=== PATIENT | female | born 1930 | race Caucasian/White ===

== ENCOUNTER → 2016-09-03 | Outpatient (CLI) | payer MEDICARE ==
--- NOTE | 2016-09-03 13:03 | XR ---
EXAMINATION TYPE: XR cervical spine comp DATE OF EXAM: 09/03/2016 12:53 PM TECHNIQUE: Frontal, lateral, oblique, and open mouth view of the cervical spine are obtained. HISTORY: M54.2 cervicalgia COMPARISON: None FINDINGS: Osseous structures are demineralized which is noted to lower radiographic sensitivity for evaluation of anatomic detail. The cervical spine is visualized in its entirety from C1 thru the top of T1 level, there is reversal of normal cervical curvature without evidence of acute fracture or dis location. The pre-vertebral soft tissue appears within normal limits. The C1-C2 articulation is wit hin normal limits on the open mouth view. Vertebral body heights are fairly well-maintained. There is moderate to severe disc space narrowing a nd spurring most prominent at C5-C6 and C6-C7 levels. Moderate disc space narrowing at C7-T1 level is present. There is moderate disc space narrowing and mild to moderate spurring at C4-C5 level. Multil evel uncovertebral facet degenerative changes are seen bilaterally most prominent in the upper to mid cervical spine and more prominent on the left side. The oblique images are felt within normal limits . Overlying soft tissue is unremarkable. There is suspected old fracture deformity of the right poste rior fourth rib. Atherosclerotic change in aortic knob is present. IMPRESSION: Demineralization with reversal of normal cervical curvature moderate to advanced multilev el degenerative changes as detailed above.
== END | disposition home or self-care (01) ==
LOC: RADXRMAIN 12:29
PROVIDERS: ATTEND Family Medicine
DX: M81.0 Age-related osteoporosis without current pathological fracture (principal); M50.322 Other cervical disc degeneration at C5-C6 level; M50.33 Other cervical disc degeneration, cervicothoracic region
CPT/HCPCS: 72050

== ENCOUNTER 2016-10-17 13:38 | Emergency (ER) | payer MEDICARE ==
[2016-10-17 13:43] VITALS: RESP 18; TEMP 97.6
[2016-10-17] MEDS ORDERED: RX INFO: IV CONTRAST WAS GIVEN 1 EACH MISC MISCELLANE PRN (14:22)
[2016-10-17] MEDS ORDERED: IPRATROPIUM-ALBUTEROL 3 ML NEB INHALATION STA (14:22)
[2016-10-17] MEDS ORDERED: SODIUM CHLORIDE 0.9% 1,000 ML IV SCH (14:30)
[2016-10-17 14:47] LABS: Basophils % (A) 0 %; CH 31.1; CHCM 32.8; Eosinophils # (A) 0.1 k/uL (0-0.7); Eosinophils % (A) 2 %; HCT 44.7 % (34.0-46.0); HDW 2.57; HGB 14.6 gm/dL (11.4-16.0); Luc # (Auto) 0.25; Luc % (Auto) 3; Lymphocytes # (A) 2.4 k/uL (1.0-4.8); Lymphocytes % (A) 29 %; MCHC 32.6 g/dL (31.0-37.0); MCV 95.2 fL (80.0-100.0); Mean Platelet Volume 10.5; Monocytes # (A) 0.5 k/uL (0-1.0); Monocytes % (A) 6 %; Neutrophils # (A) 4.9 k/uL (1.3-7.7); Neutrophils % (A) 60 %; RDW 13.9 % (11.5-15.5); WBC 8.3 k/uL (3.8-10.6); WBC (Perox) 7.87
[2016-10-17 14:56] LABS: ALT 28 U/L (9-52); AST 24 U/L (14-36); Alkaline Phosphatase 81 U/L (38-126); Anion Gap 9 mmol/L; Blood Urea Nitrogen 20 mg/dL (7-17); Calcium 9.5 mg/dL (8.4-10.2); Carbon Dioxide 26 mmol/L (22-30); Chloride 105 mmol/L (98-107); Glucose 82 mg/dL (74-99); Magnesium 1.9 mg/dL (1.6-2.3); Non-African American GFR(MDRD) >60 (>60 ml/min/1.73 sqM); Sodium 140 mmol/L (137-145); Total Bilirubin 0.7 mg/dL (0.2-1.3); Total Protein 6.6 g/dL (6.3-8.2)
[2016-10-17] MEDS ORDERED: HYDROmorphone 1 MG/ML 1 ML SYRINGE IVP STA (16:09)
[2016-10-17 16:14] LABS: Appearance,Urine Clear (Clear); Bilirubin,Urine Negative (Negative); Glucose,Urine (UA) Negative (Negative); Ketones,Urine Negative (Negative); Leukocyte Esterase,Urine Negative (Negative); Nitrite,Urine Negative (Negative); PH, Urine 7.5 (5.0-8.0); Protein,Urine Negative (Negative); Specific Gravity,Urine 1.014 (1.001-1.035); UA Billing (MACRO vs. MICRO) CHEM; Urobilinogen,Urine <2.0 mg/dL (<2.0)
--- NOTE | 2016-10-17 16:46 | CT ---
EXAMINATION TYPE: CT lumbar spine w con DATE OF EXAM: 10/17/2016 COMPARISON: NONE HISTORY: Low back and right flank pain. CT DLP: 651.90 mGycm Automated exposure control for dose reduction was used. CONTRAST: CT scan of the lumbar is performed with IV Contrast, patient injected with 100 mL of Omnipaque 300. Enhanced CT of the lumbar spine was performed. Bone and soft tissue window settings are submitted as well as coronal and sagittal reconstructions. There is a 8mm retrolisthesis at L2-3. There is moderate narrowing of L1-L2 3 disc spaces. There is m ild narrowing of other lumbar disc spaces. There is some osteosclerosis on both sides of the L2-3 dis c. I see no sign of spinal stenosis. There are small posterior disc bulges and herniation at L4-5 and L5-S1. There is developmentally adequate spinal canal. Abdominal aorta is atheromatous. There is no compression fracture. There is multilevel hypertrophic facet arthropathy. I see no focal bone destruc tion. The sacroiliac joints are intact. There is no lumbar paraspinal mass. I see no pathologic enhan cement. IMPRESSION: Multilevel spondylotic changes. No fracture. Degenerative retrolisthesis at L2-3. No spinal stenosis seen.
--- NOTE | 2016-10-17 16:52 | CT ---
EXAMINATION TYPE: CT abdomen pelvis w con DATE OF EXAM: 10/17/2016 COMPARISON: 09/26/2011 HISTORY: Low back and right flank pain. CT DLP: 651.90 mGycm Automated exposure control for dose reduction was used. TECHNIQUE: Helical acquisition of images was performed from the lung bases through the pelvis. CONTRAST: Performed without Oral Contrast and with IV Contrast, patient injected with 100 mL of Omnipaque 300. FINDINGS: There is patchy infiltrate and atelectasis at the lung bases. Heart is enlarged. There is no pleural effusion. Thoracic and abdominal aorta is atheromatous. There is mild aneurysm of the lower thoracic and upper bony aorta that measure 3.6 cm. Bile ducts are not dilated. There are a few 1 cm cyst in the liver. There is a large calcified gallst one. Bile ducts are not dilated. Spleen and pancreas appear normal. There is no retroperitoneal adenopathy. There is no adrenal mass. Kidneys show satisfactory contrast opacification. There is no hydronephrosis. There are sigmoid diverticula. There is no evidence of diverticulitis. There is no ascites. Appendix is not seen. There is no sign of appendicitis. There is a left hip prosthesis. I see no focal bone de struction. There are spondylotic changes in the lumbar spine. 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 SPONDYLOTIC CHANGES. UPPER ABDOMINAL AORTIC ANEURYSM I S SLIGHTLY LARGER THAN OLD CT SCAN OF 09/26/2011. THERE IS CLEARING OF THE INFLAMMATORY CHANGES IN THE SIGMOID COLON COMPARED TO OLD EXAM. LARGE CALCIFIED GALLSTONE. NO SIGN OF ACUTE ABDOMEN AND PELVIS. THERE IS INCREASED PATCHY INFILTRATE AND ATELECTASIS AT THE LUNG BASES COMPARED TO OLD EXAM.
[2016-10-17 17:27] VITALS: BP 124/59; PULSE 59
--- NOTE | 2016-10-17 17:37 | ED ---
Back Pain HPI - General Chief Complaint: Back Pain/Injury Stated Complaint: Back Pain Time Seen by Provider: 10/17/16 14:03 Source: EMS Limitations: no limitations - History of Present Illness Initial Comments: The patient is an 86-year-old female who presents to the ED with a chief complaint of lumbar pain. The patient states that the pain is located in the mid-back and radiates down the right flank. Patient states the pain began suddenly earlier today. She states that it achy in nature. Patient notes that she also has some pain on the left side. Patient has a history of chronic back pain. She also has a history of COPD. Initial SpO2 was noted to be approximately 90% on room air. This improved to about 96% after the patient was started on 2L nasal cannula. Patient denies any recent cough. She does cite occasional episodes of shortness of breath and questionable compliance with her DuoNeb inhaler at home. The patient denies any difficulty with bowel movements. She denies any dysuria or hematuria. The patient states that she is quite concerned because last time that she had pain like today was when she had a blockage in her right ureter that caused hydronephrosis on the right side. She did have surgical intervention for this problem. Patient denies any numbness or tingling of her lower extremities. She denies any weakness of the lower extremities. - Related Data Home Medications Medication Instructions Recorded Confirmed Aspirin 81 mg PO DAILY 06/08/14 10/17/16 Budesonide-Formot 160-4.5 Mcg 2 puff INHALATION RT-BID 06/08/14 10/17/16 [Symbicort 160-4.5 Mcg Inhaler] Metoprolol Tartrate [Lopressor] 25 mg PO DAILY 06/08/14 10/17/16 Omeprazole [PriLOSEC] 20 mg PO DAILY 06/08/14 10/17/16 traZODone HCL [Desyrel] 25 - 50 mg PO HS 06/08/14 10/17/16 Albuterol Sulfate [Proair Hfa] 1 - 2 puff INHALATION RT-Q6H PRN 10/17/16 Calcium Carbonate [Calcium] 600 mg PO DAILY 10/17/16 10/17/16 Cholecalciferol [Vitamin D3] 1,000 unit PO DAILY 10/17/16 10/17/16 Fexofenadine HCl [Yudelka Allergy] 180 mg PO DAILY PRN 10/17/16 10/17/16 LORazepam [Ativan] 0.5 mg PO Q8H PRN 10/17/16 10/17/16 Nitroglycerin Sl Tabs [Nitrostat] 0.4 mg SUBLINGUAL Q5M PRN 10/17/16 10/17/16 Sertraline HCl [Zoloft] 100 mg PO DAILY 10/17/16 10/17/16 Simvastatin [Zocor] 40 mg PO Q48H 10/17/16 10/17/16 Previous Rx's Medication Instructions Recorded Acetaminophen Tab [Tylenol Tab] 650 mg PO Q6H PRN #60 tablet 10/17/16 Moxifloxacin HCl [Avelox] 400 mg PO DAILY #7 tablet 10/17/16 Allergies Allergy/AdvReac Type Severity Reaction Status Date / Time acetaminophen AdvReac Itching Verified 10/17/16 15:11 [From Darvocet-N] bacitracin AdvReac Rash/Hives Verified 10/17/16 15:11 [From Neosporin ([id number])] bacitracin zinc AdvReac Rash/Hives Verified 10/17/16 15:11 [From Neosporin ([id number])] clarithromycin [From Biaxin] AdvReac Itching Verified 10/17/16 15:11 codeine AdvReac Nausea Verified 10/17/16 15:11 hydrocodone bitartrate AdvReac Nausea Verified 10/17/16 15:11 [From Lortab] isosorbide mononitrate AdvReac Nausea & Verified 10/17/16 15:11 [From Imdur] Vomiting meperidine HCl [From Demerol] AdvReac Itching Verified 10/17/16 15:11 morphine AdvReac Itching Verified 10/17/16 15:11 neomycin sulfate AdvReac Rash/Hives Verified 10/17/16 15:11 [From Neosporin ([id number])] Penicillins AdvReac Anaphylaxis Verified 10/17/16 15:11 phenobarbital AdvReac Itching Verified 10/17/16 15:11 polymyxin B AdvReac Rash/Hives Verified 10/17/16 15:11 [From Neosporin ([id number])] propoxyphene napsylate AdvReac Itching Verified 10/17/16 15:11 [From Darvocet-N] Sulfa (Sulfonamide AdvReac Itching Verified 10/17/16 15:11 Antibiotics) Review of Systems ROS Statement: Those systems with pertinent positive or pertinent negative responses have been documented in the HPI. ROS Other: All systems not noted in ROS Statement are negative. Constitutional: Denies: fever, chills, weakness Eyes: Denies: vision change ENT: Denies: ear pain, throat pain, dental pain Respiratory: Reports: dyspnea. Denies: cough, wheezes, hemoptysis, stridor Cardiovascular: Denies: chest pain, palpitations, dyspnea on exertion Endocrine: Denies: fatigue Gastrointestinal: Denies: abdominal pain, nausea, vomiting, diarrhea, constipation Genitourinary: Denies: urgency, dysuria, frequency, hematuria Musculoskeletal: Reports: back pain (lumbar pain). Denies: joint swelling Skin: Denies: rash, lesions Neurological: Denies: headache, weakness Psychiatric: Denies: anxiety, depression Past Medical History Past Medical History: Cancer, COPD, Hyperlipidemia, Hypertension History of Any Multi-Drug Resistant Organisms: None Reported Past Surgical History: Bowel Resection, Hernia Repair, Hysterectomy, Orthopedic Surgery Additional Past Surgical History / Comment(s): Renal surgery Past Psychological History: Depression Smoking Status: Current every day smoker Past Alcohol Use History: None Reported Past Drug Use History: None Reported General Exam Limitations: no limitations General appearance: alert, in no apparent distress Head exam: Present: atraumatic, normocephalic Eye exam: Present: normal appearance, PERRL Pupils: Present: normal accommodation ENT exam: Present: normal exam, mucous membranes dry Neck exam: Present: normal inspection, full ROM Respiratory exam: Present: wheezes (bilateral expiratory wheezes noted), other ( crackles at the bilateral bases) Cardiovascular Exam: Present: regular rate, normal rhythm GI/Abdominal exam: Present: soft. Absent: distended, tenderness, guarding, rebound Extremities exam: Present: normal inspection, full ROM, other (4/5 strength of the bilateral upper and lower extremities) Back exam: Present: full ROM, tenderness (mild tenderness in the lumbar region, particularly in the bilateral paraspinal regions) Neurological exam: Present: alert, oriented X3 Psychiatric exam: Present: normal affect, normal mood Course Vital Signs 10/17/16 10/17/16 10/17/16 13:38 14:45 14:52 Temperature 97.6 F Pulse Rate 59 L 56 L 56 L Respiratory 18 Rate Blood Pressure 117/54 O2 Sat by Pulse 93 L Oximetry 10/17/16 17:25 Temperature 97.6 F Pulse Rate 59 L Respiratory 18 Rate Blood Pressure 124/59 O2 Sat by Pulse 96 Oximetry Medical Decision Making - Medical Decision Making Patient is an 86-year-old female who presents to the ED with a chief complaint of lumbar back pain. Patient states it was acute in onset early this morning. Patient states that she doesn't recall any trauma. She states that she is concerned because the last time she had pain similar to this was when she had a blockage in her ureter secondary to renal failure. Will check a CT abdomen and pelvis to rule out any acute abnormality. Also check a CT of the lumbar spine. This is were patient is experiencing the majority of her pain. Will also check a UA and urine culture. Patient has shortness of breath and is requiring 2L nasal cannula. Will provide with breathing treatment. 5:37 PM Patient will be discharged home at this point in time. Pain is well- controlled. I suspect that she has an aggravation of chronic lumbar spine degenerative disc disease. No evidence of any acute abnormality on CT abdomen and pelvis. Patient did have evidence of bilateral infiltrates at the lung bases. Patient will be discharged home with Avelox to treat community acquired pneumonia. Patient's is noted to have SpO2 of 94% on room air. Patient promises that she will use her DuoNeb inhaler every 6 hours as needed while at home. She promises to take her antibiotic and to return to the ED should her symptoms worsen. I've offered the patient take short course of steroids but she declines stating that she does not want this medication. - Lab Data Result diagrams: 10/17/16 13:46 10/17/16 13:46 Lab Results 10/17/16 10/17/16 10/17/16 Range/Units 13:46 13:46 15:50 WBC 8.3 (3.8-10.6) k/uL RBC 4.70 (3.80-5.40) m/uL Hgb 14.6 (11.4-16.0) gm/dL Hct 44.7 (34.0-46.0) % MCV 95.2 (80.0-100.0) fL MCH 31.0 (25.0-35.0) pg MCHC 32.6 (31.0-37.0) g/dL RDW 13.9 (11.5-15.5) % Plt Count 160 (150-450) k/uL Neutrophils % 60 % Lymphocytes % 29 % Monocytes % 6 % Eosinophils % 2 % Basophils % 0 % Neutrophils # 4.9 (1.3-7.7) k/uL Lymphocytes # 2.4 (1.0-4.8) k/uL Monocytes # 0.5 (0-1.0) k/uL Eosinophils # 0.1 (0-0.7) k/uL Basophils # 0.0 (0-0.2) k/uL Sodium 140 (137-145) mmol/L Potassium 5.0 (3.5-5.1) mmol/L Chloride 105 (98-107) mmol/L Carbon Dioxide 26 (22-30) mmol/L Anion Gap 9 mmol/L BUN 20 H (7-17) mg/dL Creatinine 0.70 (0.52-1.04) mg/dL Est GFR (MDRD) Af Amer >60 (>60 ml/min/1.73 sqM) Est GFR (MDRD) Non-Af >60 (>60 ml/min/1.73 sqM) Glucose 82 (74-99) mg/dL Calcium 9.5 (8.4-10.2) mg/dL Magnesium 1.9 (1.6-2.3) mg/dL Total Bilirubin 0.7 (0.2-1.3) mg/dL AST 24 (14-36) U/L ALT 28 (9-52) U/L Alkaline Phosphatase 81 (38-126) U/L Total Protein 6.6 (6.3-8.2) g/dL Albumin 3.8 (3.5-5.0) g/dL Urine Color Yellow Urine Appearance Clear (Clear) Urine pH 7.5 (5.0-8.0) Ur Specific [place] 1.014 (1.001-1.035) Urine Protein Negative (Negative) Urine Glucose (UA) Negative (Negative) Urine Ketones Negative (Negative) Urine Blood Negative (Negative) Urine Nitrite Negative (Negative) Urine Bilirubin Negative (Negative) Urine Urobilinogen <2.0 (<2.0) mg/dL Ur Leukocyte Esterase Negative (Negative) Disposition Clinical Impression: Degenerative disc disease, Lower back pain, Community acquired pneumonia, COPD (chronic obstructive pulmonary disease) Disposition: HOME SELF-CARE Condition: Good Instructions: COPD (Chronic Obstructive Pulmonary Disease) (ED), Chronic Back Pain (ED) Additional Instructions: Please follow up with your primary care physician regarding your visit to the ED today. They can help to ensure that her symptoms have improved. I recommend you follow up within the next 3-5 days. Please return to the ED should her symptoms worsen. Please continue to use her DuoNeb inhaler at home every 6 hours as needed. Please take antibiotics provided to today as directed. Please use Tylenol as needed for your lower back pain. Please return to the ED should he have any worsening weakness of your bilateral lower extremities. Prescriptions: Acetaminophen Tab [Tylenol Tab] 650 mg PO Q6H PRN #60 tablet PRN Reason: pain Moxifloxacin HCl [Avelox] 400 mg PO DAILY #7 tablet Referrals: Aristides Mcneill DO [Primary Care Provider] - 10/21/16 (Please follow up with Dr. Mcneill within the next 3-5 days regarding your visit to the ED today. She can help to ensure that your symptoms are improving) Time of Disposition: 17:37
== END 2016-10-17 17:54 | disposition home or self-care (01) ==
LOC: EC 13:38
DX: M51.36 Other intervertebral disc degeneration, lumbar region (principal); J18.9 Pneumonia, unspecified organism; J44.9 Chronic obstructive pulmonary disease, unspecified; E78.5 Hyperlipidemia, unspecified; I10 Essential (primary) hypertension; F32.9 Major depressive disorder, single episode, unspecified; F17.200 Nicotine dependence, unspecified, uncomplicated; Z85.9 Personal history of malignant neoplasm, unspecified; Z79.82 Long term (current) use of aspirin; Z79.51 Long term (current) use of inhaled steroids; Z79.899 Other long term (current) drug therapy; Z88.1 Allergy status to other antibiotic agents; Z88.0 Allergy status to penicillin; Z88.2 Allergy status to sulfonamides; Z88.5 Allergy status to narcotic agent; Z88.8 Allergy status to other drugs, medicaments and biological substances; Z90.710 Acquired absence of both cervix and uterus
CPT/HCPCS: 36415; 94640; 80053; 83735; 85025; 81003; 87086; 72132; 74177; 99284; 96374; 96361 ×3; J1170; Q9967

== ENCOUNTER 2016-10-19 15:57 | Inpatient (IN) | payer MEDICARE ==
[2016-10-19 17:13] LABS: Basophils # (A) 0.1 k/uL (0-0.2); Basophils % (A) 1 %; CH 31.4; CHCM 32.6; Eosinophils # (A) 0.2 k/uL (0-0.7); Eosinophils % (A) 2 %; HCT 45.5 % (34.0-46.0); HDW 2.59; HGB 14.6 gm/dL (11.4-16.0); Luc # (Auto) 0.22; Luc % (Auto) 2; Lymphocytes # (A) 1.5 k/uL (1.0-4.8); Lymphocytes % (A) 16 %; MCH 31.2 pg (25.0-35.0); MCHC 32.2 g/dL (31.0-37.0); Mean Platelet Volume 9.8; Monocytes # (A) 0.5 k/uL (0-1.0); Monocytes % (A) 6 %; Neutrophils # (A) 6.8 k/uL (1.3-7.7); Neutrophils % (A) 74 %; RBC 4.69 m/uL (3.80-5.40); RDW 13.8 % (11.5-15.5); WBC 9.2 k/uL (3.8-10.6); WBC (Perox) 8.32
[2016-10-19 17:25] LABS: ALT 27 U/L (9-52); AST 23 U/L (14-36); Alkaline Phosphatase 88 U/L (38-126); Amylase 80 U/L (30-110); Anion Gap 9 mmol/L; Blood Urea Nitrogen 17 mg/dL (7-17); Calcium 9.8 mg/dL (8.4-10.2); Carbon Dioxide 31 mmol/L (22-30); Chloride 101 mmol/L (98-107); Glucose 109 mg/dL (74-99); Non-African American GFR(MDRD) 55 (>60 ml/min/1.73 sqM); Potassium 4.6 mmol/L (3.5-5.1); Sodium 141 mmol/L (137-145); Total Protein 7.2 g/dL (6.3-8.2)
[2016-10-19] MEDS ORDERED: HYDROmorphone 1 MG/ML 1 ML SYRINGE IVP STA (17:27)
--- NOTE | 2016-10-19 18:47 | ED ---
Abdominal Pain HPI - General Chief Complaint: Abdominal Pain Stated Complaint: Back Pain Time Seen by Provider: 10/19/16 16:05 Source: patient Mode of arrival: ambulatory Limitations: no limitations - History of Present Illness Initial Comments: This patient is an 86-year-old woman who presents to be evaluated for right flank pain that has been going on for 3 days now. She was seen here initially on for this. She had complete workup she states and was offered admission but said to go home. She states that the pain as not improved. She states the pain is constant, severe, worse if she moves or touches that area. She states that it is similar to pain she had with previous ureteral obstruction. The patient denies any fever or chills, vomiting, change in bowel movements, change in urination or other associated symptoms. MD Complaint: flank pain Onset/Timin -: days(s) Location: R flank Radiation: none Severity: severe Quality: aching, sharp Consistency: constant Improves With: nothing Worsens With: movement Associated Symptoms: denies other symptoms - Related Data Home Medications Medication Instructions Recorded Confirmed Aspirin 81 mg PO Q48H 06/08/14 10/20/16 Budesonide-Formot 160-4.5 Mcg 2 puff INHALATION RT-BID 06/08/14 10/20/16 [Symbicort 160-4.5 Mcg Inhaler] Omeprazole [PriLOSEC] 20 mg PO DAILY 06/08/14 10/20/16 traZODone HCL [Desyrel] 50 mg PO HS 06/08/14 10/20/16 Albuterol Sulfate [Proair Hfa] 1 - 2 puff INHALATION RT-Q6H PRN 10/17/16 Calcium Carbonate [Calcium] 600 mg PO DAILY 10/17/16 10/20/16 Cholecalciferol [Vitamin D3] 1,000 unit PO DAILY 10/17/16 10/20/16 Fexofenadine HCl [Yudelka Allergy] 180 mg PO DAILY PRN 10/17/16 10/20/16 LORazepam [Ativan] 0.5 mg PO Q8H PRN 10/17/16 10/20/16 Nitroglycerin Sl Tabs [Nitrostat] 0.4 mg SUBLINGUAL Q5M PRN 10/17/16 10/20/16 Sertraline HCl [Zoloft] 100 mg PO DAILY 10/17/16 10/20/16 Simvastatin [Zocor] 40 mg PO Q48H 10/17/16 10/20/16 Triamcinolone 0.1% Cream [Kenalog] 1 applicatio TOPICAL BID 10/20/16 10/20/16 Previous Rx's Medication Instructions Recorded Acetaminophen Tab [Tylenol] 650 mg PO Q6H PRN #60 tablet 10/17/16 Baclofen [Lioresal] 5 mg PO TID PRN #50 tab 10/25/16 Ipratropium/Albuterol Sulfate 2 puff INHALATION QID #1 inhaler 10/25/16 [Combivent Respimat Inhaler] Metoprolol Tartrate [Lopressor] 12.5 mg PO BID #0 10/25/16 Naproxen [Naprosyn] 250 mg PO BID #30 tab 10/25/16 Magnesium Chloride [Slow Mag] 64 mg PO TID #15 tablet.er 10/27/16 Allergies Allergy/AdvReac Type Severity Reaction Status Date / Time bacitracin Allergy Rash/Hives Verified 10/20/16 08:38 [From Neosporin ([id number])] bacitracin zinc Allergy Rash/Hives Verified 10/20/16 08:38 [From Neosporin ([id number])] clarithromycin [From Biaxin] Allergy Itching Verified 10/20/16 08:38 meperidine HCl [From Demerol] Allergy Itching Verified 10/20/16 08:38 morphine Allergy Itching Verified 10/20/16 08:38 neomycin sulfate Allergy Rash/Hives Verified 10/20/16 08:38 [From Neosporin ([id number])] Penicillins Allergy Anaphylaxis Verified 10/20/16 08:38 phenobarbital Allergy Itching Verified 10/20/16 08:38 polymyxin B Allergy Rash/Hives Verified 10/20/16 08:38 [From Neosporin ([id number])] propoxyphene napsylate Allergy Itching Verified 10/20/16 08:38 [From Darvocet-N] Sulfa (Sulfonamide Allergy Itching Verified 10/20/16 08:38 Antibiotics) codeine AdvReac Nausea Verified 10/20/16 08:38 hydrocodone bitartrate AdvReac Nausea Verified 10/20/16 08:38 [From Lortab] isosorbide mononitrate AdvReac Nausea & Verified 10/20/16 08:38 [From Imdur] Vomiting Review of Systems ROS Statement: Those systems with pertinent positive or pertinent negative responses have been documented in the HPI. ROS Other: All systems not noted in ROS Statement are negative. Constitutional: Denies: fever, chills Respiratory: Denies: cough, dyspnea Cardiovascular: Denies: chest pain, palpitations, edema, syncope Gastrointestinal: Reports: abdominal pain. Denies: nausea, vomiting, diarrhea, constipation, melena, hematochezia Genitourinary: Denies: dysuria, frequency, hematuria Musculoskeletal: Reports: as per HPI, back pain Skin: Denies: rash Neurological: Denies: headache, weakness, numbness Past Medical History Past Medical History: Cancer, COPD, Hyperlipidemia, Hypertension, Pneumonia History of Any Multi-Drug Resistant Organisms: None Reported Past Surgical History: Bowel Resection, Hernia Repair, Hysterectomy, Orthopedic Surgery Additional Past Surgical History / Comment(s): Renal surgery Past Psychological History: Depression Smoking Status: Current every day smoker Past Alcohol Use History: None Reported Past Drug Use History: None Reported - Past Family History Mother Family Medical History: Rheumatoid Arthritis (RA) Additional Family Medical History / Comment(s): breast CA Father Family Medical History: Myocardial Infarction ([place]) Additional Family Medical History / Comment(s): father from heart attack General Exam Limitations: no limitations General appearance: alert, in no apparent distress Head exam: Present: atraumatic, normocephalic, normal inspection ENT exam: Present: mucous membranes dry Neck exam: Present: normal inspection Respiratory exam: Present: normal lung sounds bilaterally. Absent: respiratory distress, wheezes, rales, rhonchi, stridor Cardiovascular Exam: Present: regular rate, normal rhythm, normal heart sounds. Absent: systolic murmur, diastolic murmur, rubs, gallop GI/Abdominal exam: Present: soft, tenderness (Patient has moderate diffuse abdominal tenderness that she states has been present for as long as she can remember.). Absent: guarding, rebound, mass, pulsatile mass Extremities exam: Present: normal inspection, normal capillary refill. Absent: pedal edema, calf tenderness Back exam: Present: normal inspection. Absent: CVA tenderness (R), CVA tenderness (L) Neurological exam: Present: alert Skin exam: Present: warm, dry, intact, normal color. Absent: rash Course Vital Signs 10/19/16 10/19/16 10/19/16 15:59 16:58 17:40 Temperature 98.6 F 98.3 F Pulse Rate 57 L 54 L 52 L Respiratory 20 16 16 Rate Blood Pressure 119/79 143/67 132/60 O2 Sat by Pulse 92 L 96 95 Oximetry 10/19/16 18:48 Temperature 98.4 F Pulse Rate 53 L Respiratory 16 Rate Blood Pressure 124/66 O2 Sat by Pulse 94 L Oximetry Medical Decision Making - Lab Data Result diagrams: 10/27/16 06:47 10/27/16 07:12 Lab Results 10/19/16 10/19/16 10/19/16 Range/Units 16:40 16:40 20:04 WBC 9.2 (3.8-10.6) k/uL RBC 4.69 (3.80-5.40) m/uL Hgb 14.6 (11.4-16.0) gm/dL Hct 45.5 (34.0-46.0) % MCV 97.0 (80.0-100.0) fL MCH 31.2 (25.0-35.0) pg MCHC 32.2 (31.0-37.0) g/dL RDW 13.8 (11.5-15.5) % Plt Count 162 (150-450) k/uL Neutrophils % 74 % Lymphocytes % 16 % Monocytes % 6 % Eosinophils % 2 % Basophils % 1 % Neutrophils # 6.8 (1.3-7.7) k/uL Lymphocytes # 1.5 (1.0-4.8) k/uL Monocytes # 0.5 (0-1.0) k/uL Eosinophils # 0.2 (0-0.7) k/uL Basophils # 0.1 (0-0.2) k/uL PT (9.0-12.0) sec INR (<1.1) Sodium 141 (137-145) mmol/L Potassium 4.6 (3.5-5.1) mmol/L Chloride 101 (98-107) mmol/L Carbon Dioxide 31 H (22-30) mmol/L Anion Gap 9 mmol/L BUN 17 (7-17) mg/dL Creatinine 0.97 (0.52-1.04) mg/dL Est GFR (MDRD) Af Amer >60 (>60 ml/min/1.73 sqM) Est GFR (MDRD) Non-Af 55 (>60 ml/min/1.73 sqM) Glucose 109 H (74-99) mg/dL Calcium 9.8 (8.4-10.2) mg/dL Total Bilirubin 1.0 (0.2-1.3) mg/dL AST 23 (14-36) U/L ALT 27 (9-52) U/L Alkaline Phosphatase 88 (38-126) U/L Total Protein 7.2 (6.3-8.2) g/dL Albumin 4.1 (3.5-5.0) g/dL Amylase 80 (30-110) U/L Lipase 61 (23-300) U/L Urine Color Yellow Urine Appearance Clear (Clear) Urine pH 5.5 (5.0-8.0) Ur Specific Newton 1.021 (1.001-1.035) Urine Protein Trace H (Negative) Urine Glucose (UA) Negative (Negative) Urine Ketones Negative (Negative) Urine Blood Negative (Negative) Urine Nitrite Negative (Negative) Urine Bilirubin Negative (Negative) Urine Urobilinogen <2.0 (<2.0) mg/dL Ur Leukocyte Esterase Trace H (Negative) Urine RBC <1 (0-5) /hpf Urine WBC 2 (0-5) /hpf Ur Squamous Epith Cells 1 (0-4) /hpf Hyaline Casts 5 H (0-2) /lpf Urine Mucus Rare H (None) /hpf 10/20/16 10/20/16 10/22/16 Range/Units 08:55 08:55 09:13 WBC 6.3 (3.8-10.6) k/uL RBC 4.31 (3.80-5.40) m/uL Hgb 13.6 (11.4-16.0) gm/dL Hct 42.1 (34.0-46.0) % MCV 97.7 (80.0-100.0) fL MCH 31.4 (25.0-35.0) pg MCHC 32.2 (31.0-37.0) g/dL RDW 13.8 (11.5-15.5) % Plt Count 158 (150-450) k/uL Neutrophils % 64 % Lymphocytes % 23 % Monocytes % 6 % Eosinophils % 3 % Basophils % 1 % Neutrophils # 4.0 (1.3-7.7) k/uL Lymphocytes # 1.5 (1.0-4.8) k/uL Monocytes # 0.4 (0-1.0) k/uL Eosinophils # 0.2 (0-0.7) k/uL Basophils # 0.0 (0-0.2) k/uL PT 10.9 (9.0-12.0) sec INR 1.1 (<1.1) Sodium 141 (137-145) mmol/L Potassium 4.3 (3.5-5.1) mmol/L Chloride 103 (98-107) mmol/L Carbon Dioxide 30 (22-30) mmol/L Anion Gap 8 mmol/L BUN 17 (7-17) mg/dL Creatinine 0.77 (0.52-1.04) mg/dL Est GFR (MDRD) Af Amer >60 (>60 ml/min/1.73 sqM) Est GFR (MDRD) Non-Af >60 (>60 ml/min/1.73 sqM) Glucose 100 H (74-99) mg/dL Calcium 9.3 (8.4-10.2) mg/dL Total Bilirubin (0.2-1.3) mg/dL AST (14-36) U/L ALT (9-52) U/L Alkaline Phosphatase (38-126) U/L Total Protein (6.3-8.2) g/dL Albumin (3.5-5.0) g/dL Amylase (30-110) U/L Lipase (23-300) U/L Urine Color Urine Appearance (Clear) Urine pH (5.0-8.0) Ur Specific Newton (1.001-1.035) Urine Protein (Negative) Urine Glucose (UA) (Negative) Urine Ketones (Negative) Urine Blood (Negative) Urine Nitrite (Negative) Urine Bilirubin (Negative) Urine Urobilinogen (<2.0) mg/dL Ur Leukocyte Esterase (Negative) Urine RBC (0-5) /hpf Urine WBC (0-5) /hpf Ur Squamous Epith Cells (0-4) /hpf Hyaline Casts (0-2) /lpf Urine Mucus (None) /hpf 10/23/16 10/23/16 Range/Units 07:15 07:15 WBC 6.3 (3.8-10.6) k/uL RBC 4.25 (3.80-5.40) m/uL Hgb 13.1 (11.4-16.0) gm/dL Hct 41.6 (34.0-46.0) % MCV 97.8 (80.0-100.0) fL MCH 30.9 (25.0-35.0) pg MCHC 31.6 (31.0-37.0) g/dL RDW 13.8 (11.5-15.5) % Plt Count 152 (150-450) k/uL Neutrophils % 66 % Lymphocytes % 22 % Monocytes % 6 % Eosinophils % 3 % Basophils % 0 % Neutrophils # 4.1 (1.3-7.7) k/uL Lymphocytes # 1.4 (1.0-4.8) k/uL Monocytes # 0.4 (0-1.0) k/uL Eosinophils # 0.2 (0-0.7) k/uL Basophils # 0.0 (0-0.2) k/uL PT (9.0-12.0) sec INR (<1.1) Sodium 141 (137-145) mmol/L Potassium 4.1 (3.5-5.1) mmol/L Chloride 107 (98-107) mmol/L Carbon Dioxide 23 (22-30) mmol/L Anion Gap 11 mmol/L BUN 20 H (7-17) mg/dL Creatinine 0.96 (0.52-1.04) mg/dL Est GFR (MDRD) Af Amer >60 (>60 ml/min/1.73 sqM) Est GFR (MDRD) Non-Af 55 (>60 ml/min/1.73 sqM) Glucose 90 (74-99) mg/dL Calcium 8.9 (8.4-10.2) mg/dL Total Bilirubin (0.2-1.3) mg/dL AST (14-36) U/L ALT (9-52) U/L Alkaline Phosphatase (38-126) U/L Total Protein (6.3-8.2) g/dL Albumin (3.5-5.0) g/dL Amylase (30-110) U/L Lipase (23-300) U/L Urine Color Urine Appearance (Clear) Urine pH (5.0-8.0) Ur Specific [place] (1.001-1.035) Urine Protein (Negative) Urine Glucose (UA) (Negative) Urine Ketones (Negative) Urine Blood (Negative) Urine Nitrite (Negative) Urine Bilirubin (Negative) Urine Urobilinogen (<2.0) mg/dL Ur Leukocyte Esterase (Negative) Urine RBC (0-5) /hpf Urine WBC (0-5) /hpf Ur Squamous Epith Cells (0-4) /hpf Hyaline Casts (0-2) /lpf Urine Mucus (None) /hpf Disposition Clinical Impression: COPD (chronic obstructive pulmonary disease) Disposition: ADMITTED IP TO THIS HOSP Condition: Stable
[2016-10-19] MEDS ORDERED: SODIUM CHLORIDE 0.9% 1,000 ML IV ONE (18:49)
[2016-10-19] MEDS ORDERED: LORazepam 0.5 MG TAB PO PRN (18:51)
[2016-10-19] MEDS ORDERED: NITROGLYCERIN SL TABS 0.4 MG TAB SUBLINGUAL PRN (18:51)
[2016-10-19] MEDS ORDERED: ATORVASTATIN 20 MG TAB PO SCH (21:00)
[2016-10-19 21:58] LABS: Appearance,Urine Clear (Clear); Bilirubin,Urine Negative (Negative); Glucose,Urine (UA) Negative (Negative); Ketones,Urine Negative (Negative); Leukocyte Esterase,Urine Trace (Negative); Mucus,Urine Rare /hpf; Nitrite,Urine Negative (Negative); PH, Urine 5.5 (5.0-8.0); Particle Count 2824; Protein,Urine Trace (Negative); RBC,Urine <1 /hpf (0-5); Specific Gravity,Urine 1.021 (1.001-1.035); Squamous Epithelial Cell,Urine 1 /hpf (0-4); UA Billing (MACRO vs. MICRO) MICRO; Urobilinogen,Urine <2.0 mg/dL (<2.0); WBC,Urine 2 /hpf (0-5)
[2016-10-19 21:59] VITALS: BMI 25.7
[2016-10-19] MEDS: SYMBICORT 160-4.5 MCG INHALER INHALATION SCH (22:27)
[2016-10-20] MEDS: ACETAMINOPHEN TAB 325 MG TAB PO PRN (00:08)
[2016-10-20] MEDS: HYDROcodone/APAP 5-325MG 1 EACH TAB PO PRN ×4 (02:51→17:30)
[2016-10-20] MEDS: PANTOPRAZOLE 40 MG TABLET PO SCH (06:58)
[2016-10-20] MEDS: SERTRALINE 100 MG TAB PO SCH (06:58)
[2016-10-20] MEDS ORDERED: LORATADINE 10 MG TAB PO PRN (07:51)
[2016-10-20] MEDS: SYMBICORT 160-4.5 MCG INHALER INHALATION SCH (09:22)
[2016-10-20] MEDS: ALBUTEROL NEBULIZED 2.5 MG/3 ML INHALATION PRN ×2 (09:22→13:19)
[2016-10-20 09:33] LABS: Basophils % (A) 1 %; CH 31.3; CHCM 32.2; Eosinophils # (A) 0.2 k/uL (0-0.7); Eosinophils % (A) 3 %; HCT 42.1 % (34.0-46.0); HDW 2.57; HGB 13.6 gm/dL (11.4-16.0); Luc # (Auto) 0.22; Luc % (Auto) 4; Lymphocytes # (A) 1.5 k/uL (1.0-4.8); Lymphocytes % (A) 23 %; MCH 31.4 pg (25.0-35.0); MCHC 32.2 g/dL (31.0-37.0); MCV 97.7 fL (80.0-100.0); Mean Platelet Volume 9.8; Monocytes # (A) 0.4 k/uL (0-1.0); Monocytes % (A) 6 %; Neutrophils % (A) 64 %; RBC 4.31 m/uL (3.80-5.40); RDW 13.8 % (11.5-15.5); WBC 6.3 k/uL (3.8-10.6)
[2016-10-20] MEDS: ENOXAPARIN 40 MG/0.4 ML SYRINGE SQ SCH (09:45)
[2016-10-20] MEDS: METOPROLOL SUCCINATE (ER) 25 MG TAB.ER.24H PO SCH (09:45)
[2016-10-20] MEDS: ASPIRIN 81 MG CHEW PO SCH (09:46)
[2016-10-20 09:52] LABS: Anion Gap 8 mmol/L; Blood Urea Nitrogen 17 mg/dL (7-17); Calcium 9.3 mg/dL (8.4-10.2); Carbon Dioxide 30 mmol/L (22-30); Chloride 103 mmol/L (98-107); Glucose 100 mg/dL (74-99); Non-African American GFR(MDRD) >60 (>60 ml/min/1.73 sqM); Potassium 4.3 mmol/L (3.5-5.1); Sodium 141 mmol/L (137-145)
[2016-10-20] MEDS ORDERED: CHOLECALCIFEROL 1,000 UNIT TAB PO SCH (12:00)
[2016-10-20] MEDS: NAPROXEN 250 MG TAB PO SCH ×2 (18:22→21:30)
[2016-10-20] MEDS: BACLOFEN 10 MG TAB PO SCH ×2 (18:23→21:30)
[2016-10-20] MEDS: BUDESONIDE 1 MG/2 ML NEBU INHALATION SCH (21:29)
[2016-10-20] MEDS: FAMOTIDINE 20 MG TAB PO SCH (21:30)
[2016-10-20] MEDS: ATORVASTATIN 20 MG TAB PO SCH (21:30)
[2016-10-20] MEDS: traZODone HCL 50 MG TAB PO SCH (21:30)
[2016-10-20] MEDS: IPRATROPIUM-ALBUTEROL 3 ML NEB INHALATION SCH ×2 (21:38)
[2016-10-21] MEDS: HYDROcodone/APAP 5-325MG 1 EACH TAB PO PRN ×3 (07:09→20:11)
[2016-10-21] MEDS: IPRATROPIUM-ALBUTEROL 3 ML NEB INHALATION SCH ×4 (07:46→21:48)
[2016-10-21] MEDS: BUDESONIDE 1 MG/2 ML NEBU INHALATION SCH ×2 (07:46→21:48)
[2016-10-21] MEDS: NAPROXEN 250 MG TAB PO SCH ×2 (08:23→20:11)
[2016-10-21] MEDS: ENOXAPARIN 40 MG/0.4 ML SYRINGE SQ SCH (08:23)
[2016-10-21] MEDS: ASPIRIN 81 MG CHEW PO SCH (08:24)
[2016-10-21] MEDS: PANTOPRAZOLE 40 MG TABLET PO SCH (08:24)
[2016-10-21] MEDS: BACLOFEN 10 MG TAB PO SCH ×3 (08:24→23:23)
[2016-10-21] MEDS: SERTRALINE 100 MG TAB PO SCH (08:24)
[2016-10-21] MEDS: METOPROLOL SUCCINATE (ER) 25 MG TAB.ER.24H PO SCH (08:24)
[2016-10-21] MEDS: FAMOTIDINE 20 MG TAB PO SCH ×2 (08:24→20:11)
--- NOTE | 2016-10-21 08:44 | HP ---
DATE OF ADMISSION: 10/19/2016 PRESENTING COMPLAINT: Back pain. HISTORY OF PRESENTING COMPLAINT: A very pleasant 86-year-old patient of Dr. Mcneill whose chronic stable medical conditions include hyperlipidemia, hypertension. Patient also has got COPD, is a smoker. Has arthritis in multiple joints. Patient ( ) pain in the back about 5 days ago, became severe coming around to the front. Patient did go to the ER and did have some work-up done and decided to go back home. Pain became uncontrolled and decided to come in. No nausea or vomiting. No fever. The patient normally has 2 bowel movements a week. Patient is a smoker. REVIEW OF SYSTEMS: CONSTITUTIONAL: Weak, tired. HEENT: None. RESPIRATORY: Wheezing, coughing, quite congested. CARDIOVASCULAR: None. GASTROINTESTINAL: None. GENITOURINARY: None. MUSCULOSKELETAL: As above. Dermatologic: None. HEMATOLOGIC: None. LYMPHATICS: None. PSYCHIATRY: None. NEUROLOGICAL: None. PAST HISTORY: COPD, hypertension, hyperlipidemia, osteoarthritis. PAST SURGICAL HISTORY: Bowel resection and hysterectomy, ( ) surgery. SOCIAL HISTORY: Smokes about a pack a day. Lives by herself. Does have a walker. Family history of rheumatoid arthritis, breast cancer. HOME MEDICATIONS: 1. Desyrel 50 mg at bedtime. 2. ( ) one application topically b.i.d. 3. Zocor 40 mg q.48 hours. 4. Zoloft 1 mg p.o. daily. 5. Prilosec 20 mg daily. 6. Nitrostat 0.4 sublingual q.5 p.r.n. 7. Avelox 400 mg p.o. daily. 8. Lopressor 25 p.o. daily. 9. Ativan 0.5 p.o. q8 p.r.n. 10. Yudelka 180 milligrams daily p.r.n. 11. Vitamin D3, 1000 units p.o. daily. 12. Calcium 600 mg p.o. daily. 13. Symbicort 160/4.5, 2 puffs b.i.d. 14. Aspirin 81 mg q.48 hours. 15. Pro-Air 1 to 2 puffs q.6 p.r.n. 16. Tylenol 650 mg q.6 p.r.n. ALLERGIES: DARVOCET-N 100, BACITRACIN, NIFEDIPINE, MORPHINE, NEOMYCIN, PENICILLIN, PHENOBARBITAL, SULFA, CODEINE, LORTAB, IMDUR. Vital signs on presentation: Temperature 98.6, pulse 57, respiratory 20, blood pressure 109/79, pulse 92% on 2 L. GENERAL APPEARANCE: Average build, lying in bed. Uncomfortable appearing. EYES: Pupils equal. Conjunctivae normal. HEENT: External appearance of nose and ears normal. Oral cavity normal. NECK: JVD not raised. Mass not palpable. RESPIRATORY: Effort increased. LUNGS: Decreased breath sounds, prolonged expiration wheezing. Some crackles. CARDIOVASCULAR: First and second sounds normal. No edema. ABDOMEN: Soft, nontender. Liver and spleen not palpable. LYMPHATICS: No lymph nodes palpable in the neck, axillae or groin. PSYCHIATRY: Alert and oriented times three. Mood and affect anxious appearing. MUSCULOSKELETAL: Evidence of osteoarthrosis of multiple joints. The patient has tenderness over the lumbar spine of the L2 region. INVESTIGATIONS: CT scan of the lumbar spine done on 10/17/2016 shows retrolisthesis L2 and L3 and moderate narrowing at L1, L2, L3 disc space. No compression fracture. CT scan of the abdomen and pelvis shows sigmoid diverticula. ASSESSMENT: 1. Acute pain in the region of L1 to L3 with significant spondylolisthesis and severe radiculopathy. No evidence of compression fracture. 2. Acute chronic obstructive pulmonary disease exacerbation in a smoker. 3. Hyperlipidemia. 4. Essential hypertension. 5. Chronic nicotine dependence. Patient is a smoker. 6. 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 PLAN: For pain control we will start the patient on naproxen 500 mg twice a day, Baclofen 5 mg 3 times a day for muscle spasms, Lovenox for DVT prophylaxis and Pepcid for GI protection. Other home medications are resumed. The patient is also put on DuoNeb, nebulized bronchodilator. We will also put a K-pad. Advised against smoking, given a nicotine patch. Care discussed with the patient and her friend at the bedside. Copy to Dr. Mcneill.
[2016-10-21] MEDS: ACETAMINOPHEN TAB 325 MG TAB PO PRN (12:35)
--- NOTE | 2016-10-21 13:04 | XR ---
EXAMINATION TYPE: XR abdomen 2V DATE OF EXAM: 10/21/2016 COMPARISON: NONE INDICATION: Constipation, abdominal pain TECHNIQUE: Single view abdomen upright view FINDINGS: There is a normal colonic bowel gas pattern. Some nonspecific small bowel gas is within the mid abdom en. Postsurgical changes are present. Psoas margins are normal. No organomegaly is present. No free air is present. No differential air-fluid levels are present. No mass effect is evident. Dege nerative changes are at the right hip. There is a left hip prosthesis. Degenerative changes are throu gh the lumbar spine. IMPRESSION: 1. Nonspecific abdomen.
[2016-10-21] MEDS ORDERED: DIAZEPAM 2 MG TAB PO STA (14:46)
--- NOTE | 2016-10-21 16:06 | P.CNOR ---
History of Present Illness - [facility] Consult date: 10/21/16 Requesting physician: Giovani Renee Consult reason: back pain (Right-sided flank pain) History of present illness: Patient is a very pleasant 86-year-old female who is seen and examined at bedside after we were consulted by Dr. Renee for evaluation for back pain. Patient states on 10/17/2016 while putting on her jacket on, she started to experience significant right-sided flank pain. She presented to the emergency department for further evaluation and treatment. At that time a CT of the lumbar spine and a CT of abdomen and pelvis were taken that were negative for acute findings. She was offered admission at that time but declined. Her symptoms did not improved over the next couple days and she presented back to the emergency department on 10/19/2016 for the same symptoms. She has since been admitted and is undergoing further evaluation. He does have a history of a previous ureteral obstruction. Patient states she has some difficulty with describing her pain. Occasionally she has some low back pain but her pain is most significant over the right flank radiating towards the abdomen on the right. Her skin is significantly tender with palpation. Sometimes this pain radiates up towards the underside of her armpit. She denies any lower extremity radiculopathy or weakness bilaterally. She has some generalized lower extremity weakness. Prior to exacerbation of her symptoms she was able to perform regular activities of daily living without significant difficulty including bowling. She does feel her current pain somewhat represents the same pain she had at the time of her to her previous ureteral obstruction. Consultation is in place with general surgery but has not been evaluated. He denies any recent falls, accidents or injuries. Past Medical History Past Medical History: Cancer, COPD, Hyperlipidemia, Hypertension, Pneumonia History of Any Multi-Drug Resistant Organisms: None Reported Past Surgical History: Bowel Resection, Hernia Repair, Hysterectomy, Orthopedic Surgery Additional Past Surgical History / Comment(s): Renal surgery Past Anesthesia/Blood Transfusion Reactions: No Reported Reaction Past Psychological History: Depression Smoking Status: Current some day smoker Past Alcohol Use History: None Reported Past Drug Use History: None Reported - Past Family History Mother Family Medical History: Rheumatoid Arthritis (RA) Additional Family Medical History / Comment(s): breast CA Father Family Medical History: Myocardial Infarction ([place]) Additional Family Medical History / Comment(s): father from heart attack Medications and Allergies Home Medications Medication Instructions Recorded Confirmed Type Aspirin 81 mg PO Q48H 06/08/14 10/20/16 History Budesonide-Formot 160-4.5 Mcg 2 puff INHALATION RT-BID 06/08/14 10/20/16 History [Symbicort 160-4.5 Mcg Inhaler] Metoprolol Tartrate [Lopressor] 25 mg PO DAILY 06/08/14 10/20/16 History Omeprazole [PriLOSEC] 20 mg PO DAILY 06/08/14 10/20/16 History traZODone HCL [Desyrel] 50 mg PO HS 06/08/14 10/20/16 History Albuterol Sulfate [Proair Hfa] 1 - 2 puff INHALATION RT-Q6H PRN 10/17/16 History Calcium Carbonate [Calcium] 600 mg PO DAILY 10/17/16 10/20/16 History Cholecalciferol [Vitamin D3] 1,000 unit PO DAILY 10/17/16 10/20/16 History Fexofenadine HCl [Yudelka Allergy] 180 mg PO DAILY PRN 10/17/16 10/20/16 History LORazepam [Ativan] 0.5 mg PO Q8H PRN 10/17/16 10/20/16 History Nitroglycerin Sl Tabs [Nitrostat] 0.4 mg SUBLINGUAL Q5M PRN 10/17/16 10/20/16 History Sertraline HCl [Zoloft] 100 mg PO DAILY 10/17/16 10/20/16 History Simvastatin [Zocor] 40 mg PO Q48H 10/17/16 10/20/16 History Triamcinolone 0.1% Cream [Kenalog] 1 applicatio TOPICAL BID 10/20/16 10/20/16 History Allergies Allergy/AdvReac Type Severity Reaction Status Date / Time acetaminophen Allergy Itching Verified 10/20/16 08:38 [From Darvocet-N] bacitracin Allergy Rash/Hives Verified 10/20/16 08:38 [From Neosporin ([id number])] bacitracin zinc Allergy Rash/Hives Verified 10/20/16 08:38 [From Neosporin ([id number])] clarithromycin [From Biaxin] Allergy Itching Verified 10/20/16 08:38 meperidine HCl [From Demerol] Allergy Itching Verified 10/20/16 08:38 morphine Allergy Itching Verified 10/20/16 08:38 neomycin sulfate Allergy Rash/Hives Verified 10/20/16 08:38 [From Neosporin ([id number])] Penicillins Allergy Anaphylaxis Verified 10/20/16 08:38 phenobarbital Allergy Itching Verified 10/20/16 08:38 polymyxin B Allergy Rash/Hives Verified 10/20/16 08:38 [From Neosporin ([id number])] propoxyphene napsylate Allergy Itching Verified 10/20/16 08:38 [From Darvocet-N] Sulfa (Sulfonamide Allergy Itching Verified 10/20/16 08:38 Antibiotics) codeine AdvReac Nausea Verified 10/20/16 08:38 hydrocodone bitartrate AdvReac Nausea Verified 10/20/16 08:38 [From Lortab] isosorbide mononitrate AdvReac Nausea & Verified 10/20/16 08:38 [From Imdur] Vomiting Physical Examination Physical exam: Patient is awake, alert, and oriented 3 Vital signs stable Good chest excursion with deep inspiration and expiration; currently on O2 nasal cannula Abdomen soft nontender Examination of lumbar spine reveals skin is intact with no abrasions, lacerations, or bruises; no erythema, purulence or signs of infection Significant pain with palpation over the right flank, right oblique, and over the right side of the abdomen No evidence of significant skin changes across the thoracic spine, lumbar spine , lower ribs or abdomen Dorsiflexion, plantarflexion, and extensor hallucis longus positive sustained bilaterally Lower extremity strength 5/5 bilaterally Patient able to independently move legs throughout range of motion without significant difficulty Patellar reflex 2+ bilaterally No lower extremity hyperreflexia bilaterally Straight leg test negative bilateral lower extremities No signs or symptoms of DVT; no calf pain No pain with internal and external rotation of the hips bilaterally Neurovascularly intact Evidence of a well-healed incision over the anterior right knee Results Pertinent studies: Straight abdomen taken on 10/21/2016: Nonspecific abdomen; evidence of left hip prosthesis; degenerative changes throughout the lumbar spine CT of the lumbar spine taken on 10/17/2016: L2-3 degenerative disc disease and retrolisthesis; L1-2 degenerative disc disease; no evidence of vertebral body compression fracture; multilevel spondylitic changes; no evidence of significant spinal canal stenosis; L4-5 and L5-S1 small posterior disc bulge CT of the abdomen and pelvis taken on 10/17/2016: Sigmoid diverticulosis without diverticulitis; large calcified gallstone; spondylitic changes in the lumbar spine; upper abdominal aortic aneurysm - Labs Labs: H & H 10/19/16 10/20/16 Range/Units 16:40 08:55 Hgb 14.6 13.6 (11.4-16.0) gm/dL Hct 45.5 42.1 (34.0-46.0) % Result Diagrams: 10/20/16 08:55 10/20/16 08:55 Assessment and Plan (1) Spondylolisthesis, lumbar region Status: Acute (2) Lumbar spondylosis Status: Acute (3) Current smoker Status: Acute (4) Flank pain Status: Acute (5) COPD (chronic obstructive pulmonary disease) Status: Acute (6) Degenerative disc disease Status: Acute (7) Lower back pain Status: Acute Plan: Assessment: Right-sided flank pain Right sided neuropathic pain Low back pain L2-3 retrolisthesis and degenerative disc disease L1-2 degenerative disc disease Lumbar spondylosis Current smoker History of COPD Plan: 1. After physical examination of the patient, the patient's history, and after reviewing patient's imaging with Dr. Gaurang Cole are not currently planning for acute surgical intervention regards to the patient's lumbar spine. She is experiencing significant right-sided flank pain and some occasional low back pain. She states she has pain also radiates around towards her abdomen. These symptoms do not correlate well with her degenerative changes of the lumbar spine. She is not currently experiencing lower extremity radiculopathy or specific lower extremity weakness. She is describing right sided neuropathic pain along the T10 and T11 dermatomes. These symptoms could possibly correlate with shingles. I do not see evidence of skin changes over her thoracic spine, lumbar spine, right flank , right obliques, or right side of the abdomen. At this time, it may be more beneficial for her to continue with further evaluation treatment with medicine as well as scheduled consultation with general surgery. She also has a history of previous ureteral obstruction. 2. Continue pain control 3. Patient currently waiting for consultation with general surgery 4. Medicine will continue following the patient 5. Patient has been discussed in detail and images have been reviewed with Dr. Gaurang Cole and he agrees with this plan Time with Patient: Greater than 30
--- NOTE | 2016-10-21 17:14 | PN ---
DATE OF SERVICE: 10/21/2016 PRESENTING COMPLAINT: Back pain. INTERVAL HISTORY: This patient presents with severe L1, L3 arthritis with radiculopathy. Some improvement from yesterday. Patient also states she has had chronic abdominal pain, which is worse off and on. Seems to be more radiating pain. Did tolerate a diet. Has been out of bed. Her friend is at the bedside. Review of systems done for constitutional, cardiovascular, GI, pulmonary, musculoskeletal; relevant findings as above. Current medications are reviewed that include baclofen, naproxen. On examination, temperature 97.3, pulse 82, respirations 18, blood pressure 143/66, pulse ox 95% on 3 L. GENERAL APPEARANCE: Lying in bed, tired appearing. EYES: Pupils equal. Conjunctivae normal. NECK: JVD not raised. Mass not palpable. RESPIRATORY: Effort increased. LUNGS: Some wheezing. Prolonged expiration, decreased breath sounds. CARDIOVASCULAR: First and second sounds normal. No edema. ABDOMEN: Soft, nontender. Liver and spleen not palpable with minimal tenderness. PSYCH: Alert and oriented x3. Mood and affect normal. MUSCULOSKELETAL: Unchanged. INVESTIGATIONS: No blood work from today. Amylase, lipase was normal. ASSESSMENT: 1. Acute ( ) L1, L3 with significant spondylolisthesis and severe radiculopathy, slow to respond. No evidence of compression fracture. Will get an opinion from orthopedic spine. 2. Acute chronic obstructive pulmonary disease exacerbation in a smoker, slow to respond. 3. Hyperlipidemia. 4. Essential hypertension ( ). 5. Chronic nicotine dependence. Patient is a smoker. 6. Primary osteoarthritis of multiple joints including the hands and knees. 7. Chronic abdominal pain but abdomen still somewhat soft. Patient states she has had it for quite some time. Amylase and lipase have been normal. We will get a plain abdominal x-ray. PLAN: We will get an opinion from Dr. Coel orthopedic spine and Dr. Perales from general surgery. Plain abdominal films will be done. Care was discussed with the patient at the bedside. Will follow.
[2016-10-21] MEDS: traZODone HCL 50 MG TAB PO SCH (20:11)
--- NOTE | 2016-10-21 20:21 | P.GSCN ---
History of Present Illness Consult date: 10/21/16 Reason for Consult: Abdominal pain Requesting physician: Giovani Renee History of present illness: The patient is an 86-year-old female who is admitted secondary to abdominal pain radiating along the belt-like fashion of the upper abdomen especially to the right back. She has been seen early by orthopedics. She reports her pain has been progressively worse the last 2 days. As a result, she reports poor appetite and avoiding her lunch earlier today. She had a CT of the abdomen and pelvis completed demonstrating a large gallstone within the gallbladder. She states the pain has been progressively worse. General surgery is consulted regarding her abdominal pain. Review of Systems CONSTITUTIONAL: Denies any fever or chills. HEENT: Denies any trouble with vision, hearing or nosebleeds. LYMPHATIC: The patient denies any lumps and bumps around the neck. ENDOCRINE: Denies any thyroid disorders. Denies any blood sugar glucose intolerance. RESPIRATORY: Previous pneumonia. Has troubles with breathing or dyspnea on exertion. CARDIOVASCULAR: Denies any chest pain, palpitations, or recent heart attacks. GASTROINTESTINAL: Denies bright red blood per rectum. GENITOURINARY: Denies any blood in urine or increased urinary frequency. MUSCULOSKELETAL: Has back pain, stiffness, joint arthritis. NEUROLOGIC: Denies any numbness or tingling along the distal extremities. No seizure disorders or headaches. PSYCHIATRIC: Denies depression or suidical ideation. HEMATOLOGIC: Denies any abnormal bleeding or bruising. Past Medical History Past Medical History: Cancer, COPD, Hyperlipidemia, Hypertension, Pneumonia History of Any Multi-Drug Resistant Organisms: None Reported Past Surgical History: Bowel Resection, Hernia Repair, Hysterectomy, Orthopedic Surgery Additional Past Surgical History / Comment(s): Renal surgery Past Anesthesia/Blood Transfusion Reactions: No Reported Reaction Past Psychological History: Depression Smoking Status: Current some day smoker Past Alcohol Use History: None Reported Past Drug Use History: None Reported - Past Family History Mother Family Medical History: Rheumatoid Arthritis (RA) Additional Family Medical History / Comment(s): breast CA Father Family Medical History: Myocardial Infarction ([place]) Additional Family Medical History / Comment(s): father from heart attack Medications and Allergies Home Medications Medication Instructions Recorded Confirmed Type Aspirin 81 mg PO Q48H 06/08/14 10/20/16 History Budesonide-Formot 160-4.5 Mcg 2 puff INHALATION RT-BID 06/08/14 10/20/16 History [Symbicort 160-4.5 Mcg Inhaler] Metoprolol Tartrate [Lopressor] 25 mg PO DAILY 06/08/14 10/20/16 History Omeprazole [PriLOSEC] 20 mg PO DAILY 06/08/14 10/20/16 History traZODone HCL [Desyrel] 50 mg PO HS 06/08/14 10/20/16 History Albuterol Sulfate [Proair Hfa] 1 - 2 puff INHALATION RT-Q6H PRN 10/17/16 History Calcium Carbonate [Calcium] 600 mg PO DAILY 10/17/16 10/20/16 History Cholecalciferol [Vitamin D3] 1,000 unit PO DAILY 10/17/16 10/20/16 History Fexofenadine HCl [Yudelka Allergy] 180 mg PO DAILY PRN 10/17/16 10/20/16 History LORazepam [Ativan] 0.5 mg PO Q8H PRN 10/17/16 10/20/16 History Nitroglycerin Sl Tabs [Nitrostat] 0.4 mg SUBLINGUAL Q5M PRN 10/17/16 10/20/16 History Sertraline HCl [Zoloft] 100 mg PO DAILY 10/17/16 10/20/16 History Simvastatin [Zocor] 40 mg PO Q48H 10/17/16 10/20/16 History Triamcinolone 0.1% Cream [Kenalog] 1 applicatio TOPICAL BID 10/20/16 10/20/16 History Allergies Allergy/AdvReac Type Severity Reaction Status Date / Time acetaminophen Allergy Itching Verified 10/20/16 08:38 [From Darvocet-N] bacitracin Allergy Rash/Hives Verified 10/20/16 08:38 [From Neosporin ([id number])] bacitracin zinc Allergy Rash/Hives Verified 10/20/16 08:38 [From Neosporin ([id number])] clarithromycin [From Biaxin] Allergy Itching Verified 10/20/16 08:38 meperidine HCl [From Demerol] Allergy Itching Verified 10/20/16 08:38 morphine Allergy Itching Verified 10/20/16 08:38 neomycin sulfate Allergy Rash/Hives Verified 10/20/16 08:38 [From Neosporin ([id number])] Penicillins Allergy Anaphylaxis Verified 10/20/16 08:38 phenobarbital Allergy Itching Verified 10/20/16 08:38 polymyxin B Allergy Rash/Hives Verified 10/20/16 08:38 [From Neosporin ([id number])] propoxyphene napsylate Allergy Itching Verified 10/20/16 08:38 [From Darvocet-N] Sulfa (Sulfonamide Allergy Itching Verified 10/20/16 08:38 Antibiotics) codeine AdvReac Nausea Verified 10/20/16 08:38 hydrocodone bitartrate AdvReac Nausea Verified 10/20/16 08:38 [From Lortab] isosorbide mononitrate AdvReac Nausea & Verified 10/20/16 08:38 [From Imdur] Vomiting Surgical - Exam Vital Signs Temp Pulse Resp BP Pulse Ox 98.6 F 57 L 20 119/79 92 L 10/19/16 15:59 10/19/16 15:59 10/19/16 15:59 10/19/16 15:59 10/19/16 15:59 GENERAL: Well developed and in no acute distress. Pleasant. HEENT: No sclera icterus. Extraocular movements grossly intact. Moist buccal mucosa. Head is atraumatic, normocephalic. Hears conversational speech. No nasal drainage. NECK: Supple without lymphadenopathy. No JV distention. CHEST: Non-labored respirations and equal bilateral excursions. CARDIOVASCULAR: Regular rate and rhythm. Palpable 2+ radial pulses. ABDOMEN: Soft. Nondistended. Focal pinpoint tenderness along right upper quadrant with guarding. MUSCULOSKELETAL: No clubbing, cyanosis or edema. NEUROLOGIC: No focal or lateralizing signs. PSYCH: Appropriate affect. Alert and oriented to person, place and time. Results - Labs 10/20/16 08:55 10/20/16 08:55 - Imaging CT scan - abdomen: report reviewed, image reviewed CT scan - pelvis: report reviewed, image reviewed (Computed tomography scan consistent with large gallstone without fluid around the gallbladder. No signs of obstruction. Separate features of diverticulosis without diverticulitis.) Assessment and Plan (1) Right upper quadrant abdominal pain Status: Acute (2) Gallstones Status: Acute (3) Current smoker Status: Acute (4) Flank pain Status: Acute (5) COPD (chronic obstructive pulmonary disease) Status: Acute Plan: 1. On exam, she is pinpoint tenderness along the right upper quadrant consistent with acute cholecystitis clinical features. 2. I have discussed with her life any medical risk assessment prior to surgical intervention as she has history of COPD and is a current smoker. 3. Would recommend laparoscopic cholecystectomy. Given the acuity of her pain , inpatient cholecystectomy may be of benefit. 4. Recommend low-fat diet.
[2016-10-22] MEDS: HYDROcodone/APAP 5-325MG 1 EACH TAB PO PRN (06:53)
[2016-10-22] MEDS: IPRATROPIUM-ALBUTEROL 3 ML NEB INHALATION SCH ×4 (07:23→19:51)
[2016-10-22] MEDS: BUDESONIDE 1 MG/2 ML NEBU INHALATION SCH ×2 (07:23→19:51)
[2016-10-22] MEDS: NAPROXEN 250 MG TAB PO SCH ×2 (08:15→22:34)
[2016-10-22] MEDS: METOPROLOL SUCCINATE (ER) 25 MG TAB.ER.24H PO SCH (08:16)
[2016-10-22] MEDS: PANTOPRAZOLE 40 MG TABLET PO SCH (08:16)
[2016-10-22] MEDS: ENOXAPARIN 40 MG/0.4 ML SYRINGE SQ SCH (08:16)
[2016-10-22] MEDS: FAMOTIDINE 20 MG TAB PO SCH ×2 (08:16→22:34)
[2016-10-22] MEDS: ASPIRIN 81 MG CHEW PO SCH (08:16)
[2016-10-22] MEDS: BACLOFEN 10 MG TAB PO SCH ×3 (08:16→23:50)
[2016-10-22] MEDS: SERTRALINE 100 MG TAB PO SCH (08:16)
[2016-10-22 09:37] LABS: INR 1.1 (<1.1); Prothrombin Time 10.9 sec (9.0-12.0)
[2016-10-22] MEDS: HYDROcodone/APAP 10-325MG 1 EACH TAB PO PRN ×3 (10:46→20:50)
--- NOTE | 2016-10-22 15:19 | P.PN ---
Subjective 86-year-old female being seen and examined. Patient currently is crying stating that she is having intolerable pain in the right flank area. Patient states it comes in waves causes intense cramping. Family at bedside. Patient states she does not feel like eating it creates a nausea sensation with increased pain. Patient points to the right lower quadrant as to the reference point where the pain is. Patient states it radiates to the right back. Patient did have a CAT scan of the abdomen and pelvis it did show a large gallstone within the gallbladder. Additionally the patient has been seen by orthopedic surgery who indicate the patient experiencing right-sided flank pain does not correlate with her degenerative changes seen in the lumbar spine x -ray. Patients being followed by surgical service at the request of the attending. Tentatively is scheduled tomorrow for cholecystectomy by Dr. kapoor Objective - Vital Signs Vital signs: Vital Signs Temp 97.9 F 10/22/16 14:37 Pulse 74 10/22/16 14:37 Resp 18 10/22/16 14:37 BP 97/61 10/22/16 14:37 Pulse Ox 92 L 10/22/16 14:37 Intake & Output 10/21/16 10/22/16 10/22/16 18:59 06:59 18:59 Intake Total 940 1540 Balance 940 1540 Weight 72.121 kg Intake: IV 140 Sodium Chloride 0.9% 1, 140 000 ml @ 20 mls/hr IV . Q24H ONE Rx#:[id number] Oral 800 1540 Other: Voiding Method Diaper Toilet Toilet Incontinent Diaper Diaper Incontinent Incontinent # Voids 1 1 1 - Exam Physical exam 86-year-old female currently curled up in a position states pain is intolerable in the right flank area Lungs diminished at the bases otherwise adequate air movement Heart S1-S2 audible and regular denying chest pain Abdomen soft not distended diffuse tenderness across the abdominal wall patient states pain in the right flank area radiates to the right lumbar region. Patient states comes in waves decreased oral intake decreased appetite patient states she tries to drink it causes pain incontinent of urine no stool Extremities no edema - Labs CBC & Chem 7: 10/20/16 08:55 10/20/16 08:55 Assessment and Plan Plan: Impression Spondylolisthesis, lumbar region Lumbar spondylosis degenerative disc disease involving the lumbar spine Current every day smoker greater than a 20 year history COPD with no evidence of an exacerbation Right upper quadrant abdominal pain suspect due to gallstones Right upper quadrant pain consistent with acute cholecystitis Plan IV fluid at 75 an hour for rehydration Pain control Scheduled on October 23 cholecystectomy laparoscopic possible open DVT and GI prophylaxis Further recommendations pending The above dictated assessment and findings were discussed with dr allison . Impression and the plan of care have been dictated as directed. Meenakshi Nelson nurse practitioner acting as a scribe for dr allison
[2016-10-22] MEDS: SODIUM CHLORIDE 0.9% 1,000 ML IV SCH (17:13)
--- NOTE | 2016-10-22 20:59 | P.PN ---
Progress Note - Text Patient seen and reevaluated this evening. She still complains of moderate right upper quadrant abdominal pain. We'll proceed with laparoscopic cholecystectomy. Case discussed with medicine team regarding medical risk assessment and clearance.
--- NOTE | 2016-10-22 21:53 | PN ---
DATE OF SERVICE: 10/22/2016 PRESENTING COMPLAINT: Back pain, abdominal pain. INTERVAL HISTORY: This patient presents with ( ) arthritic pain with radiculopathy. Pain is somewhat better. Also having abdominal pain, which has been chronic. Seen by Dr. Perales who thinks gallstone may be responsible symptoms and is going to proceed with a cholecystectomy. Patient is lying in bed. Review of systems done for constitutional, cardiovascular, GI, pulmonary, musculoskeletal; relevant findings as above. Current medications are reviewed. On examination, temperature 97.4, pulse 101, respirations 18, blood pressure 120/73, pulse ox 93% on 2 liters. GENERAL APPEARANCE: Lying in bed, not in distress. EYES: Pupils equal. Conjunctivae is normal. NECK: JVD not raised. Mass not palpable. RESPIRATORY: Effort normal. LUNGS: Prolonged expiration, decreased breath sounds. CARDIOVASCULAR: First and second sounds normal. No edema. ABDOMEN: Some tenderness is present. No guarding or rigidity. Liver and spleen not palpable. PSYCHIATRY: Alert and oriented x3. Mood and affect normal. INVESTIGATIONS: No blood work from today. ASSESSMENT: 1. Acute L1, L3 spondylolisthesis with severe radiculopathy doing better. No evidence of compression fracture. 2. Acute chronic obstructive pulmonary disease exacerbation in a smoker. 3. Hyperlipidemia. 4. Essential hypertension. 5. Chronic nicotine dependence. Patient is a smoker. 6. Primary osteoarthritis of multiple joints including the hands and knees. 7. Chronic abdominal pain, per Dr. Perales, gallstones are symptomatic. Proceeding with cholecystectomy tomorrow. PLAN: Care was discussed with the patient. From a medical standpoint, the patient is medically stable with low to moderate risk for surgery with no contraindications. Patient is okay to proceed with the surgery. Patient also seen by Dr. Cole from orthopedics. Await input. We will see formal input from Dr. Cole and go from there. Care was discussed in detail with the patient.
[2016-10-22] MEDS: ATORVASTATIN 20 MG TAB PO SCH (22:34)
[2016-10-22] MEDS: traZODone HCL 50 MG TAB PO SCH (22:35)
[2016-10-23] MEDS: HYDROcodone/APAP 10-325MG 1 EACH TAB PO PRN (06:32)
[2016-10-23] MEDS: IPRATROPIUM-ALBUTEROL 3 ML NEB INHALATION SCH ×4 (07:23→21:03)
[2016-10-23] MEDS: BUDESONIDE 1 MG/2 ML NEBU INHALATION SCH ×2 (07:23→21:03)
[2016-10-23 07:51] LABS: Basophils % (A) 0 %; CH 31.1; CHCM 31.9; Eosinophils # (A) 0.2 k/uL (0-0.7); Eosinophils % (A) 3 %; HCT 41.6 % (34.0-46.0); HDW 2.61; HGB 13.1 gm/dL (11.4-16.0); Luc # (Auto) 0.19; Luc % (Auto) 3; Lymphocytes # (A) 1.4 k/uL (1.0-4.8); Lymphocytes % (A) 22 %; MCH 30.9 pg (25.0-35.0); MCHC 31.6 g/dL (31.0-37.0); MCV 97.8 fL (80.0-100.0); Mean Platelet Volume 9.8; Monocytes # (A) 0.4 k/uL (0-1.0); Monocytes % (A) 6 %; Neutrophils # (A) 4.1 k/uL (1.3-7.7); Neutrophils % (A) 66 %; RBC 4.25 m/uL (3.80-5.40); RDW 13.8 % (11.5-15.5); WBC 6.3 k/uL (3.8-10.6); WBC (Perox) 6.64
[2016-10-23 07:57] LABS: Anion Gap 11 mmol/L; Blood Urea Nitrogen 20 mg/dL (7-17); Calcium 8.9 mg/dL (8.4-10.2); Carbon Dioxide 23 mmol/L (22-30); Chloride 107 mmol/L (98-107); Glucose 90 mg/dL (74-99); Non-African American GFR(MDRD) 55 (>60 ml/min/1.73 sqM); Potassium 4.1 mmol/L (3.5-5.1); Sodium 141 mmol/L (137-145)
--- NOTE | 2016-10-23 08:15 | P.HPADDEND ---
H&P Addendum H&P Addendum Date: 10/23/16 Patient still reports severe right upper quadrant abdominal pain with localized peritonitis. Patient has been cleared by medicine team to proceed with laparoscopic cholecystectomy.
[2016-10-23] MEDS: SODIUM CHLORIDE 0.9% 1,000 ML IV SCH (09:10)
[2016-10-23] MEDS: ENOXAPARIN 40 MG/0.4 ML SYRINGE SQ SCH (09:12)
[2016-10-23] MEDS: BACLOFEN 10 MG TAB PO SCH ×2 (09:26→22:51)
[2016-10-23] MEDS: NAPROXEN 250 MG TAB PO SCH ×2 (09:26→22:52)
[2016-10-23] MEDS: SERTRALINE 100 MG TAB PO SCH (09:27)
[2016-10-23] MEDS: FAMOTIDINE 20 MG TAB PO SCH ×2 (09:27→22:51)
[2016-10-23] MEDS: METOPROLOL SUCCINATE (ER) 25 MG TAB.ER.24H PO SCH (09:27)
[2016-10-23] MEDS: PANTOPRAZOLE 40 MG TABLET PO SCH (09:27)
[2016-10-23] MEDS: ASPIRIN 81 MG CHEW PO SCH (09:28)
[2016-10-23] MEDS ORDERED: ASPIRIN 300 MG SUPP RECTAL STA (11:41)
--- NOTE | 2016-10-23 12:40 | CT ---
EXAMINATION TYPE: CT brain wo con DATE OF EXAM: 10/23/2016 COMPARISON: 02/09/2012 INDICATION: CVA DLP: 1144.01 mGycm, Automated exposure control for dose reduction was used. CONTRAST: None CT of the brain is performed utilizing 3 mm thick sections through the posterior fossa and 3 mm thick sections through the remaining calvarium. Study is performed within 24 hours of arrival to the [facility]. No abnormal hyperdensity is present to suggest an acute intracranial hemorrhage. No mass lesion is evident. No acute infarcts are evident. Ventricles and sulci are appropriate for the patient age. Paranasal sinuses and mastoid air cells within the [id number] are clear. IMPRESSIONS: 1. Normal CT Brain
--- NOTE | 2016-10-23 15:43 | P.CONS ---
History of Present Illness - Reason for Consult Consult date: 10/23/16 Rule out CVA Requesting physician: Giovani Renee - Chief Complaint Altered mental status - History of Present Illness This is a pleasant 86-year-old female being evaluated by the neurology service at the request of Dr. Renee. She was seen on October 19 is her second visit to the emergency room that week. She complained of right flank pain that had been going on for a few days. At this presentation the pain had intensified. She denied fevers chills vomiting or changes in urination. She was afebrile, with no significant laboratory abnormalities in the emergency room. She was evaluated by orthopedic surgery for some known lumbar disc displacement. This was not thought to be contributing to her pain. Consultation was made for general surgery. It was determined that because of her pain may be intra-abdominal so she is scheduled for a laparoscopic cholecystectomy today. We were consulted because of some activity that happened earlier today. Nursing staff reports that she has had some alteration of consciousness/alertness. She has also had a couple episodes of rigidity especially of the upper extremities. This was accompanied by purposeful kicking of the lower extremities. There was no bladder or bowel incontinence. There was no lilly loss of consciousness. There was no clonic movement. There was no postictal state. There has been no lateralizing weakness, speech difficulties, facial asymmetry, or other significant neurological findings. She was given [place] a couple hours before these episodes. There is listing in her drug ALLERGIES that she has a sensitivity to Lortab in the past. She also has multiple other drug sensitivities. This may represent a side effect of the [place]. At the time of my exam she is in a fair amount of distress due to abdominal pain. She does do some writhing at times that includes clenching of her hand and upper extremities. As a precaution to rule out cerebrovascular etiology a CT of the brain was done. It was normal. Review of Systems All systems: negative Constitutional: Reports anorexia Eyes: denies diplopia, denies loss of peripheral vision, denies loss of vision Ears, nose, mouth and throat: Reports as per HPI Cardiovascular: Reports as per HPI Neurological: Reports change in mentation, Reports confusion, Denies aphasia, Denies convulsions, Denies headaches, Denies paralysis, Denies seizures, Denies sensory deficit, Denies syncope, Denies vertigo Psychiatric: Reports as per HPI Allergic/Immunologic: Reports as per HPI Past Medical History Past Medical History: Cancer, COPD, Hyperlipidemia, Hypertension, Musculoskeletal Disorder (hip replacement, chronic lumbar pain), Pneumonia History of Any Multi-Drug Resistant Organisms: None Reported Past Surgical History: Bowel Resection, Hernia Repair, Hysterectomy, Orthopedic Surgery Additional Past Surgical History / Comment(s): Renal surgery Past Anesthesia/Blood Transfusion Reactions: No Reported Reaction Past Psychological History: Depression Smoking Status: Current some day smoker Past Alcohol Use History: None Reported Past Drug Use History: None Reported - Past Family History Mother Family Medical History: Rheumatoid Arthritis (RA) Additional Family Medical History / Comment(s): breast CA Father Family Medical History: Myocardial Infarction (IA) Additional Family Medical History / Comment(s): father from heart attack Medications and Allergies Home Medications Medication Instructions Recorded Confirmed Type Aspirin 81 mg PO Q48H 06/08/14 10/20/16 History Budesonide-Formot 160-4.5 Mcg 2 puff INHALATION RT-BID 06/08/14 10/20/16 History [Symbicort 160-4.5 Mcg Inhaler] Metoprolol Tartrate [Lopressor] 25 mg PO DAILY 06/08/14 10/20/16 History Omeprazole [PriLOSEC] 20 mg PO DAILY 06/08/14 10/20/16 History traZODone HCL [Desyrel] 50 mg PO HS 06/08/14 10/20/16 History Albuterol Sulfate [Proair Hfa] 1 - 2 puff INHALATION RT-Q6H PRN 10/17/16 History Calcium Carbonate [Calcium] 600 mg PO DAILY 10/17/16 10/20/16 History Cholecalciferol [Vitamin D3] 1,000 unit PO DAILY 10/17/16 10/20/16 History Fexofenadine HCl [Yudelka Allergy] 180 mg PO DAILY PRN 10/17/16 10/20/16 History LORazepam [Ativan] 0.5 mg PO Q8H PRN 10/17/16 10/20/16 History Nitroglycerin Sl Tabs [Nitrostat] 0.4 mg SUBLINGUAL Q5M PRN 10/17/16 10/20/16 History Sertraline HCl [Zoloft] 100 mg PO DAILY 10/17/16 10/20/16 History Simvastatin [Zocor] 40 mg PO Q48H 10/17/16 10/20/16 History Triamcinolone 0.1% Cream [Kenalog] 1 applicatio TOPICAL BID 10/20/16 10/20/16 History Allergies Allergy/AdvReac Type Severity Reaction Status Date / Time bacitracin Allergy Rash/Hives Verified 10/20/16 08:38 [From Neosporin ([id number])] bacitracin zinc Allergy Rash/Hives Verified 10/20/16 08:38 [From Neosporin ([id number])] clarithromycin [From Biaxin] Allergy Itching Verified 10/20/16 08:38 meperidine HCl [From Demerol] Allergy Itching Verified 10/20/16 08:38 morphine Allergy Itching Verified 10/20/16 08:38 neomycin sulfate Allergy Rash/Hives Verified 10/20/16 08:38 [From Neosporin ([id number])] Penicillins Allergy Anaphylaxis Verified 10/20/16 08:38 phenobarbital Allergy Itching Verified 10/20/16 08:38 polymyxin B Allergy Rash/Hives Verified 10/20/16 08:38 [From Neosporin ([id number])] propoxyphene napsylate Allergy Itching Verified 10/20/16 08:38 [From Darvocet-N] Sulfa (Sulfonamide Allergy Itching Verified 10/20/16 08:38 Antibiotics) codeine AdvReac Nausea Verified 10/20/16 08:38 hydrocodone bitartrate AdvReac Nausea Verified 10/20/16 08:38 [From Lortab] isosorbide mononitrate AdvReac Nausea & Verified 10/20/16 08:38 [From Imdur] Vomiting Physical Exam Vitals: Vital Signs Temp Pulse Pulse Resp BP Pulse Ox 10/23/16 14:56 97.7 F 60 18 108/55 90 L 10/23/16 11:40 99.1 F 75 20 108/59 92 L 10/23/16 08:00 60 16 10/23/16 07:37 68 10/23/16 07:24 60 92 L 10/23/16 07:00 97.8 F 60 16 120/58 90 L 10/23/16 00:00 73 16 10/22/16 22:15 98.2 F 73 16 160/82 91 L 10/22/16 20:05 84 10/22/16 19:51 80 10/22/16 15:40 80 10/22/16 15:27 80 10/22/16 15:26 74 18 Intake and Output 10/23/16 10/23/16 10/23/16 06:59 14:59 22:59 Intake Total 590 Balance 590 Intake: Oral 590 Other: Voiding Method Toilet Toilet Diaper Diaper Incontinent Incontinent # Voids 2 1 - Constitutional General appearance: average body habitus, severe distress - EENT Eyes: no abnormal pupil, EOMI, PERRLA, no ptosis ENT: hearing grossly normal - Neck Neck: normal ROM, no rigidity - Respiratory Respiratory: negative: prolonged expiration, prolonged inspiration - Cardiovascular Rhythm: regular - Gastrointestinal General gastrointestinal: no distended, rigid, tenderness - Neurologic The patient is awake and oriented to self and partially to place. Speech is normal. There is no facial asymmetry. There is no lateralizing weakness. No seizures or tremors are seen. Strength is 5 minus in bilateral upper extremities and bilateral lower extremities. She is not very cooperative with the exam, but there seems to be no sensory deficit. Results CBC & Chem 7: 10/23/16 07:15 10/23/16 07:15 Labs: Abnormal Lab Results - Last 24 Hours (Table) 10/23/16 Range/Units 07:15 BUN 20 H (7-17) mg/dL Assessment and Plan (1) Altered mental status Status: Acute (2) [id number] adverse reaction to medication Status: Acute (3) Gallstones Status: Acute (4) Right upper quadrant abdominal pain Status: Acute (5) Spondylolisthesis, lumbar region Status: Chronic (6) COPD (chronic obstructive pulmonary disease) Status: Chronic Plan: We do not think that she has suffered any type of cerebrovascular incident. CT of the brain was normal. She has no significant residual neurological findings consistent with that. She may have had a reaction/sensitivity to the [place] so we will stop that. Her grimacing/hypertonicity is doubtful for any seizure activity and was more likely a product of her severe pain. She does seem a little confused and possibly encephalopathic due to her protracted period of severe pain and her abdominal complaints. Hopefully this will resolve following her surgery. Continue neurological checks. We will order an EEG and continue to follow. I have reviewed the history and physical on the above patient. I have reviewed the above note, and agree.
[2016-10-23] MEDS ORDERED: LACTATED RINGERS 1,000 ML IV ONE (16:28)
[2016-10-23] MEDS: ONDANSETRON 4 MG/2 ML VIAL IVP PRN (16:40)
--- NOTE | 2016-10-23 17:36 | P.PN ---
Progress Note - Text DATE OF SERVICE: 10/23/2016 PRESENTING COMPLAINT: Back pain, abdominal pain INTERVAL HISTORY: Presents with arthritic pain with radiculopathy, now has right upper quadrant pain gallstone noted, cholecystectomy scheduled for today. Patient experienced an episode of inability to be responsive, appeared to be strokelike symptoms, head CT was completed, which was normal no acute process. Patient was alert and able to answer questions, did not remember this episode, discussed with family, longtime friend and patient. REVIEW OF SYSTEMS: Done for constitutional ,cardiovascular, GI, pulmonary with relevant findings as above. CURRENT MEDICATIONS Aspirin, Lipitor, Lovenox, Toprol, trazodone. PHYSICAL EXAM: VITAL SIGNS: Temperature 99.1, pulse 75 respiratory rate 20, blood pressure 108/ 59, oxygen saturation 92% on 3 L GENERAL APPEARANCE: Lying in bed, appears comfortable, does have some transient spontaneous arm and leg movements. EYES: Pupils equal. Conjunctiva normal. NECK: JVD not raised. Mass not palpable. RESPIRATORY: Respiratory effort normal. Lungs clear to auscultation. CARDIOVASCULAR: First and second sounds normal. No edema. ABDOMEN: Soft. Tenderness in the right upper quadrant Liver and spleen not palpable. No tenderness. No mass palpable. PSYCHIATRY: Alert and oriented x3. Mood and affect normal. INVESTIGATIONS: Lab values noted, CT of the brain: Normal study ASSESSMENT: 1. Acute L1, L3 spondylolysis to with severe radiculopathy doing better, no evidence of compression fracture. 2. Possible extraparametal symptoms per Dr. Renee, neurology consultation pending. 3. Acute chronic obstructive longer disease exacerbation in a smoker 4. Hyperlipidemia 5. Essential hypertension 6. Chronic nicotine dependence, patient is a smoker. 7. Primary osteo-arthritis in multiple joints including the hands and feet. 8. Chronic abdominal pain per Dr. Gupta gallstones are symptomatic, proceed with cholecystectomy PLAN: CHILD SUPPORT CASE OFFICER statement: Patient was seen and examined by nurse practitioner Anen Haywood in all elements of the case discussed with attending is Dr. Renee
[2016-10-23] MEDS ORDERED: CLINDAMYCIN 600 MG in DEXTROSE 5% IN WATER 50 ML IVPB STA ×2 (17:57)
[2016-10-23] MEDS ORDERED: HEPARIN SODIUM,PORCINE 5,000 UNIT/ML 1 ML VIAL SQ STA (17:58)
[2016-10-23] MEDS ORDERED: HEPARIN SODIUM,PORCINE 5,000 UNIT/ML 1 ML VIAL IV ONE (17:59)
--- NOTE | 2016-10-23 18:00 | P.HPADDEND ---
H&P Addendum H&P Addendum Date: 10/23/16 Patient placed on FULL CODE status during surgery with family at bedside. Patient will be changed to NO CODE after surgery.
[2016-10-23] MEDS ORDERED: BUPIVACAIN-EPI 0.25%-1:200,000 30 ML VIAL SQ ONE (18:25)
[2016-10-23] MEDS ORDERED: NALOXONE 0.4 MG/ML 1 ML VIAL IV PRN (19:31)
[2016-10-23] MEDS ORDERED: HYDROmorphone 1 MG/ML 1 ML SYRINGE IVP ONE (19:35)
--- NOTE | 2016-10-23 20:17 | PN ---
DATE OF SERVICE: 10/23/2016 ATTENDING NOTE: This patient was seen and examined by me earlier today. I reviewed the note of my nurse practitioner, Ms. Haywood. Discussed, reviewed and additional findings below. This is a patient who presented with back pain and radiculopathy, which is actually better. Patient is due for surgery by Dr. Perales for gallstones. Patient's nurse called me. Patient had an episode where she kind of stiffened up to some degree and then had both her arms coming upwards, stretched her arms again. There was no jerking movement as such per se. No new medications were given. Then it settled down. On examination, patient now actually awake, talking. LUNGS: Fair air entry. CARDIOVASCULAR: First and second sounds. NEUROLOGICAL: No focal findings. ASSESSMENT: 1. Episode of neurological presentation. This could be extrapyramidal symptoms, not clear seizure, seizure needs to be ruled out. 2. Acute element of spondylosis with severe radiculopathy. 3. Gallstones. Pending surgery by Dr. Perales. PLAN: I had ordered a stat CT scan. Neuro checks, aspirin, neurology consultation. I did tell the nurse to convey to neurology if it is okay then patient can proceed with surgery. Though this clinically does not appear to be stroke at all. More so it could be seizures or extrapyramidal symptoms though cannot have reason for the same. Care was discussed with the family at the bedside. Follow.
[2016-10-23] MEDS: traZODone HCL 50 MG TAB PO SCH (22:50)
[2016-10-24] MEDS: CLINDAMYCIN 600 MG in DEXTROSE 5% IN WATER 50 ML IVPB SCH ×6 (02:57→12:24)
[2016-10-24] MEDS: BACLOFEN 10 MG TAB PO SCH ×4 (02:59→20:54)
--- NOTE | 2016-10-24 04:52 | P.PCN ---
Date of Procedure: 10/24/16 Preoperative Diagnosis: Acute cholecystitis, symptomatic gallstones, right upper quadrant peritonitis Postoperative Diagnosis: Same, moderate intra-abdominal peritoneal adhesions greater omentum to the abdominal wall lower abdomen, left upper quadrant, right lower quadrant Procedure(s) Performed: Laparoscopic cholecystectomy Implants: Anesthesia: GETA, local (30 ml 0.25% marcaine with epinephrine) Surgeon: Angelique Perales Estimated Blood Loss (ml): 5 Pathology: other (gallbladder) Condition: stable Disposition: floor () Indications for Procedure: Operative Findings: 1. Moderately distended gallbladder with features of cholecystitis 2. Gallstone 4 cm long infundibulum of gallbladder 3. Severe peritoneal adhesions from multiple abdominal surgeries involving lower abdomen, left upper quadrant, right lower quadrant undisturbed, 4. Decompression of gallbladder performed for cholecystectomy with contamination requiring extended antibiotics postoperatively 5. Optifoam placed along left upper quadrant and right lateral port site Description of Procedure:
[2016-10-24] MEDS: SODIUM CHLORIDE 0.9% 1,000 ML IV SCH ×2 (06:48→17:05)
[2016-10-24] MEDS: BUDESONIDE 1 MG/2 ML NEBU INHALATION SCH ×2 (07:18→19:33)
[2016-10-24] MEDS: IPRATROPIUM-ALBUTEROL 3 ML NEB INHALATION SCH ×4 (07:20→19:33)
[2016-10-24] MEDS: ACETAMINOPHEN TAB 325 MG TAB PO PRN (07:37)
[2016-10-24] MEDS: ENOXAPARIN 40 MG/0.4 ML SYRINGE SQ SCH (07:40)
[2016-10-24] MEDS: ASPIRIN 81 MG CHEW PO SCH (07:40)
[2016-10-24] MEDS: NAPROXEN 250 MG TAB PO SCH ×2 (07:40→20:40)
[2016-10-24] MEDS: PANTOPRAZOLE 40 MG TABLET PO SCH (07:40)
[2016-10-24] MEDS: SERTRALINE 100 MG TAB PO SCH (07:41)
[2016-10-24] MEDS: FAMOTIDINE 20 MG TAB PO SCH (07:41)
[2016-10-24] MEDS: METOPROLOL SUCCINATE (ER) 25 MG TAB.ER.24H PO SCH (07:42)
--- NOTE | 2016-10-24 10:43 | P.PN ---
Progress Note - Text Patient seen and examined today at bedside. She underwent her cholecystectomy yesterday with Dr. Gupta and she says that her pain has improved. She saw him pain when she tries to mobilize but she feels that she has had some improvement. She's not having numbness tingling in her lower extremity is. She 's not having nausea or vomiting. Her dressing is intact. Her abdomen soft. There is no rash or acute skin changes in her back. Her lower extremities have sustained dorsal to plantar flexion and extensor hallucis longus intact. There is no focal deficit and lower extremity is. Calves soft nontender. Assessment Right flank pain Low back pain Postoperative day #1 status post left, cholecystectomy with Dr. Gupta Plan The patient seems to be improving in terms of her pain status post cholecystectomy. We'll see if she continues to make progress and hopefully she will be able to increase her diet and mobility with her surgery. We do not have any plans for spine surgery or further spinal workup at this point and we can follow her on an as-needed basis.
[2016-10-24] MEDS: KETOROLAC 30 MG/ML 1 ML VIAL IVP SCH ×2 (12:24→18:11)
[2016-10-24] MEDS: ACETAMINOPHEN TAB 500 MG TAB PO PRN ×2 (13:21→17:03)
--- NOTE | 2016-10-24 15:59 | P.PN ---
Subjective Principal diagnosis: Altered mental status Is a pleasant 86-year-old female continuing be evaluated by the neurology service. Recall that she has had a protracted period of right-sided flank and abdominal pain. She is now first a status post laparoscopic cholecystectomy. They did find cholecystitis with right upper quadrant peritonitis. This was likely the cause of her symptoms yesterday. Today at the time of my evaluation she is much more awake alert and in much less distress. There have been no new neurological symptoms since my exam yesterday. Recall that she may have had a side effect to the [place] she took yesterday. An EEG has been ordered but not yet performed. Objective - Vital Signs Vital signs: Vital Signs Temp 98 F 10/24/16 14:37 Pulse 66 10/24/16 15:20 Resp 20 10/24/16 14:37 BP 118/72 10/24/16 14:37 Pulse Ox 90 L 10/24/16 14:37 Intake & Output 10/23/16 10/24/16 10/24/16 18:59 06:59 18:59 Intake Total 800 1000 Output Total 5 Balance 795 1000 Intake: IV 800 Intake, IV Titration 850 Amount Clindamycin 600 mg In 50 Dextrose 5% in Water 50 ml @ 100 mls/hr IVPB Q6HR [facility] Rx#:[id number] Sodium Chloride 0.9% 1, 800 000 ml @ 75 mls/hr IV . [id number] IBRA[facility]IMA Rx#:[id number] Oral 150 Output: Estimated Blood Loss 5 Other: Voiding Method Toilet Toilet Toilet Diaper Diaper Diaper Incontinent Incontinent Incontinent # Voids 1 2 - Constitutional General appearance: Present: average body habitus, cooperative, no acute distress - EENT Eyes: Present: EOMI, PERRLA. Absent: abnormal pupil, ptosis ENT: Present: hearing grossly normal - Neck Neck: Present: normal ROM. Absent: rigidity - Respiratory Respiratory: negative: prolonged expiration, prolonged inspiration - Cardiovascular Rhythm: regular - Gastrointestinal General gastrointestinal: Present: tenderness. Absent: distended, rigid - Neurologic Neurologic Comment(s): Patient is alert awake and oriented 3. Speech-language are normal. There is no facial asymmetry. There is no lateralizing weakness. There is no sensory deficit in upper or lower extremities. No tremors or seizure-like activities are seen. - Labs CBC & Chem 7: 10/23/16 07:15 10/23/16 07:15 Assessment and Plan (1) Altered mental status Status: Resolved (2) [id number] adverse reaction to medication Status: Resolved (3) Gallstones Status: Acute (4) Right upper quadrant abdominal pain Status: Acute (5) Spondylolisthesis, lumbar region Status: Chronic (6) COPD (chronic obstructive pulmonary disease) Status: Chronic Plan: We do not think that she has suffered any type of cerebrovascular incident. CT of the brain was normal. She has no significant residual neurological findings consistent with that. She may have had a reaction/sensitivity to the [place] so we did stop that. Her grimacing/hypertonicity is doubtful for any seizure activity and was more likely a product of her severe pain. She is much more alert and awake today. Continue neurological checks. Barring any unforeseen abnormalities on her EEG she would be cleared from a neurological standpoint. Otherwise we can be contacted for any changes in her neurological status. I have reviewed the history and physical on the above patient. I have reviewed the above note, and agree.
--- NOTE | 2016-10-24 16:20 | P.PN ---
Progress Note - Text DATE OF SERVICE: 10/24/16 PRESENTING COMPLAINT: Back pain, abdominal pain INTERVAL HISTORY: Presents with arthritic pain with radiculopathy, now has right upper quadrant pain gallstone noted, s/p cholecystectomy . Lying in bed, appears comfortable however when queried about her pain she states poor relief, due to her ALLERGIES and brief episode of mental status changes yesterday, not been given any narcotic pain medications. REVIEW OF SYSTEMS: Done for constitutional ,cardiovascular, GI, pulmonary musculoskeletal with relevant findings as above. CURRENT MEDICATIONS Aspirin, Lipitor, Lovenox, Toprol, trazodone, Toradol, extra strength Tylenol. PHYSICAL EXAM: VITAL SIGNS: Temperature 98.0 pulse 64 respirations 20 blood pressure 118/72 oxygen saturation 90% on 2 L GENERAL APPEARANCE: Lying in bed, appears comfortable, does have some transient spontaneous arm and leg movements. EYES: Pupils equal. Conjunctiva normal. NECK: JVD not raised. Mass not palpable. RESPIRATORY: Respiratory effort normal. Lungs clear to auscultation. CARDIOVASCULAR: First and second sounds normal. No edema. ABDOMEN: Soft. Tenderness in the right upper quadrant Liver and spleen not palpable. No tenderness. No mass palpable. PSYCHIATRY: Alert and oriented x3. Mood and affect normal. INVESTIGATIONS: Lab values noted, CT of the brain: Normal study ASSESSMENT: 1. Acute L1, L3 spondylolysis with severe radiculopathy doing better, no evidence of compression fracture. 2. Episode of neurologic presentation, could be extraparametal symptoms, not clear, seizure needs to be ruled out. 3. Acute chronic obstructive pulmonary disease exacerbation in a smoker 4. Hyperlipidemia 5. Essential hypertension 6. Chronic nicotine dependence, patient is a smoker. 7. Primary osteo-arthritis in multiple joints including the hands and feet. 8. Gallstones, status post cholecystectomy. PLAN: We'll continue the current postoperative course, advance diet, encourage mobility. Await neurologic input. Orthopedics has no future plans for any surgical intervention. We'll continue to monitor closely METALIZER statement: Patient was seen and examined by nurse practitioner Anne Haywood in all elements of the case discussed with attending is Dr. Renee
[2016-10-24] MEDS ORDERED: ROCURONIUM BROMIDE 10 MG/ML 10 ML VIAL IV ONE (18:01)
[2016-10-24] MEDS ORDERED: SUCCINYLCHOLINE CHLORIDE 100 MG/5 ML SYR IV ONE (18:01)
[2016-10-24] MEDS ORDERED: NEOSTIGMINE 1 MG/ML 10 ML VIAL ONE (18:01)
[2016-10-24] MEDS ORDERED: GLYCOPYRROLATE 0.2 MG/ML 2 ML VIAL ONE (18:01)
[2016-10-24] MEDS ORDERED: fentaNYL (PF) 50 MCG/ML 2 ML AMP ONE (18:01)
[2016-10-24] MEDS ORDERED: LIDOCAINE 1% INJ 10MG/ML (20 ML MDV) ONE (18:01)
[2016-10-24] MEDS ORDERED: PROPOFOL 10 MG/ML 20 ML VIAL IV ONE (18:01)
--- NOTE | 2016-10-24 19:38 | P.PN ---
Subjective Principal diagnosis: Symptomatic gallstones The patient is an 86-year-old female presented with severe right upper quadrant abdominal pain including radiation to her back. Since her cholecystectomy, her back pain has improved. Her abdominal pain has moderately improved as well. She is more comfortable today. She is having diet. She is eager to go home however she prefers home healthcare. She describes not wanting to go to rehab facility or long-term. Overall, her back pain and abdominal pain has improved since surgery. Objective - Vital Signs Vital signs: Vital Signs Temp 98 F 10/24/16 14:37 Pulse 64 10/24/16 16:00 Resp 20 10/24/16 16:00 BP 118/72 10/24/16 14:37 Pulse Ox 90 L 10/24/16 14:37 Intake & Output 10/24/16 10/24/16 10/25/16 06:59 18:59 06:59 Intake Total 1000 Balance 1000 Intake: Intake, IV Titration 850 Amount Clindamycin 600 mg In 50 Dextrose 5% in Water 50 ml @ 100 mls/hr IVPB Q6HR [facility] Rx#:[id number] Sodium Chloride 0.9% 1, 800 000 ml @ 75 mls/hr IV . [id number] [facility] Rx#:[id number] Oral 150 Other: Voiding Method Toilet Toilet Diaper Diaper Incontinent Incontinent # Voids 2 - Exam GENERAL: Well developed and in no acute distress. Pleasant. HEENT: No sclera icterus. Extraocular movements grossly intact. Moist buccal mucosa. Head is atraumatic, normocephalic. Hears conversational speech. No nasal drainage.No JV distention. CHEST: Non-labored respirations and equal bilateral excursions. CARDIOVASCULAR: Regular rate and rhythm. Palpable 2+ radial pulses. ABDOMEN: Right upper quadrant dressing saturated with serosanguineous drainage. Left upper quadrant dressing clean dry and intact. Resolved right upper quadrant peritonitis. Abdomen otherwise soft. MUSCULOSKELETAL: No clubbing, cyanosis or edema. NEUROLOGIC: No focal or lateralizing signs. PSYCH: Appropriate affect. Alert and oriented to person, place and time. - Labs CBC & Chem 7: 10/23/16 07:15 10/23/16 07:15 Assessment and Plan (1) Right upper quadrant abdominal pain Status: Acute (2) Gallstones Status: Acute (3) Current smoker Status: Acute (4) Flank pain Status: Acute (5) COPD (chronic obstructive pulmonary disease) Status: Chronic (6) Peritonitis Status: Acute Plan: 1. From a surgical standpoint, may advance diet as tolerated. 2. Dressing to be changed especially of the right upper quadrant using antibiotic dressing. 3. May shower. 4. Patient is clear from a surgical standpoint for discharge once medically cleared.
[2016-10-24] MEDS: traZODone HCL 50 MG TAB PO SCH (20:41)
[2016-10-24] MEDS: ATORVASTATIN 20 MG TAB PO SCH (20:41)
[2016-10-25] MEDS: ACETAMINOPHEN TAB 500 MG TAB PO PRN ×5 (02:28→22:39)
[2016-10-25] MEDS: IPRATROPIUM-ALBUTEROL 3 ML NEB INHALATION SCH ×4 (07:34→21:19)
[2016-10-25] MEDS: BUDESONIDE 1 MG/2 ML NEBU INHALATION SCH ×2 (07:34→21:19)
--- NOTE | 2016-10-25 07:35 | PN ---
DATE OF SERVICE: 10/24/2016 ATTENDING NOTE: This patient seen and examined by me. I reviewed the note of my nurse practitioner, Ms. Haywood. Discussed, reviewed, additional findings below. This patient presented with back pain and radiculopathy, which is actually better. Also has not had cholecystectomy done for gallstones. Doing much better. Tolerating a diet. Patient had a neurological episode, could be adverse drug reaction. EEG, seizures being ruled out. On examination, LUNGS: Slightly decreased breath sounds. CARDIOVASCULAR: First and second seconds normal. ABDOMEN: Some tenderness present. Dressing at the operative site. ASSESSMENT: 1. Back pain with radiculopathy from L1, L3 spondylosis. 2. Gallstones, symptomatic with element of cholecystitis followed by cholecystectomy. 3. Chronic obstructive pulmonary disease. PLAN: Patient encouraged to be out of bed. Diet is being advanced. Per Dr. Cole no further intervention. Looking at probably discharged tomorrow.
[2016-10-25 07:42] LABS: Basophils % (A) 0 %; CH 31.1; CHCM 32.3; Eosinophils # (A) 0.1 k/uL (0-0.7); Eosinophils % (A) 1 %; HDW 2.67; HGB 12.7 gm/dL (11.4-16.0); Luc # (Auto) 0.12; Luc % (Auto) 2; Lymphocytes % (A) 17 %; MCH 30.8 pg (25.0-35.0); MCHC 31.9 g/dL (31.0-37.0); MCV 96.8 fL (80.0-100.0); Mean Platelet Volume 10.1; Monocytes # (A) 0.3 k/uL (0-1.0); Monocytes % (A) 5 %; Neutrophils # (A) 4.5 k/uL (1.3-7.7); Neutrophils % (A) 75 %; RBC 4.14 m/uL (3.80-5.40)
[2016-10-25] MEDS: PANTOPRAZOLE 40 MG TABLET PO SCH (08:00)
[2016-10-25 08:08] LABS: Anion Gap 10 mmol/L; Blood Urea Nitrogen 12 mg/dL (7-17); Calcium 8.8 mg/dL (8.4-10.2); Carbon Dioxide 24 mmol/L (22-30); Chloride 108 mmol/L (98-107); Glucose 88 mg/dL (74-99); Non-African American GFR(MDRD) >60 (>60 ml/min/1.73 sqM); Potassium 4.1 mmol/L (3.5-5.1); Sodium 142 mmol/L (137-145)
[2016-10-25] MEDS: ENOXAPARIN 40 MG/0.4 ML SYRINGE SQ SCH (09:45)
[2016-10-25] MEDS: BACLOFEN 10 MG TAB PO SCH ×3 (09:45→21:16)
[2016-10-25] MEDS: NAPROXEN 250 MG TAB PO SCH ×2 (09:45→21:16)
[2016-10-25] MEDS: METOPROLOL SUCCINATE (ER) 25 MG TAB.ER.24H PO SCH (09:45)
[2016-10-25] MEDS: ASPIRIN 81 MG CHEW PO SCH (10:10)
[2016-10-25] MEDS: SERTRALINE 100 MG TAB PO SCH (10:11)
[2016-10-25] MEDS: SODIUM CHLORIDE 0.9% 1,000 ML IV SCH ×2 (13:22→21:13)
--- NOTE | 2016-10-25 15:57 | XR ---
EXAMINATION TYPE: XR chest 2V DATE OF EXAM: 10/25/2016 COMPARISON: 01/03/2013 TECHNIQUE: PA and lateral views submitted. HISTORY: Cough FINDINGS: Atherosclerotic change aorta. Subsegmental infiltrate right lung base. Interstitium somewhat coarsene d. Arthropathy of the shoulders and diffuse osteopenia. Hyperinflation suggests COPD. IMPRESSION: 1. Right basilar infiltrate. 2. Correlate for COPD. 3. Chronic interstitial appearing changes correlate for fibrosis. Superimposed mild congestion or pne umonitis in the differential diagnosis.
[2016-10-25] MEDS: traZODone HCL 50 MG TAB PO SCH (21:17)
[2016-10-26] MEDS: SODIUM CHLORIDE 0.9% 1,000 ML IV SCH ×2 (00:32→15:37)
[2016-10-26] MEDS: ACETAMINOPHEN TAB 500 MG TAB PO PRN ×3 (05:29→19:41)
[2016-10-26 07:11] LABS: Basophils % (A) 0 %; CH 31.3; CHCM 34.2; Eosinophils # (A) 0.1 k/uL (0-0.7); Eosinophils % (A) 2 %; HCT 41.9 % (34.0-46.0); HDW 2.86; HGB 14.2 gm/dL (11.4-16.0); Luc # (Auto) 0.18; Luc % (Auto) 3; Lymphocytes # (A) 1.1 k/uL (1.0-4.8); Lymphocytes % (A) 19 %; MCH 31.3 pg (25.0-35.0); MCHC 33.9 g/dL (31.0-37.0); MCV 92.2 fL (80.0-100.0); Mean Platelet Volume 9.8; Monocytes # (A) 0.3 k/uL (0-1.0); Monocytes % (A) 6 %; Neutrophils % (A) 69 %; RBC 4.55 m/uL (3.80-5.40); RDW 13.6 % (11.5-15.5); WBC 5.7 k/uL (3.8-10.6); WBC (Perox) 6.25
[2016-10-26] MEDS: IPRATROPIUM-ALBUTEROL 3 ML NEB INHALATION SCH ×4 (07:53→20:31)
[2016-10-26] MEDS: BUDESONIDE 1 MG/2 ML NEBU INHALATION SCH ×2 (07:53→20:31)
[2016-10-26 07:55] LABS: Anion Gap 11 mmol/L; Blood Urea Nitrogen 11 mg/dL (7-17); Calcium 9.3 mg/dL (8.4-10.2); Carbon Dioxide 26 mmol/L (22-30); Chloride 104 mmol/L (98-107); Glucose 118 mg/dL (74-99); Non-African American GFR(MDRD) >60 (>60 ml/min/1.73 sqM); Potassium 3.7 mmol/L (3.5-5.1); Sodium 141 mmol/L (137-145)
--- NOTE | 2016-10-26 08:11 | PN ---
DATE OF SERVICE: 10/25/2016 PRESENTING COMPLAINT: Back pain. INTERVAL HISTORY: This patient presented with back pain, radiculopathy, which is much better with the current medications. Also had a cholecystectomy for gallstones. Tolerating a diet. There is some holdup over the discharge from the social worker palliative care to ECF placement. Review of systems done for constitutional, cardiovascular, GI, pulmonary; relevant findings as above. Current medications are reviewed. On examination, temperature 98.1, pulse 71, respirations 20, blood pressure 130/78, pulse ox 95% on room air. GENERAL APPEARANCE: Lying in bed, comfortable normal. NECK: JVD not raised. Mass not palpable. RESPIRATORY: Effort normal. LUNGS: Decreased breath sounds. CARDIOVASCULAR: First and second sounds normal. No edema. ABDOMEN: Soft. Minimal tenderness. Bowel sounds are present. PSYCHIATRY: Alert and oriented x3. Mood and affect normal. INVESTIGATIONS: White count 6, hemoglobin 12.7. Potassium 4.1. ASSESSMENT: 1. Acute L1-L3 spondylolisthesis and severe radiculopathy on presentation, much improved. 2. Acute chronic obstructive pulmonary disease exacerbation a smoker, improved. 3. Hyperlipidemia. 4. Essential hypertension. 5. Chronic nicotine dependence. Patient is a smoker. 6. Primary osteoarthritis of multiple joints including the hands and feet. 7. Symptomatic gallstones followed by cholecystectomy. PLAN: Continue current medication and treatment plan. social worker psychiatric is involved in discharge planning. Care was discussed with the patient.
[2016-10-26] MEDS: PANTOPRAZOLE 40 MG TABLET PO SCH (08:16)
[2016-10-26] MEDS: ASPIRIN 81 MG CHEW PO SCH (08:16)
[2016-10-26] MEDS: SERTRALINE 100 MG TAB PO SCH (08:16)
[2016-10-26] MEDS: BACLOFEN 10 MG TAB PO SCH ×3 (08:16→21:46)
[2016-10-26] MEDS: NAPROXEN 250 MG TAB PO SCH ×2 (08:16→21:46)
--- NOTE | 2016-10-26 08:21 | P.PN ---
Subjective Principal diagnosis: Symptomatic gallstones The patient is an 86-year-old female who presented with severe right upper quadrant pain including symptomatically gallstones. She is status post laparoscopic cholecystectomy. She reports that her initial epigastric and right upper quadrant and back pain is now improved. She does report soreness from her right lateral incision. She is tolerating diet. Objective - Vital Signs Vital signs: Vital Signs Temp 97.6 F 10/25/16 23:00 Pulse 62 10/26/16 08:07 Resp 16 10/25/16 23:00 BP 137/70 10/25/16 23:00 Pulse Ox 95 10/26/16 07:56 Intake & Output 10/25/16 10/26/16 10/26/16 18:59 06:59 18:59 Intake Total 1200 300 Balance 1200 300 Intake: Intake, IV Titration 800 Amount Sodium Chloride 0.9% 1, 800 000 ml @ 75 mls/hr IV . [id number] Rx#:[id number] Oral 400 300 Other: Voiding Method Toilet Toilet Diaper Diaper Incontinent Incontinent # Voids 3 2 - Exam GENERAL: Well developed and in no acute distress. Pleasant. HEENT: No sclera icterus. Extraocular movements grossly intact. Moist buccal mucosa. Head is atraumatic, normocephalic. Hears conversational speech. No nasal drainage.No JV distention. CHEST: Non-labored respirations and equal bilateral excursions. CARDIOVASCULAR: Regular rate and rhythm. Palpable 2+ radial pulses. ABDOMEN: Dressing along the right lateral abdomen clean dry and intact. Ecchymosis noted along subcutaneous tissue of 8 cm. Abdomen soft. No peritonitis. MUSCULOSKELETAL: No clubbing, cyanosis or edema. NEUROLOGIC: No focal or lateralizing signs. PSYCH: Appropriate affect. Alert and oriented to person, place and time. - Labs CBC & Chem 7: 10/26/16 06:46 10/26/16 06:46 Labs: Abnormal Lab Results - Last 24 Hours (Table) 10/26/16 Range/Units 06:46 Glucose 118 H (74-99) mg/dL Assessment and Plan (1) Right upper quadrant abdominal pain Status: Acute (2) Gallstones Status: Acute (3) Current smoker Status: Acute (4) Flank pain Status: Acute (5) COPD (chronic obstructive pulmonary disease) Status: Chronic (6) Peritonitis Status: Acute (7) S/P cholecystectomy Status: Acute Plan: 1. Diet as tolerated. 2. Dressing may be discontinued in 4 days. 3. Patient cleared from a surgical standpoint for discharge.
[2016-10-26] MEDS: ENOXAPARIN 40 MG/0.4 ML SYRINGE SQ SCH (08:22)
[2016-10-26] MEDS: ONDANSETRON 4 MG/2 ML VIAL IVP PRN ×2 (09:14→22:22)
--- NOTE | 2016-10-26 10:52 | XR ---
EXAMINATION TYPE: XR abdomen 2V DATE OF EXAM: 10/26/2016 COMPARISON: 10/21/2016 HISTORY: Pain TECHNIQUE: One view abdominal series FINDINGS: The osseous structures are intact. The bowel gas pattern is nonspecific. Previous surgery noted. Sub segmental changes at the right lung base. Diffuse osteopenia and degenerative change of the spine. Po stsurgical change left hip. Severe arthropathy right hip. IMPRESSION: 1. Nonspecific abdomen. 2. Right basilar infiltrate. 3. Scattered air-fluid levels. Enteritis or ileus in the differential. Partial obstruction not exclud ed. Thin lucency below the right hemidiaphragm likely related to partial consolidation right lung bas e rather than free air. Correlate with CT scan.
[2016-10-26] MEDS: METOPROLOL SUCCINATE (ER) 25 MG TAB.ER.24H PO SCH (11:47)
[2016-10-26] MEDS: BISACODYL 10 MG SUPP RECTAL SCH (12:39)
[2016-10-26] MEDS: ATORVASTATIN 20 MG TAB PO SCH (21:46)
[2016-10-26] MEDS: traZODone HCL 50 MG TAB PO SCH (21:47)
--- NOTE | 2016-10-26 21:59 | P.PN ---
Progress Note - Text DATE OF SERVICE: 10/26/2016 PRESENTING COMPLAINT: Back pain, abdominal pain INTERVAL HISTORY: Presents with arthritic pain with radiculopathy, now has right upper quadrant pain gallstone noted, s/p cholecystectomy . Lying in bed, appears comfortable pain is more mild to moderate today. Patient had episode of nausea this morning , stated she had not had a BM since her surgery, abdominal x-ray obtained revealing nonspecific abdomen although ileus could not be ruled out. Patient made nothing by mouth, Dulcolax suppository given. Later in the day patient is in fact have a small bowel movement. Advance diet to clears. Patient is able to tolerate clear liquids with no nausea, patient has been up in the hallway, expressed a desire to go home rather than to rehab. REVIEW OF SYSTEMS: Done for constitutional ,cardiovascular, GI, pulmonary musculoskeletal with relevant findings as above. CURRENT MEDICATIONS Aspirin, Lipitor, Lovenox, Toprol, trazodone, Toradol, extra strength Tylenol. PHYSICAL EXAM: VITAL SIGNS: Temperature 98.2, pulse 53, respiratory rate 18 blood pressure 146 /86 oxygen saturation 91% on room air. GENERAL APPEARANCE: Lying in bed, appears comfortable, does have some transient spontaneous arm and leg movements. EYES: Pupils equal. Conjunctiva normal. NECK: JVD not raised. Mass not palpable. RESPIRATORY: Respiratory effort normal. Lungs clear to auscultation. CARDIOVASCULAR: First and second sounds normal. No edema. ABDOMEN: Soft. Tenderness in the right upper quadrant Liver and spleen not palpable. No tenderness. No mass palpable. PSYCHIATRY: Alert and oriented x3. Mood and affect normal. INVESTIGATIONS: CBC and BMP unremarkable Accu-Cheks noted Abdominal x-ray: Nonspecific abdomen ileus could not be ruled out. ASSESSMENT: 1. Acute L1, L3 spondylolysis with severe radiculopathy doing better, no evidence of compression fracture, much improved. 2. Episode of neurologic presentation, could be extraparametal symptoms, not clear, seizure needs to be ruled out. 3. Acute chronic obstructive pulmonary disease exacerbation in a smoker, improved 4. Hyperlipidemia 5. Essential hypertension 6. Chronic nicotine dependence, patient is a smoker. 7. Primary osteo-arthritis in multiple joints including the hands and feet. 8. Symptomatic gallstones, status post cholecystectomy. PLAN: We'll continue the current postoperative course, advance diet, encourage mobility. Patient would like to go home rather than to an extended care facility as originally planned. We will evaluate along with case management for appropriateness for her to go home. We'll continue to monitor closely Patient was seen and examined by nurse practitioner Anne Haywood in all elements of the case discussed with attending Dr. Renee.
--- NOTE | 2016-10-26 22:34 | EEG ---
DATE OF SERVICE: 10/25/2016 INDICATIONS FOR EXAMINATION: Altered mental status. AGE: 86Y DESCRIPTION OF PROCEDURE: This EEG was performed using a 21 channel digital electroencephalograph, following international 10-20 system. DESCRIPTION OF THE RECORDING: From the beginning of the tracing, with the patient's eyes closed, the background rhythm was mostly consisting of 8 Hz alpha frequency in the posterior occipital leads. No obvious asymmetry is seen. Photic stimulation was performed with a minimal driving response seen. No pathological waves were elicited. Hyperventilation was not performed. Occasional muscle and lead artifacts are seen. The patient remains awake throughout the tracing. No epileptiform discharges were seen. Her EKG lead showed an irregularly irregular rhythm with a normal rate. INTERPRETATION: This awake EEG can be considered within normal limits except her EKG lead showed an irregularly irregular rhythm with normal rate. No epileptiform discharges were seen. The absence of epileptiform discharges does not rule out the diagnosis of epilepsy, therefore, clinical correlation is recommended.
--- NOTE | 2016-10-26 22:44 | P.PN ---
Subjective Principal diagnosis: Symptomatic gallstones The patient is an 86-year-old female who presented with right upper quadrant abdominal pain with symptomatic gallstones. Since surgery, she reports her initial pain had resolved. She does report soreness from her surgery along the right flank. She had initial bruising which is now improving. She had an extended discussion with me regarding wanting to go home instead of an extended care facility. She reports having family and friends who can help with assistance at home. She had been tolerating diet. Earlier, abdominal x-rays were obtained per the medicine team. She reports intermittent abdominal pain which had been preexistent. Objective - Vital Signs Vital signs: Vital Signs Temp 97.6 F 10/26/16 15:00 Pulse 66 10/26/16 20:47 Resp 16 10/26/16 16:00 BP 125/66 10/26/16 15:00 Pulse Ox 91 L 10/26/16 15:00 Intake & Output 10/26/16 10/26/16 10/27/16 06:59 18:59 06:59 Intake Total 300 600 Balance 300 600 Intake: Intake, IV Titration 600 Amount Sodium Chloride 0.9% 1, 600 000 ml @ 75 mls/hr IV . [id number] [facility] Rx#:[id number] Oral 300 Other: Voiding Method Toilet Toilet Diaper Diaper Incontinent Incontinent # Voids 2 2 # Bowel Movements 0 # Emeses 1 - Exam GENERAL: Well developed and in no acute distress. Pleasant. HEENT: No sclera icterus. Extraocular movements grossly intact. Moist buccal mucosa. Head is atraumatic, normocephalic. Hears conversational speech. No nasal drainage.No JV distention. NECK: Supple without lymphadenopathy. CHEST: Non-labored respirations and equal bilateral excursions. CARDIOVASCULAR: Regular rate and rhythm. Palpable 2+ radial pulses. ABDOMEN: No epigastric discomfort. Incisions are clean dry and intact with Dermabond. Right lateral incision with ecchymosis now resolving to yellow hue. All dressings were discontinued. No left upper quadrant discomfort. MUSCULOSKELETAL: No clubbing, cyanosis or edema. NEUROLOGIC: No focal or lateralizing signs. PSYCH: Appropriate affect. Alert and oriented to person, place and time. - Labs CBC & Chem 7: 10/26/16 06:46 10/26/16 06:46 Labs: Abnormal Lab Results - Last 24 Hours (Table) 10/26/16 Range/Units 06:46 Glucose 118 H (74-99) mg/dL - Imaging and Cardiology Abdominal x-ray: report reviewed, image reviewed (No evidence of small bowel obstruction. No pneumoperitoneum.) Assessment and Plan (1) Right upper quadrant abdominal pain Status: Acute (2) Gallstones Status: Acute (3) Current smoker Status: Acute (4) Flank pain Status: Acute (5) COPD (chronic obstructive pulmonary disease) Status: Chronic (6) Peritonitis Status: Acute (7) S/P cholecystectomy Status: Acute (8) Peritoneal adhesions Status: Acute Plan: 1. On exam, no moderate abdominal pain identified. She is actually improving. 2. Per request of the patient, she wishes to be discharged home as she has family and friends to assist with her recovery. From a surgical standpoint, she is stable for discharge. 3. Additionally, intraoperative findings demonstrated moderate intra-abdominal adhesions were identified without evidence of bowel obstruction. As result, this is likely consistent with a history of chronic abdominal pain as well. Please note, time of discussion and care plan of over 30 minutes. Time with Patient: Greater than 30
[2016-10-27] MEDS: SODIUM CHLORIDE 0.9% 1,000 ML IV SCH (03:28)
[2016-10-27] MEDS: ACETAMINOPHEN TAB 500 MG TAB PO PRN ×2 (05:52→14:47)
[2016-10-27] MEDS: BUDESONIDE 1 MG/2 ML NEBU INHALATION SCH (07:35)
[2016-10-27] MEDS: IPRATROPIUM-ALBUTEROL 3 ML NEB INHALATION SCH ×3 (07:35→17:09)
[2016-10-27 07:46] LABS: Basophils % (A) 0 %; CH 30.8; CHCM 32.3; Eosinophils # (A) 0.2 k/uL (0-0.7); Eosinophils % (A) 2 %; HCT 48.1 % (34.0-46.0); HDW 2.77; HGB 15.4 gm/dL (11.4-16.0); Luc # (Auto) 0.13; Luc % (Auto) 1; Lymphocytes # (A) 1.6 k/uL (1.0-4.8); Lymphocytes % (A) 16 %; MCH 30.8 pg (25.0-35.0); Mean Platelet Volume 10.9; Monocytes # (A) 0.5 k/uL (0-1.0); Monocytes % (A) 5 %; Neutrophils # (A) 7.3 k/uL (1.3-7.7); Neutrophils % (A) 75 %; RBC 5.01 m/uL (3.80-5.40); WBC 9.7 k/uL (3.8-10.6); WBC (Perox) 9.86
[2016-10-27 07:50] LABS: ALT 35 U/L (9-52); AST 29 U/L (14-36); Alkaline Phosphatase 85 U/L (38-126); Anion Gap 16 mmol/L; Blood Urea Nitrogen 20 mg/dL (7-17); Calcium 9.1 mg/dL (8.4-10.2); Carbon Dioxide 25 mmol/L (22-30); Chloride 102 mmol/L (98-107); Glucose 85 mg/dL (74-99); Magnesium 1.5 mg/dL (1.6-2.3); Non-African American GFR(MDRD) >60 (>60 ml/min/1.73 sqM); Sodium 143 mmol/L (137-145); Total Protein 6.1 g/dL (6.3-8.2)
[2016-10-27 08:14] VITALS: BP 135/71
[2016-10-27] MEDS: NAPROXEN 250 MG TAB PO SCH (08:33)
[2016-10-27] MEDS: ASPIRIN 81 MG CHEW PO SCH (08:33)
[2016-10-27] MEDS: PANTOPRAZOLE 40 MG TABLET PO SCH (08:33)
[2016-10-27] MEDS: BACLOFEN 10 MG TAB PO SCH (08:34)
[2016-10-27] MEDS: SERTRALINE 100 MG TAB PO SCH (08:34)
[2016-10-27] MEDS: ENOXAPARIN 40 MG/0.4 ML SYRINGE SQ SCH (08:35)
[2016-10-27] MEDS: METOPROLOL SUCCINATE (ER) 25 MG TAB.ER.24H PO SCH (08:35)
[2016-10-27] MEDS: BISACODYL 10 MG SUPP RECTAL SCH (08:37)
--- NOTE | 2016-10-27 12:01 | PN ---
DATE OF SERVICE: 10/26/2016 ATTENDING NOTE The patient was seen and examined by me earlier today. Review the note of my nurse practitioner, Ms. Haywood. Reviewed and discussed additional findings below. The patient is status post cholecystectomy. Neck pain is better. Already received laxative and had a bowel movement. Did tolerate some diet. Comfortable. On exam: LUNGS: Decreased breath sounds. CARDIOVASCULAR: First and second sounds normal. ABDOMEN: Mild tenderness. ASSESSMENT: 1. Status post cholecystectomy. 1. L1 to L3 spondylolytic pain is better. The patient was supposed to go to rehab, patient now wants to go home. I have told the nurse to contact her son and confirm the same so that things are smooth.
[2016-10-27] MEDS: MAGNESIUM SULFATE-D5W PMX 1 GM in DEXTROSE/WATER 1 100ML.BAG IVPB SCH ×2 (13:57→13:58)
[2016-10-27 14:09] VITALS: PULSE 69; RESP 18; TEMP 97.9
--- NOTE | 2016-10-27 20:28 | P.PN ---
Subjective Principal diagnosis: Symptomatic gallstones The patient is an 86-year-old female who presented with right upper quadrant abdominal pain with symptomatic gallstones. She reports chronic nausea. She also reports as appropriate intermittent incisional pain along the right upper quadrant. She is tolerating diet. She is eager to be discharged home. She had emesis yesterday however absent today. Objective - Vital Signs Vital signs: Vital Signs Temp 97.9 F 10/27/16 14:09 Pulse 69 10/27/16 14:09 Resp 18 10/27/16 14:09 BP 135/71 10/27/16 07:00 Pulse Ox 95 10/27/16 14:09 Intake & Output 10/26/16 10/27/16 10/27/16 18:59 06:59 18:59 Intake Total 600 340 740 Balance 600 340 740 Intake: Intake, IV Titration 600 Amount Sodium Chloride 0.9% 1, 600 000 ml @ 75 mls/hr IV . [id number] [facility] Rx#:[id number] Oral 340 740 Other: Voiding Method Toilet Toilet Toilet Diaper Diaper Diaper Incontinent Incontinent Incontinent # Voids 2 3 3 # Bowel Movements 0 1 # Emeses 1 - Exam GENERAL: Well developed and in no acute distress. Pleasant. HEENT: No sclera icterus. Extraocular movements grossly intact. Moist buccal mucosa. Head is atraumatic, normocephalic. Hears conversational speech. No nasal drainage. CHEST: Non-labored respirations and equal bilateral excursions. CARDIOVASCULAR: Regular rate and rhythm. Palpable 2+ radial pulses. ABDOMEN: Resolving ecchymosis on the right upper quadrant abdominal wall. No peritonitis. MUSCULOSKELETAL: No clubbing, cyanosis or edema. NEUROLOGIC: No focal or lateralizing signs. PSYCH: Appropriate affect. Alert and oriented to person, place and time. - Labs CBC & Chem 7: 10/27/16 06:47 10/27/16 07:12 Labs: Abnormal Lab Results - Last 24 Hours (Table) 10/27/16 10/27/16 Range/Units 06:47 07:12 Hct 48.1 H (34.0-46.0) % BUN 20 H (7-17) mg/dL Magnesium 1.5 L (1.6-2.3) mg/dL Total Protein 6.1 L (6.3-8.2) g/dL Assessment and Plan (1) Right upper quadrant abdominal pain Status: Acute (2) Gallstones Status: Acute (3) Current smoker Status: Acute (4) Flank pain Status: Acute (5) COPD (chronic obstructive pulmonary disease) Status: Chronic (6) Peritonitis Status: Acute (7) S/P cholecystectomy Status: Acute (8) Peritoneal adhesions Status: Acute (9) Hypomagnesemia Status: Acute (10) Chronic nausea Status: Acute (11) High risk for readmission Status: Acute Plan: 1. She has chronic nausea and had been pre-existing to her procedure. She reports taking antacids which increases risk for hypo-magnesia. Hypo-magnesia is linked to chronic nausea. 2. Her magnesium level is deficient which explains her symptoms. Recommend IV supplement with magnesium. She may be discharged home with oral magnesium tablets. 3. After IV supplement and correction of her low magnesia levels, patient may be discharged home. 4. Patient is high risk for readmission for chronicity of chronic nausea as well as peritoneal adhesions which is pre-existing to admission. The above care plan was discussed with the medicine team as the patient is high risk for readmission.
--- NOTE | 2016-10-28 19:49 | DS ---
DATE OF ADMISSION: 10/23/2016 DATE OF DISCHARGE: 10/27/2016 FINAL DIAGNOSES: 1. Acute L1 and L3 spondylosis with severe radiculopathy, present on admission. 2. Acute chronic obstructive pulmonary disease exacerbation in smoker, improved. 3. Hyperlipidemia. 4. Essential hypertension. 5. Chronic nicotine dependence. Patient is a smoker. 6. Primary osteoarthritis in multiple joints including the hands and feet. 7. Cholelithiasis followed by cholecystectomy. PROCEDURE: Laparoscopic cholecystectomy. CONSULTATIONS: 1. Dr. Perales from General Surgery. 2. Dr. Rodriguez from Neurology. 3. Dr. Cole from Orthopedic Spine. HOSPITAL COURSE: This patient presented with severe pain in the back felt to be radiculopathy that did improve with the current medications and also having abdominal pain. Seen by Dr. Perales who felt that gallstone to be responsible and carried out cholecystectomy. Patient back pain and ( ) also doing much better. Patient starting a diet by the time of discharge. Care was discussed in detail with the patient. Patient wanted to go home with the son. Home care was arranged. Care was discussed in detail with the patient. Discharge planning more than 35 minutes. DISCHARGE MEDICATIONS: 1. Aspirin 81 mg q.48 hours. 2. Symbicort 160/4.5, 2 puffs b.i.d. 3. Prilosec 20 mg daily. 4. Desyrel 50 mg q.h.s. 5. Tylenol 650 mg q.6 p.r.n. 6. ProAir 1 to 2 puffs q.6 p.r.n. 7. Calcium 600 mg p.o. daily. 8. Vitamin D 3000 p.o. daily. 9. Yudelka 180 mg p.o. daily. 10. Ativan 0.5 q.8 p.r.n. 11. Nitrostat 0.5 sublingual q.5 p.r.n. 12. Zoloft 100 mg p.o. daily. 13. Zocor 40 mg q.48 hours. 14. Kenalog application topical b.i.d. 15. Baclofen 5 mg p.o. daily p.r.n. 16. Combivent 2 puffs q.i.d. 17. Lopressor 12.5 p.o. b.i.d. 18. Naproxen 250 mg p.o. b.i.d. 19. Slow-Mag 60 mg p.o. daily,15 tablets. Follow up Labs: BMP, CBC, magnesium in one week. Follow with [facility] as needed; Dr. Perales on 11/26/16; Dr. Aristides Mcneill in 3 days. On exam: ABDOMEN: Soft. LUNGS: Decreased breath sounds. Discharge planning more than 35 minutes.
--- NOTE | 2016-11-11 12:25 | P.OP ---
Date of Procedure: 10/23/16 Preoperative Diagnosis: Postoperative Diagnosis: Procedure(s) Performed: Implants: Indications for Procedure: Operative Findings: Description of Procedure: Date of Procedure: 10/23/16 SURGEON: KOBE RABAGO MD CHIN STRAP CUTTER: None. PREOPERATIVE DIAGNOSES: 1. Acute Cholecystitis. 2. Symptomatic gallstones. 3. Previous history of multiple abdominal surgeries. 4. Right upper quadrant abdominal pain with peritonitis. 5. Chronic obstructive pulmonary disease. 6. Chronic lower back pain. 7. History of tobacco abuse. 8. Intractable nausea and vomiting. 9. Poor appetite. 10. Acute depression without psychosis. 11. Hypertensive heart disease with cardiomyopathy. 12. Hyperlipidemia. 13. Gastroesophageal reflux disease. 14. Personal history of atypical chest pain. POSTOPERATIVE DIAGNOSES: 1. Acute Cholecystitis. 2. Symptomatic gallstones. 3. Previous history of multiple abdominal surgeries. 4. Right upper quadrant abdominal pain with peritonitis. 5. Chronic obstructive pulmonary disease. 6. Chronic lower back pain. 7. History of tobacco abuse. 8. Intractable nausea and vomiting. 9. Poor appetite. 10. Acute depression without psychosis. 11. Hypertensive heart disease with cardiomyopathy. 12. Hyperlipidemia. 13. Gastroesophageal reflux disease. 14. Personal history of atypical chest pain. 15. Severe intra-abdominal peritoneal adhesions greater omentum to the abdominal wall lower abdomen, left upper quadrant, and right lower quadrant OPERATION: Laparoscopic cholecystectomy ANESTHESIA: General with 30 mL 0.25% Marcaine with epinephrine. ESTIMATED BLOOD LOSS: 5 mL. SPECIMENS REMOVED: Gallbladder. COMPLICATIONS: None. FINDINGS: 1. Moderately distended gallbladder with features of cholecystitis 2. Gallstone 4 cm along infundibulum of gallbladder 3. Severe peritoneal adhesions from multiple abdominal surgeries involving lower abdomen, left upper quadrant, right lower quadrant undisturbed. 4. Decompression of gallbladder performed for cholecystectomy with contamination requiring extended antibiotics postoperatively. 5. Optifoam placed along left upper quadrant and right lateral port site. 6. Acute on chronic cholecystitis. 7. CODE status addressed INDICATIONS: The patient is a 86-year-old female who presents with acute cholelcystitis. Surgical intervention with a laparoscopic cholecystectomy was described at length including injury to the biliary tree, bleeding, infection, need for further surgery. Informed consent was obtained. Additionally, the patient's CODE STATUS was adjusted to full code for the procedure. DESCRIPTION OF THE PROCEDURE: The patient was brought to the operating room, laid in supine position. After general induction, the abdomen was prepped and draped in a standard sterile fashion. Prior to incision, a timeout protocol was confirmed with surgical team regarding patient's name, procedure to be performed including preoperative medications for which she had received heparin 5000 units subcutaneously as well as bilateral SCDs for DVT prophylaxis. The skin was localized prior to incision. A 0 degree 5-mm laparoscopic trocar entry was performed and entered into the peritoneal cavity via the left upper quadrant as she had previous midline abdominal surgery. Diagnostic laparoscopy confirmed no injury to bowel, viscera or mesentery. Moderate peritoneal adhesions of the greater omentum to abdominal wall involving the right upper quadrant including right lower quadrant and left upper quadrant was found. The liver serosa was completely unremarkable. Next, two 5 mm trocars were placed along the right costal margin followed by a 11 mm port at the left upper quadrant. To facilitate entry of another 5 mm trocar along the epigastrium, laparoscopic lysis of adhesions using a combination of blunt dissection and Kitner as well as Sonicision was used without injury to the small bowel. Combination of sharp dissection using the scissors was also used. Additional length and time for laparoscopic lysis of adhesions over 30 minutes was performed. The patient was placed in steep reverse Trendelenburg position with the right side up. A 5 mm trocar was placed along the epigastrium. The 5 mm port along the left upper quadrant was exchanged for an 11 mm trocar. The gallbladder was moderately distended and iatrogenic decompression was performed to allow maneuverability of the gallbladder with minimal spillage of bile. Moderate peritoneal adhesions were also identified along the gallbladder fundus and infundibulum as well as addressed using combination of Sonicision and blunt dissection. Once the adhesions were cleared from chronic cholecystitis, the gallbladder fundus was retracted over the dome of the liver. Initial attention was brought to the infundibulum which was gently retracted in the inferior lateral approach. Using a Kittner, the cystic duct including the cystic artery was carefully skeletonized. Using a large clip supply chain systems manager 3 clips were placed proximally, and 1 clip was placed distally along the cystic duct and then cut. Again care was taken to avoid any injury to the biliary tree as the common bile duct was clearly visualized during this portion of dissection. Next, the cystic artery was clipped twice proximally, once distally and then cauterized. Electro-Bovie cautery was used to remove the gallbladder from the hepatic fossa. Hemostasis was checked and found to be adequate. The gallbladder was removed from the abdominal cavity using an Endo Catch bag after extending the left lateral incision to accommodate a 4 cm gallstone extraction. The specimen was passed off for further pathological analysis. The abdomen was copiously irrigated with 2 L of warm normal saline solution until the aspirant was clear. All instruments and pneumoperitoneum were removed from the abdominal cavity. The fascial defect for the 11-mm port site was oversewn using 0 Vicryl. The rest of incisions were reapproximated using 4-0 Monocryl in an interrupted subcuticular fashion. A total of 30 mL of 0.25% Marcaine with epinephrine was infiltrated to all wounds for postop analgesia. Dermabond was applied to the skin along the epigastric incision and right upper quadrant incisions. Surgical dressing such as OptiFoam was placed along the left upper quadrant incision and right lateral quadrant incision. At the end of the procedure, needle, sponge, and instrument count was verified correct by assembler surgical garment. The patient had tolerated the procedure well and was taken to postanesthesia care unit in stable condition. Intraoperative films were discussed and reviewed with the patient's family who were pleased with the level of care.
== END 2016-10-27 17:50 | disposition home health service (06) | DRG 417 ==
LOC: EC 15:57 → 5MS5E 18:51 → OBSVTOIN 10-23 11:19
PROVIDERS: ADMIT Hospitalist; ATTEND Hospitalist
PROC: 0FT44ZZ Resection of Gallbladder, Percutaneous Endoscopic Approach (ICD-10-PCS; principal; 2016-10-23 13:00)
PROC: 0DN84ZZ Release Small Intestine, Percutaneous Endoscopic Approach (ICD-10-PCS; principal; 2016-10-23 13:00)
PROC: 0DNS4ZZ (ICD-10-PCS; principal; 2016-10-23 13:00)
DX: K80.12 Calculus of gallbladder with acute and chronic cholecystitis without obstruction (principal); K65.9 Peritonitis, unspecified; G93.40 Encephalopathy, unspecified; I42.9 Cardiomyopathy, unspecified; J44.1 Chronic obstructive pulmonary disease with (acute) exacerbation; E83.42 Hypomagnesemia; I11.9 Hypertensive heart disease without heart failure; I10 Essential (primary) hypertension; E78.5 Hyperlipidemia, unspecified; F17.210 Nicotine dependence, cigarettes, uncomplicated; K66.0 Peritoneal adhesions (postprocedural) (postinfection); M15.9 Polyosteoarthritis, unspecified; M43.16 Spondylolisthesis, lumbar region; M47.26 Other spondylosis with radiculopathy, lumbar region; M51.16 Intervertebral disc disorders with radiculopathy, lumbar region; Z79.51 Long term (current) use of inhaled steroids; Z79.82 Long term (current) use of aspirin; Z79.899 Other long term (current) drug therapy; Z82.49 Family history of ischemic heart disease and other diseases of the circulatory system; Z96.649 Presence of unspecified artificial hip joint; F32.9 Major depressive disorder, single episode, unspecified; G89.29 Other chronic pain; K21.9 Gastro-esophageal reflux disease without esophagitis; M19.91 Primary osteoarthritis, unspecified site; Z88.1 Allergy status to other antibiotic agents; Z88.0 Allergy status to penicillin; Z88.2 Allergy status to sulfonamides; Z88.5 Allergy status to narcotic agent
CPT/HCPCS: 36415; 70450; 71020; 74020; 80048; 80053; 81001; 82150; 83690; 83735; 85025; 85610; 88304; 94640; 94760; 95819; 96360; 99285

== ENCOUNTER 2016-11-15 14:44 | Emergency (ER) | payer MEDICARE ==
[2016-11-15] MEDS ORDERED: SODIUM CHLORIDE 0.9% 1,000 ML IV STA (16:08)
[2016-11-15] MEDS ORDERED: SODIUM CHLORIDE 0.9% 500 ML IV STA ×2 (16:08→17:44)
[2016-11-15] MEDS ORDERED: RX INFO: IV CONTRAST WAS GIVEN 1 EACH MISC MISCELLANE PRN (16:09)
--- NOTE | 2016-11-15 16:12 | ED ---
General Adult HPI - General Chief complaint: Recheck/Abnormal Lab/Rx Stated complaint: Abd pain Time Seen by Provider: 11/15/16 16:00 Source: patient, RN notes reviewed Mode of arrival: ambulatory Limitations: no limitations - History of Present Illness Initial comments: Patient 86-year-old female status post cholecystectomy 3 weeks, who presents emergency room today from her PCP office for a CT abdomen and pelvis. Patient does admit that she's been expressing some pain in the abdomen since surgery. She states she had a follow-up and routine check with her family doctor advised come here to the emergency room for evaluation due to abdominal pain. Recommended CT of the abdomen pelvis. Also admits that her blood pressure was low at the office. States she does take metoprolol her PCP is planning on taking her off. Patient currently denies any complaints. She does admit to some abdominal pain but states that she's been getting used to it. She denies any nausea vomiting or diarrhea. Denies any chest pain, shortness of breath, back pain, numbness tingling, dysuria or hematuria. - Related Data Home Medications Medication Instructions Recorded Confirmed Aspirin 81 mg PO Q48H 06/08/14 11/15/16 Budesonide-Formot 160-4.5 Mcg 2 puff INHALATION RT-BID 06/08/14 11/15/16 [Symbicort 160-4.5 Mcg Inhaler] Omeprazole [PriLOSEC] 20 mg PO DAILY 06/08/14 11/15/16 traZODone HCL [Desyrel] 50 mg PO HS 06/08/14 11/15/16 Albuterol Sulfate [Proair Hfa] 1 - 2 puff INHALATION RT-Q6H PRN 10/17/16 Calcium Carbonate [Calcium] 600 mg PO DAILY 10/17/16 11/15/16 Cholecalciferol [Vitamin D3] 1,000 unit PO DAILY 10/17/16 11/15/16 Fexofenadine HCl [Yudelka Allergy] 180 mg PO DAILY PRN 10/17/16 11/15/16 LORazepam [Ativan] 0.5 mg PO Q8H PRN 10/17/16 11/15/16 Nitroglycerin Sl Tabs [Nitrostat] 0.4 mg SUBLINGUAL Q5M PRN 10/17/16 11/15/16 Sertraline HCl [Zoloft] 100 mg PO DAILY 10/17/16 11/15/16 Simvastatin [Zocor] 40 mg PO Q48H 10/17/16 11/15/16 Triamcinolone 0.1% Cream [Kenalog] 1 applic TOPICAL BID 10/20/16 11/15/16 Ipratropium/Albuterol Sulfate 2 puff INHALATION RT-QID 11/15/16 11/15/16 [Combivent Respimat Inhaler] Metoprolol Tartrate [Lopressor] 25 mg PO DAILY 11/15/16 11/15/16 Previous Rx's Medication Instructions Recorded Acetaminophen Tab [Tylenol] 650 mg PO Q6H PRN #60 tablet 10/17/16 Baclofen [Lioresal] 5 mg PO TID PRN #50 tab 10/25/16 Naproxen [Naprosyn] 250 mg PO BID #30 tab 10/25/16 Magnesium Chloride [Slow Mag] 64 mg PO TID #15 tablet.er 10/27/16 Allergies Allergy/AdvReac Type Severity Reaction Status Date / Time bacitracin Allergy Rash/Hives Verified 11/15/16 16:18 [From Neosporin ([id number])] bacitracin zinc Allergy Rash/Hives Verified 11/15/16 16:18 [From Neosporin ([id number])] clarithromycin [From Biaxin] Allergy Itching Verified 11/15/16 16:18 meperidine HCl [From Demerol] Allergy Itching Verified 11/15/16 16:18 morphine Allergy Itching Verified 11/15/16 16:18 neomycin sulfate Allergy Rash/Hives Verified 11/15/16 16:18 [From Neosporin ([id number])] Penicillins Allergy Anaphylaxis Verified 11/15/16 16:18 phenobarbital Allergy Itching Verified 11/15/16 16:18 polymyxin B Allergy Rash/Hives Verified 11/15/16 16:18 [From Neosporin ([id number])] propoxyphene napsylate Allergy Itching Verified 11/15/16 16:18 [From Darvocet-N] Sulfa (Sulfonamide Allergy Itching Verified 11/15/16 16:18 Antibiotics) codeine AdvReac Nausea Verified 11/15/16 16:18 hydrocodone bitartrate AdvReac Hallucinati Verified 11/15/16 16:18 [From Lortab] ons isosorbide mononitrate AdvReac Nausea & Verified 11/15/16 16:18 [From Imdur] Vomiting Review of Systems ROS Statement: Those systems with pertinent positive or pertinent negative responses have been documented in the HPI. ROS Other: All systems not noted in ROS Statement are negative. Past Medical History Past Medical History: Cancer, COPD, Hyperlipidemia, Hypertension, Pneumonia History of Any Multi-Drug Resistant Organisms: None Reported Past Surgical History: Bowel Resection, Hernia Repair, Hysterectomy, Orthopedic Surgery Additional Past Surgical History / Comment(s): Renal surgery Past Anesthesia/Blood Transfusion Reactions: No Reported Reaction Past Psychological History: Depression Smoking Status: Current every day smoker Past Alcohol Use History: None Reported Past Drug Use History: None Reported - Past Family History Mother Family Medical History: Rheumatoid Arthritis (RA) Additional Family Medical History / Comment(s): breast CA Father Family Medical History: Myocardial Infarction (SD) Additional Family Medical History / Comment(s): father from heart attack General Exam - General Exam Comments Initial Comments: General: The patient is awake and alert, in no distress, and does not appear acutely ill. Eye: Pupils are equal, round and reactive to light, extra-ocular movements are intact. No nystagmus. There is normal conjunctiva bilaterally. No signs of icterus. Ears, nose, mouth and throat: There are moist mucous membranes and no oral lesions. Neck: The neck is supple, there is no tenderness or JVD. Cardiovascular: There is a regular rate and rhythm. No murmur, rub or gallop is appreciated. Respiratory: Lungs are clear to auscultation, respirations are non-labored, breath sounds are equal. No wheezes, stridor, rales, or rhonchi. Gastrointestinal: Normal appearance of the abdomen. Normal bowel sounds. Abdomen soft on palpation. Patient does have tenderness both left and right lower quadrants. There is no rebound tenderness. No CVA tenderness. Musculoskeletal: Normal ROM, no tenderness. Strength 5/5. Sensation intact. Pulses equal bilaterally 2+. Neurological: A&O x 3. CN II-XII intact, There are no obvious motor or sensory deficits. Coordination appears grossly intact. Speech is normal. Skin: Skin is warm and dry and no rashes or lesions are noted. Psychiatric: Cooperative, appropriate mood & affect, normal judgment. Limitations: no limitations Course Vital Signs 11/15/16 11/15/16 11/15/16 15:05 17:54 19:02 Temperature 97.8 F Pulse Rate 60 77 77 Respiratory 20 18 18 Rate Blood Pressure 103/56 112/77 117/62 O2 Sat by Pulse 95 97 96 Oximetry Medical Decision Making - Medical Decision Making Case discussed in detail with attending physician Dr. Rivera. Patient reexamined at this time shows no signs of distress. Patient resting comfortably in the stretcher. Patient's CT of the abdomen and pelvis is negative for any acute abnormalities. Results were discussed with the patient. Patient's labs reviewed. Patient advised follow-up family doctor about blood pressure. She states that she was advised to hold her metoprolol due to low blood pressure in the office with a lower heart rate. Patient advised follow- up family doctor over the next 2 days and no oral metoprolol as previously instructed. Patient is also advised follow-up with her surgeon over the next 2 days. Advised return here to the emergency room symptoms increase or worsen or for any other concerns. - Lab Data Result diagrams: 11/15/16 16:51 11/15/16 16:51 Lab Results 11/15/16 11/15/16 11/15/16 Range/Units 16:51 16:51 16:51 WBC 9.1 (3.8-10.6) k/uL RBC 4.83 (3.80-5.40) m/uL Hgb 15.3 (11.4-16.0) gm/dL Hct 44.7 (34.0-46.0) % MCV 92.7 (80.0-100.0) fL MCH 31.8 (25.0-35.0) pg MCHC 34.3 (31.0-37.0) g/dL RDW 14.1 (11.5-15.5) % Plt Count 164 (150-450) k/uL Neutrophils % 64 % Lymphocytes % 28 % Monocytes % 5 % Eosinophils % 1 % Basophils % 0 % Neutrophils # 5.8 (1.3-7.7) k/uL Lymphocytes # 2.6 (1.0-4.8) k/uL Monocytes # 0.5 (0-1.0) k/uL Eosinophils # 0.1 (0-0.7) k/uL Basophils # 0.0 (0-0.2) k/uL Sodium 142 (137-145) mmol/L Potassium 5.0 (3.5-5.1) mmol/L Chloride 105 (98-107) mmol/L Carbon Dioxide 26 (22-30) mmol/L Anion Gap 11 mmol/L BUN 30 H (7-17) mg/dL Creatinine 1.10 H (0.52-1.04) mg/dL Est GFR (MDRD) Af Amer 57 (>60 ml/min/1.73 sqM) Est GFR (MDRD) Non-Af 47 (>60 ml/min/1.73 sqM) Glucose 102 H (74-99) mg/dL Plasma Lactic Acid Nikita 1.7 (0.7-2.0) mmol/L Calcium 9.9 (8.4-10.2) mg/dL Total Bilirubin 0.7 (0.2-1.3) mg/dL AST 19 (14-36) U/L ALT 32 (9-52) U/L Alkaline Phosphatase 110 (38-126) U/L Total Protein 6.4 (6.3-8.2) g/dL Albumin 3.8 (3.5-5.0) g/dL Amylase 66 (30-110) U/L Lipase 68 (23-300) U/L Disposition Clinical Impression: Abdominal pain Disposition: HOME SELF-CARE Condition: Good Instructions: Abdominal Pain (ED) Additional Instructions: Please use medication as discussed. Please follow-up with family doctor in the next 2 days of symptoms have not improved. Please return to emergency room if the symptoms increase or worsen or for any other concerns. Referrals: Aristides Mcneill DO [Primary Care Provider] - 1-2 days Angelique Perales MD [STAFF PHYSICIAN] - 1-2 days Time of Disposition: 19:22
[2016-11-15 17:07] LABS: Basophils % (A) 0 %; CHCM 33.6; Eosinophils # (A) 0.1 k/uL (0-0.7); Eosinophils % (A) 1 %; HCT 44.7 % (34.0-46.0); HDW 2.63; HGB 15.3 gm/dL (11.4-16.0); Luc # (Auto) 0.16; Luc % (Auto) 2; Lymphocytes # (A) 2.6 k/uL (1.0-4.8); Lymphocytes % (A) 28 %; MCH 31.8 pg (25.0-35.0); MCHC 34.3 g/dL (31.0-37.0); MCV 92.7 fL (80.0-100.0); Mean Platelet Volume 10.6; Monocytes # (A) 0.5 k/uL (0-1.0); Monocytes % (A) 5 %; Neutrophils # (A) 5.8 k/uL (1.3-7.7); Neutrophils % (A) 64 %; RBC 4.83 m/uL (3.80-5.40); RDW 14.1 % (11.5-15.5); WBC 9.1 k/uL (3.8-10.6); WBC (Perox) 8.24
[2016-11-15 17:17] LABS: Calcium 9.9 mg/dL (8.4-10.2); Total Bilirubin 0.7 mg/dL (0.2-1.3); Total Protein 6.4 g/dL (6.3-8.2)
[2016-11-15] MEDS ORDERED: HYDROmorphone 1 MG/ML 1 ML SYRINGE IVP STA (17:44)
[2016-11-15] MEDS ORDERED: ONDANSETRON 4 MG/2 ML VIAL IVP STA (17:45)
[2016-11-15] MEDS ORDERED: ACETAMINOPHEN IV (For NPO) 1,000 MG in SALINE 100 100ML.BAG IVPB STA (17:48)
[2016-11-15] MEDS ORDERED: ACETAMINOPHEN IV (For NPO) 1,000 MG in SALINE 1 100ML.BAG IVPB STA (17:51)
--- NOTE | 2016-11-15 19:08 | CT ---
EXAMINATION TYPE: CT abdomen pelvis w con DATE OF EXAM: 11/15/2016 COMPARISON: 10/17/2016 HISTORY: Right sided abdominal pain. Cholecystectomy [address] DLP: 620.50 mGycm Automated exposure control for dose reduction was used. TECHNIQUE: Helical acquisition of images was performed from the lung bases through the pelvis. CONTRAST: Performed without Oral Contrast and with IV Contrast, patient injected with 50 mL of Omnipaque 300. FINDINGS: There is a 1.6 cm subpleural nodule in the lateral right lower lobe. There is patchy interstitial inf iltrate and atelectasis at the posterior lung bases. There is no pleural effusion. Aorta is atheromat ous. Bile ducts are not dilated. There is clips from cholecystectomy. There is no pancreatic mass. Spleen appears normal. There is no adrenal mass. Kidneys show satisfactory contrast opacification. There is no hydronephrosi s. There is no retroperitoneal adenopathy. There are densities over the anterior abdomen apparently f rom hernia surgery. Bladder distends smoothly. There is no sign of a pelvic mass. There is left hip prosthesis. There is no free fluid in the pelvis. There are scattered colonic diverticula. There is no sign of diverticuli tis. There are numerous sigmoid diverticula. I see no bony destructive process. There are spondylotic changes in the lumbar spine. IMPRESSION: ATHEROMATOUS AORTA. UPPER ABDOMINAL AORTA MEASURES 3 CM. CHOLECYSTECTOMY. NO DILATED DUCTS. COLONIC DIVERTICULOSIS WITHOUT DIVERTICULITIS. NO SIGN OF ACUTE ABDOMEN AND PELVIS. THERE IS A SUBPLE URAL NODULAR DENSITY IN THE LATERAL RIGHT LOWER LOBE THAT MEASURES 1.6 CM. THIS APPEARS INCREASED SLI GHTLY COMPARED TO LAST CT SCAN. FOLLOW-UP IS WARRANTED. There are stable moderate fibrotic changes an d atelectasis at the lung bases.
[2016-11-15 19:32] VITALS: BP 127/70; PULSE 74; RESP 16; TEMP 98.4
== END 2016-11-15 19:35 | disposition home or self-care (01) ==
LOC: EC 14:44
DX: R10.9 Unspecified abdominal pain (principal); I10 Essential (primary) hypertension; J44.9 Chronic obstructive pulmonary disease, unspecified; E78.5 Hyperlipidemia, unspecified; F32.9 Major depressive disorder, single episode, unspecified; Z90.49 Acquired absence of other specified parts of digestive tract; Z79.82 Long term (current) use of aspirin; Z79.899 Other long term (current) drug therapy; Z79.51 Long term (current) use of inhaled steroids; Z88.1 Allergy status to other antibiotic agents; Z88.5 Allergy status to narcotic agent; Z88.0 Allergy status to penicillin; Z88.2 Allergy status to sulfonamides; Z88.8 Allergy status to other drugs, medicaments and biological substances; Z87.01 Personal history of pneumonia (recurrent); Z85.9 Personal history of malignant neoplasm, unspecified; F17.200 Nicotine dependence, unspecified, uncomplicated
CPT/HCPCS: 36415; 80053; 82150; 83605; 83690; 85025; 74177; 99284; 96365; 96375; 96361; Q9967; J0131

== ENCOUNTER → 2016-12-04 | Outpatient (CLI) | payer MEDICARE ==
--- NOTE | 2016-12-04 17:03 | XR ---
EXAMINATION TYPE: XR abdomen 2V , 3 VIEWS DATE OF EXAM ORDERED: 12/04/2016 HISTORY: R14.0 Abd distension. COMPARISON: Previous study dated 10/26/2016. FINDINGS: There has been a cholecystectomy as well as other epigastric surgery. There is been a vent ral hernia repair. The abdominal gas pattern is within normal limits. There is no evidence of obstruction or free air. T here is a dextroscoliosis. There is a triangular calcification within the right hemipelvis which has the appearance of a tooth. CT scan of the abdomen and pelvis dated 11/15/2016 demonstrated this calcifi cation but did not demonstrate definite dermoid tumor. There is been a left hip arthroplasty. IMPRESSION: 1. NO ACUTE ABDOMINAL ABNORMALITY. 2. POSTSURGICAL CHANGE.
== END | disposition home or self-care (01) ==
LOC: RADXRMAIN 16:15
PROVIDERS: ATTEND Family Medicine
DX: R14.0 Abdominal distension (gaseous) (principal); Z98.890 Other specified postprocedural states
CPT/HCPCS: 74020

== ENCOUNTER 2016-12-11 10:13 | Emergency (ER) | payer MEDICARE ==
[2016-12-11] MEDS ORDERED: ONDANSETRON 4 MG/2 ML VIAL IVP STA (10:42)
[2016-12-11] MEDS ORDERED: SODIUM CHLORIDE 0.9% 1,000 ML IV STA (10:42)
[2016-12-11] MEDS ORDERED: SODIUM CHLORIDE 0.9% 500 ML IV STA (10:42)
[2016-12-11] MEDS ORDERED: RX INFO: IV CONTRAST WAS GIVEN 1 EACH MISC MISCELLANE PRN (10:52)
[2016-12-11 11:01] LABS: Basophils % (A) 0 %; CH 31.3; CHCM 32.5; Eosinophils # (A) 0.1 k/uL (0-0.7); Eosinophils % (A) 1 %; HCT 45.2 % (34.0-46.0); HDW 2.63; HGB 14.6 gm/dL (11.4-16.0); Luc # (Auto) 0.15; Luc % (Auto) 2; Lymphocytes # (A) 1.7 k/uL (1.0-4.8); Lymphocytes % (A) 22 %; MCH 31.3 pg (25.0-35.0); MCHC 32.3 g/dL (31.0-37.0); MCV 96.8 fL (80.0-100.0); Mean Platelet Volume 10.6; Monocytes # (A) 0.4 k/uL (0-1.0); Monocytes % (A) 5 %; Neutrophils # (A) 5.7 k/uL (1.3-7.7); Neutrophils % (A) 71 %; RBC 4.66 m/uL (3.80-5.40); RDW 14.9 % (11.5-15.5); WBC (Perox) 7.98
[2016-12-11 11:05] LABS: Appearance,Urine Cloudy (Clear); Bacteria,Urine Rare /hpf; Bilirubin,Urine Negative (Negative); Glucose,Urine (UA) Negative (Negative); Ketones,Urine Negative (Negative); Leukocyte Esterase,Urine Large (Negative); Mucus,Urine Moderate /hpf; Nitrite,Urine Negative (Negative); PH, Urine 5.5 (5.0-8.0); Particle Count 13709; Protein,Urine 1+ (Negative); Specific Gravity,Urine 1.021 (1.001-1.035); Squamous Epithelial Cell,Urine 13 /hpf (0-4); UA Billing (MACRO vs. MICRO) MICRO; WBC,Urine 163 /hpf (0-5)
--- NOTE | 2016-12-11 11:30 | XR ---
EXAMINATION TYPE: XR chest 2V DATE OF EXAM: 12/11/2016 COMPARISON: 10/25/2016 HISTORY: 86-year-old female with epigastric and abdominal pain TECHNIQUE: AP and lateral views FINDINGS: The heart is borderline enlarged. The lung aeration/ectasia of the thoracic aorta with evidence chron ic calcifications. Diffuse interstitial prominence and patchy bibasilar opacities are noted. No signi ficant pleural effusion. IMPRESSION: Correlate for underlying COPD. There is cardiomegaly and patchy bibasilar areas of atelectasis or inf iltrates. Correlate for any infectious signs/symptoms.
--- NOTE | 2016-12-11 11:31 | XR ---
EXAMINATION TYPE: XR KUB DATE OF EXAM: 12/11/2016 CLINICAL DATA: 86-year-old female with abdominal pain, COMPARISON: 09/26/2011 FINDINGS: Cholecystectomy clips with some well from prior mesh repair. No evidence for free intraperitoneal air. Tiny air-fluid levels in the right hemicolon are nonspecific. No significant stool burden. No dilated small bowel. Pelvic phleboliths are noted. Left hip total arthroplasty partially visualized with prominent heterotopic ossification. IMPRESSION: No evidence of bowel obstruction or free intraperitoneal air.
[2016-12-11 11:32] LABS: AST 22 U/L (14-36); Alkaline Phosphatase 78 U/L (38-126); Amylase 65 U/L (30-110); Anion Gap 12 mmol/L; Blood Urea Nitrogen 22 mg/dL (7-17); Calcium 9.7 mg/dL (8.4-10.2); Carbon Dioxide 28 mmol/L (22-30); Chloride 102 mmol/L (98-107); Glucose 115 mg/dL (74-99); Non-African American GFR(MDRD) 58 (>60 ml/min/1.73 sqM); Potassium 4.3 mmol/L (3.5-5.1); Sodium 142 mmol/L (137-145); Total Bilirubin 0.7 mg/dL (0.2-1.3); Total Protein 6.5 g/dL (6.3-8.2)
[2016-12-11 11:37] LABS: ALT 28 U/L (9-52)
--- NOTE | 2016-12-11 11:44 | ED ---
Abdominal Pain HPI - General Chief Complaint: Abdominal Pain Stated Complaint: abd pain Time Seen by Provider: 12/11/16 10:36 Source: patient Mode of arrival: ambulatory Limitations: no limitations - History of Present Illness Initial Comments: 86 years old female sensory with the abdominal discomfort and pressure, she stated that she had gallbladder surgery medical October off-and-on she been feeling this pressure diffuse abdominal pain since his surgery she denies any fever no chills had some constipation and she has a diarrhea, she feels her abdomen is distended. She seen her family doctor for that this morning she called her family doctor and she recommended that she comes to the ER and tried to see Dr. Johnson her surgeon. Denies any chest pain or shortness of breath - Related Data Home Medications Medication Instructions Recorded Confirmed Aspirin 81 mg PO Q48H 06/08/14 12/11/16 Omeprazole [PriLOSEC] 20 mg PO DAILY 06/08/14 12/11/16 traZODone HCL [Desyrel] 50 mg PO HS 06/08/14 12/11/16 Albuterol Sulfate [Proair Hfa] 1 - 2 puff INHALATION RT-Q6H PRN 10/17/16 Calcium Carbonate [Calcium] 600 mg PO DAILY 10/17/16 12/11/16 Fexofenadine HCl [Yudelka Allergy] 180 mg PO DAILY PRN 10/17/16 12/11/16 LORazepam [Ativan] 0.5 mg PO Q8H PRN 10/17/16 12/11/16 Nitroglycerin Sl Tabs [Nitrostat] 0.4 mg SUBLINGUAL Q5M PRN 10/17/16 12/11/16 Sertraline HCl [Zoloft] 100 mg PO DAILY 10/17/16 12/11/16 Simvastatin [Zocor] 40 mg PO HS 10/17/16 12/11/16 Triamcinolone 0.1% Cream [Kenalog] 1 applic TOPICAL BID 10/20/16 12/11/16 Ipratropium/Albuterol Sulfate 2 puff INHALATION RT-QID 11/15/16 12/11/16 [Combivent Respimat Inhaler] Metoprolol Tartrate [Lopressor] 25 mg PO DAILY 11/15/16 12/11/16 Naproxen [Naprosyn] 250 mg PO BID PRN 12/11/16 12/11/16 Previous Rx's Medication Instructions Recorded Acetaminophen Tab [Tylenol] 650 mg PO Q6H PRN #60 tablet 10/17/16 Ciprofloxacin HCl [Cipro] 500 mg PO Q12HR #14 tablet 12/11/16 metroNIDAZOLE [Flagyl] 500 mg PO Q8HR #21 tab 12/11/16 Allergies Allergy/AdvReac Type Severity Reaction Status Date / Time bacitracin Allergy Rash/Hives Verified 12/11/16 10:49 [From Neosporin ([id number])] bacitracin zinc Allergy Rash/Hives Verified 12/11/16 10:49 [From Neosporin ([id number])] clarithromycin [From Biaxin] Allergy Itching Verified 12/11/16 10:49 meperidine HCl [From Demerol] Allergy Itching Verified 12/11/16 10:49 morphine Allergy Itching Verified 12/11/16 10:49 neomycin sulfate Allergy Rash/Hives Verified 12/11/16 10:49 [From Neosporin ([id number])] Penicillins Allergy Anaphylaxis Verified 12/11/16 10:49 phenobarbital Allergy Itching Verified 12/11/16 10:49 polymyxin B Allergy Rash/Hives Verified 12/11/16 10:49 [From Neosporin ([id number])] propoxyphene napsylate Allergy Itching Verified 12/11/16 10:49 [From Darvocet-N] Sulfa (Sulfonamide Allergy Itching Verified 12/11/16 10:49 Antibiotics) codeine AdvReac Nausea Verified 12/11/16 10:49 hydrocodone bitartrate AdvReac Hallucinati Verified 12/11/16 10:49 [From Lortab] ons isosorbide mononitrate AdvReac Nausea & Verified 12/11/16 10:49 [From Imdur] Vomiting Review of Systems ROS Statement: Those systems with pertinent positive or pertinent negative responses have been documented in the HPI. ROS Other: All systems not noted in ROS Statement are negative. Past Medical History Past Medical History: Cancer, COPD, Hyperlipidemia, Hypertension, Pneumonia History of Any Multi-Drug Resistant Organisms: None Reported Past Surgical History: Bowel Resection, Cholecystectomy, Hernia Repair, Hysterectomy, Orthopedic Surgery Additional Past Surgical History / Comment(s): Renal surgery Past Anesthesia/Blood Transfusion Reactions: No Reported Reaction Past Psychological History: Depression Smoking Status: Current every day smoker Past Alcohol Use History: None Reported Past Drug Use History: None Reported - Past Family History Mother Family Medical History: Rheumatoid Arthritis (RA) Additional Family Medical History / Comment(s): breast CA Father Family Medical History: Myocardial Infarction ([place]) Additional Family Medical History / Comment(s): father from heart attack General Exam - General Exam Comments Initial Comments: General: The patient is awake and alert, in no distress, and does not appear acutely ill. Skin: Skin is warm and dry and no rashes or lesions are noted. Eye: Pupils are equal, round and reactive to light, extra-ocular movements are intact; there is normal conjunctiva bilaterally. Ears, nose, mouth and throat: There are moist mucous membranes and no oral lesions. Neck: The neck is supple, there is no tenderness or JVD. Cardiovascular: There is a regular rate and rhythm. No murmur, rub or gallop is appreciated. Respiratory: To auscultation bilateral, no wheezing no rhonchi no distress respiratory recinos noticed Gastrointestinal: Tender in the right upper quadrant area, right paraumbilical area left upper quadrant area. Active bowel sounds no guarding no rebounds Back: There is no tenderness to palpation in the midline. There is no obvious deformity. Musculoskeletal: Normal ROM, no tenderness, There is no pedal edema. There is no calf tenderness or swelling. No cords were appreciated. Neurological: CN II-XII intact, Cranial nerves III through XII are intact. There are no obvious motor or sensory deficits. Coordination appears grossly intact. Speech is normal. Psychiatric: Cooperative, appropriate mood & affect, normal judgment. Limitations: no limitations Course Vital Signs 12/11/16 12/11/16 12/11/16 10:23 11:49 12:50 Temperature 97.5 F L 97 F L Pulse Rate 80 83 74 Respiratory 18 18 20 Rate Blood Pressure 104/64 107/53 106/55 O2 Sat by Pulse 97 92 L 93 L Oximetry She was reassessed at 12:20 PM, CBC, CMP, abdominal x-ray KUB and chest x-ray are unremarkable urinalysis is positive would require urine culture is. At this abdomen and pelvis is still pending wants to get a chance to see the report should be able to disposition the patient CAT scan of the abdomen was reviewed and findings discussed with the patient there are no complications related to cholecystectomy at all we did notice some lungother nodule which would require a PET scan and questionable mild diverticulitis there are no perforations there are no other comlications. My have paged Dr. Nehal Price in her family doctor so I could touch base with her and keep her posterior Today's finding and possiblef/u with a PET scan - Reevaluation(s) Reevaluation #2: 12/11/16 12:55 I had a chest to discuss that with the patient's family doctor Dr. Nehal Cordero and she'll be gone home on a superficial Flagyl she will take Tylenol 1 g every 6 hours when necessary for her pain Medical Decision Making - Lab Data Result diagrams: 12/11/16 10:40 12/11/16 10:40 Lab Results 12/11/16 12/11/16 12/11/16 Range/Units 10:40 10:40 10:40 WBC 8.0 (3.8-10.6) k/uL RBC 4.66 (3.80-5.40) m/uL Hgb 14.6 (11.4-16.0) gm/dL Hct 45.2 (34.0-46.0) % MCV 96.8 (80.0-100.0) fL MCH 31.3 (25.0-35.0) pg MCHC 32.3 (31.0-37.0) g/dL RDW 14.9 (11.5-15.5) % Plt Count 190 (150-450) k/uL Neutrophils % 71 % Lymphocytes % 22 % Monocytes % 5 % Eosinophils % 1 % Basophils % 0 % Neutrophils # 5.7 (1.3-7.7) k/uL Lymphocytes # 1.7 (1.0-4.8) k/uL Monocytes # 0.4 (0-1.0) k/uL Eosinophils # 0.1 (0-0.7) k/uL Basophils # 0.0 (0-0.2) k/uL Sodium 142 (137-145) mmol/L Potassium 4.3 (3.5-5.1) mmol/L Chloride 102 (98-107) mmol/L Carbon Dioxide 28 (22-30) mmol/L Anion Gap 12 mmol/L BUN 22 H (7-17) mg/dL Creatinine 0.92 (0.52-1.04) mg/dL Est GFR (MDRD) Af Amer >60 (>60 ml/min/1.73 sqM) Est GFR (MDRD) Non-Af 58 (>60 ml/min/1.73 sqM) Glucose 115 H (74-99) mg/dL Calcium 9.7 (8.4-10.2) mg/dL Total Bilirubin 0.7 (0.2-1.3) mg/dL AST 22 (14-36) U/L ALT 28 (9-52) U/L Alkaline Phosphatase 78 (38-126) U/L Total Protein 6.5 (6.3-8.2) g/dL Albumin 3.9 (3.5-5.0) g/dL Amylase 65 (30-110) U/L Lipase 76 (23-300) U/L Urine Color Yellow Urine Appearance Cloudy H (Clear) Urine pH 5.5 (5.0-8.0) Ur Specific [place] 1.021 (1.001-1.035) Urine Protein 1+ H (Negative) Urine Glucose (UA) Negative (Negative) Urine Ketones Negative (Negative) Urine Blood Negative (Negative) Urine Nitrite Negative (Negative) Urine Bilirubin Negative (Negative) Urine Urobilinogen 2.0 (<2.0) mg/dL Ur Leukocyte Esterase Large H (Negative) Urine WBC 163 H (0-5) /hpf Ur Squamous Epith Cells 13 H (0-4) /hpf Urine Bacteria Rare H (None) /hpf Urine Mucus Moderate H (None) /hpf Disposition Clinical Impression: Abdominal pain, Cystitis, Pneumonia, Lung nodule, Diverticulitis Disposition: HOME SELF-CARE Instructions: Abdominal Pain (ED) Prescriptions: Ciprofloxacin HCl [Cipro] 500 mg PO Q12HR #14 tablet metroNIDAZOLE [Flagyl] 500 mg PO Q8HR #21 tab Referrals: Aristides Mcneill DO [Primary Care Provider] - 1-2 days
[2016-12-11 11:50] VITALS: TEMP 97
[2016-12-11 12:14] LABS: C Reactive Protein 17.5 mg/L (<10.0)
--- NOTE | 2016-12-11 12:41 | CT ---
EXAMINATION TYPE: CT abdomen pelvis w con DATE OF EXAM: 12/11/2016 COMPARISON: 11/15/2016, 09/26/2011 HISTORY: 86-year-old female with bloating and pain since cholecystectomy on 10/23/2016. TECHNIQUE: Contiguous axial scanning of the abdomen and pelvis following administration of 100 ml Omn ipaque 300 IV contrast. Delayed images through the kidneys and coronal/sagittal reconstructions perf ormed. CT DLP: 1310 mGycm Automated exposure control for dose reduction was used. FINDINGS: The heart is normal size without pericardial effusion. Coronary vessel calcifications are present in remarkable for coronary artery disease. Moderate atherosclerotic calcifications within the abdominal aorta and iliac arteries. 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 Redemonstrated are 1.7 cm subpleural pulmonary nodule right middle lobe. This is noted to be new from 09/26/2011 and further workup for possible neoplasm may be indicated. There is moderate emphysema in the visualized lower lungs. Stable subcentimeter hypodensity peripheral right hepatic dome suggestive of a cyst as well as stable focal hypodensity in segment 2 of the left hepatic lobe measuring 1.5 cm, possible scarring, cyst, o r other benign lesion. Portal venous system is patent. Status post cholecystectomy. No biliary ductal dilatation. Adrenal glands, kidneys, spleen, and pancreas show no gross abnormality. Prior ventral abdominal wall mesh repair. Stable scarring in the subcutaneous fat of the left upper q uadrant. No dilated small bowel, free fluid, or free air. There is mild diffuse colonic diverticulosis greater in the sigmoid colon. Circumferential wall thick ening of the mid sigmoid colon probably relates to nondistention. No mesenteric or retroperitoneal lymphadenopathy seen. Mild circumferential bladder wall thickening. The bladder is nondistended. Uterus surgically absent. There is prominent artifact from the patient's left hip total arthroplasty limiting visualization of portions of the pelvis. No abnormal fluid collection seen in the pelvis. Bones: Mild degenerative changes at the right hip. Left hip total arthroplasty. Osteopenia. Severe di sc/endplate degenerative change at L2-L3 with grade 1 retrolisthesis. IMPRESSION: 1. STATUS POST CHOLECYSTECTOMY. NO COMPLICATING PROCESS SEEN AT THE GALLBLADDER FOSSA. 2. COLONIC DIVERTICULOSIS. THERE IS MILD CIRCUMFERENCE WALL THICKENING OF THE MIDSIGMOID PROBABLY REL ATING TO UNDERDISTENTION. CORRELATE TO EXCLUDE MILD ACUTE DIVERTICULITIS. 3. ADDITIONAL MILD CIRCUMFERENTIAL BLADDER WALL THICKENING; CORRELATE TO EXCLUDE CYSTITIS. 4. A 1.7 CM RIGHT MIDDLE LOBE PULMONARY NODULE IS NEW FROM 2012. PET SCAN VERSUS THREE-MONTH FOLLOW-U P CT CHEST RECOMMENDED NEOPLASTIC ETIOLOGY IS NOT EXCLUDED AT THIS TIME.
[2016-12-11 12:52] VITALS: BP 106/55; PULSE 74; RESP 20
[2016-12-11] MEDS ORDERED: ACETAMINOPHEN TAB 500 MG TAB PO STA (12:54)
== END 2016-12-11 13:09 | disposition home or self-care (01) ==
LOC: EC 10:13
DX: K57.92 Diverticulitis of intestine, part unspecified, without perforation or abscess without bleeding (principal); N30.90 Cystitis, unspecified without hematuria; J18.9 Pneumonia, unspecified organism; R91.1 Solitary pulmonary nodule; J44.9 Chronic obstructive pulmonary disease, unspecified; E78.5 Hyperlipidemia, unspecified; I10 Essential (primary) hypertension; F32.9 Major depressive disorder, single episode, unspecified; F17.200 Nicotine dependence, unspecified, uncomplicated; Z85.9 Personal history of malignant neoplasm, unspecified; Z79.82 Long term (current) use of aspirin; Z79.899 Other long term (current) drug therapy; Z88.0 Allergy status to penicillin; Z88.1 Allergy status to other antibiotic agents; Z88.5 Allergy status to narcotic agent; Z88.2 Allergy status to sulfonamides; Z88.8 Allergy status to other drugs, medicaments and biological substances; Z90.49 Acquired absence of other specified parts of digestive tract; Z90.710 Acquired absence of both cervix and uterus
CPT/HCPCS: 36415; 80053; 82150; 83690; 85025; 86140; 81001; 87086; 71020; 74000; 74177; 99284; 96374; 96361 ×2; Q9967; J2405

== ENCOUNTER → 2017-03-19 | Outpatient (CLI) | payer MEDICARE ==
--- NOTE | 2017-03-19 12:23 | CT ---
EXAMINATION TYPE: CT chest wo con DATE OF EXAM: 03/19/2017 COMPARISON: 02/08/2012 HISTORY: SPN CT DLP: 221.[address] of the chest was performed with lung and mediastinal window settings submitted. The la ck of contrast limits evaluation of the vascular, mediastinal and parenchymal structures including th e upper abdomen. LUNGS: There is a new lobulated pleural-based pulmonary nodule right upper lobe measuring approximate ly 1.9 x 1.9 cm. No additional pulmonary nodules identified. Severe upper lobe emphysematous changes. Lower lobe subpleural fibrosis. MEDIASTINUM/HIEN: Atheromatous change of the thoracic aorta without evidence for aneurysm. Cardiomega ly with mild pericardial thickening anteriorly. Coronary artery calcifications identified. No evidenc e for mediastinal mass. No lymph nodes greater than 1cm. UPPER ABDOMEN: No significant abnormality is seen. OTHER: No significant other abnormality. IMPRESSION: 1. New right upper lobe pleural-based nodule is suspicious for malignancy. Further evaluation with P ET/CT is advised.
== END | disposition home or self-care (01) ==
LOC: RADCTMAIN 11:46
PROVIDERS: ATTEND Family Medicine
DX: R91.1 Solitary pulmonary nodule (principal)
CPT/HCPCS: 71250

== ENCOUNTER → 2017-03-28 | Outpatient (CLI) | payer MEDICARE ==
[2017-03-28 09:20] LABS: Non-African American GFR(MDRD) 53 (>60 ml/min/1.73 sqM)
--- NOTE | 2017-03-28 12:34 | MR ---
EXAMINATION TYPE: MR angio head wo con DATE OF EXAM: 03/28/2017 COMPARISON: MR brain same date HISTORY: Headaches TECHNIQUE: Time of flight images focusing on the [place] of [place] were performed without contrast. FINDINGS: Ectatic appearance to the left internal carotid artery trifurcation on the left is noted. N o evident filling defect. No evident dissection. 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
--- NOTE | 2017-03-28 12:43 | MR ---
EXAMINATION TYPE: MR brain wo/w con DATE OF EXAM: 03/28/2017 COMPARISON: MRA same date HISTORY: Headaches TECHNIQUE: Multiplanar, multisequence images of the brain and brainstem is performed without and with IV contras t, utilizing 6.5 mL intravenous Gadavist . FINDINGS: Diffusion weighted images demonstrate no evidence of a recent infarct or other diffusion ab normality. There is no extra-axial fluid collection. Scattered hyperintensities are present within t he periventricular white matter bilaterally on inversion recovery and T2-weighted sequences, approxim ately 20-30 lesions are suspected. The ventricular system and cisternal spaces are normal in size and appearance. The brain volume is age appropriate. Midline structures demonstrate normal morphology. The craniocervical junction appears within normal limits. Post contrast images demonstrate no abnormal enhancement. The dural venous sinuses appear pa tent. The visualized sinuses are remarkable for inflammatory change in the maxillary sinuses, ethmoid air cells and the globes are intact. IMPRESSION: Nonspecific white matter demyelination likely due to chronic small vessel ischemia.
== END | disposition home or self-care (01) ==
LOC: RADMRIMAIN 08:43
PROVIDERS: ATTEND Family Medicine
DX: G37.8 Other specified demyelinating diseases of central nervous system (principal); R90.82 White matter disease, unspecified; I77.89 Other specified disorders of arteries and arterioles
CPT/HCPCS: 82565; 70544; 70553; A9581

== ENCOUNTER 2017-05-22 11:55 | Inpatient (IN) | payer MEDICARE ==
[2017-05-29] MEDS ORDERED: Pre Op ABX Message 1 EACH MISC MISCELLANE ONE (05:00)
[2017-05-29] MEDS ORDERED: FAMOTIDINE 20 MG/2 ML VIAL IV PRN (06:01)
[2017-05-29] MEDS ORDERED: LIDOCAINE 1% 20 ML VIAL (10MG/ML) FOR IV START INTRADERMA PRN (06:01)
[2017-05-29] MEDS ORDERED: ONDANSETRON 4 MG/2 ML VIAL IVP PRN (06:01)
[2017-05-29] MEDS ORDERED: LACTATED RINGERS 1,000 ML IV SCH (06:01)
[2017-05-29] MEDS ORDERED: LIDOCAINE 1% 20 ML VIAL (10MG/ML) FOR IV START INTRADERMA ONE (06:56)
[2017-05-29 07:00] LABS: Glucose,Whole Blood 90 mg/dL (75-99)
[2017-05-29] MEDS ORDERED: MIDAZOLAM 2 MG/2 ML VIAL IV ONE (07:14)
[2017-05-29] MEDS ORDERED: ONDANSETRON 4 MG/2 ML VIAL IVP ONE (07:14)
[2017-05-29] MEDS ORDERED: DEXAMETHASONE SOD PHOSPHATE 10 MG/ML 1 ML VIAL IV ONE (07:14)
[2017-05-29] MEDS ORDERED: NEOSTIGMINE 1 MG/ML 10 ML VIAL ONE (07:30)
[2017-05-29] MEDS ORDERED: GLYCOPYRROLATE 0.2 MG/ML 2 ML VIAL ONE (07:30)
[2017-05-29] MEDS ORDERED: LIDOCAINE 1% INJ 10MG/ML (20 ML MDV) ONE (07:30)
[2017-05-29] MEDS ORDERED: PHENYLEPHRINE-0.9% NACL SYG 1 MG/10 ML SYRINGE ONE (07:30)
[2017-05-29] MEDS ORDERED: fentaNYL (PF) 50 MCG/ML 2 ML AMP ONE (07:30)
[2017-05-29] MEDS ORDERED: ROCURONIUM BROMIDE 10 MG/ML 10 ML VIAL IV ONE (07:30)
[2017-05-29] MEDS ORDERED: SUCCINYLCHOLINE CHLORIDE 100 MG/5 ML SYR IV ONE (07:30)
[2017-05-29] MEDS ORDERED: PROPOFOL 10 MG/ML 20 ML VIAL IV ONE (07:30)
[2017-05-29] MEDS ORDERED: VANCOMYCIN IV PER PHARMACY 1 EACH MISC MISCELLANE PRN (07:33)
[2017-05-29] MEDS ORDERED: VANCOMYCIN 1,000 MG in SODIUM CHLORIDE 0.9% 250 ML IVPB STA (07:40)
[2017-05-29] MEDS ORDERED: BUPIVACAINE (PF) 0.5% 30 ML VIAL SQ ONE (08:12)
[2017-05-29] MEDS: HYDROmorphone 0.5 MG/0.5 ML SYRINGE IVP PRN ×3 (08:55→13:40)
--- NOTE | 2017-05-29 08:55 | P.OP ---
Date of Procedure: 05/29/17 Preoperative Diagnosis: Neoplasm right middle lobe Postoperative Diagnosis: Same Procedure(s) Performed: Right thoracoscopic wedge resection right middle lobe Anesthesia: ZANDRA Surgeon: Richard Lo Disability Benefits Specialist #1: Bryant Sykes Estimated Blood Loss (ml): 5 IV fluids (ml): 300 Urine output (ml): 0 Pathology: other (Wedge resection right middle lobe) Condition: stable Disposition: PACU Indications for Procedure: 86-year-old female with clinical T1 N0 lung cancer. She also has significant COPD. Options were for lobectomy versus wedge resection. Patient opted for wedge resection. This appeared appropriate to the patient's advanced age and musa mitten medical diseases. Operative Findings: Pleurally based 2-3 cm mass peripherally in the right middle lobe. This was wedged out with generous margins. Description of Procedure: Patient was brought to the operating room, anesthetized, intubated with a double -lumen endotracheal tube. Endotracheal tube was positioned with fiberoptic bronchoscopy and secured. Patient was turned in the left lateral decubitus position and appropriately positioned. Placement of the tube was rechecked. The right chest was sterilely prepped and draped. 2 one-inch incisions were made in the lateral chest wall and the video thoracoscope entered through the lower incision. Single lung insufflation was used and the lung was collapsed and the tumor was identified. Endo JUAN DANIEL medium thick stapler was used to wedge out the tumor. Once the wedge resection was completed the specimen was placed in an Endo Catch bag and brought out onto the field. It was sent for permanent section. 28-[place]ux[place] chest tube was placed through separate stab incision and positioned posterior apically. It was secured with an 0 Ethibond suture. Lung was reinflated under thoracoscopic visualization. Rib blocks were performed at the level of the incisions with half percent Marcaine and the incisions were closed with layers of Vicryl suture. Skin glue and Band-Aid dressings were applied and a chest tube dressing placed around the chest tube. The chest tube was connected to a Pleur-evac. Patient was then extubated in the room and transferred to recovery area in stable condition.
[2017-05-29] MEDS ORDERED: diphenhydrAMINE 50 MG/ML 1 ML VIAL IVP ONE (09:04)
[2017-05-29] MEDS ORDERED: IPRATROPIUM-ALBUTEROL 3 ML NEB IH PRN (09:16)
[2017-05-29] MEDS ORDERED: BISACODYL 10 MG SUPP RECTAL PRN (09:16)
[2017-05-29] MEDS ORDERED: METOCLOPRAMIDE 5 MG/ML 2 ML VIAL IVP PRN (09:16)
--- NOTE | 2017-05-29 09:53 | XR ---
EXAMINATION TYPE: XR chest 1V portable DATE OF EXAM: 05/29/2017 HISTORY: post op right vats with wedge resection Impression: N/A COMPARISON: December 11, 2016 TECHNIQUE: Single view of the chest is submitted. FINDINGS: Right-sided chest tube with its distal tip within the right lung apex. Postoperative changes right me dial lung base. No evidence for sizable pneumothorax. The heart is stable. Hilar and mediastinal structures are within normal limits. Degenerative changes are seen of the dorsal spine. IMPRESSION: 1. Postoperative changes right lung without evidence for pneumothorax. Chest tube as noted.
[2017-05-29] MEDS ORDERED: IV FLUID CONTINUATION 1,000 ML IV ONE (09:56)
[2017-05-29 11:30] LABS: Basophils % (A) 0 %; Eosinophils % (A) 0 %; HCT 46.4 % (34.0-46.0); HGB 14.2 gm/dL (11.4-16.0); Hypochromasia Slight; Lymphocytes # (A) 0.6 k/uL (1.0-4.8); Lymphocytes % (A) 6 %; MCH 29.6 pg (25.0-35.0); MCHC 30.5 g/dL (31.0-37.0); MCV 96.9 fL (80.0-100.0); Mean Platelet Volume 9.2; Monocytes # (A) 0.1 k/uL (0-1.0); Monocytes % (A) 1 %; Neutrophils # (A) 9.2 k/uL (1.3-7.7); Neutrophils % (A) 92 %; Platelet Count 155 k/uL (150-450); RBC 4.79 m/uL (3.80-5.40); RDW 14.1 % (11.5-15.5)
[2017-05-29 11:43] LABS: ALT 135 U/L (9-52); AST 195 U/L (14-36); Albumin 3.5 g/dL (3.5-5.0); Alkaline Phosphatase 128 U/L (38-126); Anion Gap 8 mmol/L; Blood Urea Nitrogen 22 mg/dL (7-17); Calcium 9.2 mg/dL (8.4-10.2); Carbon Dioxide 29 mmol/L (22-30); Chloride 104 mmol/L (98-107); Glucose 118 mg/dL (74-99); Potassium 4.7 mmol/L (3.5-5.1); Sodium 141 mmol/L (137-145); Total Bilirubin 0.7 mg/dL (0.2-1.3)
[2017-05-29] MEDS: IPRATROPIUM-ALBUTEROL 3 ML NEB IH SCH ×3 (13:08→20:53)
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
[2017-05-29] MEDS: DEXTROSE 5%-0.45% NACL 1,000 ML IV SCH (14:08)
[2017-05-29] MEDS: ASPIRIN 81 MG PO SCH (14:08)
[2017-05-29] MEDS: ACETAMINOPHEN IV (For NPO) 1,000 MG in EMPTY BAG 1 BAG IVPB SCH ×3 (14:10→23:17)
[2017-05-29] MEDS: HEPARIN SODIUM,PORCINE 5,000 UNIT/ML 1 ML VIAL SQ SCH ×2 (16:15→23:17)
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
[2017-05-29] MEDS: SYMBICORT 160-4.5 MCG INHALER INHALATION SCH (20:53)
[2017-05-29] MEDS: METOPROLOL TARTRATE 12.5 MG TAB PO SCH (21:31)
[2017-05-29] MEDS: ATORVASTATIN 20 MG TAB PO SCH (21:31)
[2017-05-29] MEDS: traZODone HCL 50 MG TAB PO SCH (21:32)
[2017-05-30 06:01] LABS: Basophils % (A) 0 %; Eosinophils % (A) 0 %; HGB 12.5 gm/dL (11.4-16.0); Hypochromasia Slight; Lymphocytes # (A) 1.4 k/uL (1.0-4.8); Lymphocytes % (A) 19 %; MCH 29.3 pg (25.0-35.0); MCHC 29.7 g/dL (31.0-37.0); MCV 98.6 fL (80.0-100.0); Macrocytosis Slight; Mean Platelet Volume 10.7; Monocytes # (A) 0.4 k/uL (0-1.0); Monocytes % (A) 6 %; Neutrophils # (A) 5.3 k/uL (1.3-7.7); Neutrophils % (A) 73 %; Platelet Count 132 k/uL (150-450); RBC 4.26 m/uL (3.80-5.40); RDW 15.6 % (11.5-15.5); WBC 7.2 k/uL (3.8-10.6)
[2017-05-30] MEDS: IPRATROPIUM-ALBUTEROL 3 ML NEB IH SCH ×4 (07:03→20:06)
[2017-05-30] MEDS: SYMBICORT 160-4.5 MCG INHALER INHALATION SCH ×2 (07:03→20:06)
[2017-05-30] MEDS: PANTOPRAZOLE 40 MG TABLET PO SCH (07:14)
[2017-05-30] MEDS: ACETAMINOPHEN IV (For NPO) 1,000 MG in EMPTY BAG 1 BAG IVPB SCH (07:14)
[2017-05-30 08:32] LABS: ALT 94 U/L (9-52); AST 74 U/L (14-36); Alkaline Phosphatase 96 U/L (38-126); Anion Gap 8 mmol/L; Blood Urea Nitrogen 22 mg/dL (7-17); Calcium 9.1 mg/dL (8.4-10.2); Carbon Dioxide 31 mmol/L (22-30); Chloride 100 mmol/L (98-107); Glucose 118 mg/dL (74-99); Potassium 4.8 mmol/L (3.5-5.1); Sodium 139 mmol/L (137-145); Total Bilirubin 0.7 mg/dL (0.2-1.3); Total Protein 5.4 g/dL (6.3-8.2)
--- NOTE | 2017-05-30 08:43 | XR ---
EXAMINATION TYPE: XR chest 1V portable DATE OF EXAM: 05/30/2017 Comparison: 05/29/2017 Clinical History: 86-year-old female post op right vats with wedge resection Findings: Heart remains borderline to mildly enlarged. Mild diffuse interstitial prominence and mild hyperinfla tion. Slight increased patchy left basilar opacity. Right-sided chest tube in place without appreciab le pneumothorax. Surgical material at the right base. Slightly prominent vascular shadows at the righ t base just adjacent. Impression: 1. Right-sided chest tube without appreciable pneumothorax. Surgical material at the right base from wedge resection. Lobular density just adjacent probably prominent vascular shadows. 2. Increasing patchy left basilar opacity, probably atelectasis. Correlate to exclude infiltrate.
[2017-05-30] MEDS: METOPROLOL TARTRATE 12.5 MG TAB PO SCH ×2 (09:06→21:19)
[2017-05-30] MEDS: CHOLECALCIFEROL 1,000 UNIT TAB PO SCH (09:06)
[2017-05-30] MEDS: HEPARIN SODIUM,PORCINE 5,000 UNIT/ML 1 ML VIAL SQ SCH ×3 (09:06→23:50)
[2017-05-30] MEDS: LORATADINE 10 MG TAB PO SCH (09:06)
[2017-05-30] MEDS: SERTRALINE 100 MG TAB PO SCH (09:07)
[2017-05-30] MEDS: HYDROmorphone 0.5 MG/0.5 ML SYRINGE IVP PRN (09:13)
--- NOTE | 2017-05-30 11:20 | XR ---
EXAMINATION TYPE: XR chest 2V DATE OF EXAM: 05/30/2017 COMPARISON: 05/30/[address] 03/19/2017 HISTORY: 86 year-old female post chest tube removal TECHNIQUE: Frontal and lateral views FINDINGS: Right-sided chest tube removed in the interval. No appreciable pneumothorax. Surgical material at the right base. Lobulated density redemonstrated just adjacent possibly prominent vascular shadows. Some patchy left basilar opacity remains. No significant pleural effusion. Mid thoracic vertebral patito jenny collapse is unchanged from 03/19/2017. IMPRESSION: 1. Interval right-sided chest tube removal. No appreciable pneumothorax. Post surgical change at the right base. 2. Persistent patchy left basilar atelectasis or infiltrate. 3. Mid thoracic vertebral compression collapse unchanged from 03/19/2017.
--- NOTE | 2017-05-30 14:11 | P.PN ---
Subjective Progress Note Date: 05/30/17 Principal diagnosis: Right middle lobe lung nodule, status post right thoracoscopic wedge resection, postop day 1 This is a very pleasant 86-year-old female patient who follows with Dr. Mcneill as her primary care physician. She has a history of hyperlipidemia, gastroesophageal reflux disease, depression, atrial fibrillation and suspected severe chronic obstructive pulmonary disease. She has a nearly 70 year pack per day smoking history. She's been on Symbicort and Combivent in the outpatient setting. She was referred to Dr. Baca on 04/11/2017 after having any abnormal computed tomography scan of the chest was found to have a mass in the right middle lobe. It was pleural based. Very suspicious for malignancy. The PET scan revealed a single 2.3 x 0.9 pleural based right middle lobe nodule strongly suspicious for malignancy. Max SUV of 4.33. From there she was referred to Dr. Lo for surgical consultation. She was admitted today and had undergone a right thorascopic wedge resection of the right middle lobe. She is seen in consultation on the selective care unit. Presently she is awake and alert in no acute distress. Her pain is fairly well controlled. She is maintaining good O2 saturations in the 90s on 3 L/m per nasal cannula. She is slightly tachycardic. Blood pressure stable. White count 10.0. Hemoglobin 14.2. Creatinine 0.90. AST 195, ALT 135, alk phos 128. Chest x-ray reveals postoperative changes in the right mid lung. No evidence of sizable pneumothorax. Right-sided chest tube remains in place with minimal output. On 05/30/2017 patient seen in follow-up on selective care unit. She is doing well, denies any worsening dyspnea. On 3 L per nasal cannula with O2 sat 94%. Stable vitals. Lung sounds are positive for bibasilar crackles. Her right chest tube has been removed, today's chest x-ray shows persistent patchy left basilar atelectasis. No evidence of pneumothorax. Objective - Vital Signs Vital signs: Vital Signs Temp 96.7 F L 05/30/17 08:00 Pulse 80 05/30/17 11:54 Resp 16 05/30/17 11:54 BP 95/61 05/30/17 11:54 Pulse Ox 94 L 05/30/17 11:54 Intake & Output 05/29/17 05/30/1718 18:59 06:59 18:59 Intake Total 1346 880 240 Output Total 30 50 Balance 1316 830 240 Weight 66.3 kg Intake: IV 950 400 0.9 400 Intake, IV Titration 160 Amount Dextrose 5%-0.45% NaCl 1, 160 000 ml @ 40 mls/hr IV . Q24H IBRAHIMA Rx#:[id number] Oral 236 480 240 Output: Chest Tube Drainage 20 20 Right Mid-Axillary Chest 20 20 Drainage 30 Right 30 Estimated Blood Loss 10 Other: Voiding Method Bedside Commode Bedside Commode # Voids 1 4 - Exam GENERAL EXAM: Frail, cachectic. Alert, active, comfortable in no apparent distress. HEAD: Normocephalic. EYES: Normal reaction of pupils, equal size. NOSE: Clear with pink turbinates. THROAT: No erythema or exudates. NECK: No masses, no JVD. CHEST: No chest wall deformity. Right sided chest tube has been removed LUNGS: Equal air entry with crackles in the right posterior base. Diminished. CVS: S1 and S2 normal with no audible murmur, irregular rhythm. ABDOMEN: No hepatosplenomegaly, normal bowel sounds, no guarding or rigidity. SPINE: No scoliosis or deformity SKIN: No rashes CENTRAL NERVOUS SYSTEM: No focal deficits, tone is normal in all 4 extremities. EXTREMITIES: There is no peripheral edema. No clubbing, no cyanosis. Peripheral pulses are intact. - Labs CBC & Chem 7: 05/30/17 05:20 05/30/17 05:20 Labs: Abnormal Lab Results - Last 24 Hours (Table) 05/30/17 05/30/17 Range/Units 05:20 05:20 MCHC 29.7 L (31.0-37.0) g/dL RDW 15.6 H (11.5-15.5) % Plt Count 132 L (150-450) k/uL Carbon Dioxide 31 H (22-30) mmol/L BUN 22 H (7-17) mg/dL Glucose 118 H (74-99) mg/dL AST 74 H (14-36) U/L ALT 94 H (9-52) U/L Total Protein 5.4 L (6.3-8.2) g/dL Albumin 3.0 L (3.5-5.0) g/dL Assessment and Plan Plan: Assessment: #1 Right middle lobe lung nodule measuring 2.3 x 0.9 cm with an SUV of 8.99. Status post right thorascopic wedge resection, postoperative day #1. #2 Chronic and ongoing tobacco dependence. #3 Chronic obstructive pulmonary disease, suspect severe, currently inactive and stable. #4 Atrial fibrillation. #5 Hyperlipidemia. #6 Gastroesophageal reflux disease. #7 History of depression #8 Hyperlipidemia. #9 Elevated LFTs of unclear etiology, the patient is on statins. Plan: Chest x-ray has been reviewed, her chest tube has been removed per CT surgery. Continue encouraging pulmonary toileting, incentive spirometer. Continue GI/ DVT prophylaxis. Increase activity as tolerated. Smoking cessation was reinforced. Anticipate discharge in the morning. Follow-up with Dr. Baca in the office in one week I performed a history & physical examination of the patient and discussed their management with my nurse practitioner, Veena Grant. I reviewed the nurse practitioner's note and agree with the documented findings and plan of care. Lung sounds are crackles over right lower lobe. The findings and the impression was discussed with the patient. I attest to the documentation by the nurse practitioner. Time with Patient: Less than 30
--- NOTE | 2017-05-30 15:11 | P.PN ---
Subjective Progress Note Date: 05/30/17 Principal diagnosis: Neoplasm right middle lobe, chronic obstructive pulmonary disease, hypertension , hyperlipidemia, GERD, atrial fibrillation, depression, chronic nicotine dependence and pneumonia. This is a 86-year-old female patient who is followed by Dr. Nehal Mcneill on an outpatient basis. Her medical history is significant for neoplasm right middle lobe, chronic obstructive pulmonary disease, hypertension, hyperlipidemia , GERD, atrial fibrillation, depression, chronic nicotine dependence and pneumonia. In March 2017 the patient underwent a computed tomography scan of her chest which showed an incidental finding of a right upper lobe mass. Subsequently she was referred to Dr. Joe Baca from pulmonary medicine for further workup and evaluation. On 04/26/2017 the patient underwent a PET scan which demonstrated a single 2.3 x 0.9 cm pleural based right middle lobe nodule strongly symphysis for malignancy. The patient was subsequently referred to Dr. Richard Lo for recommendations on surgical intervention. POD #1 right thorascopic wedge resection right middle lobe. Patient is sitting up to the bedside chair in no acute distress. She is alert and oriented 3. Her son and [id number] are at the bedside, and all of their questions were answered to the best of my ability. She denies complaints of pain at this time. Objective - Vital Signs Vital signs: Vital Signs Temp 96.7 F L 05/30/17 08:00 Pulse 80 05/30/17 11:54 Resp 16 05/30/17 11:54 BP 95/61 05/30/17 11:54 Pulse Ox 94 L 05/30/17 11:54 Intake & Output 05/29/17 05/30/17 05/30/17 18:59 06:59 18:59 Intake Total 1346 880 240 Output Total 30 50 Balance 1316 830 240 Weight 66.3 kg Intake: IV 950 400 0.9 400 Intake, IV Titration 160 Amount Dextrose 5%-0.45% NaCl 1, 160 000 ml @ 40 mls/hr IV . Q24H [facility] Rx#:[id number] Oral 236 480 240 Output: Chest Tube Drainage 20 20 Right Mid-Axillary Chest 20 20 Drainage 30 Right 30 Estimated Blood Loss 10 Other: Voiding Method Bedside Commode Bedside Commode # Voids 1 4 - Constitutional General appearance: Present: cooperative, no acute distress, thin - EENT Eyes: Present: PERRLA ENT: Present: hearing grossly normal - Neck Details: No JVD, no lymphadenopathy. Neck is supple. - Respiratory Details: Lung sounds essentially clear to her upper lobes, diminished bilateral bases. Respirations are symmetrical and nonlabored. Oxygen saturation is our 94% on 3 L nasal cannula. She is achieving 1000 mL on her incentive spirometry. Right pleural chest tube in place to low continuous wall suction -20 cm H2O. No air leak present. Draining thin serosanguineous drainage. 90 mL output since surgery. - Cardiovascular Details: Irregular rhythm with tachycardic rate. S1 and S2 present, for S3, gallop or murmur. Remote telemetry showing atrial fibrillation heart rate 102. - Gastrointestinal Gastrointestinal Comment(s): Abdomen is soft, nontender and nondistended. Active bowel sounds all 4 abdominal quadrants. Passing flatus. Tolerating oral intake. - Genitourinary Genitourinary Comment(s): Urine output adequate. - Integumentary Integumentary Comment(s): Right chest tube insertion site clean dry and intact. No drainage noted. Right lateral chest incisions clean dry and intact. No drainage noted. Skin warm and dry. No clubbing or cyanosis. - Neurologic Neurologic: Present: CNII-XII intact - Musculoskeletal Musculoskeletal: Present: gait normal, strength equal bilaterally - Psychiatric Psychiatric: Present: A&O x's 3, appropriate affect, intact judgment & insight - Allied health notes Allied health notes reviewed: nursing - Labs CBC & Chem 7: 05/30/17 05:20 05/30/17 05:20 Labs: Abnormal Lab Results - Last 24 Hours (Table) 05/30/17 05/30/17 Range/Units 05:20 05:20 MCHC 29.7 L (31.0-37.0) g/dL RDW 15.6 H (11.5-15.5) % Plt Count 132 L (150-450) k/uL Carbon Dioxide 31 H (22-30) mmol/L BUN 22 H (7-17) mg/dL Glucose 118 H (74-99) mg/dL AST 74 H (14-36) U/L ALT 94 H (9-52) U/L Total Protein 5.4 L (6.3-8.2) g/dL Albumin 3.0 L (3.5-5.0) g/dL - Imaging and Cardiology Chest x-ray: report reviewed, image reviewed Assessment and Plan (1) Chronic atrial fibrillation Current Visit: Yes Status: Acute Code(s): I48.2 - CHRONIC ATRIAL FIBRILLATION SNOMED Code(s): 271731173 (2) Hypertension Current Visit: Yes Status: Acute Code(s): I10 - ESSENTIAL (PRIMARY) HYPERTENSION SNOMED Code(s): 66526156 (3) Hyperlipidemia Current Visit: Yes Status: Acute Code(s): E78.5 - HYPERLIPIDEMIA, UNSPECIFIED SNOMED Code(s): 35944274 (4) Lung mass Current Visit: Yes Status: Acute Code(s): R91.8 - OTHER NONSPECIFIC ABNORMAL FINDING OF LUNG FIELD SNOMED Code(s): 498291116 (5) Current smoker Current Visit: No Status: Acute Code(s): F17.200 - NICOTINE DEPENDENCE, UNSPECIFIED, UNCOMPLICATED SNOMED Code(s): 85465177 (6) COPD (chronic obstructive pulmonary disease) Current Visit: No Status: Chronic Code(s): J44.9 - CHRONIC OBSTRUCTIVE PULMONARY DISEASE, UNSPECIFIED SNOMED Code(s): 47066097 Plan: 1. We will remove her right pleural chest tube and obtain an x-ray post chest tube removal. 2. Encourage use of incentive spirometry every hour while awake. 3. Wean oxygen as tolerated keep sats greater than equal to 91%. 4. Pulmonary management per Dr. Baca's recommendations. 5. Increase activity as tolerated. Out of bed to chair for all meals. 6. More recommendations to follow as patient progresses and care, anticipate discharge in the next 24 hours. Right pleural chest tube was removed removed without incident at 10:20 AM today. 4 x 4 gauze dressing, Vaseline impregnated gauze to cover site and secured with tape. Time with Patient: Greater than 30
--- NOTE | 2017-05-30 19:26 | P.PN ---
Progress Note - Text Progress Note Date: 05/30/17 DATE OF SERVICE: 05/30/2017 PRESENTING COMPLAINT: Right lung middle lobe wedge resection, medical management HISTORY OF PRESENT ILLNESS: 86-year-old female has right lung cancer and significant COPD she is status post right thorascopic middle lobe wedge resection done by Dr. Lo. INTERVAL HISTORY: 05/30/2017: Sitting on the edge of the bed waiting for thoracic surgery to come through there talking about removing her chest tube. Right chest wall chest tube in place positive for reflux no air leak on water seal. Some cough noted has some shortness of breath. Ambulatory with a walker and assistance, tolerating her diet, last BM prior to admission. REVIEW OF SYSTEMS: Done for constitutional ,cardiovascular, GI, pulmonary with relevant findings as above. CURRENT MEDICATIONS Tylenol, DuoNeb, aspirin, Lipitor, Dulcolax, Symbicort, vitamin D3, heparin, Claritin, Reglan, Lopressor, vancomycin, Protonix, Zoloft, trazodone, PHYSICAL EXAM VITAL SIGNS: Temperature 96.7, pulse 81, respiratory rate 16, blood pressure 122/80, oxygen saturation 95% on 3 L. GENERAL APPEARANCE: Sitting up on the edge of the bed not in distress. HENT: Normocephalic, JVD not raised. Mass not palpable. Oral cavity normal, external appearance of ears and nose normal. EYES:Pupils equal. Conjunctiva normal. CHEST WALL: Right lateral chest wall with chest tube in place no air leak, no subcutaneous emphysema RESPIRATORY: Respiratory effort increased. Lungs decreased with expiratory wheezing. CARDIOVASCULAR: First and second sounds normal. No edema. ABDOMEN: Soft. Liver and spleen not palpable. No tenderness. No mass palpable. PSYCHIATRY: Alert and oriented x3. Mood and affect anxious appearing. INVESTIGATIONS: Carbon dioxide 31, BUN 22, glucose 118, AST 74, ALTs 94, total protein 5.4, albumin 3.0. ASSESSMENT: -Right middle lung lobe wedge resection for carcinoma of the lung. -Primary osteoarthritis of multiple joints, bilateral. -Essential hypertension. -Hyperlipidemia. -Acute chronic obstructive pleuritic disease exacerbation in an ex-smoker. -New onset atrial fibrillation no EKG available -Chronic L1 L3 spondylosis with radiculopathy. -Chronic urinary stress incontinence uses depends. -Depression not otherwise specified PLAN: Expect chest tube be pulled later this afternoon per cardiothoracic surgery. Continue breathing treatments and inhaled steroids. EKG pending to rule out atrial fibrillation. We'll see how she does overnight and if no problems likely discharge per cardiothoracic surgery. ALTERATION SPECIALIST statement: Patient was seen and examined by nurse practitioner Anne Haywood and all elements of the case discussed with attending Dr. Renee
[2017-05-30] MEDS: ATORVASTATIN 20 MG TAB PO SCH (21:18)
[2017-05-30] MEDS: traZODone HCL 50 MG TAB PO SCH (21:19)
[2017-05-31] MEDS ORDERED: ALPRAZolam 0.25 MG TAB PO STA (00:05)
[2017-05-31] MEDS: PANTOPRAZOLE 40 MG TABLET PO SCH (06:16)
[2017-05-31] MEDS: DEXTROSE 5%-0.45% NACL 1,000 ML IV SCH (07:31)
--- NOTE | 2017-05-31 08:09 | XR ---
EXAMINATION TYPE: XR chest 1V portable DATE OF EXAM: 05/31/2017 HISTORY: post op right vats with wedge resection. REFERENCE: Previous study dated 05/30/2017. FINDINGS: The study is quite lordotic in its projection. I do not exclude a tiny apical pneumothorax on the right. There are post surgical changes at the right lung base. There is a small left effusion. There is some minimal atelectasis at the left lung base. The heart is upper limits of normal in size . IMPRESSION: 1. I CANNOT EXCLUDE A TINY APICAL PNEUMOTHORAX ON THE RIGHT. 2. BORDERLINE CARDIOMEGALY. 3. POSTSURGICAL CHANGE. 4. SMALL, LEFT PLEURAL EFFUSION.
[2017-05-31] MEDS: SERTRALINE 100 MG TAB PO SCH (08:21)
[2017-05-31] MEDS: METOPROLOL TARTRATE 12.5 MG TAB PO SCH (08:21)
[2017-05-31] MEDS: CHOLECALCIFEROL 1,000 UNIT TAB PO SCH (08:21)
[2017-05-31] MEDS: HEPARIN SODIUM,PORCINE 5,000 UNIT/ML 1 ML VIAL SQ SCH (08:22)
[2017-05-31] MEDS: LORATADINE 10 MG TAB PO SCH (08:22)
[2017-05-31] MEDS: ASPIRIN 81 MG PO SCH (08:22)
[2017-05-31] MEDS ORDERED: ACETAMINOPHEN TAB 325 MG TAB PO PRN (09:00)
[2017-05-31 09:01] VITALS: RESP 17
[2017-05-31] MEDS: IPRATROPIUM-ALBUTEROL 3 ML NEB IH SCH (10:08)
[2017-05-31] MEDS: SYMBICORT 160-4.5 MCG INHALER INHALATION SCH (10:08)
[2017-05-31 11:18] VITALS: BP 109/78; PULSE 76; TEMP 97.2
--- NOTE | 2017-05-31 12:27 | P.PN ---
Subjective Progress Note Date: 05/31/17 Principal diagnosis: Neoplasm right middle lobe, chronic obstructive pulmonary disease, hypertension , hyperlipidemia, GERD, atrial fibrillation, depression, chronic nicotine dependence and pneumonia. This is a 86-year-old female patient who is followed by Dr. Nehal Mcneill on an outpatient basis. Her medical history is significant for neoplasm right middle lobe, chronic obstructive pulmonary disease, hypertension, hyperlipidemia , GERD, atrial fibrillation, depression, chronic nicotine dependence and pneumonia. In March 2017 the patient underwent a computed tomography scan of her chest which showed an incidental finding of a right upper lobe mass. Subsequently she was referred to Dr. Joe Baca from pulmonary medicine for further workup and evaluation. On 04/26/2017 the patient underwent a PET scan which demonstrated a single 2.3 x 0.9 cm pleural based right middle lobe nodule strongly symphysis for malignancy. The patient was subsequently referred to Dr. Richard Lo for recommendations on surgical intervention. POD #2 right thorascopic wedge resection right middle lobe. The patient is sitting up to the bedside, no acute distress. The patient is complaining of productive cough. She ambulated in the hallway this a.m. with physical therapy and her room air oxygen saturations were 73%. Her oxygen saturation on 2 L nasal cannula are 94%. She is achieving 500-750 mL on her incentive spirometry. Her son and [id number] are at her bedside, questions answered. Objective - Vital Signs Vital signs: Vital Signs Temp 97.2 F L 05/31/17 11:15 Pulse 76 05/31/17 11:15 Resp 17 05/31/17 11:32 BP 109/78 05/31/17 11:15 Pulse Ox 95 05/31/17 11:15 Intake & Output 05/30/17 05/31/17 05/31/17 18:59 06:59 18:59 Intake Total 660 240 Balance 660 240 Weight 65.5 kg Intake: Oral 660 240 Other: Voiding Method Bedside Commode Bedside Commode # Voids 2 2 - Constitutional General appearance: Present: cooperative, no acute distress, thin - EENT ENT: Present: hearing grossly normal - Neck Details: neck is supple, no JVD or lymphadenopathy. - Respiratory Details: lung sounds with few scattered crackles throughout, diminished her bilateral bases. Respirations symmetrical and nonlabored. Oxygen saturation are 73% on room air with ambulating. Oxygen saturations are 94% on 2 L nasal cannula with rest. She is achieving 500 to 750 mL on her incentive spirometry.productive cough waters tenacious sputum. - Cardiovascular Details: irregular rhythm with regular rate. S1 and S2 present, negative for S3, gallop or murmur. Remote telemetry showing atrial fibrillation heart rate 90. No edema present. Peripheral pulses palpable. - Gastrointestinal Gastrointestinal Comment(s): abdomen is soft, nontender nondistended. Active bowel sounds all 4 abdominal quadrants. Tolerating oral intake. Passing flatus. - Genitourinary Genitourinary Comment(s): adequate urine output. - Integumentary Integumentary Comment(s): Right chest tube insertion site clean dry and intact. No drainage noted. Right lateral chest incisions clean dry and intact. No drainage noted. Skin warm and dry. No clubbing or cyanosis. - Neurologic Neurologic: Present: CNII-XII intact - Musculoskeletal Musculoskeletal: Present: gait normal, strength equal bilaterally - Psychiatric Psychiatric: Present: A&O x's 3, appropriate affect, intact judgment & insight - Allied health notes Allied health notes reviewed: nursing - Labs CBC & Chem 7: 05/30/17 05:20 05/30/17 05:20 - Imaging and Cardiology Chest x-ray: report reviewed, image reviewed Assessment and Plan (1) Chronic atrial fibrillation Current Visit: Yes Status: Acute Code(s): I48.2 - CHRONIC ATRIAL FIBRILLATION SNOMED Code(s): 963482648 (2) Hypertension Current Visit: Yes Status: Acute Code(s): I10 - ESSENTIAL (PRIMARY) HYPERTENSION SNOMED Code(s): 28855928 (3) Hyperlipidemia Current Visit: Yes Status: Acute Code(s): E78.5 - HYPERLIPIDEMIA, UNSPECIFIED SNOMED Code(s): 75962495 (4) Lung mass Current Visit: Yes Status: Acute Code(s): R91.8 - OTHER NONSPECIFIC ABNORMAL FINDING OF LUNG FIELD SNOMED Code(s): 609017082 (5) Current smoker Current Visit: No Status: Acute Code(s): F17.200 - NICOTINE DEPENDENCE, UNSPECIFIED, UNCOMPLICATED SNOMED Code(s): 25844827 (6) COPD (chronic obstructive pulmonary disease) Current Visit: No Status: Chronic Code(s): J44.9 - CHRONIC OBSTRUCTIVE PULMONARY DISEASE, UNSPECIFIED SNOMED Code(s): 97403285 Plan: 1. Discharge instructions have been reviewed with the patient, her son and [id number]-[id number]. 2. Encourage use of incentive spirometry every hour while awake. 3. Wean oxygen as tolerated keep sats greater than equal to 91%. She will be discharged home with 2 L oxygen nasal cannula. 4. Pulmonary management per Dr. Baca's recommendations. 5. Increase activity as tolerated. Physical therapy following. 6. More recommendations to follow as patient progresses and care, The patient will be discharged home today with home care care following Time with Patient: Greater than 30
--- NOTE | 2017-05-31 12:52 | P.DS ---
Providers Date of admission: 05/29/17 06:00 Expected date of discharge: 05/31/17 Attending physician: Richard Lo Consults: 05/29/17 09:16 Consult Physician Routine Consulting Provider: Giovani Renee Consult Reason/Comments: Medical Management Do you want consulting provider notified?: Yes 05/29/17 09:30 Consult Physician Routine Consulting Provider: Joe Baca Consult Reason/Comments: Pulmonary management Do you want consulting provider notified?: Yes Primary care physician: Stated None - Discharge Diagnosis(es) (1) Chronic atrial fibrillation Current Visit: Yes Status: Acute (2) Hypertension Current Visit: Yes Status: Acute (3) Hyperlipidemia Current Visit: Yes Status: Acute (4) Lung mass Current Visit: Yes Status: Acute (5) Current smoker Current Visit: No Status: Acute (6) COPD (chronic obstructive pulmonary disease) Current Visit: No Status: Chronic Hospital Course: FINAL DIAGNOSIS: 1. Neoplasm right middle lobe 2. Chronic obstructive pulmonary disease 3. Hypertension 4. Hyperlipidemia 5. GERD 6. Chronic persistent atrial fibrillation 7. Depression 8. Chronic neck pain dependence 9. Pneumonia PRINCIPAL PROCEDURE: 1. Right thoracoscopic wedge resection right middle lobe HISTORY OF PRESENT ILLNESS: This is an 86 year old female patient who is followed by Dr. Nehal Mcneill on an outpatient basis.she is a medical history significant for neoplasm right middle lobe, chronic obstructive pulmonary disease, hypertension, hyperlipidemia, GERD, chronic persistent atrial fibrillation, depression, chronic nicotine dependence, and history of pneumonia. Recently, the patient has had complaints of progressive cough. Subsequently on 03/19/2017 the patient underwent a computed tomography scan of her chest which incidentally demonstrated a right upper lobe pulmonary nodule measuring 1.9 x 1.9 cm. The patient was subsequently referred to Dr. Baca and underwent a workup which showed significant chronic obstructive pulmonary disease with limited pulmonary function. Her FEV1 was 50% of predicted. On the patient underwent an MRI of her brain which did not demonstrate any evidence of metastases. She was referred to Dr. Richard Lo from cardiothoracic surgery to evaluate the patient for surgical recommendations. Dr. Lo reviewed the CAT scan results with the patient and the patient, risks and benefits of surgery were discussed and the patient consented to undergo a right thoracoscopic wedge resection surgery. HOSPITAL COURSE: The patient was admitted to the hospital and after obtaining consent was taken to the operating room where Dr. Richard Lo performed an elective right thoracoscopic wedge resection right middle lobe. She was recovered, monitored hemodynamically, and subsequently transferred to [address] [place] [address] for further monitoring and rehabilitation. Her chest tube, IV fluids were discontinued, and she participated in physical therapy. Written and verbal instructions on her medications, incision care, activity restrictions , and need for home oxygen use at been discussed with the patient, her son and [id number]. COMPLICATIONS: There were no postoperative complications. CONSULTATIONS: 1. Dr. Baca for pulmonary management 2. Dr. Renee for medical management DISCHARGE INSTRUCTIONS: 1. No driving for 2 weeks, or until physician gives their ok. 2. The patient should sleep in their own bed, no medical bed needed. 3. Routine sternal incision care, no ointments, lotions or powders on the incisions 4. Please notify surgeon/nurse practitioner for temperature greater than 101F or purulent drainage from incisions 5. Shower daily using liquid antibacterial soap and a separate white washcloth for each individual incision. Plan - Discharge Summary Discharge Rx Participant: Yes New Discharge Prescriptions: New Metoprolol Tartrate [Lopressor] 12.5 mg PO BID #60 tab Continue traZODone HCL [Desyrel] 50 mg PO HS Omeprazole [PriLOSEC] 20 mg PO QAM Aspirin 81 mg PO Q48H Fexofenadine HCl [Yudelka Allergy] 180 mg PO QAM Nitroglycerin Sl Tabs [Nitrostat] 0.4 mg SUBLINGUAL Q5M PRN PRN Reason: Chest Pain Albuterol Sulfate [Proair Hfa] 1 - 2 puff INHALATION RT-Q6H PRN PRN Reason: sob Simvastatin [Zocor] 40 mg PO HS Sertraline HCl [Zoloft] 100 mg PO QAM Acetaminophen Tab [Tylenol] 650 mg PO Q6H PRN #60 tablet PRN Reason: pain Baclofen 10 mg PO TID PRN PRN Reason: Spasms Symbicort Dose Unknown 1 dose INHALATION RT-BID Cholecalciferol (Vitamin D3) [Vitamin D3] 2,000 unit PO DAILY Albuterol Inhaler [Ventolin Hfa Inhaler] 1 puff INHALATION RT-BID PRN PRN Reason: Shortness Of Breath Discharge Medication List Aspirin 81 mg PO Q48H 06/08/14 [History] Omeprazole [PriLOSEC] 20 mg PO QAM 06/08/14 [History] traZODone HCL [Desyrel] 50 mg PO HS 06/08/14 [History] Acetaminophen Tab [Tylenol] 650 mg PO Q6H PRN #60 tablet 10/17/16 [Rx] Albuterol Sulfate [Proair Hfa] 1 - 2 puff INHALATION RT-Q6H PRN 10/17/16 [ History] Fexofenadine HCl [Yudelka Allergy] 180 mg PO QAM 10/17/16 [History] Nitroglycerin Sl Tabs [Nitrostat] 0.4 mg SUBLINGUAL Q5M PRN 10/17/16 [History] Sertraline HCl [Zoloft] 100 mg PO QAM 10/17/16 [History] Simvastatin [Zocor] 40 mg PO HS 10/17/16 [History] Albuterol Inhaler [Ventolin Hfa Inhaler] 1 puff INHALATION RT-BID PRN 05/23/17 [ History] Baclofen 10 mg PO TID PRN 05/23/17 [History] Cholecalciferol (Vitamin D3) [Vitamin D3] 2,000 unit PO DAILY 05/23/17 [History] Symbicort Dose Unknown 1 dose INHALATION RT-BID 05/23/17 [History] Metoprolol Tartrate [Lopressor] 12.5 mg PO BID #60 tab 05/31/17 [Rx] Follow up Appointment(s)/Referral(s): [facility], [NON-STAFF] - Richard Lo MD [STAFF PHYSICIAN] - 06/19/17 1:45 pm Joe Baca DO [Doctor of Osteopathic Medicine] - 06/06/17 9:00 am Patient Instructions/Handouts: Thoracotomy (DC) Discharge Disposition: HOME WITH HOME HEALTH SERVICES
--- NOTE | 2017-05-31 13:07 | PN ---
PROGRESS NOTE DATE OF SERVICE: 05/31/2017. INTERVAL HISTORY: This 86-year-old woman who was admitted with right middle lobe wedge resection is being closely monitored. No chest pain. No palpitations. No fever. EXAM: Alert and oriented x3. Pulse 76, blood pressure 119/70, respiration 17, temperature 97.2, pulse ox 94% on 2 L. HEENT: Conjunctivae normal. NECK: No jugular venous distention. CARDIOVASCULAR: S1, S2. RESPIRATORY SYSTEM: Breath sounds diminished at the bases. A few scattered rhonchi. ABDOMEN: Soft, nontender. LEGS: No edema. NERVOUS SYSTEM: No focal deficits. LABS: Hemoglobin is 12.5 and glucose is 118. AST 74 and ALT is 94. ASSESSMENT: 1. Status post right middle lobe wedge resection for carcinoma of the lung. 2. Primary degenerative joint disease of multiple joints bilaterally. 3. Hypertension. 4. Hyperlipidemia. 5. Chronic obstructive pulmonary disease exacerbation. 6. History of nicotine dependence. 7. New onset atrial fibrillation. 8. Depression. RECOMMENDATIONS AND DISCUSSION: I recommend to continue current management and symptomatic treatment. I recommend bronchodilators, oxygen and closely follow with Dr. Mcneill in the outpatient setting. Further recommendations will follow. Resume the home medications. MMODL / IJN: [id number] /
--- NOTE | 2017-06-01 12:53 | PN ---
PROGRESS NOTE DATE OF SERVICE: 05/30/17 ATTENDING NOTE: Patient seen and examined by me on 05/30/2017. I discussed with nurse practitioner, Ms. Haywood. The patient's chest tube is out. Breathing is better. Less cough, very little sputum production. Did tolerate some diet. Family is present. Has been out of bed. PHYSICAL EXAMINATION: On examination, temp 96.7, pulse 81, respiration 16, blood pressure 120/80, pulse ox 95% on 3 L. Lungs are decreased breath sounds. Mild wheezing. Psych AO x3. INVESTIGATIONS: White count 7.2, hemoglobin 12.5. ASSESSMENT: 1. Right middle lobe wedge resection for carcinoma of the lung. Chest tube has been removed. 2. Chronic obstructive pulmonary disease exacerbation. Doing better. Other medical problems stable. PLAN: Care was discussed with the patient and family. Follow. MMODL / IJN: [id number] /
== END 2017-05-31 12:38 | disposition home health service (06) | DRG 164 ==
LOC: 2ORWHC 05-29 06:00 → 6SEL 05-29 08:46
PROVIDERS: ADMIT Thoracic Surgery (Cardiothoracic Vascular Surgery); ATTEND Thoracic Surgery (Cardiothoracic Vascular Surgery)
PROC: 0BBD4ZZ Excision of Right Middle Lung Lobe, Percutaneous Endoscopic Approach (ICD-10-PCS; principal; 2017-05-29 07:30)
DX: C34.2 Malignant neoplasm of middle lobe, bronchus or lung (principal); I48.1 Persistent atrial fibrillation; J44.1 Chronic obstructive pulmonary disease with (acute) exacerbation; J98.11 Atelectasis; E78.5 Hyperlipidemia, unspecified; F17.200 Nicotine dependence, unspecified, uncomplicated; F32.9 Major depressive disorder, single episode, unspecified; G89.29 Other chronic pain; I10 Essential (primary) hypertension; I48.2 Chronic atrial fibrillation; K21.9 Gastro-esophageal reflux disease without esophagitis; M15.9 Polyosteoarthritis, unspecified; Z96.643 Presence of artificial hip joint, bilateral; N39.3 Stress incontinence (female) (male); Z96.651 Presence of right artificial knee joint; Z79.82 Long term (current) use of aspirin; Z79.899 Other long term (current) drug therapy; Z80.3 Family history of malignant neoplasm of breast; Z82.49 Family history of ischemic heart disease and other diseases of the circulatory system; Z85.43 Personal history of malignant neoplasm of ovary; Z90.710 Acquired absence of both cervix and uterus; Z87.01 Personal history of pneumonia (recurrent); Z99.81 Dependence on supplemental oxygen; Z88.6 Allergy status to analgesic agent; Z88.1 Allergy status to other antibiotic agents; Z88.5 Allergy status to narcotic agent; Z88.0 Allergy status to penicillin; Z88.2 Allergy status to sulfonamides; M47.26 Other spondylosis with radiculopathy, lumbar region
CPT/HCPCS: 36415; 71045; 71046; 80053; 85025; 86850; 86900; 86901; 87086; 88307; 88313; 88341; 88342; 93005; 94640; 94760

== ENCOUNTER → 2017-05-27 | Outpatient (CLI) | payer MEDICARE | END | disposition home or self-care (01) | LOC: LABPAT 10:48 | PROVIDERS: ATTEND Thoracic Surgery (Cardiothoracic Vascular Surgery) | DX: Z01.818 Encounter for other preprocedural examination (principal); C34.90 Malignant neoplasm of unspecified part of unspecified bronchus or lung; I48.91 Unspecified atrial fibrillation; R94.31 Abnormal electrocardiogram [ECG] [EKG]; I49.3 Ventricular premature depolarization; Z01.812 Encounter for preprocedural laboratory examination | CPT/HCPCS: 87086; 93005 ==

== ENCOUNTER → 2017-10-14 | Outpatient (CLI) | payer MEDICARE | END | disposition home or self-care (01) | LOC: LABWHC1 11:38 | PROVIDERS: ATTEND Family Medicine | DX: I48.91 Unspecified atrial fibrillation (principal) | CPT/HCPCS: 93005 ==

== ENCOUNTER 2017-11-23 09:15 | Inpatient (IN) | payer MEDICARE ==
[2017-11-23] MEDS ORDERED: IPRATROPIUM-ALBUTEROL 3 ML NEB INHALATION STA (09:50)
[2017-11-23] MEDS ORDERED: methylPREDNISolone SOD SUCCI 125 MG/2 ML VIAL IV STA (09:50)
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
[2017-11-23] MEDS: SODIUM CHLORIDE 0.9% 1,000 ML IV STA ×2 (10:04→13:16)
[2017-11-23 10:10] LABS: Basophils # (A) 0.1 k/uL (0-0.2); Basophils % (A) 0 %; Eosinophils # (A) 0.1 k/uL (0-0.7); Eosinophils % (A) 1 %; HCT 44.9 % (34.0-46.0); HGB 14.9 gm/dL (11.4-16.0); Lymphocytes # (A) 0.7 k/uL (1.0-4.8); Lymphocytes % (A) 4 %; MCH 30.2 pg (25.0-35.0); MCHC 33.2 g/dL (31.0-37.0); MCV 91.1 fL (80.0-100.0); Mean Platelet Volume 9.2; Monocytes # (A) 0.6 k/uL (0-1.0); Monocytes % (A) 4 %; Neutrophils # (A) 16.5 k/uL (1.3-7.7); Neutrophils % (A) 91 %; Platelet Count 178 k/uL (150-450); RBC 4.93 m/uL (3.80-5.40); RDW 15.5 % (11.5-15.5); WBC 18.2 k/uL (3.8-10.6)
[2017-11-23 10:21] LABS: ALT 24 U/L (9-52); AST 24 U/L (14-36); Albumin 3.6 g/dL (3.5-5.0); Alkaline Phosphatase 72 U/L (38-126); Anion Gap 9 mmol/L; Blood Urea Nitrogen 16 mg/dL (7-17); Calcium 8.9 mg/dL (8.4-10.2); Carbon Dioxide 23 mmol/L (22-30); Chloride 107 mmol/L (98-107); Glucose 170 mg/dL (74-99); Potassium 4.4 mmol/L (3.5-5.1); Sodium 139 mmol/L (137-145); Total Bilirubin 1.4 mg/dL (0.2-1.3)
--- NOTE | 2017-11-23 10:49 | XR ---
EXAMINATION TYPE: XR chest 2V DATE OF EXAM: 11/23/2017 HISTORY: difficulty breathing. REFERENCE: Previous study dated 05/31/2017. FINDINGS: The heart is enlarged. There is left basilar airspace disease. There is a left-sided effusi on. Increased opacity in the right lung base is believed to BE due to overlying soft tissues. IMPRESSION: 1. CARDIOMEGALY. 2. LEFT BASILAR AIRSPACE DISEASE. 3. SMALL LEFT EFFUSION.
[2017-11-23] MEDS ORDERED: IPRATROPIUM-ALBUTEROL 3 ML NEB INHALATION PRN (10:57)
[2017-11-23] MEDS ORDERED: PNEUMONIA PROTOCOL UTILIZED 1 EACH MISC PO PRN (10:57)
[2017-11-23] MEDS ORDERED: LEVOFLOXACIN 750MG-D5W PMX 750 MG in DEXTROSE/WATER 1 150ML.BAG IVPB STA (10:57)
[2017-11-23] MEDS ORDERED: NAPROXEN 250 MG TAB PO STA (11:00)
[2017-11-23] MEDS ORDERED: SODIUM CHLORIDE 0.9% 1,000 ML IV ONE (11:24)
[2017-11-23] MEDS ORDERED: SODIUM CHLORIDE 0.9% 1,000 ML IV STA (11:25)
[2017-11-23] MEDS ORDERED: SODIUM CHLORIDE 0.9% 500 ML IV STA (11:25)
[2017-11-23] MEDS: IPRATROPIUM-ALBUTEROL 3 ML NEB INHALATION SCH ×5 (13:00→23:24)
[2017-11-23 17:23] LABS: Glucose,Whole Blood 168 mg/dL (75-99)
[2017-11-23] MEDS: methylPREDNISolone SOD SUCCI 125 MG/2 ML VIAL IV SCH (17:57)
[2017-11-23] MEDS ORDERED: NITROGLYCERIN SL TABS 0.4 MG TAB SUBLINGUAL PRN (19:06)
[2017-11-23] MEDS ORDERED: ENOXAPARIN 40 MG/0.4 ML SYRINGE SQ SCH (19:15)
[2017-11-23] MEDS ORDERED: BUDESONIDE 1 MG/2 ML NEBU INHALATION SCH (20:00)
[2017-11-23] MEDS: SYMBICORT 160-4.5 MCG INHALER INHALATION SCH (20:14)
[2017-11-23] MEDS: ACETAMINOPHEN TAB 325 MG TAB PO PRN (20:21)
[2017-11-23 21:08] LABS: Glucose,Whole Blood 191 mg/dL (75-99)
[2017-11-23] MEDS: METOPROLOL TARTRATE 12.5 MG TAB PO SCH (21:48)
[2017-11-23] MEDS: guaiFENesin 600 MG TABLET.ER PO SCH (21:48)
[2017-11-23] MEDS: ENOXAPARIN 80 MG/0.8 ML SYRINGE SQ SCH (21:49)
[2017-11-23] MEDS: ASPIRIN 81 MG PO SCH (21:49)
[2017-11-23] MEDS: ATORVASTATIN 20 MG TAB PO SCH (21:49)
[2017-11-23] MEDS: traZODone HCL 50 MG TAB PO SCH (21:49)
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
[2017-11-24] MEDS: methylPREDNISolone SOD SUCCI 125 MG/2 ML VIAL IV SCH ×4 (00:11→18:04)
[2017-11-24] MEDS: LORazepam 0.5 MG TAB PO PRN ×2 (00:15→08:53)
[2017-11-24] MEDS: IPRATROPIUM-ALBUTEROL 3 ML NEB INHALATION SCH ×5 (03:47→21:13)
[2017-11-24] MEDS: ACETAMINOPHEN TAB 325 MG TAB PO PRN ×2 (06:21→15:22)
[2017-11-24 07:39] LABS: Glucose,Whole Blood 155 mg/dL (75-99)
--- NOTE | 2017-11-24 08:02 | XR ---
EXAMINATION TYPE: XR chest 2V DATE OF EXAM: 11/24/2017 COMPARISON: 11/23/2017 HISTORY: Pneumonia. Follow-up exam. TECHNIQUE: Frontal and lateral views of the chest are obtained. FINDINGS: There is an improving retrocardiac airspace disease superimposed upon chronic interstitial prominence. Trace left pleural effusion remains. There is a similar compression deformity of the mid thoracic spine with underlying osseous demineralization. Cardiomediastinal silhouette is enlarged. Mi nimal right basilar linear platelike subsegmental atelectasis is seen at the costophrenic angle. IMPRESSION: Improving left basilar airspace disease, likely related to resolving pneumonia with trac e parapneumonic effusion. Minimal right basilar atelectasis is seen in addition to chronic interstit ial prominence.
[2017-11-24] MEDS: SYMBICORT 160-4.5 MCG INHALER INHALATION SCH ×2 (08:25→21:12)
[2017-11-24] MEDS: guaiFENesin 600 MG TABLET.ER PO SCH ×2 (08:53→20:35)
[2017-11-24] MEDS: CALCIUM CARB-VIT D 500MG-200UN 1 EACH TAB PO SCH (08:53)
[2017-11-24] MEDS: SERTRALINE 100 MG TAB PO SCH (08:53)
[2017-11-24] MEDS: PANTOPRAZOLE 40 MG TABLET PO SCH (08:53)
[2017-11-24] MEDS: METOPROLOL TARTRATE 12.5 MG TAB PO SCH (08:53)
[2017-11-24] MEDS: LORATADINE 10 MG TAB PO SCH (08:53)
[2017-11-24 09:10] LABS: Calcium 8.8 mg/dL (8.4-10.2); Potassium 4.2 mmol/L (3.5-5.1)
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
[2017-11-24 09:33] LABS: Basophils % (A) 0 %; Eosinophils % (A) 0 %; Hypochromasia Slight; Lymphocytes # (A) 0.7 k/uL (1.0-4.8); Lymphocytes % (A) 5 %; MCH 29.6 pg (25.0-35.0); MCHC 31.8 g/dL (31.0-37.0); MCV 92.9 fL (80.0-100.0); Mean Platelet Volume 9.2; Monocytes # (A) 0.3 k/uL (0-1.0); Monocytes % (A) 2 %; Neutrophils # (A) 12.1 k/uL (1.3-7.7); Neutrophils % (A) 92 %; Platelet Count 141 k/uL (150-450); RBC 4.74 m/uL (3.80-5.40); RDW 15.9 % (11.5-15.5); WBC 13.2 k/uL (3.8-10.6)
[2017-11-24] MEDS: ENOXAPARIN 80 MG/0.8 ML SYRINGE SQ SCH (10:47)
[2017-11-24] MEDS ORDERED: LEVOFLOXACIN 750MG-D5W PMX 750 MG in DEXTROSE/WATER 1 150ML.BAG IVPB SCH (11:00)
[2017-11-24 12:05] LABS: Hemoglobin A1C 6.3 % (4.0-6.0)
[2017-11-24] MEDS ORDERED: METOPROLOL TARTRATE 12.5 MG TAB PO ONE (12:10)
[2017-11-24 12:14] LABS: Glucose,Whole Blood 159 mg/dL (75-99)
[2017-11-24] MEDS ORDERED: Magnesium Replacement Protocol 1 EACH MISC MISCELLANE PRN (12:21)
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
[2017-11-24] MEDS ORDERED: MAGNESIUM SULFATE-D5W PMX 1 GM in DEXTROSE/WATER 1 100ML.BAG IVPB SCH (12:30)
[2017-11-24 12:50] LABS: Magnesium 1.4 mg/dL (1.6-2.3)
--- NOTE | 2017-11-24 14:03 | P.PN ---
Subjective Progress Note Date: 11/24/17 Principal diagnosis: Acute left lower lobe pneumonia and acute hypoxic respiratory failure secondary to pneumonia and COPD exacerbation. 87-year-old here patient presented to the hospital because of worsening shortness of breath. Her symptoms approximately a week ago. She had a congested cough with yellow sputum production. No fever or chills. In the ED the patient was diagnosed having a left lower lobe pneumonia as as the patient has dense consolidation of the left lung base. White cell count is at 18.2. The patient has elected just of 2.6. Normal renal function. She was given a dose of Levaquin. She was placed on DuoNeb neb last treatment around-the- clock. She is also on IV fluids at 75 mL an hour normal saline. The patient was recently operated on for a lung cancer. She had a right middle lobe mass measuring 2.3 x 0.9 cm in size with high SUV uptake and for that reason the patient was referred to thoracic surgery and the patient underwent a right middle lobe wedge resection resection and the postop diagnosis was consistent with adenocarcinoma. The hospital course was essentially unremarkable. The patient had COPD with an FEV1 of 50% of predicted preoperatively. MRI of the brain demonstrated no evidence of any metastases. Other comorbidities include hypertension, hyperlipidemia, acid reflux, chronic atrial fibrillation, depression, chronic pain medication dependence Patient was reevaluated today on 11/24/2017, feeling better, but not back to her baseline. Continues to feel a bit congested, producing some yellow phlegm again no wheezing, no fever no chills, no chest pain. CBC showed slight leukocytosis basic metabolic profile is normal. Chest x-ray was reviewed and it is consistent with left lower lobe infiltrate. Objective - Vital Signs Vital signs: Vital Signs Temp 97.6 F 11/24/17 06:55 Pulse 88 11/24/17 12:58 Resp 20 11/24/17 06:55 BP 146/96 11/24/17 06:55 Pulse Ox 94 L 11/24/17 06:55 Intake & Output 11/23/17 11/24/17 11/24/17 18:59 06:59 18:59 Intake Total 240 Balance 240 Weight 77.111 kg Intake: Oral 240 Other: Voiding Method Toilet Toilet # Voids 1 4 # Bowel Movements 0 - Exam GENERAL EXAM: Revealed an 87-year-old female, pleasant, in no distress.. HEAD: Normocephalic. Atraumatic. EYES: Normal reaction of pupils, equal size. NOSE: Clear with pink turbinates. THROAT: No erythema or exudates. NECK: No masses, no JVD. CHEST: No chest wall deformity. Right sided chest tube in place. LUNGS: Diminished breath sounds at the bases, minimal crackles at the left base. No rhonchi, no wheezes. CVS: S1 and S2 normal with no audible murmur, irregular rhythm. ABDOMEN: No hepatosplenomegaly, normal bowel sounds, no guarding or rigidity. SPINE: No scoliosis or deformity SKIN: No rashes CENTRAL NERVOUS SYSTEM: No gross focal neurologic deficit. EXTREMITIES: There is no peripheral edema. No clubbing, no cyanosis. - Labs CBC & Chem 7: 11/24/17 08:31 11/24/17 08:31 Labs: Abnormal Lab Results - Last 24 Hours (Table) 11/23/17 11/23/17 11/23/17 Range/Units 09:25 14:45 16:48 WBC (3.8-10.6) k/uL RDW (11.5-15.5) % Plt Count (150-450) k/uL Neutrophils # (1.3-7.7) k/uL Lymphocytes # (1.0-4.8) k/uL Glucose (74-99) mg/dL POC Glucose (mg/dL) 168 H (75-99) mg/dL Hemoglobin A1c 6.3 H (4.0-6.0) % Plasma Lactic Acid Nikita 4.5 H* (0.7-2.0) mmol/L Magnesium (1.6-2.3) mg/dL 11/23/17 11/24/17 11/24/17 Range/Units 20:43 07:01 08:31 WBC 13.2 H (3.8-10.6) k/uL RDW 15.9 H (11.5-15.5) % Plt Count 141 L (150-450) k/uL Neutrophils # 12.1 H (1.3-7.7) k/uL Lymphocytes # 0.7 L (1.0-4.8) k/uL Glucose (74-99) mg/dL POC Glucose (mg/dL) 191 H 155 H (75-99) mg/dL Hemoglobin A1c (4.0-6.0) % Plasma Lactic Acid Nikita (0.7-2.0) mmol/L Magnesium (1.6-2.3) mg/dL 11/24/17 11/24/17 11/24/17 Range/Units 08:31 08:31 11:56 WBC (3.8-10.6) k/uL RDW (11.5-15.5) % Plt Count (150-450) k/uL Neutrophils # (1.3-7.7) k/uL Lymphocytes # (1.0-4.8) k/uL Glucose 138 H (74-99) mg/dL POC Glucose (mg/dL) 159 H (75-99) mg/dL Hemoglobin A1c (4.0-6.0) % Plasma Lactic Acid Nikita (0.7-2.0) mmol/L Magnesium 1.4 L (1.6-2.3) mg/dL Microbiology - Last 24 Hours (Table) 11/23/17 09:25 Blood Culture - Preliminary Blood No Growth after 24 hours Assessment and Plan Assessment: 1 acute left lower lobe pneumonia 2 acute hypoxic respiratory failure 3 leukocytosis secondary to above 4 right middle lobe adenocarcinoma post wedge resection back in general 2018 5 chronic atrial fibrillation 6 COPD with FEV1 of 50% of predicted 7 hyperlipidemia 8 hypertension Recommendation: Continue present treatment plan as outlined by Dr. Jaffe, patient is showing some clinical improvement, hence we'll continue antibiotics, bronchodilators, and will follow closely. Time with Patient: Less than 30
[2017-11-24] MEDS ORDERED: METOPROLOL TARTRATE 25 MG TAB PO STA (15:05)
--- NOTE | 2017-11-24 15:27 | ECHOF ---
Referral Reason:sob MEASUREMENTS -------- HEIGHT: 167.6 cm WEIGHT: 77.1 kg BP: 146/96 IVSd: 1.2 cm (0.6 - 1.1) LVIDd: 4.3 cm (3.9 - 5.3) LVPWd: 1.6 cm (0.6 - 1.1) IVSs: 1.8 cm LVIDs: 2.5 cm LVPWs: 1.9 cm LAESV Index (A-L): 37.14 ml/m Ao Diam: 3.8 cm (2.0 - 3.7) LA Diam: 3.4 cm (2.7 - 3.8) AV Cusp: 1.9 cm (1.5 - 2.6) EPSS: 0.8 cm RAP: 20.00 mmHg RVSP: 37.80 mmHg MV EF SLOPE: 95.92 mm/s (70 - 150) MV EXCURSION: 19.44 mm (> 18.000) FINDINGS -------- Atrial fibrillation. This was a technically adequate study. The left ventricular size is normal. There is mild concentric left ventricular hypertrophy. Overa ll left ventricular systolic function is severely impaired with, an EF between 25 - 30 %. The right ventricle is normal in size and function. LA is moderately dilated 34-39 ml/m2 The right atrium is normal in size. The aortic valve is trileaflet, and appears structurally normal. No aortic stenosis or regurgitation. The mitral valve leaflets are mildly thickened. Moderate mitral regurgitation is present. Mild tricuspid regurgitation present. There is mild pulmonary hypertension. The right ventricular systolic pressure, as measured by Doppler, is 37.80mmHg. Trace/mild (physiologic) pulmonic regurgitation. The aortic root is dilated measuring 3.9 cm The inferior vena cava is dilated with no significant inspiratory collapse which is consistent estima tavia right atrial pressure of >20 mmHg. The pericardium is normal. CONCLUSIONS -------- 1. Atrial fibrillation. 2. This was a technically adequate study. 3. The left ventricular size is normal. 4. There is mild concentric left ventricular hypertrophy. 5. Overall left ventricular systolic function is severely impaired with, an EF between 25 - 30 %. 6. The right ventricle is normal in size and function. 7. LA is moderately dilated 34-39 ml/m2 8. The right atrium is normal in size. 9. The aortic valve is trileaflet, and appears structurally normal. No aortic stenosis or regurgitati on. 10. The mitral valve leaflets are mildly thickened. 11. Moderate mitral regurgitation is present. 12. Mild tricuspid regurgitation present. 13. There is mild pulmonary hypertension. 14. The right ventricular systolic pressure, as measured by Doppler, is 37.80mmHg. 15. Trace/mild (physiologic) pulmonic regurgitation. 16. The aortic root is dilated measuring 3.9 cm 17. The inferior vena cava is dilated with no significant inspiratory collapse which is consistent es timated right atrial pressure of >20 mmHg. 18. The pericardium is normal. ASSOCIATE VICE PRESIDENT: Natacha Dooley RDCS
--- NOTE | 2017-11-24 17:03 | P.PN ---
Subjective Progress Note Date: 11/24/17 Progress note being dictated for Dr. Tobias Interval history: This is an 87-year-old female admitted with acute hypoxic respiratory failure secondary to bilateral pneumonia, sepsis, COPD exacerbation , and multiple other medical issues. Complains of nonproductive cough. Beta clark increased this morning for atrial fibrillation with RVR, as per cardiology.Echo pending.anticoagulated on Xarelto .Maintained on nebulized bronchodilators, systemic steroids, Levaquin. Chest x-ray reporting improving left basilar airspace disease, minimal right basilar atelectasis. Leukocytosis improving. Objective - Vital Signs Vital signs: Vital Signs Temp 97.5 F L 11/24/17 14:00 Pulse 101 H 11/24/17 14:00 Resp 16 11/24/17 14:00 BP 126/65 11/24/17 14:00 Pulse Ox 92 L 11/24/17 14:00 Intake & Output 11/23/17 11/24/17 11/24/17 18:59 06:59 18:59 Intake Total 240 750 Balance 240 750 Weight 77.111 kg Intake: Intake, IV Titration 150 Amount Levofloxacin 750Mg-D5w 150 Pmx 750 mg In Dextrose/ Water 1 150ml.bag @ 100 mls/hr IVPB Q24H [facility] Rx#: [id number] Oral 240 600 Other: Voiding Method Toilet Toilet # Voids 1 4 2 # Bowel Movements 0 - Exam PHYSICAL EXAM: VITAL SIGNS: As above GENERAL: Lying in bed, no acute distress HEENT: Conjunctivae normal. eyes normal. NECK: No JVD. No thyroid enlargement. No LNs CARDIOVASCULAR: S1, S2 muffled. Irregular, tachycardic , no murmur RESPIRATION: Breath sounds diminished in the bases. Scattered rhonchi , left basilar crackles. ABDOMEN: Soft, nontender . No guarding. no masses palpable. Bowel sounds heard. LEGS: No edema. no swelling PSYCHIATRY: Alert and oriented -3, mood and affect normal. NERVOUS SYSTEM: Cranial N 2-12 grossly normal. Moves all 4 limbs. Diffuse weakness No focal deficits. Skin: no ulcer no rash Joints: No active swelling. No inflammation. Lymphatic system. No LN neck axilla or groin. - Labs CBC & Chem 7: 11/24/17 08:31 11/24/17 08:31 Labs: Abnormal Lab Results - Last 24 Hours (Table) 11/23/17 11/23/17 11/23/17 Range/Units 09:25 16:48 20:43 WBC (3.8-10.6) k/uL RDW (11.5-15.5) % Plt Count (150-450) k/uL Neutrophils # (1.3-7.7) k/uL Lymphocytes # (1.0-4.8) k/uL Glucose (74-99) mg/dL POC Glucose (mg/dL) 168 H 191 H (75-99) mg/dL Hemoglobin A1c 6.3 H (4.0-6.0) % Magnesium (1.6-2.3) mg/dL 11/24/17 11/24/17 11/24/17 Range/Units 07:01 08:31 08:31 WBC 13.2 H (3.8-10.6) k/uL RDW 15.9 H (11.5-15.5) % Plt Count 141 L (150-450) k/uL Neutrophils # 12.1 H (1.3-7.7) k/uL Lymphocytes # 0.7 L (1.0-4.8) k/uL Glucose 138 H (74-99) mg/dL POC Glucose (mg/dL) 155 H (75-99) mg/dL Hemoglobin A1c (4.0-6.0) % Magnesium (1.6-2.3) mg/dL 11/24/17 11/24/17 Range/Units 08:31 11:56 WBC (3.8-10.6) k/uL RDW (11.5-15.5) % Plt Count (150-450) k/uL Neutrophils # (1.3-7.7) k/uL Lymphocytes # (1.0-4.8) k/uL Glucose (74-99) mg/dL POC Glucose (mg/dL) 159 H (75-99) mg/dL Hemoglobin A1c (4.0-6.0) % Magnesium 1.4 L (1.6-2.3) mg/dL Microbiology - Last 24 Hours (Table) 11/23/17 09:25 Blood Culture - Preliminary Blood No Growth after 24 hours Assessment and Plan Assessment: -Acute left lower lobe pneumonia -Acute hypoxic respiratory failure secondary to the above -History of right middle lobe adenocarcinoma, status post wedge resection -Chronic atrial fibrillation, currently afib with RVR -COPD -Hyperlipidemia -Hypertension -Hypomagnesemia Plan: Continue on current medication regime ,monitoring and symptomatic treatment. Beta clark increased as per cardiology. Echo pending. Maintain nebulized bronchodilators, steroids, antibiotics. Blood cultures pending. Magnesium to be supplemented as per replacement protocol. The impression and plan of care has been dictated as directed. : I performed a history and examination of this patient, discussed the same with the dictator. I agree with the dictator's note ,documented as a scribe. Any additional findings or plans will be noted.
[2017-11-24 17:18] LABS: Glucose,Whole Blood 128 mg/dL (75-99)
[2017-11-24] MEDS: RIVAROXABAN 20 MG TAB PO SCH (18:04)
[2017-11-24] MEDS: traZODone HCL 50 MG TAB PO SCH (20:34)
[2017-11-24] MEDS: ATORVASTATIN 20 MG TAB PO SCH (20:34)
[2017-11-24] MEDS: METOPROLOL TARTRATE 25 MG TAB PO SCH (20:35)
[2017-11-24 21:07] LABS: Glucose,Whole Blood 154 mg/dL (75-99)
[2017-11-25] MEDS: methylPREDNISolone SOD SUCCI 125 MG/2 ML VIAL IV SCH ×3 (00:09→11:26)
[2017-11-25] MEDS: IPRATROPIUM-ALBUTEROL 3 ML NEB INHALATION SCH ×7 (01:30→20:53)
[2017-11-25] MEDS: LORazepam 0.5 MG TAB PO PRN ×2 (03:03→21:04)
[2017-11-25] MEDS: SYMBICORT 160-4.5 MCG INHALER INHALATION SCH ×2 (07:21→20:50)
[2017-11-25 07:54] LABS: Glucose,Whole Blood 156 mg/dL (75-99)
[2017-11-25] MEDS: guaiFENesin 600 MG TABLET.ER PO SCH ×2 (09:26→20:17)
[2017-11-25] MEDS: LEVOFLOXACIN 750 MG TAB PO SCH (09:27)
[2017-11-25] MEDS: CALCIUM CARB-VIT D 500MG-200UN 1 EACH TAB PO SCH (09:27)
[2017-11-25] MEDS: LORATADINE 10 MG TAB PO SCH (09:27)
[2017-11-25] MEDS: METOPROLOL TARTRATE 25 MG TAB PO SCH (09:27)
[2017-11-25] MEDS: PANTOPRAZOLE 40 MG TABLET PO SCH (09:27)
[2017-11-25] MEDS: SERTRALINE 100 MG TAB PO SCH (09:28)
[2017-11-25 09:51] LABS: Calcium 9.3 mg/dL (8.4-10.2); Potassium 4.4 mmol/L (3.5-5.1)
[2017-11-25 12:27] LABS: Glucose,Whole Blood 151 mg/dL (75-99)
[2017-11-25] MEDS: INSULIN ASPART 100 UNIT/ML 1 ML 10 ML VIAL SQ SCH ×3 (12:36→21:58)
[2017-11-25] MEDS ORDERED: FUROSEMIDE 10 MG/ML 4 ML VIAL IV STA (14:12)
[2017-11-25 17:05] LABS: Glucose,Whole Blood 130 mg/dL (75-99)
--- NOTE | 2017-11-25 17:10 | P.PN ---
Subjective Progress Note Date: 11/25/17 Principal diagnosis: Acute left lower lobe pneumonia, and acute hypoxic respiratory failure secondary to pneumonia and COPD exacerbation 87-year-old here patient presented to the hospital because of worsening shortness of breath. Her symptoms approximately a week ago. She had a congested cough with yellow sputum production. No fever or chills. In the ED the patient was diagnosed having a left lower lobe pneumonia as as the patient has dense consolidation of the left lung base. White cell count is at 18.2. The patient has elected just of 2.6. Normal renal function. She was given a dose of Levaquin. She was placed on DuoNeb neb last treatment around-the- clock. She is also on IV fluids at 75 mL an hour normal saline. The patient was recently operated on for a lung cancer. She had a right middle lobe mass measuring 2.3 x 0.9 cm in size with high SUV uptake and for that reason the patient was referred to thoracic surgery and the patient underwent a right middle lobe wedge resection resection and the postop diagnosis was consistent with adenocarcinoma. The hospital course was essentially unremarkable. The patient had COPD with an FEV1 of 50% of predicted preoperatively. MRI of the brain demonstrated no evidence of any metastases. Other comorbidities include hypertension, hyperlipidemia, acid reflux, chronic atrial fibrillation, depression, chronic pain medication dependence Patient was reevaluated today on 11/24/2017, feeling better, but not back to her baseline. Continues to feel a bit congested, producing some yellow phlegm again no wheezing, no fever no chills, no chest pain. CBC showed slight leukocytosis basic metabolic profile is normal. Chest x-ray was reviewed and it is consistent with left lower lobe infiltrate. On 11/25/2017 patient seen again in follow-up on medical surgical floor. She is mildly short of breath at rest, she states she did not sleep last night because of being short of breath. Lung sounds are diminished, with a few scattered rhonchi, patient has nonproductive cough, she states she is not able to clear any secretions. She is being treated with Levaquin, for left lower lobe pneumonia. echocardiogram results were noted, and she has severely reduced left ventricular systolic function with an EF of 25-30%. Patient is chronic A. fib, the rate is controlled. She is on beta blockers, and the dose was increased to 50 mg twice daily. Patient was noted to have mild JVD, she did receive extensive fluid resuscitation at the time of admission in the emergency room. We will give the patient a dose of IV Lasix 40 mg, and start patient on small dose of oral Lasix 20 mg daily. We'll repeat chest x-ray in the morning Objective - Vital Signs Vital signs: Vital Signs Temp 96.9 F L 11/25/17 14:56 Pulse 95 11/25/17 14:56 Resp 17 11/25/17 14:56 BP 151/84 11/25/17 14:56 Pulse Ox 92 L 11/25/17 14:56 Intake & Output 11/24/17 11/25/17 11/25/17 18:59 06:59 18:59 Intake Total 1350 600 Balance 1350 600 Intake: Intake, IV Titration 150 Amount Levofloxacin 750Mg-D5w 150 Pmx 750 mg In Dextrose/ Water 1 150ml.bag @ 100 mls/hr IVPB Q24H [facility] Rx#: [id number] Oral 1200 600 Other: # Voids 1 2 3 - Exam GENERAL EXAM: Revealed an 87-year-old female, pleasant, in no distress HEAD: Normocephalic. Atraumatic. EYES: Normal reaction of pupils, equal size. NOSE: Clear with pink turbinates. THROAT: No erythema or exudates. NECK: No masses, no JVD. CHEST: No chest wall deformity. Right sided chest tube in place. LUNGS: Diminished breath sounds at the bases, minimal crackles at the left base. No rhonchi, no wheezes. CVS: S1 and S2 normal with no audible murmur, irregular rhythm. ABDOMEN: No hepatosplenomegaly, normal bowel sounds, no guarding or rigidity. SPINE: No scoliosis or deformity SKIN: No rashes CENTRAL NERVOUS SYSTEM: No gross focal neurologic deficit. EXTREMITIES: There is no peripheral edema. No clubbing, no cyanosis. - Labs CBC & Chem 7: 11/24/17 08:31 11/25/17 08:44 Labs: Abnormal Lab Results - Last 24 Hours (Table) 11/24/17 11/24/17 11/25/17 Range/Units 17:02 21:06 07:03 Chloride (98-107) mmol/L BUN (7-17) mg/dL Glucose (74-99) mg/dL POC Glucose (mg/dL) 128 H 154 H 156 H (75-99) mg/dL 11/25/17 11/25/17 Range/Units 08:44 11:56 Chloride 109 H (98-107) mmol/L BUN 22 H (7-17) mg/dL Glucose 146 H (74-99) mg/dL POC Glucose (mg/dL) 151 H (75-99) mg/dL Microbiology - Last 24 Hours (Table) 11/23/17 09:25 Blood Culture - Preliminary Blood No Growth after 48 hours Assessment and Plan Plan: Assessment: 1 acute left lower lobe pneumonia 2 acute hypoxic respiratory failure 3 leukocytosis secondary to above 4 severely reduced left ventricular systolic function, with an EF of 25-30% 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 Patient has severely reduced left ventricular systolic function with an EF of 25-30%, chronic A. fib , and patient was explicitly fluid resuscitated at the admission. There may be a component of fluid overload contributing to the patient's dyspnea. Will start the patient on a small dose of maintenance oral diuretic in the form of Lasix 20 mg daily. Continue current antibiotic treatment, continue nebulized bronchodilators, will reduce the Solu-Medrol to 40 mg every 8 hours. Repeat chest x-ray in the morning. I performed a history & physical examination of the patient and discussed their management with my nurse practitioner, Veena Grant. I reviewed the nurse practitioner's note and agree with the documented findings and plan of care. Lung sounds are positive for a few scattered crackles. The findings and the impression was discussed with the patient. I attest to the documentation by the nurse practitioner. Time with Patient: Less than 30
[2017-11-25] MEDS: RIVAROXABAN 20 MG TAB PO SCH (17:35)
[2017-11-25] MEDS: methylPREDNISolone SOD SUCCI 40 MG/ML 1 ML VIAL IV SCH (17:54)
[2017-11-25] MEDS: ATORVASTATIN 20 MG TAB PO SCH (20:18)
[2017-11-25] MEDS: traZODone HCL 50 MG TAB PO SCH (20:18)
[2017-11-25] MEDS: METOPROLOL TARTRATE 50 MG TAB PO SCH (20:18)
[2017-11-25] MEDS: ACETAMINOPHEN TAB 325 MG TAB PO PRN (21:03)
[2017-11-25 21:13] LABS: Glucose,Whole Blood 150 mg/dL (75-99)
[2017-11-25] MEDS: ASPIRIN 81 MG PO SCH (21:58)
[2017-11-26] MEDS ORDERED: methylPREDNISolone SOD SUCCI 40 MG/ML 1 ML VIAL ONE
[2017-11-26] MEDS: IPRATROPIUM-ALBUTEROL 3 ML NEB INHALATION SCH ×7 (04:12→23:41)
[2017-11-26] MEDS: methylPREDNISolone SOD SUCCI 40 MG/ML 1 ML VIAL IV SCH ×4 (04:12→23:52)
[2017-11-26] MEDS: SYMBICORT 160-4.5 MCG INHALER INHALATION SCH ×2 (07:38→20:09)
[2017-11-26 07:39] LABS: Glucose,Whole Blood 129 mg/dL (75-99)
[2017-11-26] MEDS: INSULIN ASPART 100 UNIT/ML 1 ML 10 ML VIAL SQ SCH ×4 (08:12→21:31)
[2017-11-26] MEDS: guaiFENesin 600 MG TABLET.ER PO SCH ×2 (08:13→20:34)
[2017-11-26] MEDS: CALCIUM CARB-VIT D 500MG-200UN 1 EACH TAB PO SCH (08:13)
[2017-11-26] MEDS: LORATADINE 10 MG TAB PO SCH (08:13)
[2017-11-26] MEDS: FUROSEMIDE 20 MG TAB PO SCH (08:13)
[2017-11-26] MEDS: PANTOPRAZOLE 40 MG TABLET PO SCH (08:13)
[2017-11-26] MEDS: LEVOFLOXACIN 750 MG TAB PO SCH (08:14)
[2017-11-26] MEDS: METOPROLOL TARTRATE 50 MG TAB PO SCH ×2 (08:14→20:34)
[2017-11-26] MEDS: SERTRALINE 100 MG TAB PO SCH (08:14)
[2017-11-26 09:11] LABS: Calcium 9.4 mg/dL (8.4-10.2); Potassium 4.4 mmol/L (3.5-5.1)
--- NOTE | 2017-11-26 09:40 | XR ---
EXAMINATION TYPE: XR chest 2V DATE OF EXAM: 11/26/2017 COMPARISON: Chest x-ray from 2 days ago and older studies. CT chest March 19, 2017. HISTORY: Shortness of breath, left lung pneumonia. TECHNIQUE: Frontal and lateral views of the chest are obtained. FINDINGS: There is background chronic emphysematous change with bibasilar opacities favoring atelect asis over infiltrate redemonstrated with tiny bilateral pleural effusions as there is blunting of pos terior costophrenic angles. Cardiac silhouette size remains enlarged with atherosclerotic thoracic ao rta. The osseous structures remain demineralized there is persistent advanced compression fracture at T8 level. Surgical clips epigastric region are redemonstrated. IMPRESSION: Cardiomegaly and chronic emphysematous change with bibasilar atelectasis and/or infiltrat e and small to tiny bilateral pleural effusions all redemonstrated. Suspected mild bibasilar intersti tial edema and/or infiltrates. No significant change from most recent chest x-ray.
[2017-11-26 12:27] LABS: Glucose,Whole Blood 122 mg/dL (75-99)
[2017-11-26] MEDS: ACETAMINOPHEN TAB 325 MG TAB PO PRN ×2 (15:45→21:35)
[2017-11-26] MEDS: RIVAROXABAN 20 MG TAB PO SCH (15:47)
[2017-11-26 17:41] LABS: Glucose,Whole Blood 158 mg/dL (75-99)
--- NOTE | 2017-11-26 17:46 | P.PN ---
Subjective Progress Note Date: 11/26/17 Progress note being dictated for Dr. Tobias Interval history: This is an 87-year-old female admitted with acute hypoxic respiratory failure secondary to bilateral pneumonia, sepsis, COPD exacerbation , and multiple other medical issues. Complains of nonproductive cough. Beta clark increased this morning for atrial fibrillation with RVR, as per cardiology.Echo pending.anticoagulated on Xarelto .Maintained on nebulized bronchodilators, systemic steroids, Levaquin. Chest x-ray reporting improving left basilar airspace disease, minimal right basilar atelectasis. Leukocytosis improving. 11/25/2017 continues to have shortness of breath with nonproductive cough. Complains of fatigue, did not sleep well last night. Echo reporting severely impaired LV function, EF between 25 and 30%, moderate mitral regurgitation, dilated aortic root 3.9 cm. Telemetry reporting atrial fibrillation with heart rates ranging from 85-110, beta clark increased. Lasix IV push 1 with scheduled oral Lasix. Afebrile, preliminary blood cultures negative. Sputum culture pending. Objective - Vital Signs Vital signs: Vital Signs Temp 96.9 F L 11/25/17 14:56 Pulse 88 11/25/17 17:21 Resp 17 11/25/17 14:56 BP 151/84 11/25/17 14:56 Pulse Ox 92 L 11/25/17 14:56 Intake & Output 11/24/17 11/25/17 11/25/17 18:59 06:59 18:59 Intake Total 1350 600 Balance 1350 600 Intake: Intake, IV Titration 150 Amount Levofloxacin 750Mg-D5w 150 Pmx 750 mg In Dextrose/ Water 1 150ml.bag @ 100 mls/hr IVPB Q24H [facility] Rx#: [id number] Oral 1200 600 Other: # Voids 1 2 3 - Exam PHYSICAL EXAM: VITAL SIGNS: As above GENERAL: Lying in bed, no acute distress HEENT: Conjunctivae normal. eyes normal. Oral mucosa moist NECK: Mild JVD. No thyroid enlargement. No LNs CARDIOVASCULAR: S1, S2 muffled. Irregular, tachycardic , no murmur RESPIRATION: Breath sounds diminished in the bases. Scattered rhonchi , fine left basilar crackles. ABDOMEN: Soft, nontender . No guarding. no masses palpable. Bowel sounds heard. LEGS: No edema. no swelling PSYCHIATRY: Alert and oriented -3, mood and affect normal. NERVOUS SYSTEM: Cranial N 2-12 grossly normal. Moves all 4 limbs. Diffuse weakness No focal deficits. Skin: no rash - Labs CBC & Chem 7: 11/24/17 08:31 11/26/17 08:24 Labs: Abnormal Lab Results - Last 24 Hours (Table) 11/24/17 11/25/17 11/25/17 Range/Units 21:06 07:03 08:44 Chloride 109 H (98-107) mmol/L BUN 22 H (7-17) mg/dL Glucose 146 H (74-99) mg/dL POC Glucose (mg/dL) 154 H 156 H (75-99) mg/dL 11/25/17 11/25/17 Range/Units 11:56 16:58 Chloride (98-107) mmol/L BUN (7-17) mg/dL Glucose (74-99) mg/dL POC Glucose (mg/dL) 151 H 130 H (75-99) mg/dL Microbiology - Last 24 Hours (Table) 11/23/17 09:25 Blood Culture - Preliminary Blood No Growth after 48 hours Assessment and Plan Assessment: -Acute left lower lobe pneumonia -Acute hypoxic respiratory failure secondary to the above -History of right middle lobe adenocarcinoma, status post wedge resection -Chronic atrial fibrillation, currently afib with RVR -COPD -Hyperlipidemia -Hypertension -Hypomagnesemia -Severely impaired LV function, EF 25-30% Plan: Continue on current medication regime ,monitoring and symptomatic treatment. Lasix IVP X1, oral Lasix added to med regime. Beta clark increased as per cardiology. Maintain nebulized bronchodilators, steroids, antibiotics. Up in chair for meals. PT/OT. Possible subacute rehab at discharge. The impression and plan of care has been dictated as directed. : I performed a history and examination of this patient, discussed the same with the dictator. I agree with the dictator's note ,documented as a scribe. Any additional findings or plans will be noted.
--- NOTE | 2017-11-26 17:55 | P.PN ---
Subjective Progress Note Date: 11/26/17 Progress note being dictated for Dr. Tobias Interval history: This is an 87-year-old female admitted with acute hypoxic respiratory failure secondary to bilateral pneumonia, sepsis, COPD exacerbation , and multiple other medical issues. Complains of nonproductive cough. Beta clark increased this morning for atrial fibrillation with RVR, as per cardiology.Echo pending.anticoagulated on Xarelto .Maintained on nebulized bronchodilators, systemic steroids, Levaquin. Chest x-ray reporting improving left basilar airspace disease, minimal right basilar atelectasis. Leukocytosis improving. 11/25/2017 continues to have shortness of breath with nonproductive cough. Complains of fatigue, did not sleep well last night. Echo reporting severely impaired LV function, EF between 25 and 30%, moderate mitral regurgitation, dilated aortic root 3.9 cm. Telemetry reporting atrial fibrillation with heart rates ranging from 85-110, beta clark increased. Lasix IV push 1 with scheduled oral Lasix. Afebrile, preliminary blood cultures negative. Sputum culture pending. 11/26/2017 chest x-ray reporting no significant change, improving. Maintained on oral Lasix. Incomplete I&O, no weight today. Dyspnea improving, more rested today. Heart rate better controlled. Denies chest pain, palpitations. Objective - Vital Signs Vital signs: Vital Signs Temp 97.8 F 11/26/17 16:08 Pulse 80 11/26/17 16:15 Resp 18 11/26/17 16:08 BP 154/88 11/26/17 16:08 Pulse Ox 95 11/26/17 16:08 Intake & Output 11/25/17 11/26/17 11/26/17 18:59 06:59 18:59 Intake Total 600 Balance 600 Intake: Oral 600 Other: Voiding Method Incontinent # Voids 3 5 6 - Exam PHYSICAL EXAM: VITAL SIGNS: As above GENERAL: Up in chair, no acute distress HEENT: Conjunctivae normal. eyes normal. Oral mucosa moist NECK: Mild JVD. No thyroid enlargement. No LNs CARDIOVASCULAR: S1, S2 muffled. Irregular, , no murmur RESPIRATION: Breath sounds diminished in the bases. fine left basilar crackles. ABDOMEN: Soft, nontender . No guarding. no masses palpable. Bowel sounds heard. LEGS: No edema. no swelling PSYCHIATRY: Alert and oriented -3, mood and affect normal. NERVOUS SYSTEM: Cranial N 2-12 grossly normal. Moves all 4 limbs. Diffuse weakness No focal deficits. Skin: no rash - Labs CBC & Chem 7: 11/24/17 08:31 11/26/17 08:24 Labs: Abnormal Lab Results - Last 24 Hours (Table) 11/25/17 11/26/17 11/26/17 Range/Units 20:54 07:26 08:24 Carbon Dioxide 33 H (22-30) mmol/L BUN 27 H (7-17) mg/dL Glucose 143 H (74-99) mg/dL POC Glucose (mg/dL) 150 H 129 H (75-99) mg/dL 11/26/17 11/26/17 Range/Units 12:20 17:14 Carbon Dioxide (22-30) mmol/L BUN (7-17) mg/dL Glucose (74-99) mg/dL POC Glucose (mg/dL) 122 H 158 H (75-99) mg/dL Microbiology - Last 24 Hours (Table) 11/23/17 09:25 Blood Culture - Preliminary Blood No Growth after 72 hours 11/25/17 14:55 Gram Stain - Preliminary Sputum Assessment and Plan Assessment: -Acute left lower lobe pneumonia -Acute hypoxic respiratory failure secondary to the above -History of right middle lobe adenocarcinoma, status post wedge resection -Chronic atrial fibrillation, currently afib with RVR -COPD -Hyperlipidemia -Hypertension -Hypomagnesemia -Severely impaired LV function, EF 25-30% Plan: Continue on current medication regime ,monitoring and symptomatic treatment. Maintain oral Lasix, beta clark, with daily weights.continue on nebulized bronchodilators, steroids, antibiotics. PT/OT. Subacute rehab recommended per physical therapy evaluation. The impression and plan of care has been dictated as directed. : I performed a history and examination of this patient, discussed the same with the dictator. I agree with the dictator's note ,documented as a scribe. Any additional findings or plans will be noted.
--- NOTE | 2017-11-26 18:21 | P.PN ---
Subjective Progress Note Date: 11/26/17 Principal diagnosis: Acute left lower lobe pneumonia, and acute hypoxic respiratory failure secondary to pneumonia and COPD exacerbation 87-year-old here patient presented to the hospital because of worsening shortness of breath. Her symptoms approximately a week ago. She had a congested cough with yellow sputum production. No fever or chills. In the ED the patient was diagnosed having a left lower lobe pneumonia as as the patient has dense consolidation of the left lung base. White cell count is at 18.2. The patient has elected just of 2.6. Normal renal function. She was given a dose of Levaquin. She was placed on DuoNeb neb last treatment around-the- clock. She is also on IV fluids at 75 mL an hour normal saline. The patient was recently operated on for a lung cancer. She had a right middle lobe mass measuring 2.3 x 0.9 cm in size with high SUV uptake and for that reason the patient was referred to thoracic surgery and the patient underwent a right middle lobe wedge resection resection and the postop diagnosis was consistent with adenocarcinoma. The hospital course was essentially unremarkable. The patient had COPD with an FEV1 of 50% of predicted preoperatively. MRI of the brain demonstrated no evidence of any metastases. Other comorbidities include hypertension, hyperlipidemia, acid reflux, chronic atrial fibrillation, depression, chronic pain medication dependence Patient was reevaluated today on 11/24/2017, feeling better, but not back to her baseline. Continues to feel a bit congested, producing some yellow phlegm again no wheezing, no fever no chills, no chest pain. CBC showed slight leukocytosis basic metabolic profile is normal. Chest x-ray was reviewed and it is consistent with left lower lobe infiltrate. On 11/25/2017 patient seen again in follow-up on medical surgical floor. She is mildly short of breath at rest, she states she did not sleep last night because of being short of breath. Lung sounds are diminished, with a few scattered rhonchi, patient has nonproductive cough, she states she is not able to clear any secretions. She is being treated with Levaquin, for left lower lobe pneumonia. echocardiogram results were noted, and she has severely reduced left ventricular systolic function with an EF of 25-30%. Patient is chronic A. fib, the rate is controlled. She is on beta blockers, and the dose was increased to 50 mg twice daily. Patient was noted to have mild JVD, she did receive extensive fluid resuscitation at the time of admission in the emergency room. We will give the patient a dose of IV Lasix 40 mg, and start patient on small dose of oral Lasix 20 mg daily. We'll repeat chest x-ray in the morning On 11/26/2017 patient seen in follow-up and she reports breathing significantly better, and had a better night last night. Yesterday we started the patient on Lasix, patient diuresed, this morning chest x-ray shows significant improvement in aeration, and appearance of bibasilar infiltrates and interstitial edema. Patient remains quite weak overall, however she is very reluctant for subacute rehab, and she is insisting on going home with one of her family members until she is completely recovered. She is on room air, pulse ox is 95%, she is afebrile, hemodynamically stable, no chest pain, no palpitations. Tinea with current medical treatment, maintain oral Lasix Objective - Vital Signs Vital signs: Vital Signs Temp 97.8 F 11/26/17 16:08 Pulse 80 11/26/17 16:15 Resp 18 11/26/17 16:08 BP 154/88 11/26/17 16:08 Pulse Ox 95 11/26/17 16:08 Intake & Output 11/25/17 11/26/17 11/26/17 18:59 06:59 18:59 Intake Total 600 Balance 600 Intake: Oral 600 Other: Voiding Method Incontinent # Voids 3 5 6 - Exam GENERAL EXAM: Revealed an 87-year-old female, pleasant, in no distress HEAD: Normocephalic. Atraumatic. EYES: Normal reaction of pupils, equal size. NOSE: Clear with pink turbinates. THROAT: No erythema or exudates. NECK: No masses, no JVD. CHEST: No chest wall deformity. Right sided chest tube in place. LUNGS: Diminished breath sounds at the bases, minimal crackles at the left base. No rhonchi, no wheezes. CVS: S1 and S2 normal with no audible murmur, irregular rhythm. ABDOMEN: No hepatosplenomegaly, normal bowel sounds, no guarding or rigidity. SPINE: No scoliosis or deformity SKIN: No rashes CENTRAL NERVOUS SYSTEM: No gross focal neurologic deficit. EXTREMITIES: There is no peripheral edema. No clubbing, no cyanosis. - Labs CBC & Chem 7: 07/16/18 08:31 11/26/17 08:24 Labs: Abnormal Lab Results - Last 24 Hours (Table) 11/25/17 11/26/17 11/26/17 Range/Units 20:54 07:26 08:24 Carbon Dioxide 33 H (22-30) mmol/L BUN 27 H (7-17) mg/dL Glucose 143 H (74-99) mg/dL POC Glucose (mg/dL) 150 H 129 H (75-99) mg/dL 11/26/17 11/26/17 Range/Units 12:20 17:14 Carbon Dioxide (22-30) mmol/L BUN (7-17) mg/dL Glucose (74-99) mg/dL POC Glucose (mg/dL) 122 H 158 H (75-99) mg/dL Microbiology - Last 24 Hours (Table) 11/23/17 09:25 Blood Culture - Preliminary Blood No Growth after 72 hours 11/25/17 14:55 Gram Stain - Preliminary Sputum Assessment and Plan Plan: Assessment: 1 acute left lower lobe pneumonia 2 acute hypoxic respiratory failure 3 leukocytosis secondary to above 4 severely reduced left ventricular systolic function, with an EF of 25-30% 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 Continue current plan of treatment, continue oral diuretics, cultures remain negative, continue current antibiotic coverage, we will switch IV steroids to oral prednisone starting tomorrow. Increase activity as tolerated, patient is very adamant about not going to subacute rehab and going home with family member instead. She is generally weak, and she needs physical therapy evaluation. I performed a history & physical examination of the patient and discussed their management with my nurse practitioner, Veena Grant. I reviewed the nurse practitioner's note and agree with the documented findings and plan of care. Lung sounds are positive for a few scattered crackles. The findings and the impression was discussed with the patient. I attest to the documentation by the nurse practitioner. Time with Patient: Less than 30
[2017-11-26] MEDS: ATORVASTATIN 20 MG TAB PO SCH (20:34)
[2017-11-26] MEDS: traZODone HCL 50 MG TAB PO SCH (20:34)
[2017-11-26 21:28] LABS: Glucose,Whole Blood 236 mg/dL (75-99)
[2017-11-26] MEDS: LORazepam 0.5 MG TAB PO PRN (21:36)
[2017-11-27] MEDS: ACETAMINOPHEN TAB 325 MG TAB PO PRN ×2 (03:54→21:29)
[2017-11-27] MEDS: IPRATROPIUM-ALBUTEROL 3 ML NEB INHALATION SCH ×5 (04:30→19:41)
[2017-11-27 07:42] LABS: Glucose,Whole Blood 126 mg/dL (75-99)
[2017-11-27] MEDS: INSULIN ASPART 100 UNIT/ML 1 ML 10 ML VIAL SQ SCH ×4 (07:43→20:37)
[2017-11-27 08:07] LABS: Basophils % (A) 0 %; Eosinophils % (A) 0 %; HCT 42.7 % (34.0-46.0); HGB 13.6 gm/dL (11.4-16.0); Lymphocytes # (A) 0.6 k/uL (1.0-4.8); Lymphocytes % (A) 5 %; MCH 28.9 pg (25.0-35.0); MCHC 31.8 g/dL (31.0-37.0); Mean Platelet Volume 9.9; Monocytes # (A) 0.7 k/uL (0-1.0); Monocytes % (A) 5 %; Neutrophils # (A) 11.8 k/uL (1.3-7.7); Neutrophils % (A) 89 %; Platelet Count 157 k/uL (150-450); RBC 4.69 m/uL (3.80-5.40); RDW 15.4 % (11.5-15.5); WBC 13.3 k/uL (3.8-10.6)
[2017-11-27] MEDS: methylPREDNISolone SOD SUCCI 40 MG/ML 1 ML VIAL IV SCH (08:10)
[2017-11-27] MEDS: SERTRALINE 100 MG TAB PO SCH (08:11)
[2017-11-27] MEDS: guaiFENesin 600 MG TABLET.ER PO SCH ×2 (08:11→20:37)
[2017-11-27] MEDS: FUROSEMIDE 20 MG TAB PO SCH (08:11)
[2017-11-27] MEDS: PANTOPRAZOLE 40 MG TABLET PO SCH (08:11)
[2017-11-27] MEDS: METOPROLOL TARTRATE 50 MG TAB PO SCH ×2 (08:11→20:37)
[2017-11-27] MEDS: CALCIUM CARB-VIT D 500MG-200UN 1 EACH TAB PO SCH (08:11)
[2017-11-27] MEDS: LORATADINE 10 MG TAB PO SCH (08:11)
[2017-11-27] MEDS: SYMBICORT 160-4.5 MCG INHALER INHALATION SCH ×2 (08:23→19:42)
[2017-11-27 08:37] LABS: Calcium 9.1 mg/dL (8.4-10.2); Potassium 4.2 mmol/L (3.5-5.1)
[2017-11-27 12:19] LABS: Glucose,Whole Blood 116 mg/dL (75-99)
[2017-11-27] MEDS: LEVOFLOXACIN 750 MG TAB PO SCH (12:48)
--- NOTE | 2017-11-27 13:18 | P.PN ---
Subjective Progress Note Date: 11/27/17 Principal diagnosis: Acute left lower lobe pneumonia, and acute hypoxic respiratory failure secondary to pneumonia and COPD exacerbation 87-year-old here patient presented to the hospital because of worsening shortness of breath. Her symptoms approximately a week ago. She had a congested cough with yellow sputum production. No fever or chills. In the ED the patient was diagnosed having a left lower lobe pneumonia as as the patient has dense consolidation of the left lung base. White cell count is at 18.2. The patient has elected just of 2.6. Normal renal function. She was given a dose of Levaquin. She was placed on DuoNeb neb last treatment around-the- clock. She is also on IV fluids at 75 mL an hour normal saline. The patient was recently operated on for a lung cancer. She had a right middle lobe mass measuring 2.3 x 0.9 cm in size with high SUV uptake and for that reason the patient was referred to thoracic surgery and the patient underwent a right middle lobe wedge resection resection and the postop diagnosis was consistent with adenocarcinoma. The hospital course was essentially unremarkable. The patient had COPD with an FEV1 of 50% of predicted preoperatively. MRI of the brain demonstrated no evidence of any metastases. Other comorbidities include hypertension, hyperlipidemia, acid reflux, chronic atrial fibrillation, depression, chronic pain medication dependence Patient was reevaluated today on 11/24/2017, feeling better, but not back to her baseline. Continues to feel a bit congested, producing some yellow phlegm again no wheezing, no fever no chills, no chest pain. CBC showed slight leukocytosis basic metabolic profile is normal. Chest x-ray was reviewed and it is consistent with left lower lobe infiltrate. On 11/25/2017 patient seen again in follow-up on medical surgical floor. She is mildly short of breath at rest, she states she did not sleep last night because of being short of breath. Lung sounds are diminished, with a few scattered rhonchi, patient has nonproductive cough, she states she is not able to clear any secretions. She is being treated with Levaquin, for left lower lobe pneumonia. echocardiogram results were noted, and she has severely reduced left ventricular systolic function with an EF of 25-30%. Patient is chronic A. fib, the rate is controlled. She is on beta blockers, and the dose was increased to 50 mg twice daily. Patient was noted to have mild JVD, she did receive extensive fluid resuscitation at the time of admission in the emergency room. We will give the patient a dose of IV Lasix 40 mg, and start patient on small dose of oral Lasix 20 mg daily. We'll repeat chest x-ray in the morning On 11/26/2017 patient seen in follow-up and she reports breathing significantly better, and had a better night last night. Yesterday we started the patient on Lasix, patient diuresed, this morning chest x-ray shows significant improvement in aeration, and appearance of bibasilar infiltrates and interstitial edema. Patient remains quite weak overall, however she is very reluctant for subacute rehab, and she is insisting on going home with one of her family members until she is completely recovered. She is on room air, pulse ox is 95%, she is afebrile, hemodynamically stable, no chest pain, no palpitations. Tinea with current medical treatment, maintain oral Lasix On 11/27/2017 patient seen in follow-up on medical surgical floor. She is sitting up in the chair, is very weak and fatigued. Pulse Ox on 2 L per nasal cannula is 96%, she is afebrile, vital signs are stable. Sputum cultures pending, blood cultures show no growth thus far. Patient has been treated with Levaquin for acute left lower lobe pneumonia, yesterday's chest x-ray showed significant improvement in the appearance of bibasilar infiltrates and interstitial edema. 10 years on a small dose of oral Lasix. She still has a cough, and she is unable to bring up any sputum. She is on Mucinex, on nebulized bronchodilators, and Symbicort. We'll switch the IV steroids to oral prednisone. Overall she is generally very weak, and has not been able to ambulate yet. She was evaluated by physical therapy, and she did get up with a walker, but overall she appears to be quite weak. 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 However her niece and her family are now realizing how weak the patient is, and she may be better served going to a rehab facility after all. Physical therapy was asked to speak with the family and the patient about their assessment and their recommendation. Objective - Vital Signs Vital signs: Vital Signs Temp 97.7 F 11/27/17 06:00 Pulse 84 11/27/17 11:50 Resp 20 11/27/17 06:00 BP 134/96 11/27/17 06:00 Pulse Ox 96 11/27/17 06:00 Intake & Output 11/26/17 11/27/17 11/27/17 18:59 06:59 18:59 Intake Total 640 120 Balance 640 120 Weight 80.513 kg Intake: Oral 640 120 Other: Voiding Method Incontinent Incontinent # Voids 6 2 - Exam GENERAL EXAM: Revealed an 87-year-old female, pleasant, in no distress HEAD: Normocephalic. Atraumatic. EYES: Normal reaction of pupils, equal size. NOSE: Clear with pink turbinates. THROAT: No erythema or exudates. NECK: No masses, no JVD. CHEST: No chest wall deformity. Right sided chest tube in place. LUNGS: Diminished breath sounds at the bases, bibasilar crackles. No rhonchi, no wheezes. CVS: S1 and S2 normal with no audible murmur, irregular rhythm. ABDOMEN: No hepatosplenomegaly, normal bowel sounds, no guarding or rigidity. SPINE: No scoliosis or deformity SKIN: No rashes CENTRAL NERVOUS SYSTEM: No gross focal neurologic deficit. EXTREMITIES: There is no peripheral edema. No clubbing, no cyanosis. - Labs CBC & Chem 7: 11/27/17 07:28 11/27/17 07:28 Labs: Abnormal Lab Results - Last 24 Hours (Table) 11/26/17 11/26/17 11/27/17 Range/Units 17:14 21:03 07:04 WBC (3.8-10.6) k/uL Neutrophils # (1.3-7.7) k/uL Lymphocytes # (1.0-4.8) k/uL Carbon Dioxide (22-30) mmol/L BUN (7-17) mg/dL Glucose (74-99) mg/dL POC Glucose (mg/dL) 158 H 236 H 126 H (75-99) mg/dL 11/27/17 11/27/17 11/27/17 Range/Units 07:28 07:28 12:02 WBC 13.3 H (3.8-10.6) k/uL Neutrophils # 11.8 H (1.3-7.7) k/uL Lymphocytes # 0.6 L (1.0-4.8) k/uL Carbon Dioxide 31 H (22-30) mmol/L BUN 26 H (7-17) mg/dL Glucose 129 H (74-99) mg/dL POC Glucose (mg/dL) 116 H (75-99) mg/dL Microbiology - Last 24 Hours (Table) 11/23/17 09:25 Blood Culture - Preliminary Blood No Growth after 96 hours Assessment and Plan Plan: Assessment: 1 acute left lower lobe pneumonia 2 acute hypoxic respiratory failure 3 leukocytosis secondary to above 4 severely reduced left ventricular systolic function, with an EF of 25-30% 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 Clinically she remains stable, afebrile, making improvement. I performed a history & physical examination of the patient and discussed their management with my nurse practitioner, Veena Grant. I reviewed the nurse practitioner's note and agree with the documented findings and plan of care. Lung sounds are positive for a few scattered crackles. The findings and the impression was discussed with the patient. I attest to the documentation by the nurse practitioner. Time with Patient: Less than 30
[2017-11-27 16:58] LABS: Glucose,Whole Blood 160 mg/dL (75-99)
[2017-11-27] MEDS: RIVAROXABAN 20 MG TAB PO SCH (18:02)
[2017-11-27] MEDS: ATORVASTATIN 20 MG TAB PO SCH (20:37)
[2017-11-27] MEDS: traZODone HCL 50 MG TAB PO SCH (20:37)
[2017-11-27] MEDS: ASPIRIN 81 MG PO SCH (20:37)
[2017-11-27] MEDS: LORazepam 0.5 MG TAB PO PRN (20:41)
[2017-11-27 21:09] LABS: Glucose,Whole Blood 177 mg/dL (75-99)
[2017-11-28] MEDS: IPRATROPIUM-ALBUTEROL 3 ML NEB INHALATION SCH ×5 (05:48→21:01)
[2017-11-28 07:25] LABS: Glucose,Whole Blood 103 mg/dL (75-99)
[2017-11-28] MEDS: INSULIN ASPART 100 UNIT/ML 1 ML 10 ML VIAL SQ SCH ×4 (07:42→22:28)
[2017-11-28] MEDS: METOPROLOL TARTRATE 50 MG TAB PO SCH ×2 (07:43→22:20)
[2017-11-28] MEDS: FUROSEMIDE 20 MG TAB PO SCH (07:43)
[2017-11-28] MEDS: guaiFENesin 600 MG TABLET.ER PO SCH ×2 (07:43→22:20)
[2017-11-28] MEDS: SERTRALINE 100 MG TAB PO SCH (07:44)
[2017-11-28] MEDS: predniSONE 20 MG TAB PO SCH (07:44)
[2017-11-28] MEDS: PANTOPRAZOLE 40 MG TABLET PO SCH (07:44)
[2017-11-28] MEDS: LORATADINE 10 MG TAB PO SCH (07:44)
[2017-11-28] MEDS: CALCIUM CARB-VIT D 500MG-200UN 1 EACH TAB PO SCH (07:44)
[2017-11-28] MEDS: ACETAMINOPHEN TAB 325 MG TAB PO PRN ×2 (07:56→22:20)
[2017-11-28] MEDS: SYMBICORT 160-4.5 MCG INHALER INHALATION SCH (08:03)
[2017-11-28 12:30] LABS: Glucose,Whole Blood 179 mg/dL (75-99)
--- NOTE | 2017-11-28 12:32 | P.PN ---
Subjective Progress Note Date: 11/27/17 Progress note being dictated for Dr. Tobias Interval history: This is an 87-year-old female admitted with acute hypoxic respiratory failure secondary to bilateral pneumonia, sepsis, COPD exacerbation , and multiple other medical issues. Complains of nonproductive cough. Beta clark increased this morning for atrial fibrillation with RVR, as per cardiology.Echo pending.anticoagulated on Xarelto .Maintained on nebulized bronchodilators, systemic steroids, Levaquin. Chest x-ray reporting improving left basilar airspace disease, minimal right basilar atelectasis. Leukocytosis improving. 11/25/2017 continues to have shortness of breath with nonproductive cough. Complains of fatigue, did not sleep well last night. Echo reporting severely impaired LV function, EF between 25 and 30%, moderate mitral regurgitation, dilated aortic root 3.9 cm. Telemetry reporting atrial fibrillation with heart rates ranging from 85-110, beta clark increased. Lasix IV push 1 with scheduled oral Lasix. Afebrile, preliminary blood cultures negative. Sputum culture pending. 11/26/2017 chest x-ray reporting no significant change, improving. Maintained on oral Lasix. Incomplete I&O, no weight today. Dyspnea improving, more rested today. Heart rate better controlled. Denies chest pain, palpitations. 11/27/2017 maintained on nebulized bronchodilators, steroids, oral Lasix, Levaquin. Nonproductive cough. Afebrile, sputum cultures pending Maintaining O2 sats in the high 90s on 2 L nasal cannula. Minimal ambulation. Currently up in chair. Family at bedside, discussed subacute rehab; patient agreeable. Objective - Vital Signs Vital signs: Vital Signs Temp 98.8 F 11/27/17 15:00 Pulse 76 11/27/17 19:53 Resp 18 11/27/17 15:19 BP 132/89 11/27/17 15:00 Pulse Ox 92 L 11/27/17 15:00 Intake & Output 11/27/17 11/27/17 11/28/17 06:59 18:59 06:59 Intake Total 640 120 400 Balance 640 120 400 Weight 80.513 kg Intake: Oral 640 120 400 Other: Voiding Method Incontinent # Voids 2 1 1 - Exam PHYSICAL EXAM: VITAL SIGNS: As above GENERAL: Up in chair, no acute distress, teary-eyed HEENT: Conjunctivae normal. eyes normal. Oral mucosa moist NECK: Mild JVD. No thyroid enlargement. No LNs CARDIOVASCULAR: S1, S2 muffled. Irregular, , no murmur RESPIRATION: Bilateral bases diminished with fine bibasilar crackles ABDOMEN: Soft, nontender . No guarding. no masses palpable. Bowel sounds heard. LEGS: No edema. no swelling PSYCHIATRY: Alert and oriented -3, mood and affect normal. NERVOUS SYSTEM: Cranial N 2-12 grossly normal. Moves all 4 limbs. Diffuse weakness No focal deficits. Skin: no rash - Labs CBC & Chem 7: 11/27/17 07:28 11/27/17 07:28 Labs: Abnormal Lab Results - Last 24 Hours (Table) 11/27/17 11/27/17 11/27/17 Range/Units 07:04 07:28 07:28 WBC 13.3 H (3.8-10.6) k/uL Neutrophils # 11.8 H (1.3-7.7) k/uL Lymphocytes # 0.6 L (1.0-4.8) k/uL Carbon Dioxide 31 H (22-30) mmol/L BUN 26 H (7-17) mg/dL Glucose 129 H (74-99) mg/dL POC Glucose (mg/dL) 126 H (75-99) mg/dL 11/27/17 11/27/17 11/27/17 Range/Units 12:02 16:47 20:36 WBC (3.8-10.6) k/uL Neutrophils # (1.3-7.7) k/uL Lymphocytes # (1.0-4.8) k/uL Carbon Dioxide (22-30) mmol/L BUN (7-17) mg/dL Glucose (74-99) mg/dL POC Glucose (mg/dL) 116 H 160 H 177 H (75-99) mg/dL Microbiology - Last 24 Hours (Table) 11/23/17 09:25 Blood Culture - Preliminary Blood No Growth after 96 hours Assessment and Plan Assessment: -Acute left lower lobe pneumonia -Acute hypoxic respiratory failure secondary to the above -History of right middle lobe adenocarcinoma, status post wedge resection -Chronic atrial fibrillation, currently afib controlled ventricular rate -COPD -Hyperlipidemia -Hypertension -Hypomagnesemia -Severely impaired LV function, EF 25-30% Plan: Continue on current medication regime , nebulized bronchodilators, steroids, antibiotics, monitoring and symptomatic treatment. Steroid tapering in progress. Discharge planning in progress for subacute rehab tomorrow. The impression and plan of care has been dictated as directed. : I performed a history and examination of this patient, discussed the same with the dictator. I agree with the dictator's note ,documented as a scribe. Any additional findings or plans will be noted.
--- NOTE | 2017-11-28 12:35 | P.PN ---
Subjective Progress Note Date: 11/28/17 Principal diagnosis: Acute left lower lobe pneumonia, and acute hypoxic respiratory failure secondary to pneumonia and COPD exacerbation 87-year-old here patient presented to the hospital because of worsening shortness of breath. Her symptoms approximately a week ago. She had a congested cough with yellow sputum production. No fever or chills. In the ED the patient was diagnosed having a left lower lobe pneumonia as as the patient has dense consolidation of the left lung base. White cell count is at 18.2. The patient has elected just of 2.6. Normal renal function. She was given a dose of Levaquin. She was placed on DuoNeb neb last treatment around-the- clock. She is also on IV fluids at 75 mL an hour normal saline. The patient was recently operated on for a lung cancer. She had a right middle lobe mass measuring 2.3 x 0.9 cm in size with high SUV uptake and for that reason the patient was referred to thoracic surgery and the patient underwent a right middle lobe wedge resection resection and the postop diagnosis was consistent with adenocarcinoma. The hospital course was essentially unremarkable. The patient had COPD with an FEV1 of 50% of predicted preoperatively. MRI of the brain demonstrated no evidence of any metastases. Other comorbidities include hypertension, hyperlipidemia, acid reflux, chronic atrial fibrillation, depression, chronic pain medication dependence Patient was reevaluated today on 11/24/2017, feeling better, but not back to her baseline. Continues to feel a bit congested, producing some yellow phlegm again no wheezing, no fever no chills, no chest pain. CBC showed slight leukocytosis basic metabolic profile is normal. Chest x-ray was reviewed and it is consistent with left lower lobe infiltrate. On 11/25/2017 patient seen again in follow-up on medical surgical floor. She is mildly short of breath at rest, she states she did not sleep last night because of being short of breath. Lung sounds are diminished, with a few scattered rhonchi, patient has nonproductive cough, she states she is not able to clear any secretions. She is being treated with Levaquin, for left lower lobe pneumonia. echocardiogram results were noted, and she has severely reduced left ventricular systolic function with an EF of 25-30%. Patient is chronic A. fib, the rate is controlled. She is on beta blockers, and the dose was increased to 50 mg twice daily. Patient was noted to have mild JVD, she did receive extensive fluid resuscitation at the time of admission in the emergency room. We will give the patient a dose of IV Lasix 40 mg, and start patient on small dose of oral Lasix 20 mg daily. We'll repeat chest x-ray in the morning On 11/26/2017 patient seen in follow-up and she reports breathing significantly better, and had a better night last night. Yesterday we started the patient on Lasix, patient diuresed, this morning chest x-ray shows significant improvement in aeration, and appearance of bibasilar infiltrates and interstitial edema. Patient remains quite weak overall, however she is very reluctant for subacute rehab, and she is insisting on going home with one of her family members until she is completely recovered. She is on room air, pulse ox is 95%, she is afebrile, hemodynamically stable, no chest pain, no palpitations. Tinea with current medical treatment, maintain oral Lasix On 11/27/2017 patient seen in follow-up on medical surgical floor. She is sitting up in the chair, is very weak and fatigued. Pulse Ox on 2 L per nasal cannula is 96%, she is afebrile, vital signs are stable. Sputum cultures pending, blood cultures show no growth thus far. Patient has been treated with Levaquin for acute left lower lobe pneumonia, yesterday's chest x-ray showed significant improvement in the appearance of bibasilar infiltrates and interstitial edema. 10 years on a small dose of oral Lasix. She still has a cough, and she is unable to bring up any sputum. She is on Mucinex, on nebulized bronchodilators, and Symbicort. We'll switch the IV steroids to oral prednisone. Overall she is generally very weak, and has not been able to ambulate yet. She was evaluated by physical therapy, and she did get up with a walker, but overall she appears to be quite weak. 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 However her niece and her family are now realizing how weak the patient is, and she may be better served going to a rehab facility after all. Physical therapy was asked to speak with the family and the patient about their assessment and their recommendation. On 11/28/2017 patient seen in follow-up on medical surgical floor. She is resting in bed, appears to be weak and fatigued. Somewhat depressed. She is on nasal cannula, at 5 L, and her pulse ox is 93%. No acute distress. Afebrile , signs are stable. Lung sounds are positive for bibasilar crackles, patient is on nebulized treatments, she is on empiric antibiotics, sputum and blood culture showed no growth. Arrangements are in progress for transfer to subacute rehab, after discussion with physical therapy and her family, was decided the patient would be better served going to acute rehab for a while. Objective - Vital Signs Vital signs: Vital Signs Temp 97.8 F 11/28/17 07:00 Pulse 72 11/28/17 11:55 Resp 18 11/28/17 07:00 BP 111/85 11/28/17 07:00 Pulse Ox 93 L 11/28/17 09:19 Intake & Output 11/27/17 11/28/17 11/28/17 18:59 06:59 18:59 Intake Total 120 800 Balance 120 800 Weight 76.884 kg Intake: Oral 120 800 Other: # Voids 1 4 # Bowel Movements 1 - Exam GENERAL EXAM: Revealed an 87-year-old female, pleasant, in no distress HEAD: Normocephalic. Atraumatic. EYES: Normal reaction of pupils, equal size. NOSE: Clear with pink turbinates. THROAT: No erythema or exudates. NECK: No masses, no JVD. CHEST: No chest wall deformity. LUNGS: Diminished breath sounds at the bases, bibasilar crackles. No rhonchi, no wheezes. CVS: S1 and S2 normal with no audible murmur, irregular rhythm. ABDOMEN: No hepatosplenomegaly, normal bowel sounds, no guarding or rigidity. SPINE: No scoliosis or deformity SKIN: No rashes CENTRAL NERVOUS SYSTEM: No gross focal neurologic deficit. EXTREMITIES: There is no peripheral edema. No clubbing, no cyanosis. - Labs CBC & Chem 7: 11/27/17 07:28 11/27/17 07:28 Labs: Abnormal Lab Results - Last 24 Hours (Table) 11/27/17 11/27/17 11/28/17 Range/Units 16:47 20:36 07:09 POC Glucose (mg/dL) 160 H 177 H 103 H (75-99) mg/dL Microbiology - Last 24 Hours (Table) 11/25/17 14:55 Gram Stain - Final Sputum Sputum Culture - Final 11/23/17 09:25 Blood Culture - Preliminary Blood No Growth after 96 hours Assessment and Plan Plan: Assessment: 1 acute left lower lobe pneumonia 2 acute hypoxic respiratory failure 3 leukocytosis secondary to above 4 severely reduced left ventricular systolic function, with an EF of 25-30% 5 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 From pulmonary standpoint patient is stable for discharge to the subacute rehab today. In the meantime increase activity as tolerated, provide incentive spirometry. Patient is generally weak, and will benefit from intensive therapy at the rehab center. I performed a history & physical examination of the patient and discussed their management with my nurse practitioner, Veena Grant. I reviewed the nurse practitioner's note and agree with the documented findings and plan of care. Lung sounds are positive for a few scattered crackles. The findings and the impression was discussed with the patient. I attest to the documentation by the nurse practitioner. Time with Patient: Less than 30
[2017-11-28] MEDS: LEVOFLOXACIN 750 MG TAB PO SCH (12:43)
--- NOTE | 2017-11-28 12:44 | P.DS ---
Providers Date of admission: 11/23/17 10:57 Expected date of discharge: 11/28/17 Attending physician: Giovani Tobias Consults: 11/23/17 10:57 Consult Physician Routine Consulting Provider: Clara Jaffe Consult Reason/Comments: dyspnea Do you want consulting provider notified?: Already Contacted 11/23/17 19:24 Consult Physician Routine Consulting Provider: Steve De Souza Consult Reason/Comments: af Do you want consulting provider notified?: Yes Primary care physician: [facility] Course: Final Diagnoses -Acute left lower lobe pneumonia -Acute hypoxic respiratory failure secondary to the above -History of right middle lobe adenocarcinoma, status post wedge resection -Chronic atrial fibrillation, currently afib controlled ventricular rate -COPD -Hyperlipidemia -Hypertension -Hypomagnesemia -Severely impaired LV function, EF 25-30% -Dilated aortic root 3.9 cm Interval history:This is an 87-year-old female admitted with acute hypoxic respiratory failure secondary to bilateral pneumonia, sepsis, COPD exacerbation , and multiple other medical issues. Complained of nonproductive cough. Evaluated by cardiology, pulmonary. Beta clark increased for atrial fibrillation with RVR. Echo reporting severely impaired LV function, EF between 25 and 30%, moderate mitral regurgitation, dilated aortic root 3.9 cm. Lasix added to med regime. anticoagulated on Xarelto .Maintained on nebulized bronchodilators, systemic steroids, Levaquin. Chest x-ray reporting improving left basilar airspace disease, minimal right basilar atelectasis. Sputum culture reporting normal respiratory luis. Significant clinical improvement. Cleared by consults for discharge. Patient is being discharged to [facility] subacute rehab in a stable condition with guarded prognosis. Microbiology 11/25/17 14:55 Sputum Gram Stain - Final 11/25/17 14:55 Sputum Sputum Culture - Final 11/23/17 09:25 Blood Blood Culture - Preliminary No Growth after 96 hours EXAM: GENERAL: Up in chair, no acute distress CARDIOVASCULAR: S1, S2 muffled. Irregular, , no murmur RESPIRATION: Bilateral bases diminished with fine bibasilar crackles ABDOMEN: Soft, nontender . No guarding. no masses palpable. Bowel sounds heard. NERVOUS SYSTEM: No focal deficits. The impression and plan of care has been dictated as directed. : I performed a history and examination of this patient, discussed the same with the dictator. I agree with the dictator's note ,documented as a scribe. Any additional findings or plans will be noted. Time taken: 35 minutes Patient Condition at Discharge: Stable Plan - Discharge Summary Discharge Rx Participant: No New Discharge Prescriptions: New Furosemide [Lasix] 20 mg PO DAILY tab guaiFENesin [Mucinex] 1,200 mg PO Q12HR tablet.er INSULIN LISPRO (HumaLOG) [humaLOG] 0 unit SQ ACHS #1 vial Ipratropium-Albuterol Nebulize [Duoneb 0.5 mg-3 mg/3 ml Soln] 3 ml INHALATION QID ampul.neb Levofloxacin [Levaquin] 750 mg PO Q24H #5 tab Metoprolol Tartrate [Lopressor] 50 mg PO BID tab predniSONE 10 mg PO DIRECTED #30 tab Rivaroxaban [Xarelto] 20 mg PO W/SUPPER tab Continue traZODone HCL [Desyrel] 50 mg PO HS Omeprazole [PriLOSEC] 20 mg PO QAM Aspirin 81 mg PO Q48H Fexofenadine HCl [Yudelka Allergy] 180 mg PO QAM Nitroglycerin Sl Tabs [Nitrostat] 0.4 mg SUBLINGUAL Q5M PRN PRN Reason: Chest Pain Simvastatin [Zocor] 40 mg PO HS Sertraline HCl [Zoloft] 100 mg PO QAM Acetaminophen Tab [Tylenol] 650 mg PO Q6H PRN #60 tablet PRN Reason: pain Albuterol Inhaler [Ventolin Hfa Inhaler] 1 puff INHALATION RT-BID PRN PRN Reason: Shortness Of Breath Budesonide/Formoterol Fumarate [Symbicort 160-4.5 Mcg Inhaler] 1 puff INHALATION RT-BID Calcium Carbonate/Vitamin D3 [Calcium 600-Vit D3 400 Caplet] 1 tab PO DAILY LORazepam [Ativan] 0.5 mg PO TID PRN #9 tab PRN Reason: Anxiety Discontinued Metoprolol Tartrate [Lopressor] 12.5 mg PO BID #60 tab Ipratropium-Albuterol Nebulize [Duoneb 0.5 mg-3 mg/3 ml Soln] 3 ml INHALATION RT-QID PRN PRN Reason: Shortness Of Breath Discharge Medication List Aspirin 81 mg PO Q48H 06/08/14 [History] Omeprazole [PriLOSEC] 20 mg PO QAM 06/08/14 [History] traZODone HCL [Desyrel] 50 mg PO HS 06/08/14 [History] Acetaminophen Tab [Tylenol] 650 mg PO Q6H PRN #60 tablet 10/17/16 [Rx] Fexofenadine HCl [Yudelka Allergy] 180 mg PO QAM 10/17/16 [History] Nitroglycerin Sl Tabs [Nitrostat] 0.4 mg SUBLINGUAL Q5M PRN 10/17/16 [History] Sertraline HCl [Zoloft] 100 mg PO QAM 10/17/16 [History] Simvastatin [Zocor] 40 mg PO HS 10/17/16 [History] Albuterol Inhaler [Ventolin Hfa Inhaler] 1 puff INHALATION RT-BID PRN 05/23/17 [ History] Budesonide/Formoterol Fumarate [Symbicort 160-4.5 Mcg Inhaler] 1 puff INHALATION RT-BID 11/23/17 [History] Calcium Carbonate/Vitamin D3 [Calcium 600-Vit D3 400 Caplet] 1 tab PO DAILY [History] Furosemide [Lasix] 20 mg PO DAILY tab 11/28/17 [Rx] INSULIN LISPRO (HumaLOG) [humaLOG] 0 unit SQ ACHS #1 vial 11/28/17 [Rx] Ipratropium-Albuterol Nebulize [Duoneb 0.5 mg-3 mg/3 ml Soln] 3 ml INHALATION QID ampul.neb 11/28/17 [Rx] LORazepam [Ativan] 0.5 mg PO TID PRN #9 tab 11/28/17 [Rx] Levofloxacin [Levaquin] 750 mg PO Q24H #5 tab 11/28/17 [Rx] Metoprolol Tartrate [Lopressor] 50 mg PO BID tab 11/28/17 [Rx] Rivaroxaban [Xarelto] 20 mg PO W/SUPPER tab 11/28/17 [Rx] guaiFENesin [Mucinex] 1,200 mg PO Q12HR tablet.er 11/28/17 [Rx] predniSONE 10 mg PO DIRECTED #30 tab 11/28/17 [Rx] Follow up Appointment(s)/Referral(s): Chevy Valderrama MD [STAFF PHYSICIAN] - 2 Weeks [facility], [NON-STAFF] - As Needed Zbigniew Mark MD [STAFF PHYSICIAN] - 3 Days (While at subacute rehab) Aristides Mcneill DO [Primary Care Provider] - 1 Week (After DC from subacute rehab) Activity/Diet/Wound Care/Special Instructions: Rosalia confirm cardiology follow-up appointment Diet: Consistent carb Accu-Cheks before meals and at bedtime Activity: As tolerated Oxygen/parameters as per pulmonary Discharge Disposition: TRANSFER TO SNF/ECF
[2017-11-28 13:33] VITALS: BMI 27.3
[2017-11-28 16:56] LABS: Glucose,Whole Blood 161 mg/dL (75-99)
[2017-11-28] MEDS: RIVAROXABAN 20 MG TAB PO SCH (17:56)
[2017-11-28 21:17] LABS: Glucose,Whole Blood 153 mg/dL (75-99)
[2017-11-28] MEDS: traZODone HCL 50 MG TAB PO SCH (22:20)
[2017-11-28] MEDS: LORazepam 0.5 MG TAB PO PRN (22:20)
[2017-11-28] MEDS: ATORVASTATIN 20 MG TAB PO SCH (22:20)
[2017-11-29 06:31] VITALS: BP 133/81; TEMP 97.8
[2017-11-29 07:05] LABS: Glucose,Whole Blood 111 mg/dL (75-99)
[2017-11-29] MEDS: IPRATROPIUM-ALBUTEROL 3 ML NEB INHALATION SCH ×4 (07:47→15:48)
[2017-11-29] MEDS: SYMBICORT 160-4.5 MCG INHALER INHALATION SCH (07:47)
[2017-11-29] MEDS ORDERED: IPRATROPIUM-ALBUTEROL 3 ML NEB INHALATION SCH (08:00)
[2017-11-29] MEDS: INSULIN ASPART 100 UNIT/ML 1 ML 10 ML VIAL SQ SCH ×2 (08:41→13:46)
[2017-11-29] MEDS: predniSONE 20 MG TAB PO SCH (08:42)
[2017-11-29] MEDS: PANTOPRAZOLE 40 MG TABLET PO SCH (08:42)
[2017-11-29] MEDS: guaiFENesin 600 MG TABLET.ER PO SCH (08:42)
[2017-11-29] MEDS: CALCIUM CARB-VIT D 500MG-200UN 1 EACH TAB PO SCH (08:42)
[2017-11-29] MEDS: METOPROLOL TARTRATE 50 MG TAB PO SCH (08:42)
[2017-11-29] MEDS: FUROSEMIDE 20 MG TAB PO SCH (08:42)
[2017-11-29] MEDS: SERTRALINE 100 MG TAB PO SCH (08:43)
[2017-11-29] MEDS: LORATADINE 10 MG TAB PO SCH (08:43)
[2017-11-29 11:25] VITALS: RESP 18
[2017-11-29 11:40] LABS: Glucose,Whole Blood 142 mg/dL (75-99)
[2017-11-29 11:46] VITALS: PULSE 88
--- NOTE | 2017-11-29 12:25 | P.DS ---
Providers Date of admission: 11/23/17 10:57 Attending physician: Giovani Renee Consults: 11/23/17 10:57 Consult Physician Routine Consulting Provider: Clara Jaffe Consult Reason/Comments: dyspnea Do you want consulting provider notified?: Already Contacted 11/23/17 19:24 Consult Physician Routine Consulting Provider: Steve De Souza Consult Reason/Comments: af Do you want consulting provider notified?: Yes Primary care physician: Aristides [facility] Course: Patient is awaiting discharge to subacute rehabilitation. Patient's saturations are 93% patient has rhonchus breath sounds no crackles no significant elevated JVD and obtain a chest x-ray before I discharge the patient because I Have concerns of fluid overload and pulmonary edema. EXAM: GENERAL: Up in chair, no acute distress CARDIOVASCULAR: S1, S2 muffled. Irregular, , no murmur RESPIRATION: Rhonchorous breath sounds in the bibasilar crackles ABDOMEN: Soft, nontender . No guarding. no masses palpable. Bowel sounds heard. NERVOUS SYSTEM: No focal deficits. Refer to dictation of discharge summary from her nurse practitioner yesterday for further details Patient Condition at Discharge: Stable Plan - Discharge Summary Discharge Rx Participant: No New Discharge Prescriptions: New Furosemide [Lasix] 20 mg PO DAILY tab guaiFENesin [Mucinex] 1,200 mg PO Q12HR tablet.er INSULIN LISPRO (HumaLOG) [humaLOG] 0 unit SQ ACHS #1 vial Ipratropium-Albuterol Nebulize [Duoneb 0.5 mg-3 mg/3 ml Soln] 3 ml INHALATION QID ampul.neb Levofloxacin [Levaquin] 750 mg PO Q24H #5 tab Metoprolol Tartrate [Lopressor] 50 mg PO BID tab predniSONE 10 mg PO DIRECTED #30 tab Rivaroxaban [Xarelto] 20 mg PO W/SUPPER tab Continue traZODone HCL [Desyrel] 50 mg PO HS Omeprazole [PriLOSEC] 20 mg PO QAM Aspirin 81 mg PO Q48H Fexofenadine HCl [Yudelka Allergy] 180 mg PO QAM Nitroglycerin Sl Tabs [Nitrostat] 0.4 mg SUBLINGUAL Q5M PRN PRN Reason: Chest Pain Simvastatin [Zocor] 40 mg PO HS Sertraline HCl [Zoloft] 100 mg PO QAM Acetaminophen Tab [Tylenol] 650 mg PO Q6H PRN #60 tablet PRN Reason: pain Albuterol Inhaler [Ventolin Hfa Inhaler] 1 puff INHALATION RT-BID PRN PRN Reason: Shortness Of Breath Budesonide/Formoterol Fumarate [Symbicort 160-4.5 Mcg Inhaler] 1 puff INHALATION RT-BID Calcium Carbonate/Vitamin D3 [Calcium 600-Vit D3 400 Caplet] 1 tab PO DAILY LORazepam [Ativan] 0.5 mg PO TID PRN #9 tab PRN Reason: Anxiety Discontinued Metoprolol Tartrate [Lopressor] 12.5 mg PO BID #60 tab Ipratropium-Albuterol Nebulize [Duoneb 0.5 mg-3 mg/3 ml Soln] 3 ml INHALATION RT-QID PRN PRN Reason: Shortness Of Breath Discharge Medication List Aspirin 81 mg PO Q48H 06/08/14 [History] Omeprazole [PriLOSEC] 20 mg PO QAM 06/08/14 [History] traZODone HCL [Desyrel] 50 mg PO HS 06/08/14 [History] Acetaminophen Tab [Tylenol] 650 mg PO Q6H PRN #60 tablet 10/17/16 [Rx] Fexofenadine HCl [Yudelka Allergy] 180 mg PO QAM 10/17/16 [History] Nitroglycerin Sl Tabs [Nitrostat] 0.4 mg SUBLINGUAL Q5M PRN 10/17/16 [History] Sertraline HCl [Zoloft] 100 mg PO QAM 10/17/16 [History] Simvastatin [Zocor] 40 mg PO HS 10/17/16 [History] Albuterol Inhaler [Ventolin Hfa Inhaler] 1 puff INHALATION RT-BID PRN 05/23/17 [ History] Budesonide/Formoterol Fumarate [Symbicort 160-4.5 Mcg Inhaler] 1 puff INHALATION RT-BID 11/23/17 [History] Calcium Carbonate/Vitamin D3 [Calcium 600-Vit D3 400 Caplet] 1 tab PO DAILY [History] Furosemide [Lasix] 20 mg PO DAILY tab 11/28/17 [Rx] INSULIN LISPRO (HumaLOG) [humaLOG] 0 unit SQ ACHS #1 vial 11/28/17 [Rx] Ipratropium-Albuterol Nebulize [Duoneb 0.5 mg-3 mg/3 ml Soln] 3 ml INHALATION QID ampul.neb 11/28/17 [Rx] LORazepam [Ativan] 0.5 mg PO TID PRN #9 tab 11/28/17 [Rx] Levofloxacin [Levaquin] 750 mg PO Q24H #5 tab 11/28/17 [Rx] Metoprolol Tartrate [Lopressor] 50 mg PO BID tab 11/28/17 [Rx] Rivaroxaban [Xarelto] 20 mg PO W/SUPPER tab 11/28/17 [Rx] guaiFENesin [Mucinex] 1,200 mg PO Q12HR tablet.er 11/28/17 [Rx] predniSONE 10 mg PO DIRECTED #30 tab 11/28/17 [Rx] Follow up Appointment(s)/Referral(s): Chevy Valderrama MD [STAFF PHYSICIAN] - 2 Weeks [facility], [NON-STAFF] - As Needed Zbigniew Mark MD [STAFF PHYSICIAN] - 3 Days (While at subacute rehab) Aristides Mcneill DO [Primary Care Provider] - 1 Week (After DC from subacute rehab) Activity/Diet/Wound Care/Special Instructions: Rosalia confirm cardiology follow-up appointment Diet: Consistent carb Accu-Cheks before meals and at bedtime Activity: As tolerated Oxygen/parameters as per pulmonary Discharge Disposition: TRANSFER TO SNF/ECF
--- NOTE | 2017-11-29 12:48 | XR ---
EXAMINATION TYPE: XR chest 1V DATE OF EXAM: 11/29/2017 HISTORY: SOB. REFERENCE: Previous study dated 11/26/2017. FINDINGS: The lungs are overinflated. The heart is enlarged. There has developed vascular congestion and mild interstitial change. I suspect small effusions. IMPRESSION: 1. COPD. 2. CARDIOMEGALY. 3. I CANNOT EXCLUDE SOME DEGREE OF CONGESTIVE HEART FAILURE.
[2017-11-29] MEDS: ACETAMINOPHEN TAB 325 MG TAB PO PRN (13:56)
[2017-11-29] MEDS ORDERED: FUROSEMIDE 10 MG/ML 2 ML VIAL IV STA (15:08)
[2017-11-30] MEDS ORDERED: LEVOFLOXACIN 750 MG TAB PO SCH (12:00)
--- NOTE | 2017-12-04 08:38 | CDI ---
Last Revision, April 2017 Documentation Clarification Form Date: 12/04/17 From: Yulissa Cruz Phone: If you have a question regarding this query, please contact Rachel Fernando at [phone] between 8am and 5pm. Admit Date: 11/23/2017 10:57:00 AM Patient Name: Juanita Woods Visit Number: [id number] Discharge Date: 11/29/17 ATTENTION: The Clinical Documentation Specialists (CDI) and [facility] Coding Staff appreciate your assistance in clarifying documentation. Please respond to the clarification below the line at the bottom and electronically sign. The CDI & [facility] Coding staff will review the response and follow-up if needed. Please note: Queries are made part of the Legal Health Record. If you have any questions, please contact the author of this message via ITS. Dr. Gary Tobias Sepsis is documented in the interval history in the discharge summary and Roro Adamson's 11/24 - 11/25 progress notes. Possible sepsis is documented in the H&P. Sepsis is not documented in the final diagnoses. History/Risk Factors: Patient was admitted with pneumonia and COPD exacerbation. Patient also has a history of atrial fib. Clinical Indicators: Elevated white blood count WBC/Left Shift: 18.2/16.5 Lactic acid: 2.6 on admission then up to 4.5 a few hours later. Blood cultures: No growth Vitals signs on admission: T. 98.4 on admit then down to 96.2 later that day, P. 104, R. 22, BP 132/58 Treatment: Antibiotics: IV and PO levaquin IV Bolus: Sodium chloride 1000 mls @ 999 mls/hr In your professional opinion, please clarify if these findings signify one of the following conditions, whether the condition is POA, and cause, if known: Sepsis ruled out SIRS, without underlying infectious process Sepsis Severe Sepsis Septic Shock Other, please specify Unable to determine Sepsis MTDD
== END 2017-11-29 15:57 | DRG 871 ==
LOC: EC 09:15 → 4MS4W 10:57
PROVIDERS: ADMIT Hospitalist; ATTEND Hospitalist
DX: A41.50 Gram-negative sepsis, unspecified (principal); J15.6 Pneumonia due to other Gram-negative bacteria; J96.01 Acute respiratory failure with hypoxia; J44.0 Chronic obstructive pulmonary disease with (acute) lower respiratory infection; J44.1 Chronic obstructive pulmonary disease with (acute) exacerbation; E78.5 Hyperlipidemia, unspecified; E83.42 Hypomagnesemia; F32.9 Major depressive disorder, single episode, unspecified; I10 Essential (primary) hypertension; I34.0 Nonrheumatic mitral (valve) insufficiency; I48.2 Chronic atrial fibrillation; I77.810 Thoracic aortic ectasia; K21.9 Gastro-esophageal reflux disease without esophagitis; M15.9 Polyosteoarthritis, unspecified; M47.26 Other spondylosis with radiculopathy, lumbar region; N39.3 Stress incontinence (female) (male); G62.9 Polyneuropathy, unspecified; R26.9 Unspecified abnormalities of gait and mobility; E87.70 Fluid overload, unspecified; Z79.01 Long term (current) use of anticoagulants; Z79.51 Long term (current) use of inhaled steroids; Z79.52 Long term (current) use of systemic steroids; Z79.891 Long term (current) use of opiate analgesic; Z79.82 Long term (current) use of aspirin; Z79.899 Other long term (current) drug therapy; Z88.6 Allergy status to analgesic agent; Z88.1 Allergy status to other antibiotic agents; Z88.5 Allergy status to narcotic agent; Z88.0 Allergy status to penicillin; Z88.2 Allergy status to sulfonamides; Z88.8 Allergy status to other drugs, medicaments and biological substances; Z85.118 Personal history of other malignant neoplasm of bronchus and lung; Z85.43 Personal history of malignant neoplasm of ovary; Z87.891 Personal history of nicotine dependence; Z90.2 Acquired absence of lung [part of]; Z90.49 Acquired absence of other specified parts of digestive tract; Z90.710 Acquired absence of both cervix and uterus; Z96.643 Presence of artificial hip joint, bilateral; Z96.651 Presence of right artificial knee joint; Z87.01 Personal history of pneumonia (recurrent); Z80.3 Family history of malignant neoplasm of breast; Z82.49 Family history of ischemic heart disease and other diseases of the circulatory system; Z82.61 Family history of arthritis
CPT/HCPCS: 36415; 71045; 71046; 80048; 80053; 80061; 83036; 83605; 83735; 84443; 85025; 87040; 87070; 87205; 93005; 93306; 94640; 94760; 96365; 96375; 99291

== ENCOUNTER 2018-01-31 20:28 | Emergency (ER) | payer MEDICARE ==
[2018-01-31 20:34] VITALS: TEMP 97
[2018-01-31] MEDS ORDERED: SODIUM CHLORIDE 0.9% 500 ML IV STA (20:54)
[2018-01-31] MEDS ORDERED: SODIUM CHLORIDE 0.9% 1,000 ML IV STA (20:54)
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
[2018-01-31 21:19] LABS: Anisocytosis Slight; Basophils % (A) 1 %; Eosinophils # (A) 0.2 k/uL (0-0.7); Eosinophils % (A) 3 %; HCT 40.7 % (34.0-46.0); HGB 12.7 gm/dL (11.4-16.0); Hypochromasia Slight; Lymphocytes # (A) 1.3 k/uL (1.0-4.8); Lymphocytes % (A) 22 %; MCH 29.7 pg (25.0-35.0); MCHC 31.2 g/dL (31.0-37.0); MCV 95.1 fL (80.0-100.0); Mean Platelet Volume 8.4; Monocytes # (A) 0.4 k/uL (0-1.0); Monocytes % (A) 7 %; Neutrophils # (A) 3.9 k/uL (1.3-7.7); Neutrophils % (A) 65 %; Platelet Count 265 k/uL (150-450); RBC 4.28 m/uL (3.80-5.40); RDW 16.3 % (11.5-15.5)
[2018-01-31 21:21] LABS: Albumin 3.1 g/dL (3.5-5.0); Calcium 9.1 mg/dL (8.4-10.2); Magnesium 1.5 mg/dL (1.6-2.3); Potassium 3.9 mmol/L (3.5-5.1); Total Bilirubin 0.5 mg/dL (0.2-1.3); Total Protein 5.8 g/dL (6.3-8.2)
[2018-01-31] MEDS ORDERED: MAGNESIUM SULFATE-D5W PMX 1 GM in DEXTROSE/WATER 1 100ML.BAG IVPB ONE (21:38)
[2018-01-31 21:49] VITALS: RESP 20
--- NOTE | 2018-01-31 21:52 | CT ---
EXAMINATION TYPE: CT brain benson morfin DATE OF EXAM: 01/31/2018 COMPARISON: NONE HISTORY: Fall. Neck pain. CT DLP: 2258 mGycm. Automated Exposure Control for Dose Reduction was Utilized. TECHNIQUE: CT scan of the head and cervical spine are performed without contrast. FINDINGS: There is no acute intracranial hemorrhage, mass effect, or midline shift identified. Kofi te lacunar injury of left basal ganglia. The ventricles and sulci are within normal limits in size. The globes are intact and the visualized sinuses are clear. Cervical spine is visualized in its entirety from C1. Cervical spine is grossly demineralized. Multil evel vertebral body height loss is evident. Multilevel angiogram posterior osteophytes are evident. T here is a grade 1 anterolisthesis of C7 on T1. The dens is intact. There is significant sclerotic sahil nges of the C1/C2 left articulation. IMPRESSION: 1. No acute intracranial process. 2. No acute cervical spine fracture. 3. Extensive multilevel degenerative-type changes throughout the cervical spine with severe osseous d emineralization.
[2018-01-31 23:51] VITALS: BP 120/74; PULSE 72
== END 2018-01-31 23:51 | disposition home or self-care (01) ==
LOC: EC 20:28
DX: S80.12XA Contusion of left lower leg, initial encounter (principal); E83.42 Hypomagnesemia; R51 Headache; M54.2 Cervicalgia; G89.29 Other chronic pain; R40.2412 Glasgow coma scale score 13-15, at arrival to emergency department; I48.2 Chronic atrial fibrillation; J44.9 Chronic obstructive pulmonary disease, unspecified; E78.5 Hyperlipidemia, unspecified; I10 Essential (primary) hypertension; K21.9 Gastro-esophageal reflux disease without esophagitis; F32.9 Major depressive disorder, single episode, unspecified; Z96.642 Presence of left artificial hip joint; Z96.651 Presence of right artificial knee joint; Z87.891 Personal history of nicotine dependence; Z85.43 Personal history of malignant neoplasm of ovary; Z85.118 Personal history of other malignant neoplasm of bronchus and lung; Z79.82 Long term (current) use of aspirin; Z79.51 Long term (current) use of inhaled steroids; Z79.899 Other long term (current) drug therapy; Z88.1 Allergy status to other antibiotic agents; Z88.6 Allergy status to analgesic agent; Z88.5 Allergy status to narcotic agent; Z88.0 Allergy status to penicillin; Z88.8 Allergy status to other drugs, medicaments and biological substances; Z88.2 Allergy status to sulfonamides; W01.198A Fall on same level from slipping, tripping and stumbling with subsequent striking against other object, initial encounter; Y92.009 Unspecified place in unspecified non-institutional (private) residence as the place of occurrence of the external cause
CPT/HCPCS: 99284; 96365; 96361; 36415; 93005; 80053; 82550; 82553; 83735; 85025; 72125; 70450; J3475

== ENCOUNTER → 2018-02-19 | Outpatient (CLI) | payer MEDICARE ==
--- NOTE | 2018-02-19 16:36 | US ---
EXAMINATION TYPE: US venous doppler duplex LE LT DATE OF EXAM: 02/19/2018 4:07 PM COMPARISON: 2011 CLINICAL HISTORY: R60.0 Localized edema. pt on blood thinners for years left foot swelling 2 weeks SIDE PERFORMED: Left TECHNIQUE: The lower extremity deep venous system is examined utilizing real time linear array sonog kodi with graded compression, doppler sonography and color-flow sonography. VESSELS IMAGED: External Iliac Vein (EIV) Common Femoral Vein Deep Femoral Vein Greater Saphenous Vein * Femoral Vein Popliteal Vein Small Saphenous Vein * Grayscale, color doppler, spectral doppler imaging performed of the deep veins of the left lower extr emity. There is normal flow, compressibility, vascular waveforms. Left Leg: Negative for DVT IMPRESSION: No sonographic evidence of deep venous thrombosis within the left lower extremity.
== END | disposition home or self-care (01) ==
LOC: RADUSWWP 15:39
PROVIDERS: ATTEND Family Medicine
DX: R60.0 Localized edema (principal)

== ENCOUNTER 2018-03-30 09:51 | Inpatient (IN) | payer MEDICARE ==
[2018-03-30] MEDS ORDERED: LEVOFLOXACIN 750MG-D5W PMX 750 MG in DEXTROSE/WATER 1 150ML.BAG IVPB STA ×2 (10:22→12:24)
[2018-03-30] MEDS ORDERED: SODIUM CHLORIDE 0.9% 500 ML 500 ML IV SCH (10:30)
[2018-03-30] MEDS ORDERED: IPRATROPIUM-ALBUTEROL 3 ML NEB INHALATION STA (10:34)
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
[2018-03-30 11:07] LABS: Basophils % (A) 0 %; Eosinophils # (A) 0.1 k/uL (0-0.7); Eosinophils % (A) 1 %; HCT 44.6 % (34.0-46.0); HGB 14.3 gm/dL (11.4-16.0); Lymphocytes # (A) 1.8 k/uL (1.0-4.8); Lymphocytes % (A) 17 %; MCH 29.3 pg (25.0-35.0); MCHC 32.1 g/dL (31.0-37.0); MCV 91.2 fL (80.0-100.0); Mean Platelet Volume 9.6; Monocytes # (A) 0.7 k/uL (0-1.0); Monocytes % (A) 6 %; Neutrophils # (A) 7.9 k/uL (1.3-7.7); Neutrophils % (A) 74 %; Platelet Count 231 k/uL (150-450); RBC 4.89 m/uL (3.80-5.40); RDW 15.8 % (11.5-15.5); WBC 10.6 k/uL (3.8-10.6)
[2018-03-30 11:19] LABS: Albumin 3.9 g/dL (3.5-5.0); Calcium 9.9 mg/dL (8.4-10.2); Magnesium 1.7 mg/dL (1.6-2.3); Potassium 4.3 mmol/L (3.5-5.1); Total Bilirubin 0.7 mg/dL (0.2-1.3); Total Protein 6.9 g/dL (6.3-8.2)
[2018-03-30 11:28] LABS: Creatine Kinase 25 U/L (30-135)
[2018-03-30 11:38] LABS: INR 1.1 (<1.2); Partial Thromboplastin Time 22.9 sec (22.0-30.0); Prothrombin Time 10.5 sec (9.0-12.0)
[2018-03-30 11:40] LABS: Creatine Kinase MB 0.9 ng/mL (0.0-2.4); Troponin I <0.012 ng/mL (0.000-0.034)
--- NOTE | 2018-03-30 12:01 | XR ---
EXAMINATION TYPE: XR chest 2V DATE OF EXAM: 03/30/2018 COMPARISON: 11/29/2017 HISTORY: Shortness of breath TECHNIQUE: Frontal and lateral views of the chest are obtained. FINDINGS: Scattered senescent parenchymal changes noted. Hyperinflation compatible with COPD. Right middle lobe patchy density may be chronic in nature although acute infiltrate is difficult to e xclude. Correlate clinically. Heart size is stable. Mediastinal structures are stable and grossly unremarkable. No evidence for hilar prominence. Degenerative changes dorsal spine. IMPRESSION: 1. Right middle lobe patchy density may be chronic in nature although acute infiltrate is difficult t o exclude. Correlate clinically.
[2018-03-30] MEDS ORDERED: SODIUM CHLORIDE 0.9% 500 ML 500 ML IV STA (12:24)
[2018-03-30] MEDS ORDERED: NALOXONE 0.4 MG/ML 1 ML VIAL IV PRN (12:30)
[2018-03-30 13:00] LABS: Appearance,Urine Clear (Clear); Bacteria,Urine Rare /hpf; Bilirubin,Urine Negative (Negative); Blood,Urine Negative (Negative); Color,Urine Light Yellow; Glucose,Urine (UA) Negative (Negative); Hyaline Casts,Urine 4 /lpf (0-2); Ketones,Urine Negative (Negative); Leukocyte Esterase,Urine Trace (Negative); Mucus,Urine Rare /hpf; Nitrite,Urine Negative (Negative); Protein,Urine Negative (Negative); Specific Gravity,Urine 1.009 (1.001-1.035); Squamous Epithelial Cell,Urine <1 /hpf (0-4); Urobilinogen,Urine <2.0 mg/dL (<2.0); WBC,Urine 3 /hpf (0-5)
[2018-03-30] MEDS: SODIUM CHLORIDE 0.9% 1,000 ML IV SCH (15:32)
[2018-03-30] MEDS ORDERED: NITROGLYCERIN SL TABS 0.4 MG TAB SUBLINGUAL PRN (16:24)
[2018-03-30] MEDS ORDERED: ACETAMINOPHEN TAB 325 MG TAB PO PRN (16:24)
[2018-03-30] MEDS: RIVAROXABAN 20 MG TAB PO SCH (17:33)
[2018-03-30] MEDS ORDERED: SYMBICORT 160-4.5 MCG INHALER INHALATION SCH (20:00)
[2018-03-30] MEDS ORDERED: ALBUTEROL NEBULIZED 2.5 MG/3 ML INHALATION SCH (20:00)
[2018-03-30] MEDS: traZODone HCL 50 MG TAB PO SCH (20:07)
[2018-03-30] MEDS: ACETAMINOPHEN TAB 325 MG TAB PO PRN (20:07)
[2018-03-30] MEDS: METOPROLOL TARTRATE 50 MG TAB PO SCH (20:07)
[2018-03-30] MEDS: ATORVASTATIN 20 MG TAB PO SCH (20:07)
[2018-03-30] MEDS ORDERED: CEFDINIR 300 MG CAP PO SCH (21:00)
[2018-03-30] MEDS: IPRATROPIUM BROMIDE 0.06% NASAL SPRAY (15 ML) EA NOSTRIL SCH (22:20)
[2018-03-30] MEDS: methylPREDNISolone SOD SUCCI 40 MG/ML 1 ML VIAL IV SCH (23:22)
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
[2018-03-31] MEDS: IPRATROPIUM-ALBUTEROL 3 ML NEB INHALATION SCH ×7 (00:20→23:57)
[2018-03-31] MEDS: SODIUM CHLORIDE 0.9% 1,000 ML IV SCH ×2 (03:58→16:37)
[2018-03-31] MEDS: FORMOTEROL FUMARATE 20 MCG/2 ML NEBU INHALATION SCH ×2 (07:01→19:21)
[2018-03-31] MEDS: BUDESONIDE 1 MG/2 ML NEBU INHALATION SCH ×2 (07:01→19:22)
[2018-03-31] MEDS: ASPIRIN 81 MG PO SCH (08:09)
[2018-03-31] MEDS: IPRATROPIUM BROMIDE 0.06% NASAL SPRAY (15 ML) EA NOSTRIL SCH ×2 (08:09→21:42)
[2018-03-31] MEDS: methylPREDNISolone SOD SUCCI 40 MG/ML 1 ML VIAL IV SCH ×2 (08:09→16:37)
[2018-03-31] MEDS: PANTOPRAZOLE 40 MG TABLET PO SCH (08:09)
[2018-03-31] MEDS: METOPROLOL TARTRATE 50 MG TAB PO SCH ×2 (08:10→21:42)
[2018-03-31] MEDS: LOSARTAN 25 MG TAB PO SCH (08:10)
[2018-03-31] MEDS: SERTRALINE 100 MG TAB PO SCH (08:11)
[2018-03-31] MEDS ORDERED: predniSONE 10 MG TAB PO SCH (09:00)
[2018-03-31] MEDS ORDERED: LEVOFLOXACIN 750MG-D5W PMX 750 MG in DEXTROSE/WATER 1 150ML.BAG IVPB SCH (12:00)
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
[2018-03-31] MEDS: RIVAROXABAN 20 MG TAB PO SCH (16:37)
[2018-03-31] MEDS: ATORVASTATIN 20 MG TAB PO SCH (21:42)
[2018-03-31] MEDS: traZODone HCL 50 MG TAB PO SCH (21:42)
[2018-03-31] MEDS: ACETAMINOPHEN TAB 325 MG TAB PO PRN (21:44)
--- NOTE | 2018-03-31 22:07 | PN ---
PROGRESS NOTE DATE OF SERVICE: 03/31/18 PRESENTING COMPLAINT: Short of breath. INTERVAL HISTORY: This patient admitted with pneumonia and chronic obstructive pulmonary disease exacerbation, having failed outpatient treatment. The patient is feeling better. Has got a cough, sputum production has gone down. Did tolerate a bit of breakfast. REVIEW OF SYSTEMS: Done for constitutional, cardiovascular, GI, pulmonary; relevant findings as above. CURRENT MEDICATIONS: Reviewed that include IV Levaquin, Solu-Medrol, DuoNeb. EXAMINATION: On examination: Temperature 97.9, pulse 86, respirations 28, blood pressure 129/75. GENERAL APPEARANCE: Lying in bed, tired-appearing. EYES: Pupils equal. Conjunctivae normal. HEENT: External appearance of nose and ears normal. Oral cavity normal. NECK: JVD not raised. Mass not palpable. RESPIRATORY: Effort increased. Lungs, decreased breath sounds. Prolonged expiration. Less wheezing. CARDIOVASCULAR: First and second sounds, no edema. ABDOMEN: Soft, nontender. Liver and spleen not palpable. PSYCHIATRY: Alert and oriented x 3. Mood and affect somewhat better than yesterday. INVESTIGATIONS: Lactic acid noted. ASSESSMENT: 1. Right lower lobe pneumonia, having failed outpatient treatment, suspect gram- negative organism. 2. Acute chronic obstructive pulmonary disease exacerbation in an ex-smoker, slow to respond. 3. Persistent atrial fibrillation chronically on Xarelto. 4. Hypertension. 5. Hyperlipidemia. 6. Gastroesophageal reflux disease. 7. History of right middle lobe resection for adenocarcinoma. 8. Depression, not otherwise specified. PLAN: Continue current medication and treatment plan. Care was discussed with the patient. Encouraged to be out of bed. Follow. MMODL / IJN: [id number] /
[2018-03-31 23:04] VITALS: RESP 18
[2018-04-01] MEDS: methylPREDNISolone SOD SUCCI 40 MG/ML 1 ML VIAL IV SCH ×2 (00:04→07:19)
[2018-04-01] MEDS: IPRATROPIUM-ALBUTEROL 3 ML NEB INHALATION SCH ×4 (03:22→14:55)
[2018-04-01] MEDS: SODIUM CHLORIDE 0.9% 1,000 ML IV SCH ×2 (06:04→15:15)
[2018-04-01 06:10] VITALS: BP 115/57; TEMP 98
[2018-04-01] MEDS: BUDESONIDE 1 MG/2 ML NEBU INHALATION SCH (07:06)
[2018-04-01] MEDS: FORMOTEROL FUMARATE 20 MCG/2 ML NEBU INHALATION SCH (07:06)
[2018-04-01] MEDS: LOSARTAN 25 MG TAB PO SCH (07:20)
[2018-04-01] MEDS: SERTRALINE 100 MG TAB PO SCH (07:20)
[2018-04-01] MEDS: ASPIRIN 81 MG PO SCH (07:20)
[2018-04-01] MEDS: METOPROLOL TARTRATE 50 MG TAB PO SCH (07:20)
[2018-04-01] MEDS: PANTOPRAZOLE 40 MG TABLET PO SCH (07:20)
[2018-04-01] MEDS: IPRATROPIUM BROMIDE 0.06% NASAL SPRAY (15 ML) EA NOSTRIL SCH (07:21)
[2018-04-01] MEDS: ACETAMINOPHEN TAB 325 MG TAB PO PRN (07:25)
[2018-04-01 11:17] VITALS: PULSE 84
--- NOTE | 2018-04-01 11:26 | P.PN ---
Subjective Progress Note Date: 04/01/18 Principal diagnosis: Acute exacerbation of chronic obstructive pulmonary disease complicated by suspected right middle lobe pneumonia. This a very pleasant 87-year-old female patient who follows with Dr. Mcneill as her primary care physician. She has a history of hypertension, hyperlipidemia, atrial fibrillation anticoagulated with Xarelto, left ventricular systolic function with an ejection fraction 25-30%, right middle lobe adenocarcinoma, resected, acid reflux, depression, ovarian cancer, bowel resection. She has a history of chronic obstructive pulmonary disease with FEV1 value 50% of predicted and follows with Dr. Baca in our office for the same. She had recently been having issues with increasing shortness of breath, cough and congestion. She has been on antibiotics in the outpatient setting without much improvement. Chest x-ray revealed evidence of cardiomegaly and COPD and some suspicious of right middle lobe patchy density which may be chronic versus acute. She is currently maintaining O2 saturations in the mid 90s on room air. She's been afebrile. Hemodynamically stable. Urine culture reveals no growth. White count 10.6. Hemoglobin 14.3. Creatinine 0.88. BNP 4780. Lactic 3.6. She has been initiated on DuoNeb inhalations, Pulmicort and Perforomist inhalations, IV Solu-Medrol. She is on empiric antibiotics in the form of Levaquin. The patient is seen again today 04/01/2018 in follow-up on the regular medical floor. She is awake and alert in no acute distress. She is breathing better today as compared to yesterday. She continues with a loose nonproductive cough. No chills or night sweats. She is maintaining good O2 saturations in the mid 90s on room air. She's been afebrile. Hemodynamically stable. Blood culture reveals no growth to date. Urine culture reveals no growth. She remains on antibiotics in form of Levaquin. Today's chest x-ray shows some evidence of fluid volume overload. She does have impaired left ventricular systolic function with ejection fraction 25-30%. Objective - Vital Signs Vital signs: Vital Signs Temp 98.0 F 04/01/18 06:09 Pulse 80 04/01/18 07:32 Resp 18 04/01/18 06:09 BP 115/57 04/01/18 06:09 Pulse Ox 95 04/01/18 06:09 Intake & Output 03/31/18 04/01/18 04/01/18 18:59 06:59 18:59 Intake Total 480 Balance 480 Intake: Oral 480 Other: # Voids 2 1 # Bowel Movements 1 1 - Exam GENERAL EXAM: Alert, active, comfortable in no apparent distress. HEAD: Normocephalic. EYES: Normal reaction of pupils, equal size. NOSE: Clear with pink turbinates. THROAT: No erythema or exudates. NECK: No masses, no JVD. CHEST: No chest wall deformity. LUNGS: Equal air entry with scattered rhonchi, crackles in posterior bases, diminished. CVS: S1 and S2 normal with no audible murmur, regular rhythm. ABDOMEN: No hepatosplenomegaly, normal bowel sounds, no guarding or rigidity. SPINE: No scoliosis or deformity SKIN: No rashes CENTRAL NERVOUS SYSTEM: No focal deficits, tone is normal in all 4 extremities. EXTREMITIES: There is no peripheral edema. No clubbing, no cyanosis. Peripheral pulses are intact. - Labs CBC & Chem 7: 03/30/18 10:35 03/30/18 10:35 Labs: Abnormal Lab Results - Last 24 Hours (Table) 03/31/18 Range/Units 13:48 Plasma Lactic Acid Nikita 4.8 H* (0.7-2.0) mmol/L Microbiology - Last 24 Hours (Table) 03/30/18 10:35 Blood Culture - Preliminary Blood No Growth after 24 hours 03/30/18 12:35 Urine Culture - Final Urine,Voided Assessment and Plan Assessment: Impression: #1 Dyspnea secondary to both suspected acute right lung pneumonia as well as an acute exacerbation of systolic congestive heart failure. #2 Acute exacerbation of chronic obstructive pulmonary disease secondary to above. #3 Atrial fibrillation, anticoagulated with Xarelto. #4 Hypertension. #5 Hyperlipidemia. #6 Right middle lobe adenocarcinoma, resected. #7 History of ovarian cancer. #7 History of bowel resection. #8 History of depression. Plan: The patient is seen and evaluated by Dr. Valderrama. Chest x-ray reviewed. We'll give her a dose of IV Lasix 40 mg 1 today. We'll continue her treatment for suspected pneumonia. She remains on antibiotics in the form of Levaquin. Continue DuoNeb inhalations, Pulmicort and Perforomist inhalations, IV Solu- Medrol. She is anticoagulated with Xarelto. Protonix for GI prophylaxis. We' ll continue to follow and make further recommendations based on her clinical status. I, the cosigning physician, performed a history & physical examination of the patient. Lungs sounds few scattered rhonchi, crackles in posterior bases, diminished. Maintaining good O2 saturations in the 90s on room air. I discussed the assessment and plan of care with my nurse practitioner, Nehal Pineda. I attest to the above note as dictated by her.
[2018-04-01] MEDS ORDERED: FUROSEMIDE 10 MG/ML 4 ML VIAL IV STA (11:46)
--- NOTE | 2018-04-01 13:23 | XR ---
EXAMINATION TYPE: XR chest 1V portable DATE OF EXAM: 04/01/2018 COMPARISON: Prior chest 03/30/2018 and 03/27/[address] 03/19/2017 HISTORY: Pneumonia TECHNIQUE: Single frontal view of the chest is obtained. FINDINGS: Right heart border is poorly defined. Patchy bibasilar density is noted. Prominent epicard ial fat pad noted. No evident pneumothorax or pleural effusion. Patient is rotated. There are dense v ascular calcifications present. Bone mineralization is reduced. Pulmonary vascularity and farhad not si gnificantly changed. Patient's lung nodules are poorly defined. IMPRESSION: Correlate for pneumonia, findings may be due to epicardial fat pad, basilar atelectasis or scarring. Follow-up PA and lateral chest x-ray suggested. There is underlying emphysema. Patient's previously identified lung masses right middle lobe are not well seen on the current exam.
--- NOTE | 2018-04-01 15:26 | DS ---
DISCHARGE SUMMARY DATE OF ADMISSION: 03/30/2018 DATE OF DISCHARGE: 04/01/2018 FINAL DIAGNOSES: 1. Right lobe pneumonia, having failed outpatient treatment, suspect gram-negative organism. 2. Acute chronic obstructive pulmonary disease exacerbation in an ex-smoker. 3. Persistent atrial fibrillation chronically on Xarelto. 4. Essential hypertension. 5. Hyperlipidemia. 6. Gastroesophageal reflux disease. 7. History of right middle lobe resection with a cough. 8. Depression, not otherwise specified. HOSPITAL COURSE: This patient with pneumonia. COPD exacerbation doing much better by the time of discharge, feeling back to baseline, out of bed. Minimal cough. Breathing is stable. PHYSICAL EXAMINATION: Temperature 98, pulse 83, respiration 18, blood pressure 105/57, and a pulse ox 95% on room air. LUNGS: Fair entry. CARDIOVASCULAR: First and second sounds are normal. CONSULTATION: Dr. Valderrama from Pulmonary. DISCHARGE MEDICATIONS: 1. Aspirin 81 mg a day. 2. Prilosec 20 mg a day. 3. Desyrel 25 mg q.h.s. 4. Nitrostat 0.4 sublingual q.5 p.r.n. 5. Zoloft 100 mg p.o. daily. 6. Zocor 40 mg q.h.s. 7. Symbicort 160/4.5 two puffs b.i.d. 8. Lopressor 50 mg b.i.d. 9. Xarelto 20 mg with supper. 10.Tylenol 325 q.4 p.r.n. 11.Atrovent 2 sprays each nostril b.i.d. 12.Cozaar 25 mg p.o. daily. 13.DuoNeb t.i.d. 14.Levaquin 500 mg p.o. daily for 5 days. 15.Prednisone taper. FOLLOWUP: Follow up with Dr. Mcneill in 1 week; follow up Dr. Baca in 1 week. MMODL / IJN: [id number] /
[2018-04-02] MEDS ORDERED: LEVOFLOXACIN 750MG-D5W PMX 750 MG in DEXTROSE/WATER 1 150ML.BAG IVPB SCH (12:00)
== END 2018-04-01 15:33 | disposition home health service (06) | DRG 177 ==
LOC: EC 09:51 → 4MS4W 13:24
PROVIDERS: ADMIT Hospitalist; ATTEND Hospitalist
DX: J15.6 Pneumonia due to other Gram-negative bacteria (principal); I50.23 Acute on chronic systolic (congestive) heart failure; J44.0 Chronic obstructive pulmonary disease with (acute) lower respiratory infection; J44.1 Chronic obstructive pulmonary disease with (acute) exacerbation; G62.9 Polyneuropathy, unspecified; E78.5 Hyperlipidemia, unspecified; I48.2 Chronic atrial fibrillation; K21.9 Gastro-esophageal reflux disease without esophagitis; I11.0 Hypertensive heart disease with heart failure; F32.9 Major depressive disorder, single episode, unspecified; G89.29 Other chronic pain; Z79.82 Long term (current) use of aspirin; Z79.51 Long term (current) use of inhaled steroids; Z79.01 Long term (current) use of anticoagulants; Z79.899 Other long term (current) drug therapy; Z90.2 Acquired absence of lung [part of]; Z85.118 Personal history of other malignant neoplasm of bronchus and lung; Z90.49 Acquired absence of other specified parts of digestive tract; Z90.710 Acquired absence of both cervix and uterus; Z85.43 Personal history of malignant neoplasm of ovary; Z87.81 Personal history of (healed) traumatic fracture; Z96.651 Presence of right artificial knee joint; Z96.642 Presence of left artificial hip joint; Z87.891 Personal history of nicotine dependence; Z88.1 Allergy status to other antibiotic agents; Z88.5 Allergy status to narcotic agent; Z88.0 Allergy status to penicillin; Z88.2 Allergy status to sulfonamides; Z88.8 Allergy status to other drugs, medicaments and biological substances; Z80.3 Family history of malignant neoplasm of breast; Z82.49 Family history of ischemic heart disease and other diseases of the circulatory system; Z82.61 Family history of arthritis
CPT/HCPCS: 36415; 71045; 71046; 80053; 81001; 82550; 82553; 83605; 83735; 83880; 84484; 85025; 85610; 85730; 87040; 87086; 93005; 94640; 96361; 96365; 99285

== ENCOUNTER 2018-04-15 07:03 | Inpatient (IN) | payer MEDICARE ==
[2018-04-15] MEDS ORDERED: ALBUTEROL NEBULIZED 2.5 MG/3 ML INHALATION STA (07:24)
[2018-04-15] MEDS ORDERED: methylPREDNISolone SOD SUCCI 125 MG/2 ML VIAL IV STA (07:24)
[2018-04-15] MEDS ORDERED: SODIUM CHLORIDE 0.9% 500 ML 500 ML IV STA (07:24)
[2018-04-15] MEDS ORDERED: IPRATROPIUM 0.5 MG/2.5 ML NEBU INHALATION STA (07:24)
[2018-04-15] MEDS ORDERED: SODIUM CHLORIDE 0.9% 500 ML 500 ML IV ONE ×2 (07:25→08:17)
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
[2018-04-15 07:53] LABS: Anisocytosis Slight; Basophils % (A) 0 %; Eosinophils # (A) 0.2 k/uL (0-0.7); Eosinophils % (A) 1 %; HCT 52.1 % (34.0-46.0); HGB 16.3 gm/dL (11.4-16.0); Hypochromasia Slight; Lymphocytes # (A) 1.4 k/uL (1.0-4.8); Lymphocytes % (A) 7 %; MCH 29.4 pg (25.0-35.0); MCHC 31.3 g/dL (31.0-37.0); MCV 93.7 fL (80.0-100.0); Mean Platelet Volume 9.3; Monocytes # (A) 0.5 k/uL (0-1.0); Monocytes % (A) 2 %; Neutrophils # (A) 19.2 k/uL (1.3-7.7); Neutrophils % (A) 90 %; Platelet Count 154 k/uL (150-450); RBC 5.56 m/uL (3.80-5.40); RDW 16.2 % (11.5-15.5); WBC 21.4 k/uL (3.8-10.6)
[2018-04-15 08:00] LABS: Albumin 3.4 g/dL (3.5-5.0); Calcium 9.1 mg/dL (8.4-10.2); INR 1.2 (<1.2); Magnesium 1.8 mg/dL (1.6-2.3); Partial Thromboplastin Time 22.1 sec (22.0-30.0); Prothrombin Time 11.7 sec (9.0-12.0); Total Bilirubin 1.5 mg/dL (0.2-1.3); Total Protein 6.2 g/dL (6.3-8.2)
[2018-04-15] MEDS ORDERED: LEVOFLOXACIN 500MG-D5W PMX 500 MG in DEXTROSE/WATER 1 100ML.BAG IVPB STA (08:08)
[2018-04-15 08:11] LABS: Creatine Kinase <20 U/L (30-135)
--- NOTE | 2018-04-15 08:13 | XR ---
EXAMINATION TYPE: XR chest 2V DATE OF EXAM: 04/15/2018 COMPARISON: 04/01/2018 HISTORY: 87-year-old female difficulty breathing TECHNIQUE: AP and lateral views FINDINGS: Heart borderline enlarged. Atherosclerotic aortic calcifications. Mild interstitial prominence. Incre asing patchy consolidation right mid and lower lung. No significant pleural effusion. IMPRESSION: New/increasing patchy consolidation right mid and lower lung. Correlate for possible pneumonia.
--- NOTE | 2018-04-15 08:15 | XR ---
EXAMINATION TYPE: XR KUB DATE OF EXAM: 04/15/2018 CLINICAL DATA: 87-year-old female nausea, vomiting, diarrhea, pain, PHH COMPARISON: 12/11/2016 FINDINGS: Chest reported separately. Supine imaging limited for assessment of free air. Multiple coils are pres ent centrally from prior mesh repair. Cholecystectomy clips. Nonobstructive bowel gas pattern. No dil ated bowel loops. No significant stool burden seen. Pelvic phleboliths. Left hip total arthroplasty p artially visualized with associated heterotopic ossifications along the superior aspect of the hip thania int. Degenerative changes lumbar spine. IMPRESSION: Nonobstructive bowel gas pattern. No significant stool burden.
[2018-04-15] MEDS ORDERED: VANCOMYCIN IV PER PHARMACY 1 EACH MISC MISCELLANE PRN (08:16)
[2018-04-15] MEDS ORDERED: SODIUM CHLORIDE 0.9% 1,000 ML IV ONE (08:17)
[2018-04-15] MEDS ORDERED: VANCOMYCIN 1,500 MG in SODIUM CHLORIDE 0.9% 250 ML IVPB STA (08:21)
[2018-04-15 08:25] LABS: Creatine Kinase MB 0.8 ng/mL (0.0-2.4); Troponin I <0.012 ng/mL (0.000-0.034)
[2018-04-15] MEDS ORDERED: SODIUM CHLORIDE 0.9% 1,000 ML IV SCH (08:30)
[2018-04-15] MEDS ORDERED: NALOXONE 0.4 MG/ML 1 ML VIAL IV PRN (08:34)
[2018-04-15] MEDS ORDERED: LEVOFLOXACIN 750MG-D5W PMX 750 MG in DEXTROSE/WATER 1 150ML.BAG IVPB SCH (08:45)
[2018-04-15] MEDS: ACETAMINOPHEN TAB 325 MG TAB PO PRN (10:24)
[2018-04-15] MEDS: IPRATROPIUM-ALBUTEROL 3 ML NEB INHALATION SCH ×5 (11:29→20:01)
[2018-04-15] MEDS ORDERED: methylPREDNISolone SOD SUCCI 125 MG/2 ML VIAL IV SCH (12:00)
[2018-04-15] MEDS ORDERED: DILTIAZEM DRIP BOLUS FROM BAG 1 MG SOLN IV ONE (12:06)
[2018-04-15] MEDS: DILTIAZEM 50 MG in SODIUM CHLORIDE 0.9% 40 ML IV SCH ×2 (12:43→22:07)
[2018-04-15] MEDS: methylPREDNISolone SOD SUCCI 40 MG/ML 1 ML VIAL IV SCH ×2 (13:25→16:05)
[2018-04-15] MEDS: CEFEPIME 2 GM in SODIUM CHLORIDE 0.9% 50 ML IVPB SCH ×2 (13:30→16:05)
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
[2018-04-15 16:51] LABS: Glucose,Whole Blood 199 mg/dL (75-99)
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
[2018-04-15] MEDS: RIVAROXABAN 20 MG TAB PO SCH (17:38)
[2018-04-15] MEDS: INSULIN ASPART 100 UNIT/ML 1 ML 10 ML VIAL SQ SCH ×2 (17:38→22:03)
[2018-04-15] MEDS: SODIUM CHLORIDE 0.9% 1,000 ML IV SCH (17:38)
[2018-04-15 20:55] LABS: Glucose,Whole Blood 197 mg/dL (75-99)
[2018-04-15] MEDS: traZODone HCL 50 MG TAB PO SCH (22:04)
[2018-04-16] MEDS: IPRATROPIUM-ALBUTEROL 3 ML NEB INHALATION SCH ×7 (00:32→23:26)
[2018-04-16] MEDS: methylPREDNISolone SOD SUCCI 40 MG/ML 1 ML VIAL IV SCH ×3 (00:40→17:13)
[2018-04-16] MEDS: CEFEPIME 2 GM in SODIUM CHLORIDE 0.9% 50 ML IVPB SCH ×3 (00:40→14:37)
[2018-04-16] MEDS: ACETAMINOPHEN TAB 325 MG TAB PO PRN ×2 (01:03→22:45)
[2018-04-16 03:56] LABS: Hemoglobin A1C 6.5 % (4.0-6.0)
[2018-04-16 05:52] LABS: Glucose,Whole Blood 136 mg/dL (75-99)
[2018-04-16] MEDS ORDERED: VANCOMYCIN 1,250 MG in SODIUM CHLORIDE 0.9% 250 ML IVPB SCH (06:00)
[2018-04-16] MEDS: METOPROLOL TARTRATE 50 MG TAB PO SCH ×3 (07:06→22:45)
[2018-04-16] MEDS: SODIUM CHLORIDE 0.9% 1,000 ML IV SCH ×3 (07:18→17:13)
[2018-04-16] MEDS: INSULIN ASPART 100 UNIT/ML 1 ML 10 ML VIAL SQ SCH ×4 (08:21→22:44)
[2018-04-16] MEDS: PANTOPRAZOLE 40 MG TABLET PO SCH (08:38)
[2018-04-16] MEDS: SERTRALINE 100 MG TAB PO SCH (08:38)
[2018-04-16] MEDS: LOSARTAN 25 MG TAB PO SCH (08:38)
[2018-04-16] MEDS: DILTIAZEM 50 MG in SODIUM CHLORIDE 0.9% 40 ML IV SCH (08:41)
[2018-04-16] MEDS ORDERED: LEVOFLOXACIN 750MG-D5W PMX 750 MG in DEXTROSE/WATER 1 150ML.BAG IVPB SCH (09:00)
[2018-04-16 09:59] LABS: Anion Gap 9 mmol/L; Blood Urea Nitrogen 28 mg/dL (7-17); Calcium 8.4 mg/dL (8.4-10.2); Carbon Dioxide 19 mmol/L (22-30); Chloride 111 mmol/L (98-107); Glucose 161 mg/dL (74-99); Potassium 5.1 mmol/L (3.5-5.1); Sodium 139 mmol/L (137-145)
[2018-04-16 12:04] LABS: Glucose,Whole Blood 115 mg/dL (75-99)
--- NOTE | 2018-04-16 16:34 | P.PN ---
Subjective Progress Note Date: 04/16/18 Principal diagnosis: Acute right lower lobe pneumonia, hospital-acquired, possibly gram-negative 87-year-old female patient who is known to me from previous admissions to the hospital. [facility] of increased dyspnea, cough, chest congestion, wheezing, fever, chills and she was found to have leukocytosis and elevated and lactic acid level. Chest x-ray showed right lower lobe pneumonia and the patient was hospitalized for an acute right lower lobe pneumonia treatment. The patient was given IV fluids. The patient was placed on accommodation of Levaquin and vancomycin. She was admitted to the medical floor and the pulmonary consultation was requested. Note that the patient has history of COPD and previous history of non-small cell lung cancer. The patient presented with a right middle lobe mass approximately a year ago and this was at 2.3 x 0.9 cm lesion that had high SUV uptake and for that reason the patient was referred to thoracic surgery and the patient underwent a right middle lobe wedge resection and the postop the finding was consistent with adenocarcinoma. Note that at that time the patient' s hospitalization course was unremarkable. She is known to have COPD with a baseline FEV1 of 50% of predicted. MRI of the brain was negative for any metastases. Since then, the patient was readmitted to the hospital in November 2017 for a left lower lobe pneumonia. She had another hospitalization following that on 03/31/2018 for a right lower lobe pneumonia. This seems to be the third pneumonia [id number]. No altered mentation. No smoking. She has chronic atrial fibrillation and she is maintained on anticoagulation. On 04/16/2018 patient seen in follow-up on selective care unit. Quite congested and wheezy, coughing, or breath. Currently on 5 L per nasal cannula pulse ox is 94%, afebrile, hemodynamically stable, initial blood culture was negative, second set of cultures collected on 04/15/2018 shows gram-positive cocci in groups, final cultures pending. Continue antibiotic coverage includes cefepime, Levaquin, patient is on IV steroids, nebulized bronchodilators, last night patient went into A. fib RVR, she was started on Cardizem drip which is currently infusing at a rate of 5 mg per hour, 0.9 normal saline at a rate of 125 ML per hour, labs have been reviewed, BNP showed sodium of 139, potassium is 5.1, chloride is 111, CO2 is 19, BUN is 28 creatinine 0.64. Continue with current medical treatment. Objective - Vital Signs Vital signs: Vital Signs Temp 98.0 F 04/16/18 15:25 Pulse 84 04/16/18 15:58 Resp 20 04/16/18 15:25 BP 102/66 04/16/18 15:25 Pulse Ox 94 L 04/16/18 15:48 Intake & Output 04/15/18 04/16/18 04/16/18 18:59 06:59 18:59 Intake Total 240 47 295 Output Total 300 Balance 240 -253 295 Weight 75.1 kg 89.7 kg Intake: Intake, IV Titration 47 175 Amount Diltiazem 50 mg In Sodium 47 50 Chloride 0.9% 40 ml @ 5 MG/HR 5 mls/hr IV .Q10H IBRAHIMA Rx#:[id number] Sodium Chloride 0.9% 1, 125 000 ml @ 125 mls/hr IV . Q8H IBRAHIMA Rx#:[id number] Oral 240 120 Output: Urine 300 Other: Voiding Method Bedside Commode # Voids 1 1 - Exam GENERAL EXAM: Frail, cachectic. Alert, active, comfortable in mild degree of respiratory distress. HEAD: Normocephalic. EYES: Normal reaction of pupils, equal size. NOSE: Clear with pink turbinates. THROAT: No erythema or exudates. NECK: No masses, no JVD. CHEST: No chest wall deformity. Diminished breath sound bilaterally. There is scattered external wheezes throughout the lung bilaterally. LUNGS: Equal air entry with crackles in the right posterior base. Diminished. CVS: S1 and S2 normal with no audible murmur, irregular rhythm. ABDOMEN: No hepatosplenomegaly, normal bowel sounds, no guarding or rigidity. SPINE: No scoliosis or deformity SKIN: No rashes CENTRAL NERVOUS SYSTEM: No focal deficits, tone is normal in all 4 extremities. EXTREMITIES: There is no peripheral edema. No clubbing, no cyanosis. Peripheral pulses are intact. - Labs CBC & Chem 7: 04/15/18 07:30 04/16/18 09:28 Labs: Abnormal Lab Results - Last 24 Hours (Table) 04/15/18 04/15/18 04/15/18 Range/Units 07:30 16:49 19:05 ABG Lactic Acid 4.1 H* (0.5-1.6) mmol/L Chloride (98-107) mmol/L Carbon Dioxide (22-30) mmol/L BUN (7-17) mg/dL Glucose (74-99) mg/dL POC Glucose (mg/dL) 199 H (75-99) mg/dL Hemoglobin A1c 6.5 H (4.0-6.0) % 04/15/18 04/16/18 04/16/18 Range/Units 20:50 05:50 09:28 ABG Lactic Acid (0.5-1.6) mmol/L Chloride 111 H (98-107) mmol/L Carbon Dioxide 19 L (22-30) mmol/L BUN 28 H (7-17) mg/dL Glucose 161 H (74-99) mg/dL POC Glucose (mg/dL) 197 H 136 H (75-99) mg/dL Hemoglobin A1c (4.0-6.0) % 04/16/18 Range/Units 11:44 ABG Lactic Acid (0.5-1.6) mmol/L Chloride (98-107) mmol/L Carbon Dioxide (22-30) mmol/L BUN (7-17) mg/dL Glucose (74-99) mg/dL POC Glucose (mg/dL) 115 H (75-99) mg/dL Hemoglobin A1c (4.0-6.0) % Microbiology - Last 24 Hours (Table) 04/15/18 07:30 Blood Culture Gram Stain - Preliminary Blood 04/15/18 07:30 Blood Culture - Final Blood Assessment and Plan Plan: 1 acute right lower lobe pneumonia. Hospital-acquired pathogens need to be considered including gram-negative bacteria knowing that the patient has been hospitalized on multiple occasions for the same 2 recurrent pneumonia requiring hospitalization 3 COPD with a baseline FEV1 of 50% predicted 4 history of non-small cell lung cancer/adenocarcinoma of the right middle lobe status post wedge resection without any significant postoperative pulmonary complication this was done in 2018. 5 chronic atrial fibrillation maintained on Xarelto and the rate is controlled for now, currently on a Cardizem drip 6 hypertension 7 hyperlipidemia 8 leukocytosis secondary to above 9 acute hypoxic respiratory failure secondary to above Plan: Current medical treatment, continue current antibiotics including cefepime, Levaquin and vancomycin, try to collect sputum for culture. No fever no chills. Patient will continue on IV Solu-Medrol, she is anticoagulated, and she has Cardizem drip for rate control. We'll obtain follow chest x-ray in the morning, and nebulized bronchodilators. I performed a history & physical examination of the patient and discussed their management with my nurse practitioner, Veena Grant. I reviewed the nurse practitioner's note and agree with the documented findings and plan of care. Lung sounds are positive for bronchospastic and congested. The findings and the impression was discussed with the patient. I attest to the documentation by the nurse practitioner. Time with Patient: Less than 30
[2018-04-16] MEDS: RIVAROXABAN 20 MG TAB PO SCH (17:13)
[2018-04-16 17:15] LABS: Glucose,Whole Blood 170 mg/dL (75-99)
[2018-04-16 20:45] LABS: Glucose,Whole Blood 198 mg/dL (75-99)
--- NOTE | 2018-04-16 21:07 | PN ---
PROGRESS NOTE DATE OF SERVICE: 04/16/2018 PRESENTING COMPLAINT: Tired. INTERVAL HISTORY: This patient presented with pneumonia, nausea, vomiting, diarrhea, atrial fibrillation, uncontrolled. Patient's heart rate is better controlled today. She was on IV Cardizem drip, which was discontinued earlier today. Vomiting and diarrhea have all settled down. Some limited eating of food because her dentures are not here. Otherwise feels better, less short of breath. REVIEW OF SYSTEMS: Done for constitutional, cardiovascular, GI, pulmonary; relevant findings as above. CURRENT MEDICATIONS: Reviewed. They include: 1. DuoNeb. 2. IV Solu-Medrol. 3. IV cefepime. 4. Vancomycin. PHYSICAL EXAMINATION: Temperature 98, pulse 57, respiration 20, blood pressure 102/66, pulse ox 94% on 5 L. GENERAL APPEARANCE: Lying in bed, tired-appearing. EYES: Pupils equal. Conjunctivae normal. NECK: JVD not raised. Mass not palpable. RESPIRATORY: Effort increased. LUNGS: Decreased breath sounds. Prolonged expiration. CARDIOVASCULAR: Heart sound irregular. No edema. ABDOMEN: Soft, non-tender. Liver and spleen not palpable. PSYCHIATRY: Alert and oriented x3. Mood and affect normal. INVESTIGATIONS: Potassium 5.1, BUN 28, creatinine 0.64. Accu-Cheks are noted. ASSESSMENT: 1. Right lower lobe pneumonia. Suspect gram-negative organism. 2. Persistent atrial fibrillation with rapid ventricular rate on presentation, now better controlled. 3. Acute diarrhea, negative for Clostridium difficile. 4. Acute chronic obstructive pulmonary disease exacerbation in an ex-smoker. 5. Essential hypertension. 6. Hyperlipidemia. 7. Gastroesophageal reflux disease. 8. History of lung adenocarcinoma with right middle lobe resection. 9. Depression not otherwise specified. 10.Acute hypoxic respiratory failure from pneumonia. PLAN: Continue antibiotics, steroids, bronchodilators. Patient is doing somewhat better. Cardizem drip has been discontinued. Will follow. MMODL / IJN: [id number] /
[2018-04-16] MEDS: traZODone HCL 50 MG TAB PO SCH (22:45)
[2018-04-16] MEDS: VANCOMYCIN 1,250 MG in SODIUM CHLORIDE 0.9% 250 ML IVPB SCH (22:47)
[2018-04-17] MEDS: methylPREDNISolone SOD SUCCI 40 MG/ML 1 ML VIAL IV SCH ×4 (00:17→23:01)
[2018-04-17] MEDS: CEFEPIME 2 GM in SODIUM CHLORIDE 0.9% 50 ML IVPB SCH ×4 (00:17→23:01)
[2018-04-17] MEDS: IPRATROPIUM-ALBUTEROL 3 ML NEB INHALATION SCH ×6 (03:44→23:27)
[2018-04-17 05:46] LABS: Glucose,Whole Blood 156 mg/dL (75-99)
[2018-04-17 06:30] LABS: Anisocytosis Slight; Basophils % (A) 0 %; Eosinophils % (A) 0 %; HCT 40.4 % (34.0-46.0); Hypochromasia Moderate; Lymphocytes # (A) 0.4 k/uL (1.0-4.8); Lymphocytes % (A) 3 %; MCV 96.7 fL (80.0-100.0); Macrocytosis Slight; Mean Platelet Volume 9.9; Monocytes # (A) 0.5 k/uL (0-1.0); Monocytes % (A) 4 %; Neutrophils # (A) 11.9 k/uL (1.3-7.7); Neutrophils % (A) 92 %; Platelet Count 100 k/uL (150-450); RBC 4.18 m/uL (3.80-5.40); WBC 12.9 k/uL (3.8-10.6)
[2018-04-17 06:34] LABS: HGB 12.1 gm/dL (11.4-16.0)
[2018-04-17 06:42] LABS: Anion Gap 6 mmol/L; Blood Urea Nitrogen 22 mg/dL (7-17); Calcium 9.1 mg/dL (8.4-10.2); Carbon Dioxide 22 mmol/L (22-30); Chloride 110 mmol/L (98-107); Glucose 153 mg/dL (74-99); Potassium 4.9 mmol/L (3.5-5.1); Sodium 138 mmol/L (137-145)
[2018-04-17] MEDS: PANTOPRAZOLE 40 MG TABLET PO SCH (06:48)
[2018-04-17] MEDS: INSULIN ASPART 100 UNIT/ML 1 ML 10 ML VIAL SQ SCH ×4 (06:48→21:00)
[2018-04-17] MEDS: LOSARTAN 25 MG TAB PO SCH (08:28)
[2018-04-17] MEDS: LEVOFLOXACIN 750 MG TAB PO SCH (08:28)
[2018-04-17] MEDS: METOPROLOL TARTRATE 50 MG TAB PO SCH ×3 (08:28→21:00)
[2018-04-17] MEDS: SERTRALINE 100 MG TAB PO SCH (08:28)
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
[2018-04-17] MEDS ORDERED: FUROSEMIDE 10 MG/ML 4 ML VIAL IV STA (11:54)
[2018-04-17 12:17] LABS: Glucose,Whole Blood 121 mg/dL (75-99)
--- NOTE | 2018-04-17 12:42 | XR ---
EXAMINATION TYPE: XR chest 1V DATE OF EXAM: 04/17/2018 COMPARISON: 04/15/2018 INDICATION: Pneumonia TECHNIQUE: Single frontal view of the chest is obtained. FINDINGS: The heart size is enlarged. The pulmonary vasculature is normal. Right lower lobe infiltrate is present. This is improving from comparison. Continued follow-up is rec ommended. IMPRESSION: 1. Improving right middle lobe pneumonia. Continued follow-up is recommended.
[2018-04-17] MEDS: SODIUM CHLORIDE 0.9% 1,000 ML IV SCH (15:15)
--- NOTE | 2018-04-17 15:45 | P.PN ---
Subjective Progress Note Date: 04/17/18 Principal diagnosis: Acute right lower lobe pneumonia, hospital-acquired, possibly gram-negative. 87-year-old female patient who is known to me from previous admissions to the hospital. [facility] complaining of increased dyspnea, cough, chest congestion, wheezing, fever, chills and she was found to have leukocytosis and elevated and lactic acid level. Chest x-ray showed right lower lobe pneumonia and the patient was hospitalized for an acute right lower lobe pneumonia treatment. The patient was given IV fluids. The patient was placed on accommodation of Levaquin and vancomycin. She was admitted to the medical floor and the pulmonary consultation was requested. Note that the patient has history of COPD and previous history of non-small cell lung cancer. The patient presented with a right middle lobe mass approximately a year ago and this was at 2.3 x 0.9 cm lesion that had high SUV uptake and for that reason the patient was referred to thoracic surgery and the patient underwent a right middle lobe wedge resection and the postop the finding was consistent with adenocarcinoma. Note that at that time the patient' s hospitalization course was unremarkable. She is known to have COPD with a baseline FEV1 of 50% of predicted. MRI of the brain was negative for any metastases. Since then, the patient was readmitted to the hospital in November 2017 for a left lower lobe pneumonia. She had another hospitalization following that on 03/31/2018 for a right lower lobe pneumonia. This seems to be the third pneumonia [id number]. No altered mentation. No smoking. She has chronic atrial fibrillation and she is maintained on anticoagulation. On 04/16/2018 patient seen in follow-up on selective care unit. Quite congested and wheezy, coughing, or breath. Currently on 5 L per nasal cannula pulse ox is 94%, afebrile, hemodynamically stable, initial blood culture was negative, second set of cultures collected on 04/15/2018 shows gram-positive cocci in groups, final cultures pending. Continue antibiotic coverage includes cefepime, Levaquin, patient is on IV steroids, nebulized bronchodilators, last night patient went into A. fib RVR, she was started on Cardizem drip which is currently infusing at a rate of 5 mg per hour, 0.9 normal saline at a rate of 125 ML per hour, labs have been reviewed, BNP showed sodium of 139, potassium is 5.1, chloride is 111, CO2 is 19, BUN is 28 creatinine 0.64. Continue with current medical treatment. The patient is seen today 04/17/2018 in follow-up on the selective care unit. She is currently sitting up in a chair at the bedside. She is awake and alert in no acute distress. She has been slow to progress. Still with a loose nonproductive cough. Maintaining O2 saturations in the mid 90s on 4 L/m per nasal cannula. Chest x-ray reveals improving right middle lobe pneumonia. She' s been afebrile. Hemodynamically stable. Blood culture reveals coagulase negative staph preliminarily. White count 12.9. Hemoglobin 12.1. Platelet count 100,000. Creatinine 0.65. She is currently on vancomycin, cefepime, Levaquin. Objective - Vital Signs Vital signs: Vital Signs Temp 97.5 F L 04/17/18 12:00 Pulse 84 04/17/18 15:33 Resp 18 04/17/18 12:00 BP 141/77 04/17/18 12:00 Pulse Ox 95 04/17/18 15:26 Intake & Output 04/16/18 04/17/18 04/17/18 18:59 06:59 18:59 Intake Total 295 250 380 Balance 295 250 380 Weight 78.6 kg Intake: Intake, IV Titration 175 250 200 Amount Cefepime 2 gm In Sodium 100 Chloride 0.9% 50 ml @ 100 mls/hr IVPB Q8HR [facility] Rx# :[id number] Diltiazem 50 mg In Sodium 50 Chloride 0.9% 40 ml @ 5 MG/HR 5 mls/hr IV .Q10H [facility] Rx#:[id number] Sodium Chloride 0.9% 1, 125 100 000 ml @ 20 mls/hr IV . Q24H [facility] Rx#:[id number] Vancomycin 1,250 mg In 250 Sodium Chloride 0.9% 250 ml @ 125 mls/hr IVPB Q16H [facility] Rx#:[id number] Oral 120 180 Other: Voiding Method Bedside Commode Bedside Commode # Voids 1 1 1 - Exam GENERAL EXAM: Alert, active, comfortable in no apparent distress. On 4 L/m per nasal cannula. HEAD: Normocephalic. EYES: Normal reaction of pupils, equal size. NOSE: Clear with pink turbinates. THROAT: No erythema or exudates. NECK: No masses, no JVD. CHEST: No chest wall deformity. LUNGS: Equal air entry with scattered rhonchi, crackles in the right posterior base. CVS: S1 and S2 normal with no audible murmur, regular rhythm. ABDOMEN: No hepatosplenomegaly, normal bowel sounds, no guarding or rigidity. SPINE: No scoliosis or deformity SKIN: No rashes CENTRAL NERVOUS SYSTEM: No focal deficits, tone is normal in all 4 extremities. EXTREMITIES: There is no peripheral edema. No clubbing, no cyanosis. Peripheral pulses are intact. - Labs CBC & Chem 7: 04/17/18 05:32 04/17/18 05:32 Labs: Abnormal Lab Results - Last 24 Hours (Table) 04/16/18 04/16/18 04/17/18 Range/Units 16:48 20:43 05:32 WBC (3.8-10.6) k/uL MCHC (31.0-37.0) g/dL RDW (11.5-15.5) % Plt Count (150-450) k/uL Neutrophils # (1.3-7.7) k/uL Lymphocytes # (1.0-4.8) k/uL Chloride 110 H (98-107) mmol/L BUN 22 H (7-17) mg/dL Glucose 153 H (74-99) mg/dL POC Glucose (mg/dL) 170 H 198 H (75-99) mg/dL 04/17/18 04/17/18 04/17/18 Range/Units 05:32 05:35 11:48 WBC 12.9 H (3.8-10.6) k/uL MCHC 30.0 L (31.0-37.0) g/dL RDW 17.0 H (11.5-15.5) % Plt Count 100 L (150-450) k/uL Neutrophils # 11.9 H (1.3-7.7) k/uL Lymphocytes # 0.4 L (1.0-4.8) k/uL Chloride (98-107) mmol/L BUN (7-17) mg/dL Glucose (74-99) mg/dL POC Glucose (mg/dL) 156 H 121 H (75-99) mg/dL Microbiology - Last 24 Hours (Table) 04/15/18 07:30 Blood Culture Gram Stain - Preliminary Blood Blood Culture - Preliminary Coagulase Negative Staph Assessment and Plan Assessment: Impression: 1 acute right lower lobe pneumonia. Hospital-acquired pathogens need to be considered including gram-negative bacteria knowing that the patient has been hospitalized on multiple occasions for the same 2 recurrent pneumonia requiring hospitalization 3 COPD with a baseline FEV1 of 50% predicted 4 history of non-small cell lung cancer/adenocarcinoma of the right middle lobe status post wedge resection without any significant postoperative pulmonary complication this was done in 2018. 5 chronic atrial fibrillation maintained on Xarelto and the rate is controlled for now, currently on a Cardizem drip 6 hypertension 7 hyperlipidemia 8 leukocytosis secondary to above 9 acute hypoxic respiratory failure secondary to above Plan: The patient was seen and evaluated by Dr. Jaffe. Chest x-ray and labs were reviewed. Her right lower lobe pneumonia is improving. We'll continue current antibiotics in the form of vancomycin, Levaquin and cefepime. Still no sputum culture available. Continue bronchodilators and IV Solu-Medrol. We will increase her activity as tolerated. We'll continue to follow and make further recommendations based on her clinical status. I, the cosigning physician, performed a history & physical examination of the patient. Lungs sounds with bilateral scattered rhonchi, crackles in the right posterior base. Maintaining good O2 saturations in the 90s on 4 L/m per nasal cannula. I discussed the assessment and plan of care with my nurse practitioner , Nehal Pineda. I attest to the above note as dictated by her.
[2018-04-17 17:10] LABS: Glucose,Whole Blood 135 mg/dL (75-99)
[2018-04-17] MEDS: VANCOMYCIN 1,250 MG in SODIUM CHLORIDE 0.9% 250 ML IVPB SCH (17:14)
[2018-04-17] MEDS: RIVAROXABAN 20 MG TAB PO SCH (17:15)
[2018-04-17 20:54] LABS: Glucose,Whole Blood 162 mg/dL (75-99)
[2018-04-17] MEDS: traZODone HCL 50 MG TAB PO SCH (21:00)
[2018-04-17] MEDS: ACETAMINOPHEN TAB 325 MG TAB PO PRN (21:02)
--- NOTE | 2018-04-18 01:00 | PN ---
PROGRESS NOTE DATE OF SERVICE: 04/17/2018 PRESENTING COMPLAINT: Tired. INTERVAL HISTORY: This patient was seen by me yesterday evening on 04/17/2018. The patient presented with pneumonia, nausea, vomiting, diarrhea, atrial fibrillation, uncontrolled. Also was treated for pneumonia. The patient feels better today. Not much of an appetite. Heart rate is better controlled. No more diarrhea. Just feels weak and rundown. Has been out of bed. Did walk a bit. REVIEW OF SYSTEMS: Done for constitutional, cardiovascular, GI, pulmonary; relevant findings as above. CURRENT MEDICATIONS: Reviewed that include IV cefepime, IV vancomycin, Xarelto and IV Solu-Medrol, bronchodilators. PHYSICAL EXAMINATION: VITAL SIGNS: Temperature 97.5, pulse 92, respiratory 18, blood pressure 140/77, pulse ox 95% on 5 L. GENERAL APPEARANCE: Lying in bed, tired-appearing. EYES: Pupils equal. Conjunctivae normal. NECK: JVD not raised. Mass not palpable. RESPIRATORY: Effort. LUNGS: Decreased breath sounds, prolonged expiration. CARDIOVASCULAR: Heart sounds irregular. No edema. ABDOMEN: Soft, nontender. Liver and spleen not palpable. PSYCHIATRY: Alert and oriented x3. Mood and affect normal. INVESTIGATIONS: White count 12.9, potassium 4.9, BUN 22, creatinine 0.65. ASSESSMENT: 1. Right lower lobe pneumonia suspect gram-negative organism. 2. Persistent atrial fibrillation, rapid ventricular rate on presentation now better controlled. 3. Acute diarrhea, negative for C diff, resolved. 4. Acute chronic obstructive pulmonary disease exacerbation in an ex-smoker. 5. Essential hypertension. 6. Hyperlipidemia. 7. Gastroesophageal reflux disease. 8. History of lung adenocarcinoma with right middle lobe resection. 9. Depression, not otherwise specified. 10.Acute hypoxic respiratory failure pneumonia. PLAN: Continue current medication and treatment plan including bronchodilators, steroids. Overall slowly getting better, being followed by Pulmonary and Cardiology. The patient has been out of bed. MMODL / IJN: [id number] /
[2018-04-18] MEDS: IPRATROPIUM-ALBUTEROL 3 ML NEB INHALATION SCH ×6 (03:36→23:34)
[2018-04-18] MEDS ORDERED: VANCOMYCIN TROUGH DUE 1 EACH MISC MISCELLANE ONE (06:00)
[2018-04-18] MEDS: INSULIN ASPART 100 UNIT/ML 1 ML 10 ML VIAL SQ SCH ×4 (06:28→21:01)
[2018-04-18] MEDS: PANTOPRAZOLE 40 MG TABLET PO SCH (06:28)
[2018-04-18] MEDS: VANCOMYCIN 1,250 MG in SODIUM CHLORIDE 0.9% 250 ML IVPB SCH ×2 (06:29→21:50)
[2018-04-18 06:31] LABS: Glucose,Whole Blood 178 mg/dL (75-99)
[2018-04-18 06:48] LABS: Calcium 9.1 mg/dL (8.4-10.2); Potassium 4.4 mmol/L (3.5-5.1)
[2018-04-18] MEDS: methylPREDNISolone SOD SUCCI 40 MG/ML 1 ML VIAL IV SCH ×2 (08:37→16:55)
[2018-04-18] MEDS: SERTRALINE 100 MG TAB PO SCH (08:37)
[2018-04-18] MEDS: CEFEPIME 2 GM in SODIUM CHLORIDE 0.9% 50 ML IVPB SCH ×2 (08:37→16:55)
[2018-04-18] MEDS: LEVOFLOXACIN 750 MG TAB PO SCH (08:37)
[2018-04-18] MEDS: METOPROLOL TARTRATE 50 MG TAB PO SCH ×3 (08:37→21:01)
[2018-04-18] MEDS: LOSARTAN 25 MG TAB PO SCH (08:37)
--- NOTE | 2018-04-18 10:06 | ECHOF ---
Referral Reason:limited study assess lvf MEASUREMENTS -------- HEIGHT: 165.1 cm WEIGHT: 78.5 kg BP: RAP: 5.00 mmHg RVSP: 35.14 mmHg FINDINGS -------- Limited Study for LV Function. Overall left ventricular systolic function is moderately impaired with, an EF between 35 - 40 %. Mild mitral regurgitation is present. Mild tricuspid regurgitation present. There is mild pulmonary hypertension. The right ventricular systolic pressure, as measured by Doppler, is 35.14mmHg. There is no pericardial effusion. CONCLUSIONS -------- 1. Limited Study for LV Function. 2. Overall left ventricular systolic function is moderately impaired with, an EF between 35 - 40 %. 3. Mild mitral regurgitation is present. 4. Mild tricuspid regurgitation present. 5. There is mild pulmonary hypertension. 6. The right ventricular systolic pressure, as measured by Doppler, is 35.14mmHg. 7. There is no pericardial effusion. [employer]OP BOARD MAN: Mireille Woodall RDCS
[2018-04-18 11:13] LABS: Glucose,Whole Blood 169 mg/dL (75-99)
[2018-04-18] MEDS ORDERED: FUROSEMIDE 10 MG/ML 4 ML VIAL IV STA (11:37)
[2018-04-18] MEDS ORDERED: RX INFO: IV CONTRAST WAS GIVEN 1 EACH MISC MISCELLANE PRN (13:49)
--- NOTE | 2018-04-18 13:51 | P.PN ---
Subjective Progress Note Date: 04/18/18 Principal diagnosis: Acute right lower lobe pneumonia, hospital-acquired, possibly gram-negative. 87-year-old female patient who is known to me from previous admissions to the hospital. [facility] complaining of increased dyspnea, cough, chest congestion, wheezing, fever, chills and she was found to have leukocytosis and elevated and lactic acid level. Chest x-ray showed right lower lobe pneumonia and the patient was hospitalized for an acute right lower lobe pneumonia treatment. The patient was given IV fluids. The patient was placed on accommodation of Levaquin and vancomycin. She was admitted to the medical floor and the pulmonary consultation was requested. Note that the patient has history of COPD and previous history of non-small cell lung cancer. The patient presented with a right middle lobe mass approximately a year ago and this was at 2.3 x 0.9 cm lesion that had high SUV uptake and for that reason the patient was referred to thoracic surgery and the patient underwent a right middle lobe wedge resection and the postop the finding was consistent with adenocarcinoma. Note that at that time the patient' s hospitalization course was unremarkable. She is known to have COPD with a baseline FEV1 of 50% of predicted. MRI of the brain was negative for any metastases. Since then, the patient was readmitted to the hospital in November 2017 for a left lower lobe pneumonia. She had another hospitalization following that on 03/31/2018 for a right lower lobe pneumonia. This seems to be the third pneumonia [id number]. No altered mentation. No smoking. She has chronic atrial fibrillation and she is maintained on anticoagulation. On 04/16/2018 patient seen in follow-up on selective care unit. Quite congested and wheezy, coughing, or breath. Currently on 5 L per nasal cannula pulse ox is 94%, afebrile, hemodynamically stable, initial blood culture was negative, second set of cultures collected on 04/15/2018 shows gram-positive cocci in groups, final cultures pending. Continue antibiotic coverage includes cefepime, Levaquin, patient is on IV steroids, nebulized bronchodilators, last night patient went into A. fib RVR, she was started on Cardizem drip which is currently infusing at a rate of 5 mg per hour, 0.9 normal saline at a rate of 125 ML per hour, labs have been reviewed, BNP showed sodium of 139, potassium is 5.1, chloride is 111, CO2 is 19, BUN is 28 creatinine 0.64. Continue with current medical treatment. The patient is seen today 04/17/2018 in follow-up on the selective care unit. She is currently sitting up in a chair at the bedside. She is awake and alert in no acute distress. She has been slow to progress. Still with a loose nonproductive cough. Maintaining O2 saturations in the mid 90s on 4 L/m per nasal cannula. Chest x-ray reveals improving right middle lobe pneumonia. She' s been afebrile. Hemodynamically stable. Blood culture reveals coagulase negative staph preliminarily. White count 12.9. Hemoglobin 12.1. Platelet count 100,000. Creatinine 0.65. She is currently on vancomycin, cefepime, Levaquin. Patient is seen again today 04/18/2018 in follow-up on the selective care unit. She is currently resting comfortably in bed. She is awake and alert in no acute distress. She does have a productive cough now of brownish red sputum. She states she is breathing a bit easier today as compared to yesterday. She is maintaining good O2 saturations in the 90s on 5 L/m per nasal cannula. She' s been afebrile. Hemodynamically stable. She is maintained on bronchodilators , IV Solu-Medrol, antibiotics in the form of vancomycin, cefepime and Levaquin. She is anticoagulated with Xarelto. Objective - Vital Signs Vital signs: Vital Signs Temp 97.5 F L 04/18/18 08:00 Pulse 88 04/18/18 12:18 Resp 17 04/18/18 12:00 BP 133/75 04/18/18 12:00 Pulse Ox 94 L 04/18/18 12:00 Intake & Output 04/17/18 04/18/18 04/18/18 18:59 06:59 18:59 Intake Total 832 240 Output Total 900 800 Balance -68 -560 Weight 74.4 kg Intake: Intake, IV Titration 200 Amount Cefepime 2 gm In Sodium 100 Chloride 0.9% 50 ml @ 100 mls/hr IVPB Q8HR [facility] Rx# :[id number] Sodium Chloride 0.9% 1, 100 000 ml @ 20 mls/hr IV . Q24H [facility] Rx#:[id number] Oral [id number] 240 Output: Urine 900 800 Other: Voiding Method Bedside Commode Bedside Commode Bedside Commode # Voids 1 3 - Exam GENERAL EXAM: Alert, comfortable in no apparent distress. On 5 L/m per nasal cannula. HEAD: Normocephalic. EYES: Normal reaction of pupils, equal size. NOSE: Clear with pink turbinates. THROAT: No erythema or exudates. NECK: No masses, no JVD. CHEST: No chest wall deformity. LUNGS: Equal air entry with scattered rhonchi, crackles in the right posterior base. CVS: S1 and S2 normal with no audible murmur, regular rhythm. ABDOMEN: No hepatosplenomegaly, normal bowel sounds, no guarding or rigidity. SPINE: No scoliosis or deformity SKIN: No rashes CENTRAL NERVOUS SYSTEM: No focal deficits, tone is normal in all 4 extremities. EXTREMITIES: There is no peripheral edema. No clubbing, no cyanosis. Peripheral pulses are intact. - Labs CBC & Chem 7: 04/17/18 05:32 04/18/18 05:59 Labs: Abnormal Lab Results - Last 24 Hours (Table) 04/17/18 04/17/18 04/18/18 Range/Units 17:00 20:53 05:59 Sodium 136 L (137-145) mmol/L BUN 33 H (7-17) mg/dL Glucose 172 H (74-99) mg/dL POC Glucose (mg/dL) 135 H 162 H (75-99) mg/dL 04/18/18 04/18/18 Range/Units 06:23 11:11 Sodium (137-145) mmol/L BUN (7-17) mg/dL Glucose (74-99) mg/dL POC Glucose (mg/dL) 178 H 169 H (75-99) mg/dL Microbiology - Last 24 Hours (Table) 04/15/18 07:30 Blood Culture Gram Stain - Final Blood Blood Culture - Final Coagulase Negative Staph Assessment and Plan Assessment: Impression: 1 acute right lower lobe pneumonia. Hospital-acquired pathogens need to be considered including gram-negative bacteria knowing that the patient has been hospitalized on multiple occasions for the same 2 recurrent pneumonia requiring hospitalization 3 COPD with a baseline FEV1 of 50% predicted 4 history of non-small cell lung cancer/adenocarcinoma of the right middle lobe status post wedge resection without any significant postoperative pulmonary complication this was done in 2018. 5 chronic atrial fibrillation maintained on Xarelto 6 hypertension 7 hyperlipidemia 8 leukocytosis secondary to above 9 acute hypoxic respiratory failure secondary to above Plan: The patient was seen and evaluated by Dr. Jaffe. We'll go ahead and obtain a computed tomography scan of the chest based on her hemoptysis. We'll continue Xarelto for now. We'll continue current antibiotics in the form of vancomycin, Levaquin and cefepime. Continue bronchodilators and IV Solu-Medrol. We will increase her activity as tolerated. We'll continue to follow and make further recommendations based on her clinical status. I, the cosigning physician, performed a history & physical examination of the patient. Lungs sounds with bilateral scattered rhonchi, crackles in the right posterior base. Maintaining good O2 saturations in the 90s on 4 L/m per nasal cannula. I discussed the assessment and plan of care with my nurse practitioner , Nehal Pineda. I attest to the above note as dictated by her.
--- NOTE | 2018-04-18 15:52 | PN ---
PROGRESS NOTE Mrs. Woods is feeling better, comfortable. She came in with what seems to be increasing shortness of breath. There is also a question of right lower lobe pneumonia. She is on antibiotics at this time. Patient is going to have a CT scan of the chest as well. She will be continuing with her antibiotics. She has a background history of [id number] cancer, prior DVT, chronic persistent atrial fibrillation. She has atrial fibrillation, but the rate seems to be fairly well controlled. She is on Xarelto, which will be continued for now. Her ventricular rate seems to be much better today. I am recommending that we continue her current medical regimen. I will also give her 2 doses of Lasix intravenously and switch her to oral Lasix after that. She will be on oral Lasix from tomorrow morning. She is also on antibiotics, and this is being addressed by Dr. Jaffe. Cardiac-recinos, I would continue current medical regimen and switch her to oral Lasix tomorrow. Patient has chronic atrial fibrillation with good rate control, pneumonia, non-small- cell carcinoma, and on the current medical regimen the rate control seems to be quite optimal. We will continue to see her as needed. MMODL / IJN: [id number] /
[2018-04-18 16:28] LABS: Glucose,Whole Blood 114 mg/dL (75-99)
--- NOTE | 2018-04-18 16:52 | P.PN ---
Subjective Progress Note Date: 04/18/18 Principal diagnosis: Right lower lobe pneumonia Ms. Woods is a 86-year-old female with a past medical history of adenocarcinoma of the lung status post right middle lobe resection, atrial fibrillation, COPD, essential hypertension, hyperlipidemia, GERD admitted to the hospital with a chief complaint of difficulty in breathing and is currently being treated for pneumonia. Patient was also having A. fib with rapid ventricular rate. This afternoon patient has been lying comfortably in the bed appears to be no acute distress. Patient states her diarrhea has resolved. Patient still continues to have some difficulty in breathing even with mild exertion. Patient still does not have a good appetite. She feels weak and tired. No acute events reported as per nursing staff overnight. On review of systems Constitutional-generalized weakness and fatigue Respiratory-difficulty in breathing still continues. Mild cough. Cardiovascular- chest pain or palpitations GI-dietary has resolved. No abdominal pain. Still appetite is poor -no dysuria or hematuria. Active Medications Acetaminophen (Tylenol Tab) 650 mg PO Q6HR PRN PRN Reason: Mild Pain or Fever > 100.5 Last Admin: 04/17/18 21:02 Dose: 325 mg Albuterol/Ipratropium (Duoneb 0.5 Mg-3 Mg/3 Ml Soln) 3 ml INHALATION RT-Q4H [facility] Last Admin: 04/18/18 12:04 Dose: 3 ml Furosemide (Lasix) 40 mg PO BID@0900,1600 [facility] Cefepime HCl 2 gm/ Sodium (Chloride) 50 mls @ 100 mls/hr IVPB Q8HR [facility] Last Admin: 04/18/18 08:37 Dose: 100 mls/hr Sodium Chloride (Saline 0.9%) 1,000 mls @ 20 mls/hr IV .Q24H [facility] Last Admin: 04/17/18 15:15 Dose: 20 mls/hr Vancomycin HCl 1,250 mg/ (Sodium Chloride) 250 mls @ 125 mls/hr IVPB Q16H [facility] Last Admin: 04/18/18 06:29 Dose: 125 mls/hr Insulin Aspart (Novolog) 0 unit SQ ACHS [facility]; Protocol Last Admin: 04/18/18 12:04 Dose: 3 unit Levofloxacin (Levaquin) 750 mg PO DAILY [facility] Last Admin: 04/18/18 08:37 Dose: 750 mg Losartan Potassium (Cozaar) 25 mg PO DAILY [facility] Last Admin: 04/18/18 08:37 Dose: 25 mg Methylprednisolone Sodium Succinate (Solu-Medrol) 40 mg IV Q8HR [facility] Last Admin: 04/18/18 08:37 Dose: 40 mg Metoprolol Tartrate (Lopressor) 50 mg PO TID [facility] Last Admin: 04/18/18 08:37 Dose: 50 mg Miscellaneous Information (Rx Info: Iv Contrast Was Given) 1 each MISCELLANE DAILY PRN PRN Reason: Per Protocol Stop: 04/20/18 13:50 Naloxone HCl (Narcan) 0.2 mg IV Q2M PRN PRN Reason: Opioid Reversal Pantoprazole Sodium (Protonix) 40 mg PO AC-BRKFST [facility] Last Admin: 04/18/18 06:28 Dose: 40 mg Rivaroxaban (Xarelto) 20 mg PO W/SUPPER [facility] Last Admin: 04/17/18 17:15 Dose: 20 mg Sertraline HCl (Zoloft) 100 mg PO QAM [facility] Last Admin: 04/18/18 08:37 Dose: 100 mg Trazodone HCl (Desyrel) 50 mg PO HS [facility] Last Admin: 04/17/18 21:00 Dose: 50 mg Objective - Vital Signs Vital signs: Vital Signs Temp 97.3 F L 04/18/18 14:38 Pulse 77 04/18/18 14:38 Resp 17 04/18/18 15:09 BP 131/75 04/18/18 14:38 Pulse Ox 95 04/18/18 14:38 Intake & Output 04/17/18 04/18/18 04/18/18 18:59 06:59 18:59 Intake Total 832 462 Output Total 900 800 Balance -68 -338 Weight 74.4 kg Intake: Intake, IV Titration 200 Amount Cefepime 2 gm In Sodium 100 Chloride 0.9% 50 ml @ 100 mls/hr IVPB Q8HR [facility] Rx# :[id number] Sodium Chloride 0.9% 1, 100 000 ml @ 20 mls/hr IV . Q24H [facility] Rx#:[id number] Oral 632 462 Output: Urine 900 800 Other: Voiding Method Bedside Commode Bedside Commode Bedside Commode # Voids 1 3 - Exam GENERAL EXAM GEN. APPEARANCE: alert, in no apparent distress HEAD EXAM: atraumatic, normocephalic, normal inspection EYE EXAM: normal appearance, PERRL, EOMI. Absent: scleral icterus, conjunctival injection, periorbital swelling ENT EXAM: normal exam, mucous membranes moist NECK EXAM: No JVD. No thyromegaly. RESPIRATORY EXAM: Decreased breath sounds on the right side. Mild wheezing. CARDIOVASCULAR EXAM: S1-S2 heard. GI/ABDOMINAL EXAM: soft, normal bowel sounds. Absent: distended, tenderness, guarding, rebound, rigid EXTREMITIES EXAM: No edema in bilateral lower extremities NEUROLOGICAL EXAM: alert, oriented X3, no focal neurological deficits PSYCHIATRIC EXAM: normal affect, normal mood SKIN EXAM: warm, dry, intact, normal color. Absent: rash - Labs CBC & Chem 7: 04/17/18 05:32 04/18/18 05:59 Labs: Abnormal Lab Results - Last 24 Hours (Table) 04/17/18 04/17/18 04/18/18 Range/Units 17:00 20:53 05:59 Sodium 136 L (137-145) mmol/L BUN 33 H (7-17) mg/dL Glucose 172 H (74-99) mg/dL POC Glucose (mg/dL) 135 H 162 H (75-99) mg/dL 04/18/18 04/18/18 04/18/18 Range/Units 06:23 11:11 16:26 Sodium (137-145) mmol/L BUN (7-17) mg/dL Glucose (74-99) mg/dL POC Glucose (mg/dL) 178 H 169 H 114 H (75-99) mg/dL Microbiology - Last 24 Hours (Table) 04/15/18 07:30 Blood Culture Gram Stain - Final Blood Blood Culture - Final Coagulase Negative Staph Assessment and Plan Assessment: ASSESSMENT Right lower lobe pneumonia suspect gram-negative organisms Acute hypoxic respiratory failure Persistent atrial fibrillation-rate under better control currently Acute [id number]-Tydpbuim for C. 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 Continue with levofloxacin, vancomycin and cefepime as the patient has recurrent admissions for the same last month. As per pulmonary recommendations the patient is getting a repeat CT of the chest today doses are pending. We'll continue with the rest of her medication regimen. Further recommendations to follow her on the progress of the patient. Cardiology and pulmonary following the patient.
[2018-04-18] MEDS: FUROSEMIDE 40 MG TAB PO SCH (16:55)
[2018-04-18] MEDS: RIVAROXABAN 20 MG TAB PO SCH (16:56)
[2018-04-18] MEDS: SODIUM CHLORIDE 0.9% 1,000 ML IV SCH (16:56)
--- NOTE | 2018-04-18 18:04 | CT ---
EXAMINATION TYPE: CT chest w con DATE OF EXAM: 04/18/2018 COMPARISON: Prior CT chest 03/19/2017 HISTORY: SOB CT DLP: 294.5 mGycm Automated exposure control for dose reduction was used. CONTRAST: CT scan of the chest is performed with IV Contrast, patient injected with 100 mL of Isovue 300. FINDINGS: LUNGS: Extensive emphysematous changes are again noted. There is a mass in the right upper lobe measu ring approximately 3.4 cm in transverse dimension by 2.4 cm x 2.3 cm. Immediately adjacent there is a n additional soft tissue mass measuring 8 to 9 mm, additional nodule is present on axial image 23 or inferiorly and medially measuring 1 cm and slightly laterally on image 24 additional soft tissue nodu le measuring 1 cm. In the right lower lobe there are additional soft tissue masses 1 of which measure s 19 mm, smaller lesion is 1 cm, additional nodule measures 15 mm. Additional nodule on axial image 3 8 the right lower lobe measures 9 to 10 mm. Additional smaller nodules are also suspected in the righ t lower lobe. There are areas of consolidation present however. MEDIASTINUM: There are no greater than 1 cm hilar or mediastinal lymph nodes. No pericardial effusi on is seen. The heart is enlarged. There are coronary artery calcifications. Small hiatal hernia yoselin pected. Pulmonary artery is dilated. Minimal pericardial effusion. 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 Root of the aorta is 4.5 cm. There are coronary artery calcifications.. OTHER: Patient is post cholecystectomy. No evident adrenal mass. Question low dense focus within the left lobe of the liver lateral segment on axial image 58 measuring 15 mm. There is a compression def ormity present at the midthoracic spine which is stable at T8. IMPRESSION: Findings compatible with metastatic disease. Emphysema. Cardiomegaly, coronary artery di sease. Aortic aneurysm, consider pulmonary artery hypertension. Additional findings above.
[2018-04-18 20:52] LABS: Glucose,Whole Blood 248 mg/dL (75-99)
[2018-04-18] MEDS: traZODone HCL 50 MG TAB PO SCH (21:01)
[2018-04-18] MEDS: ACETAMINOPHEN TAB 325 MG TAB PO PRN (21:05)
[2018-04-19] MEDS: methylPREDNISolone SOD SUCCI 40 MG/ML 1 ML VIAL IV SCH ×4 (00:35→23:02)
[2018-04-19] MEDS: CEFEPIME 2 GM in SODIUM CHLORIDE 0.9% 50 ML IVPB SCH ×4 (00:35→23:02)
[2018-04-19] MEDS: IPRATROPIUM-ALBUTEROL 3 ML NEB INHALATION SCH ×6 (03:10→23:29)
[2018-04-19] MEDS: INSULIN ASPART 100 UNIT/ML 1 ML 10 ML VIAL SQ SCH ×4 (06:25→21:07)
[2018-04-19] MEDS: PANTOPRAZOLE 40 MG TABLET PO SCH (06:25)
[2018-04-19 06:28] LABS: Glucose,Whole Blood 158 mg/dL (75-99)
[2018-04-19 06:56] LABS: Calcium 9.6 mg/dL (8.4-10.2); Potassium 4.4 mmol/L (3.5-5.1)
[2018-04-19] MEDS: LOSARTAN 25 MG TAB PO SCH (08:42)
[2018-04-19] MEDS: LEVOFLOXACIN 750 MG TAB PO SCH (08:42)
[2018-04-19] MEDS: METOPROLOL TARTRATE 50 MG TAB PO SCH ×3 (08:42→21:07)
[2018-04-19] MEDS: FUROSEMIDE 40 MG TAB PO SCH ×2 (08:42→16:57)
[2018-04-19] MEDS: SERTRALINE 100 MG TAB PO SCH (08:42)
[2018-04-19 11:28] LABS: Glucose,Whole Blood 142 mg/dL (75-99)
--- NOTE | 2018-04-19 14:40 | P.PN ---
Subjective Progress Note Date: 04/19/18 87-year-old female patient who is known to me from previous admissions to the hospital. [facility] of increased dyspnea, cough, chest congestion, wheezing, fever, chills and she was found to have leukocytosis and elevated and lactic acid level. Chest x-ray showed right lower lobe pneumonia and the patient was hospitalized for an acute right lower lobe pneumonia treatment. The patient was given IV fluids. The patient was placed on accommodation of Levaquin and vancomycin. She was admitted to the medical floor and the pulmonary consultation was requested. Note that the patient has history of COPD and previous history of non-small cell lung cancer. The patient presented with a right middle lobe mass approximately a year ago and this was at 2.3 x 0.9 cm lesion that had high SUV uptake and for that reason the patient was referred to thoracic surgery and the patient underwent a right middle lobe wedge resection and the postop the finding was consistent with adenocarcinoma. Note that at that time the patient' s hospitalization course was unremarkable. She is known to have COPD with a baseline FEV1 of 50% of predicted. MRI of the brain was negative for any metastases. Since then, the patient was readmitted to the hospital in November 2017 for a left lower lobe pneumonia. She had another hospitalization following that on 03/31/2018 for a right lower lobe pneumonia. This seems to be the third pneumonia [id number]. No altered mentation. No smoking. She has chronic atrial fibrillation and she is maintained on anticoagulation. On 04/16/2018 patient seen in follow-up on selective care unit. Quite congested and wheezy, coughing, or breath. Currently on 5 L per nasal cannula pulse ox is 94%, afebrile, hemodynamically stable, initial blood culture was negative, second set of cultures collected on 04/15/2018 shows gram-positive cocci in groups, final cultures pending. Continue antibiotic coverage includes cefepime, Levaquin, patient is on IV steroids, nebulized bronchodilators, last night patient went into A. fib RVR, she was started on Cardizem drip which is currently infusing at a rate of 5 mg per hour, 0.9 normal saline at a rate of 125 ML per hour, labs have been reviewed, BNP showed sodium of 139, potassium is 5.1, chloride is 111, CO2 is 19, BUN is 28 creatinine 0.64. Continue with current medical treatment. The patient is seen today 04/17/2018 in follow-up on the selective care unit. She is currently sitting up in a chair at the bedside. She is awake and alert in no acute distress. She has been slow to progress. Still with a loose nonproductive cough. Maintaining O2 saturations in the mid 90s on 4 L/m per nasal cannula. Chest x-ray reveals improving right middle lobe pneumonia. She' s been afebrile. Hemodynamically stable. Blood culture reveals coagulase negative staph preliminarily. White count 12.9. Hemoglobin 12.1. Platelet count 100,000. Creatinine 0.65. She is currently on vancomycin, cefepime, Levaquin. Patient is seen again today 04/18/2018 in follow-up on the selective care unit. She is currently resting comfortably in bed. She is awake and alert in no acute distress. She does have a productive cough now of brownish red sputum. She states she is breathing a bit easier today as compared to yesterday. She is maintaining good O2 saturations in the 90s on 5 L/m per nasal cannula. She' s been afebrile. Hemodynamically stable. She is maintained on bronchodilators , IV Solu-Medrol, antibiotics in the form of vancomycin, cefepime and Levaquin. She is anticoagulated with Xarelto. On 04/19/2018, the patient is being seen for a follow-up. Clinically improved and less short of breath compared to yesterday. She is having limited hemoptysis with bloody mucus. Based on this, I ordered a CAT scan of the chest that showed extensive emphysematous change in addition to a masslike lesion in the right lung area measuring 3.4 cm x 2.4 x 2.3 cm in size. Immediately adjacent to that that another 9 mm nodule and there is another soft tissue density in the lower lung area measuring 1 cm in size and another one measuring 19 mm in size. No mediastinal lymphadenopathy. Small hiatal hernia was suspected. Based on this, recurrent malignancy or metastatic lung cancer cannot be completely excluded. Incentive there is indication for a right lower lobe pneumonia/consolidation. The patient is currently on broad-spectrum antibiotics. Clinically improving. No chest pain. No fever or chills and the patient is hemodynamically stable. Have this patient on a combination of cefepime and Levaquin and vancomycin. She is also on IV Solu Medrol 40 mg every 8 hours. She is on DuoNeb nebulized treatments around the clock. She is on long-term articulation with Xarelto also. Objective - Vital Signs Vital signs: Vital Signs Temp 97.7 F 04/19/18 08:00 Pulse 80 04/19/18 12:29 Resp 17 04/19/18 12:00 BP 122/70 04/19/18 12:00 Pulse Ox 94 L 04/19/18 12:00 Intake & Output 04/18/18 04/19/18 04/19/18 18:59 06:59 18:59 Intake Total 684 160 Output Total 800 400 Balance -116 160 -400 Intake: IV 160 0.9 160 Oral 684 Output: Urine 800 400 Other: Voiding Method Bedside Commode Bedside Commode Bedside Commode # Voids 2 - Exam GENERAL EXAM: Alert, comfortable in no apparent distress. On 5 L/m per nasal cannula. HEAD: Normocephalic. EYES: Normal reaction of pupils, equal size. NOSE: Clear with pink turbinates. THROAT: No erythema or exudates. NECK: No masses, no JVD. CHEST: No chest wall deformity. LUNGS: Equal air entry with scattered rhonchi, crackles in the right posterior base. CVS: S1 and S2 normal with no audible murmur, regular rhythm. ABDOMEN: No hepatosplenomegaly, normal bowel sounds, no guarding or rigidity. SPINE: No scoliosis or deformity SKIN: No rashes CENTRAL NERVOUS SYSTEM: No focal deficits, tone is normal in all 4 extremities. EXTREMITIES: There is no peripheral edema. No clubbing, no cyanosis. Peripheral pulses are intact. - Labs CBC & Chem 7: 04/17/18 05:32 04/19/18 05:56 Labs: Abnormal Lab Results - Last 24 Hours (Table) 04/18/18 04/18/18 04/19/18 Range/Units 16:26 20:51 05:56 Chloride 96 L (98-107) mmol/L Carbon Dioxide 35 H (22-30) mmol/L BUN 40 H (7-17) mg/dL Glucose 151 H (74-99) mg/dL POC Glucose (mg/dL) 114 H 248 H (75-99) mg/dL 04/19/18 04/19/18 Range/Units 06:20 11:26 Chloride (98-107) mmol/L Carbon Dioxide (22-30) mmol/L BUN (7-17) mg/dL Glucose (74-99) mg/dL POC Glucose (mg/dL) 158 H 142 H (75-99) mg/dL Assessment and Plan Plan: Assessment 1 acute right lower lobe pneumonia. On a combination of cefepime Levaquin and vancomycin. Clinically improving and currently she is on 3 L of oxygen nasal cannula. Less focused spastic and wheezy compared to yesterday. 2 recurrent pneumonia requiring hospitalization 3 COPD with a baseline FEV1 of 50% predicted 4 history of non-small cell lung cancer/adenocarcinoma of the right middle lobe status post wedge resection without any significant postoperative pulmonary complication this was done in 2018. A follow-up CAT scan of the chest was done on 04/18/2018 and there is a suspicion for disease progression and development of metastatic disease knowing that patient has several lesions in the right lung as discussed with a CAT scan of the chest. Obviously, metastatic lung cancer needs to be considered 5 chronic atrial fibrillation maintained on Xarelto and the patient developed a few bouts of hemoptysis in the setting of right lower lobe pneumonia and being anticoagulated with Xarelto. 6 hypertension 7 hyperlipidemia 8 leukocytosis secondary to above 9 acute hypoxic respiratory failure secondary to above my improving and the patient is currently down to 3 l by nasal cannula. 10 hemoptysis, secondary to above. Currently on Xarelto. Amount of hemoptysis is minimal. Plan A GI tumor the right lower lobe pneumonia. Continue bronchodilators. Continue steroids. There is concern for a metastatic disease involvement based on the results of the CAT scan. His initial that would be discussed and handout at a later stage after the patient's for recovered from right lower lobe pneumonia. Findings on the CAT scan of the chest was extended to the patient. For now the prior to will be treating her pneumonia and for that reason we'll continue the patient antibiotics and monitor progress. Continue Xarelto as long as the hemoptysis is minimal for now.
--- NOTE | 2018-04-19 15:04 | P.PN ---
Subjective Progress Note Date: 04/19/18 Principal diagnosis: Right lower lobe pneumonia Ms. Woods is a 86-year-old female with a past medical history of adenocarcinoma of the lung status post right middle lobe resection, atrial fibrillation, COPD, essential hypertension, hyperlipidemia, GERD admitted to the hospital with a chief complaint of difficulty in breathing and is currently being treated for pneumonia. Patient was also having A. fib with rapid ventricular rate. On 04/19/18 - no acute overnight events reported per nursing staff.This afternoon patient has been lying comfortably in the bed appears to be no acute distress. Patient still continues to have some difficulty in breathing even with mild exertion. Patient still does not have a good appetite. She feels weak and tired. On review of systems- Constitutional-generalized weakness and fatigue Respiratory-difficulty in breathing still continues. Mild cough. Cardiovascular- chest pain or palpitations GI-dietary has resolved. No abdominal pain. Still appetite is poor -no dysuria or hematuria. Active Medications Acetaminophen (Tylenol Tab) 650 mg PO Q6HR PRN PRN Reason: Mild Pain or Fever > 100.5 Last Admin: 04/18/18 21:05 Dose: 325 mg Albuterol/Ipratropium (Duoneb 0.5 Mg-3 Mg/3 Ml Soln) 3 ml INHALATION RT-Q4H [facility] Last Admin: 04/19/18 12:15 Dose: 3 ml Furosemide (Lasix) 40 mg PO BID@0900,1600 [facility] Last Admin: 04/19/18 08:42 Dose: 40 mg Cefepime HCl 2 gm/ Sodium (Chloride) 50 mls @ 100 mls/hr IVPB Q8HR [facility] Last Admin: 04/19/18 08:41 Dose: 100 mls/hr Sodium Chloride (Saline 0.9%) 1,000 mls @ 20 mls/hr IV .Q24H [facility] Last Admin: 04/18/18 16:56 Dose: Not Given Vancomycin HCl 1,250 mg/ (Sodium Chloride) 250 mls @ 125 mls/hr IVPB Q16H [facility] Last Admin: 04/18/18 21:50 Dose: 125 mls/hr Insulin Aspart (Novolog) 0 unit SQ ACHS [facility]; Protocol Last Admin: 04/19/18 12:17 Dose: 2 unit Levofloxacin (Levaquin) 750 mg PO DAILY [facility] Last Admin: 04/19/18 08:42 Dose: 750 mg Losartan Potassium (Cozaar) 25 mg PO DAILY [facility] Last Admin: 04/19/18 08:42 Dose: 25 mg Methylprednisolone Sodium Succinate (Solu-Medrol) 40 mg IV Q8HR [facility] Last Admin: 04/19/18 08:42 Dose: 40 mg Metoprolol Tartrate (Lopressor) 50 mg PO TID [facility] Last Admin: 04/19/18 08:42 Dose: 50 mg Miscellaneous Information (Rx Info: Iv Contrast Was Given) 1 each MISCELLANE DAILY PRN PRN Reason: Per Protocol Stop: 04/20/18 13:50 Miscellaneous Information (Vancomycin Trough Due) 0 each MISCELLANE DIRECTED ONE Stop: 04/20/18 06:01 Naloxone HCl (Narcan) 0.2 mg IV Q2M PRN PRN Reason: Opioid Reversal Pantoprazole Sodium (Protonix) 40 mg PO AC-BRKFST [facility] Last Admin: 04/19/18 06:25 Dose: 40 mg Rivaroxaban (Xarelto) 20 mg PO W/SUPPER [facility] Last Admin: 04/18/18 16:56 Dose: 20 mg Sertraline HCl (Zoloft) 100 mg PO QAM [facility] Last Admin: 04/19/18 08:42 Dose: 100 mg Trazodone HCl (Desyrel) 50 mg PO HS [facility] Last Admin: 04/18/18 21:01 Dose: 50 mg Objective - Vital Signs Vital signs: Vital Signs Temp 97.7 F 04/19/18 08:00 Pulse 80 04/19/18 12:29 Resp 17 04/19/18 12:00 BP 122/70 04/19/18 12:00 Pulse Ox 94 L 04/19/18 12:00 Intake & Output 04/18/18 04/19/18 04/19/18 18:59 06:59 18:59 Intake Total 684 160 Output Total 800 400 Balance -116 160 -400 Intake: IV 160 0.9 160 Oral 684 Output: Urine 800 400 Other: Voiding Method Bedside Commode Bedside Commode Bedside Commode # Voids 2 - Exam GEN. APPEARANCE: alert, in no apparent distress HEAD EXAM: atraumatic, normocephalic, normal inspection EYE EXAM: no pallor. No icterus. ENT EXAM: normal exam, mucous membranes moist NECK EXAM: No JVD. No thyromegaly. RESPIRATORY EXAM: Decreased breath sounds on the right side. Mild wheezing. CARDIOVASCULAR EXAM: S1-S2 heard. GI/ABDOMINAL EXAM: soft, normal bowel sounds. Absent: distended, tenderness, guarding, rebound, rigid EXTREMITIES EXAM: No edema in bilateral lower extremities NEUROLOGICAL EXAM: alert, oriented X3, no focal neurological deficits PSYCHIATRIC EXAM: normal affect, normal mood SKIN EXAM: warm, dry, intact, normal color. Absent: rash - Labs CBC & Chem 7: 04/17/18 05:32 04/19/18 05:56 Labs: Abnormal Lab Results - Last 24 Hours (Table) 04/18/18 04/18/18 04/19/18 Range/Units 16:26 20:51 05:56 Chloride 96 L (98-107) mmol/L Carbon Dioxide 35 H (22-30) mmol/L BUN 40 H (7-17) mg/dL Glucose 151 H (74-99) mg/dL POC Glucose (mg/dL) 114 H 248 H (75-99) mg/dL 04/19/18 04/19/18 Range/Units 06:20 11:26 Chloride (98-107) mmol/L Carbon Dioxide (22-30) mmol/L BUN (7-17) mg/dL Glucose (74-99) mg/dL POC Glucose (mg/dL) 158 H 142 H (75-99) mg/dL Assessment and Plan Assessment: ASSESSMENT Right lower lobe pneumonia suspect gram-negative organisms Acute hypoxic respiratory failure Persistent atrial fibrillation-rate under better control currently Acute [id number] for C. 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 Continue with levofloxacin, vancomycin and cefepime as the patient has recurrent admissions for the same last month. Patient had a CAT scan of the chest done yesterday- findings are compatible with metastatic disease and emphysema. We'll continue with the rest of her medication regimen. Further recommendations to follow her on the progress of the patient. Cardiology and pulmonary following the patient.
[2018-04-19] MEDS: VANCOMYCIN 1,250 MG in SODIUM CHLORIDE 0.9% 250 ML IVPB SCH (15:39)
--- NOTE | 2018-04-19 15:50 | CONS ---
CONSULTATION Mrs Lozano his atrial fib controlled rate. She is comfortable resting. She is known to have an abnormal chest x-ray with a possible lung mass. However, cardiac-recinos she is stable. We will continue anticoagulation and also rate control, which seems to be quite optimal at this time. Her vital signs are stable. Her breathing has also improved. Rate control seems to be better. There is a question of possible lung malignancy as well and Dr. Jaffe is addressing this issue. S1-S2 heard normally with irregularity in rhythm. Lungs revealed diminished air entry over both bases. Abdomen and lower exam otherwise is unchanged. Plan is to continue current medical regimen from a cardiac standpoint. The patient is on Xarelto and rate control is also optimal with beta clark and metoprolol 50 mg t.i.d., which we will continue. MMODL / IJN: [id number] /
[2018-04-19 16:41] LABS: Glucose,Whole Blood 153 mg/dL (75-99)
[2018-04-19] MEDS: RIVAROXABAN 20 MG TAB PO SCH (16:58)
[2018-04-19] MEDS: SODIUM CHLORIDE 0.9% 1,000 ML IV SCH (17:06)
[2018-04-19 20:59] LABS: Glucose,Whole Blood 166 mg/dL (75-99)
[2018-04-19] MEDS: traZODone HCL 50 MG TAB PO SCH (21:07)
[2018-04-19] MEDS: ACETAMINOPHEN TAB 325 MG TAB PO PRN (21:09)
[2018-04-20] MEDS: IPRATROPIUM-ALBUTEROL 3 ML NEB INHALATION SCH ×6 (03:35→23:39)
[2018-04-20] MEDS ORDERED: VANCOMYCIN TROUGH DUE 1 EACH MISC MISCELLANE ONE (06:00)
[2018-04-20 06:11] LABS: Glucose,Whole Blood 162 mg/dL (75-99)
[2018-04-20] MEDS: PANTOPRAZOLE 40 MG TABLET PO SCH (06:37)
[2018-04-20] MEDS: INSULIN ASPART 100 UNIT/ML 1 ML 10 ML VIAL SQ SCH ×4 (06:38→20:15)
[2018-04-20] MEDS: VANCOMYCIN 1,250 MG in SODIUM CHLORIDE 0.9% 250 ML IVPB SCH (07:44)
[2018-04-20 08:18] LABS: Calcium 9.8 mg/dL (8.4-10.2); Potassium 3.8 mmol/L (3.5-5.1)
[2018-04-20 08:36] LABS: Anisocytosis Slight; Basophils % (A) 0 %; Eosinophils % (A) 0 %; HCT 47.8 % (34.0-46.0); Lymphocytes # (A) 0.6 k/uL (1.0-4.8); Lymphocytes % (A) 6 %; MCH 28.8 pg (25.0-35.0); MCHC 31.4 g/dL (31.0-37.0); Mean Platelet Volume 9.3; Monocytes # (A) 0.5 k/uL (0-1.0); Monocytes % (A) 5 %; Neutrophils # (A) 8.8 k/uL (1.3-7.7); Neutrophils % (A) 88 %; Platelet Count 136 k/uL (150-450); RBC 5.22 m/uL (3.80-5.40); RDW 17.1 % (11.5-15.5)
[2018-04-20 08:42] LABS: MCV 91.6 fL (80.0-100.0)
[2018-04-20] MEDS: LOSARTAN 25 MG TAB PO SCH (09:39)
[2018-04-20] MEDS: LEVOFLOXACIN 750 MG TAB PO SCH (09:40)
[2018-04-20] MEDS: methylPREDNISolone SOD SUCCI 40 MG/ML 1 ML VIAL IV SCH ×3 (09:40→23:20)
[2018-04-20] MEDS: FUROSEMIDE 40 MG TAB PO SCH ×2 (09:40→15:03)
[2018-04-20] MEDS: SERTRALINE 100 MG TAB PO SCH (09:40)
[2018-04-20] MEDS: METOPROLOL TARTRATE 50 MG TAB PO SCH ×3 (09:40→20:02)
[2018-04-20] MEDS: CEFEPIME 2 GM in SODIUM CHLORIDE 0.9% 50 ML IVPB SCH ×3 (10:00→23:20)
--- NOTE | 2018-04-20 10:33 | CDI ---
Documentation Clarification Form Date: 04/20/2018 10:18:27 AM From: Shu EscobarKlineYANETH, CCDS Admit Date: 04/15/2018 8:34:00 AM Patient Name: Juanita Woods Visit Number: [id number] Discharge Date: ATTENTION: The Clinical Documentation Specialists (CDI) and [facility] Coding Staff appreciate your assistance in clarifying documentation. Please respond to the clarification below the line at the bottom and electronically sign. The CDI & [facility] Coding staff will review the response and follow-up if needed. Please note: Queries are made part of the Legal Health Record. If you have any questions, please contact the author of this message via ITS. Dr. Celia Prado: Per the ED note: "Patient is given 30 mL per KG bolus in the emergency department for sepsis secondary to pneumonia." History/Risk Factors: Pneumonia, Sepsis, COPD, Chronic, Persistent Atrial Fibrillation, Adenocarcinoma of the lung status post RML resection, Hypertension , Hyperlipidemia, GERD, Depression, Chronic pain, Former smoker. Clinical Indicators: Presented with SOB, vomiting & diarrhea. VS: T 97.8, P 90, R 32^, BP 99/74, PO 85 2Lnc. LAB: WBC 21.4^, Lactic Acid 4.1^^. Blood Culture Final: Coagulase Negative Staph CXR: New, increasing patchy consolidation right mid & lower lung, correlate for possible pneumonia. Treatment: Albuterol INH, Atrovent INH, IV Solumedrol, O2, IV fluid boluses x2, IV Levaquin, IV Vanco, IV Cefepime, Cardizem drip. In your professional opinion, please clarify if these findings signify one of the following conditions, whether the condition is POA, and cause, if known: Sepsis ruled out Sepsis ruled in o With or without Severe Sepsis o With or without Septic Shock Other, please specify Unable to determine Present on Admission: Yes or No No Sepsis MTDD
[2018-04-20 12:14] LABS: Glucose,Whole Blood 150 mg/dL (75-99)
--- NOTE | 2018-04-20 12:37 | XR ---
EXAMINATION TYPE: XR chest 1V portable DATE OF EXAM: 04/20/2018 COMPARISON: Prior chest x-ray 04/17/[address] 04/18/2018 HISTORY: Pneumonia and lung carcinoma TECHNIQUE: Single frontal view of the chest is obtained. FINDINGS: There is some improvement in aeration as compared to prior exam. Patient is again rotated. Heart size is stable. Nodular density right upper lobe again seen. There are overlying cardiac leads . Patient's right lower lobe lung masses are not well seen. IMPRESSION: Improvement in aeration. Emphysema, lung mass
--- NOTE | 2018-04-20 13:54 | P.PN ---
Subjective Progress Note Date: 04/20/18 Principal diagnosis: Acute right lower lobe pneumonia, hospital-acquired, possibly gram-negative 87-year-old female patient who is known to me from previous admissions to the hospital. [facility] complaining of increased dyspnea, cough, chest congestion, wheezing, fever, chills and she was found to have leukocytosis and elevated and lactic acid level. Chest x-ray showed right lower lobe pneumonia and the patient was hospitalized for an acute right lower lobe pneumonia treatment. The patient was given IV fluids. The patient was placed on accommodation of Levaquin and vancomycin. She was admitted to the medical floor and the pulmonary consultation was requested. Note that the patient has history of COPD and previous history of non-small cell lung cancer. The patient presented with a right middle lobe mass approximately a year ago and this was at 2.3 x 0.9 cm lesion that had high SUV uptake and for that reason the patient was referred to thoracic surgery and the patient underwent a right middle lobe wedge resection and the postop the finding was consistent with adenocarcinoma. Note that at that time the patient' s hospitalization course was unremarkable. She is known to have COPD with a baseline FEV1 of 50% of predicted. MRI of the brain was negative for any metastases. Since then, the patient was readmitted to the hospital in November 2017 for a left lower lobe pneumonia. She had another hospitalization following that on 03/31/2018 for a right lower lobe pneumonia. This seems to be the third pneumonia [id number]. No altered mentation. No smoking. She has chronic atrial fibrillation and she is maintained on anticoagulation. On 04/16/2018 patient seen in follow-up on selective care unit. Quite congested and wheezy, coughing, or breath. Currently on 5 L per nasal cannula pulse ox is 94%, afebrile, hemodynamically stable, initial blood culture was negative, second set of cultures collected on 04/15/2018 shows gram-positive cocci in groups, final cultures pending. Continue antibiotic coverage includes cefepime, Levaquin, patient is on IV steroids, nebulized bronchodilators, last night patient went into A. fib RVR, she was started on Cardizem drip which is currently infusing at a rate of 5 mg per hour, 0.9 normal saline at a rate of 125 ML per hour, labs have been reviewed, BNP showed sodium of 139, potassium is 5.1, chloride is 111, CO2 is 19, BUN is 28 creatinine 0.64. Continue with current medical treatment. On 04/20/2018 patient seen in follow-up in the selective care unit. She is awake and alert, in no acute distress, currently on 3 L per nasal cannula pulse ox is 95%, afebrile, hemodynamically stable. Less congested and wheezy. No dyspnea, no chest pain. Today's chest x-ray shows improvement in aeration. No hemoptysis today. Blood culture showed coagulase-negative staph, likely contamination. His labs have been reviewed, showed of WBC of 10.0, hemoglobin of 15.0, BMP was unremarkable. No fever no chills. Objective - Vital Signs Vital signs: Vital Signs Temp 98.1 F 04/20/18 11:12 Pulse 78 04/20/18 12:33 Resp 16 04/20/18 12:19 BP 122/84 04/20/18 11:12 Pulse Ox 95 04/20/18 11:12 Intake & Output 04/19/18 04/20/18 04/20/18 18:59 06:59 18:59 Intake Total 444 50 470 Output Total 400 Balance 44 50 470 Weight 70.5 kg Intake: Intake, IV Titration 50 350 Amount Cefepime 2 gm In Sodium 50 100 Chloride 0.9% 50 ml @ 100 mls/hr IVPB Q8HR [facility] Rx# :[id number] Vancomycin 1,250 mg In 250 Sodium Chloride 0.9% 250 ml @ 125 mls/hr IVPB Q16H [facility] Rx#:[id number] Oral 444 120 Output: Urine 400 Other: Voiding Method Bedside Commode Bedside Commode Bedside Commode # Voids 2 2 - Exam GENERAL EXAM: Frail, cachectic. Alert, active, comfortable in mild degree of respiratory distress. HEAD: Normocephalic. EYES: Normal reaction of pupils, equal size. NOSE: Clear with pink turbinates. THROAT: No erythema or exudates. NECK: No masses, no JVD. CHEST: No chest wall deformity. Diminished breath sound bilaterally. With a few scattered rales LUNGS: Equal air entry with crackles in the right posterior base. Diminished. CVS: S1 and S2 normal with no audible murmur, irregular rhythm. ABDOMEN: No hepatosplenomegaly, normal bowel sounds, no guarding or rigidity. SPINE: No scoliosis or deformity SKIN: No rashes CENTRAL NERVOUS SYSTEM: No focal deficits, tone is normal in all 4 extremities. EXTREMITIES: There is no peripheral edema. No clubbing, no cyanosis. Peripheral pulses are intact. - Labs CBC & Chem 7: 04/20/18 07:31 04/20/18 07:31 Labs: Abnormal Lab Results - Last 24 Hours (Table) 04/19/18 04/19/18 04/20/18 Range/Units 16:39 20:57 05:54 Hct (34.0-46.0) % RDW (11.5-15.5) % Plt Count (150-450) k/uL Neutrophils # (1.3-7.7) k/uL Lymphocytes # (1.0-4.8) k/uL Chloride (98-107) mmol/L Carbon Dioxide (22-30) mmol/L BUN (7-17) mg/dL Glucose (74-99) mg/dL POC Glucose (mg/dL) 153 H 166 H 162 H (75-99) mg/dL 04/20/1818 04/20/18 Range/Units 07:31 07:31 11:47 Hct 47.8 H (34.0-46.0) % RDW 17.1 H (11.5-15.5) % Plt Count 136 L (150-450) k/uL Neutrophils # 8.8 H (1.3-7.7) k/uL Lymphocytes # 0.6 L (1.0-4.8) k/uL Chloride 93 L (98-107) mmol/L Carbon Dioxide 33 H (22-30) mmol/L BUN 44 H (7-17) mg/dL Glucose 143 H (74-99) mg/dL POC Glucose (mg/dL) 150 H (75-99) mg/dL Assessment and Plan Plan: 1 acute right lower lobe pneumonia. Hospital-acquired pathogens need to be considered including gram-negative bacteria knowing that the patient has been hospitalized on multiple occasions for the same. 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 A follow-up CAT scan of the chest was done on 2017 and there is a suspicion for disease progression and development of metastatic disease knowing that patient has several lesions in the right lung as discussed with the CAT scan of the chest. Obviously metastatic lung cancer needs to be considered 5 chronic atrial fibrillation maintained on Xarelto and the rate is controlled for now 6 hypertension 7 hyperlipidemia 8 leukocytosis secondary to above 9 acute hypoxic respiratory failure secondary to above Plan: We'll continue current medical treatment, increase activity, cultures remain negative thus far, she was unable to produce a sputum specimen, but clinically she is improving, less bronchospastic and congested. Has not been up out of bed ambulating, also need to obtain home oxygen assessment. Patient lives alone although she states there support available from her friends. No fever no chills, may consider discontinuing the vancomycin. Labs have been reviewed. We'll continue to follow I performed a history & physical examination of the patient and discussed their management with my nurse practitioner, Veena Grant. I reviewed the nurse practitioner's note and agree with the documented findings and plan of care. Lung sounds are positive a few scattered rales. The findings and the impression was discussed with the patient. I attest to the documentation by the nurse practitioner. Time with Patient: Less than 30
--- NOTE | 2018-04-20 14:51 | P.PN ---
Subjective Progress Note Date: 04/20/18 Principal diagnosis: Right lower lobe pneumonia Ms. Woods is a 86-year-old female with a past medical history of adenocarcinoma of the lung status post right middle lobe resection, atrial fibrillation, COPD, essential hypertension, hyperlipidemia, GERD admitted to the hospital with a chief complaint of difficulty in breathing and is currently being treated for pneumonia. Patient was also having A. fib with rapid ventricular rate. On 04/20/18 - no acute overnight events reported per nursing staff.This afternoon patient has been lying comfortably in the bed appears to be no acute distress. Patient still continues to have some difficulty in breathing even with mild exertion. Patient still does not have a good appetite. She feels weak and tired. Patient states that she lives all alone by herself and has help over the weekends. Since being the hospital patient has been very weak and it would be difficult for her to be at home alone. On review of systems- Constitutional-generalized weakness and fatigue Respiratory-difficulty in breathing still continues. Mild cough. Cardiovascular- chest pain or palpitations GI - Diarrhea has resolved No abdominal pain. Still appetite is poor -no dysuria or hematuria. Objective - Vital Signs Vital signs: Vital Signs Temp 98.1 F 04/20/18 11:12 Pulse 78 04/20/18 12:33 Resp 16 04/20/18 12:19 BP 122/84 04/20/18 11:12 Pulse Ox 95 04/20/18 11:12 Intake & Output 04/19/18 04/20/18 04/20/18 18:59 06:59 18:59 Intake Total 444 50 590 Output Total 400 Balance 44 50 590 Weight 70.5 kg Intake: Intake, IV Titration 50 350 Amount Cefepime 2 gm In Sodium 50 100 Chloride 0.9% 50 ml @ 100 mls/hr IVPB Q8HR [facility] Rx# :[id number] Vancomycin 1,250 mg In 250 Sodium Chloride 0.9% 250 ml @ 125 mls/hr IVPB Q16H [facility] Rx#:[id number] Oral 444 240 Output: Urine 400 Other: Voiding Method Bedside Commode Bedside Commode Bedside Commode # Voids 2 2 - Exam GEN. APPEARANCE: alert, in no apparent distress HEAD EXAM: atraumatic, normocephalic, normal inspection EYE EXAM: no pallor. No icterus. ENT EXAM: normal exam, mucous membranes moist NECK EXAM: No JVD. No thyromegaly. RESPIRATORY EXAM: Decreased breath sounds on the right side. Mild wheezing. CARDIOVASCULAR EXAM: S1-S2 heard. GI/ABDOMINAL EXAM: soft, normal bowel sounds. Absent: distended, tenderness, guarding, rebound, rigid EXTREMITIES EXAM: No edema in bilateral lower extremities NEUROLOGICAL EXAM: alert, oriented X3, no focal neurological deficits PSYCHIATRIC EXAM: normal affect, normal mood SKIN EXAM: Skin is friable - Labs CBC & Chem 7: 04/20/18 07:31 04/20/18 07:31 Labs: Abnormal Lab Results - Last 24 Hours (Table) 04/19/18 04/19/18 04/20/18 Range/Units 16:39 20:57 05:54 Hct (34.0-46.0) % RDW (11.5-15.5) % Plt Count (150-450) k/uL Neutrophils # (1.3-7.7) k/uL Lymphocytes # (1.0-4.8) k/uL Chloride (98-107) mmol/L Carbon Dioxide (22-30) mmol/L BUN (7-17) mg/dL Glucose (74-99) mg/dL POC Glucose (mg/dL) 153 H 166 H 162 H (75-99) mg/dL 04/20/18 04/20/18 04/20/18 Range/Units 07:31 07:31 11:47 Hct 47.8 H (34.0-46.0) % RDW 17.1 H (11.5-15.5) % Plt Count 136 L (150-450) k/uL Neutrophils # 8.8 H (1.3-7.7) k/uL Lymphocytes # 0.6 L (1.0-4.8) k/uL Chloride 93 L (98-107) mmol/L Carbon Dioxide 33 H (22-30) mmol/L BUN 44 H (7-17) mg/dL Glucose 143 H (74-99) mg/dL POC Glucose (mg/dL) 150 H (75-99) mg/dL Assessment and Plan Assessment: ASSESSMENT Right lower lobe pneumonia suspect gram-negative organisms Acute hypoxic respiratory failure Persistent atrial fibrillation-rate under better control currently Acute kcdwhqqz-[id number]-[id number] for C. 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 Continue with levofloxacin, vancomycin and cefepime - day 6 of all these antibiotics . They can be discontinued tomorrow. Patient had a CAT scan of the chest done, findings are compatible with metastatic disease and emphysema. We'll continue with the rest of her medication regimen. Further recommendations to follow her on the progress of the patient. Cardiology and pulmonary following the patient. Had a detailed discussion with the patient that it would be unsafe for her to go home and live alone. She said she would think about going to a [place] [facility]. 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
--- NOTE | 2018-04-20 16:18 | PN ---
PROGRESS NOTE Mrs Woods is a lady with chronic atrial fib. She is doing much better. She has no chest pain. Improved breathing. S1-S2 heard normally. Irregular rhythm noted. Lungs reveal improved air entry. Abdomen and lower extremity exam is unchanged. Plan is to continue current medications, increase activity and she can be discharged and we will see her as needed from a cardiac standpoint. MMODL / IJN: [id number] /
[2018-04-20 16:37] LABS: Glucose,Whole Blood 146 mg/dL (75-99)
[2018-04-20] MEDS: RIVAROXABAN 20 MG TAB PO SCH (17:28)
[2018-04-20] MEDS: SODIUM CHLORIDE 0.9% 1,000 ML IV SCH (17:29)
[2018-04-20] MEDS: traZODone HCL 50 MG TAB PO SCH (20:02)
[2018-04-20] MEDS: ACETAMINOPHEN TAB 325 MG TAB PO PRN (20:03)
[2018-04-20 20:10] LABS: Glucose,Whole Blood 127 mg/dL (75-99)
[2018-04-21] MEDS: IPRATROPIUM-ALBUTEROL 3 ML NEB INHALATION SCH ×6 (04:01→23:43)
[2018-04-21 06:15] LABS: Glucose,Whole Blood 172 mg/dL (75-99)
[2018-04-21] MEDS: PANTOPRAZOLE 40 MG TABLET PO SCH (06:33)
[2018-04-21] MEDS: INSULIN ASPART 100 UNIT/ML 1 ML 10 ML VIAL SQ SCH ×4 (06:33→21:20)
[2018-04-21] MEDS: CEFEPIME 2 GM in SODIUM CHLORIDE 0.9% 50 ML IVPB SCH (08:03)
[2018-04-21] MEDS: methylPREDNISolone SOD SUCCI 40 MG/ML 1 ML VIAL IV SCH ×3 (08:03→23:39)
[2018-04-21 08:30] LABS: Calcium 9.2 mg/dL (8.4-10.2); Potassium 3.6 mmol/L (3.5-5.1)
[2018-04-21] MEDS: METOPROLOL TARTRATE 50 MG TAB PO SCH ×3 (09:47→20:59)
[2018-04-21] MEDS: LEVOFLOXACIN 750 MG TAB PO SCH (09:47)
[2018-04-21] MEDS: SERTRALINE 100 MG TAB PO SCH (09:47)
[2018-04-21] MEDS: LOSARTAN 25 MG TAB PO SCH (09:47)
[2018-04-21] MEDS: FUROSEMIDE 40 MG TAB PO SCH ×3 (09:47→16:01)
[2018-04-21 11:47] LABS: Glucose,Whole Blood 146 mg/dL (75-99)
--- NOTE | 2018-04-21 13:01 | P.PN ---
Subjective Progress Note Date: 04/21/18 Principal diagnosis: Acute right lower lobe pneumonia, hospital-acquired, possibly gram-negative 87-year-old female patient who is known to me from previous admissions to the hospital. [facility] of increased dyspnea, cough, chest congestion, wheezing, fever, chills and she was found to have leukocytosis and elevated and lactic acid level. Chest x-ray showed right lower lobe pneumonia and the patient was hospitalized for an acute right lower lobe pneumonia treatment. The patient was given IV fluids. The patient was placed on accommodation of Levaquin and vancomycin. She was admitted to the medical floor and the pulmonary consultation was requested. Note that the patient has history of COPD and previous history of non-small cell lung cancer. The patient presented with a right middle lobe mass approximately a year ago and this was at 2.3 x 0.9 cm lesion that had high SUV uptake and for that reason the patient was referred to thoracic surgery and the patient underwent a right middle lobe wedge resection and the postop the finding was consistent with adenocarcinoma. Note that at that time the patient' s hospitalization course was unremarkable. She is known to have COPD with a baseline FEV1 of 50% of predicted. MRI of the brain was negative for any metastases. Since then, the patient was readmitted to the hospital in November 2017 for a left lower lobe pneumonia. She had another hospitalization following that on 03/31/2018 for a right lower lobe pneumonia. This seems to be the third pneumonia [id number]. No altered mentation. No smoking. She has chronic atrial fibrillation and she is maintained on anticoagulation. On 04/16/2018 patient seen in follow-up on selective care unit. Quite congested and wheezy, coughing, or breath. Currently on 5 L per nasal cannula pulse ox is 94%, afebrile, hemodynamically stable, initial blood culture was negative, second set of cultures collected on 04/15/2018 shows gram-positive cocci in groups, final cultures pending. Continue antibiotic coverage includes cefepime, Levaquin, patient is on IV steroids, nebulized bronchodilators, last night patient went into A. fib RVR, she was started on Cardizem drip which is currently infusing at a rate of 5 mg per hour, 0.9 normal saline at a rate of 125 ML per hour, labs have been reviewed, BNP showed sodium of 139, potassium is 5.1, chloride is 111, CO2 is 19, BUN is 28 creatinine 0.64. Continue with current medical treatment. On 04/20/2018 patient seen in follow-up in the selective care unit. She is awake and alert, in no acute distress, currently on 3 L per nasal cannula pulse ox is 95%, afebrile, hemodynamically stable. Less congested and wheezy. No dyspnea, no chest pain. Today's chest x-ray shows improvement in aeration. No hemoptysis today. Blood culture showed coagulase-negative staph, likely contamination. His labs have been reviewed, showed of WBC of 10.0, hemoglobin of 15.0, BMP was unremarkable. No fever no chills. On 04/21/2018 patient seen in follow-up on selective care unit, she continues to improve, although overall she is generally weak. Was able to read with physical therapy yesterday, and up in the chair. Denies any worsening dyspnea, she is calm and comfortable at rest, still on 3 L per nasal cannula. Afebrile, pulse ox is 94% on 3 L. Cultures remain negative except for coagulase-negative staph and was a blood cultures which is likely contaminated. Lung sounds are diminished, with a few rales at the bases. Yesterday's chest x-ray was reviewed showed improvement in aeration. Clinically patient is improving, charge planning is in progress for placement to subacute rehab, possibly [facility]. Today's labs have been reviewed, shows sodium of 138, potassium is 3.6, chloride is 96, CO2 is 33, BUN 42 and creatinine 0.80. Acute events overnight, no wheezing or chest congestion. No fever or chills. Objective - Vital Signs Vital signs: Vital Signs Temp 97.7 F 04/21/18 07:50 Pulse 80 04/21/18 12:01 Resp 18 04/21/18 07:50 BP 113/73 04/21/18 07:50 Pulse Ox 94 L 04/21/18 07:50 Intake & Output 04/20/18 04/21/18 04/21/18 18:59 06:59 18:59 Intake Total 710 100 Output Total 350 Balance 710 -250 Weight 70.3 kg Intake: Intake, IV Titration 350 100 Amount Cefepime 2 gm In Sodium 100 100 Chloride 0.9% 50 ml @ 100 mls/hr IVPB Q8HR [facility] Rx# :[id number] Vancomycin 1,250 mg In 250 Sodium Chloride 0.9% 250 ml @ 125 mls/hr IVPB Q16H [facility] Rx#:[id number] Oral 360 Output: Urine 350 Other: Voiding Method Bedside Commode Bedside Commode # Voids 2 1 - Exam GENERAL EXAM: Frail, cachectic. Alert, active, comfortable in mild degree of respiratory distress. HEAD: Normocephalic. EYES: Normal reaction of pupils, equal size. NOSE: Clear with pink turbinates. THROAT: No erythema or exudates. NECK: No masses, no JVD. CHEST: No chest wall deformity. Diminished breath sound bilaterally. With a few scattered rales LUNGS: Equal air entry with crackles in the right posterior base. Diminished. CVS: S1 and S2 normal with no audible murmur, irregular rhythm. ABDOMEN: No hepatosplenomegaly, normal bowel sounds, no guarding or rigidity. SPINE: No scoliosis or deformity SKIN: No rashes CENTRAL NERVOUS SYSTEM: No focal deficits, tone is normal in all 4 extremities. EXTREMITIES: There is no peripheral edema. No clubbing, no cyanosis. Peripheral pulses are intact. - Labs CBC & Chem 7: 04/20/18 07:31 04/21/18 07:26 Labs: Abnormal Lab Results - Last 24 Hours (Table) 04/20/18 04/20/18 04/21/18 Range/Units 16:07 20:08 06:13 Chloride (98-107) mmol/L Carbon Dioxide (22-30) mmol/L BUN (7-17) mg/dL Glucose (74-99) mg/dL POC Glucose (mg/dL) 146 H 127 H 172 H (75-99) mg/dL 04/21/18 04/21/18 Range/Units 07:26 11:46 Chloride 96 L (98-107) mmol/L Carbon Dioxide 33 H (22-30) mmol/L BUN 42 H (7-17) mg/dL Glucose 145 H (74-99) mg/dL POC Glucose (mg/dL) 146 H (75-99) mg/dL Assessment and Plan Plan: 1 acute right lower lobe pneumonia. Hospital-acquired pathogens need to be considered including gram-negative bacteria knowing that the patient has been hospitalized on multiple occasions for the same. Currently on cefepime and Levaquin, she continuously improving, vancomycin was discontinued yesterday, cultures are negative 2 recurrent pneumonia requiring hospitalization 3 COPD with a baseline FEV1 of 50% predicted 4 history of non-small cell lung cancer/adenocarcinoma of the right middle lobe status post wedge resection without any significant postoperative pulmonary complication this was done in 2018. A follow-up CAT scan of the chest was done on 2017 and there is a suspicion for disease progression and development of metastatic disease knowing that patient has several lesions in the right lung as discussed with the CAT scan of the chest. Obviously metastatic lung cancer needs to be considered 5 chronic atrial fibrillation maintained on Xarelto and the rate is controlled for now 6 hypertension 7 hyperlipidemia 8 leukocytosis secondary to above 9 acute hypoxic respiratory failure secondary to above Plan: Patient continues to improve, no worsening dyspnea, no chest congestion, no fever no chills. Blood cultures are with coag is negative staph only, likely contaminated. Clinically stable, does have generalized weakness, was evaluated by physical therapy and was recommended subacute rehab placement after discharge. From pulmonary perspective patient is doing well, she stable for discharge to rehab once those arrangements are complete. We will stop the cefepime today, patient can be discharged on 5 more days of oral Levaquin, and his own taper, and her maintenance inhalers and nebulized treatments. We will need follow-up in the office in one week I performed a history & physical examination of the patient and discussed their management with my nurse practitioner, Veena Grant. I reviewed the nurse practitioner's note and agree with the documented findings and plan of care. Lung sounds are positive a few scattered rales. The findings and the impression was discussed with the patient. I attest to the documentation by the nurse practitioner. Time with Patient: Less than 30
[2018-04-21 16:45] LABS: Glucose,Whole Blood 119 mg/dL (75-99)
[2018-04-21] MEDS: RIVAROXABAN 20 MG TAB PO SCH (17:27)
[2018-04-21] MEDS: SODIUM CHLORIDE 0.9% 1,000 ML IV SCH (19:13)
[2018-04-21 21:18] LABS: Glucose,Whole Blood 142 mg/dL (75-99)
[2018-04-21] MEDS: traZODone HCL 50 MG TAB PO SCH (23:11)
[2018-04-21] MEDS: ACETAMINOPHEN TAB 325 MG TAB PO PRN (23:12)
[2018-04-22] MEDS: IPRATROPIUM-ALBUTEROL 3 ML NEB INHALATION SCH ×5 (03:42→20:54)
[2018-04-22 06:06] LABS: Glucose,Whole Blood 140 mg/dL (75-99)
[2018-04-22] MEDS: INSULIN ASPART 100 UNIT/ML 1 ML 10 ML VIAL SQ SCH ×4 (06:16→21:18)
[2018-04-22] MEDS: PANTOPRAZOLE 40 MG TABLET PO SCH (06:44)
[2018-04-22] MEDS: methylPREDNISolone SOD SUCCI 40 MG/ML 1 ML VIAL IV SCH ×3 (09:15→22:59)
[2018-04-22] MEDS: SERTRALINE 100 MG TAB PO SCH (09:16)
[2018-04-22] MEDS: METOPROLOL TARTRATE 50 MG TAB PO SCH ×3 (09:16→21:06)
[2018-04-22] MEDS: FUROSEMIDE 40 MG TAB PO SCH (09:16)
[2018-04-22] MEDS: LEVOFLOXACIN 750 MG TAB PO SCH (09:16)
[2018-04-22] MEDS: ACETAMINOPHEN TAB 325 MG TAB PO PRN ×2 (09:16→21:07)
[2018-04-22] MEDS: LOSARTAN 25 MG TAB PO SCH (09:17)
[2018-04-22 10:25] VITALS: BMI 24.7
[2018-04-22 11:36] LABS: Glucose,Whole Blood 204 mg/dL (75-99)
--- NOTE | 2018-04-22 13:44 | P.PN ---
Subjective Progress Note Date: 04/22/18 Principal diagnosis: Acute right lower lobe pneumonia, hospital-acquired, possibly gram-negative 87-year-old female patient who is known to me from previous admissions to the hospital. [facility] complaining of increased dyspnea, cough, chest congestion, wheezing, fever, chills and she was found to have leukocytosis and elevated and lactic acid level. Chest x-ray showed right lower lobe pneumonia and the patient was hospitalized for an acute right lower lobe pneumonia treatment. The patient was given IV fluids. The patient was placed on accommodation of Levaquin and vancomycin. She was admitted to the medical floor and the pulmonary consultation was requested. Note that the patient has history of COPD and previous history of non-small cell lung cancer. The patient presented with a right middle lobe mass approximately a year ago and this was at 2.3 x 0.9 cm lesion that had high SUV uptake and for that reason the patient was referred to thoracic surgery and the patient underwent a right middle lobe wedge resection and the postop the finding was consistent with adenocarcinoma. Note that at that time the patient' s hospitalization course was unremarkable. She is known to have COPD with a baseline FEV1 of 50% of predicted. MRI of the brain was negative for any metastases. Since then, the patient was readmitted to the hospital in November 2017 for a left lower lobe pneumonia. She had another hospitalization following that on 03/31/2018 for a right lower lobe pneumonia. This seems to be the third pneumonia [id number]. No altered mentation. No smoking. She has chronic atrial fibrillation and she is maintained on anticoagulation. On 04/16/2018 patient seen in follow-up on selective care unit. Quite congested and wheezy, coughing, or breath. Currently on 5 L per nasal cannula pulse ox is 94%, afebrile, hemodynamically stable, initial blood culture was negative, second set of cultures collected on 04/15/2018 shows gram-positive cocci in groups, final cultures pending. Continue antibiotic coverage includes cefepime, Levaquin, patient is on IV steroids, nebulized bronchodilators, last night patient went into A. fib RVR, she was started on Cardizem drip which is currently infusing at a rate of 5 mg per hour, 0.9 normal saline at a rate of 125 ML per hour, labs have been reviewed, BNP showed sodium of 139, potassium is 5.1, chloride is 111, CO2 is 19, BUN is 28 creatinine 0.64. Continue with current medical treatment. On 04/20/2018 patient seen in follow-up in the selective care unit. She is awake and alert, in no acute distress, currently on 3 L per nasal cannula pulse ox is 95%, afebrile, hemodynamically stable. Less congested and wheezy. No dyspnea, no chest pain. Today's chest x-ray shows improvement in aeration. No hemoptysis today. Blood culture showed coagulase-negative staph, likely contamination. His labs have been reviewed, showed of WBC of 10.0, hemoglobin of 15.0, BMP was unremarkable. No fever no chills. On 04/21/2018 patient seen in follow-up on [facility], she continues to improve, although overall she is generally weak. Was able to read with physical therapy yesterday, and up in the chair. Denies any worsening dyspnea, she is calm and comfortable at rest, still on 3 L per nasal cannula. Afebrile, pulse ox is 94% on 3 L. Cultures remain negative except for coagulase-negative staph and was a blood cultures which is likely contaminated. Lung sounds are diminished, with a few rales at the bases. Yesterday's chest x-ray was reviewed showed improvement in aeration. Clinically patient is improving, charge planning is in progress for placement to subacute rehab, possibly [facility]. Today's labs have been reviewed, shows sodium of 138, potassium is 3.6, chloride is 96, CO2 is 33, BUN 42 and creatinine 0.80. Acute events overnight, no wheezing or chest congestion. No fever or chills. On 04/22/2018 patient seen in follow-up in the Care unit, breathing easier, he was able to get up and ambulate with assistance, on oxygen, tolerated activity fairly well. Lung sounds are diminished, patient still has intermittent cough, not bringing up much sputum. No new chest x-rays today, vital signs remain stable, no fever no chills. Yesterday's chest x-ray showed improvement in aeration appearance of right lung consolidation. Cultures are negative. Yesterday we discontinue the meropenem, patient continues on oral Levaquin. Remains stable, and from pulmonary perspective is stable for transfer to subacute rehab. Discharge planning is working on placement, and they're currently in process of insurance authorization Objective - Vital Signs Vital signs: Vital Signs Temp 98 F 04/22/18 04:00 Pulse 88 04/22/18 12:28 Resp 18 04/22/18 04:00 BP 108/58 04/22/18 04:00 Pulse Ox 97 04/22/18 04:00 Intake & Output 04/21/18 04/22/18 04/22/18 18:59 06:59 18:59 Intake Total 940 480 Output Total 100 Balance 940 380 Weight 69.7 kg 69.7 kg Intake: Intake, IV Titration 100 Amount Cefepime 2 gm In Sodium 100 Chloride 0.9% 50 ml @ 100 mls/hr IVPB Q8HR [facility] Rx# :[id number] Oral 840 480 Output: Urine 100 Other: Voiding Method Bedside Commode # Voids 1 2 - Exam GENERAL EXAM: Frail, cachectic. Alert, active, comfortable in mild degree of respiratory distress. HEAD: Normocephalic. EYES: Normal reaction of pupils, equal size. NOSE: Clear with pink turbinates. THROAT: No erythema or exudates. NECK: No masses, no JVD. CHEST: No chest wall deformity. Diminished breath sound bilaterally. With a few scattered rales LUNGS: Equal air entry with crackles in the right posterior base. Diminished. CVS: S1 and S2 normal with no audible murmur, irregular rhythm. ABDOMEN: No hepatosplenomegaly, normal bowel sounds, no guarding or rigidity. SPINE: No scoliosis or deformity SKIN: No rashes CENTRAL NERVOUS SYSTEM: No focal deficits, tone is normal in all 4 extremities. EXTREMITIES: There is no peripheral edema. No clubbing, no cyanosis. Peripheral pulses are intact. - Labs CBC & Chem 7: 04/20/18 07:31 04/21/18 07:26 Labs: Abnormal Lab Results - Last 24 Hours (Table) 04/21/18 04/21/18 04/22/18 Range/Units 16:43 21:17 06:04 POC Glucose (mg/dL) 119 H 142 H 140 H (75-99) mg/dL 04/22/18 Range/Units 11:28 POC Glucose (mg/dL) 204 H (75-99) mg/dL Assessment and Plan Plan: 1 acute right lower lobe pneumonia. Hospital-acquired pathogens need to be considered including gram-negative bacteria knowing that the patient has been hospitalized on multiple occasions for the same. Currently on cefepime and Levaquin, she continuously improving, vancomycin was discontinued yesterday, cultures are negative 2 recurrent pneumonia requiring hospitalization 3 COPD with a baseline FEV1 of 50% predicted 4 history of non-small cell lung cancer/adenocarcinoma of the right middle lobe status post wedge resection without any significant postoperative pulmonary complication this was done in 2018. A follow-up CAT scan of the chest was done on 2017 and there is a suspicion for disease progression and development of metastatic disease knowing that patient has several lesions in the right lung as discussed with the CAT scan of the chest. Obviously metastatic lung cancer needs to be considered 5 chronic atrial fibrillation maintained on Xarelto and the rate is controlled for now 6 hypertension 7 hyperlipidemia 8 leukocytosis secondary to above 9 acute hypoxic respiratory failure secondary to above Plan: Main stable, no acute events overnight, tolerating ambulation, even no chills, cultures remain negative. Perspective patient is stable for discharge to subacute rehab once a bed is available and insurance authorization has been approved. She will need 5 more days of oral Levaquin, we discontinued and meropenem. Prednisone taper, and nebulized bronchodilators. She will need outpatient follow-up in outpatient clinic and follow-up chest x-ray until resolution of the right lower lobe pneumonia. Chest x-ray from yesterday showed improvement in the appearance of the right lower lobe consolidation. She will need further workup to rule out progression of her lung cancer once pneumonia has resolved I performed a history & physical examination of the patient and discussed their management with my nurse practitioner, Veena Grant. I reviewed the nurse practitioner's note and agree with the documented findings and plan of care. Lung sounds are positive a few scattered rales. The findings and the impression was discussed with the patient. I attest to the documentation by the nurse practitioner. Time with Patient: Less than 30
[2018-04-22 17:05] LABS: Glucose,Whole Blood 117 mg/dL (75-99)
[2018-04-22] MEDS: SODIUM CHLORIDE 0.9% 1,000 ML IV SCH (17:20)
[2018-04-22] MEDS: FUROSEMIDE 20 MG TAB PO SCH (17:21)
[2018-04-22] MEDS: RIVAROXABAN 20 MG TAB PO SCH (17:21)
[2018-04-22] MEDS: traZODone HCL 50 MG TAB PO SCH (21:06)
[2018-04-22 21:15] LABS: Glucose,Whole Blood 193 mg/dL (75-99)
[2018-04-22 22:07] VITALS: RESP 18
[2018-04-23] MEDS: IPRATROPIUM-ALBUTEROL 3 ML NEB INHALATION SCH ×6 (00:35→22:33)
--- NOTE | 2018-04-23 02:46 | P.PN ---
Subjective Progress Note Date: 04/21/18 Principal diagnosis: Right lower lobe pneumonia Ms. Woods is a 86-year-old female with a past medical history of adenocarcinoma of the lung status post right middle lobe resection, atrial fibrillation, COPD, essential hypertension, hyperlipidemia, GERD admitted to the hospital with a chief complaint of difficulty in breathing and is currently being treated for pneumonia. Patient was also having A. fib with rapid ventricular rate. On 04/20/18 - no acute overnight events reported per nursing staff.This afternoon patient has been lying comfortably in the bed appears to be no acute distress. Patient still continues to have some difficulty in breathing even with mild exertion. Patient still does not have a good appetite. She feels weak and tired. Patient states that she lives all alone by herself and has help over the weekends. Since being the hospital patient has been very weak and it would be difficult for her to be at home alone. 04/21/2018 Patient denied any chest pain or worsening shortness of breath. Overall feels weak but clinically improving. No fever no chills. No nausea vomiting or abdominal pain. Blood culture showed coagulase-negative staph aureus, possibly contaminant sample. Chest x-ray showed improved aeration on 04/20/2018 Patient is being continued on PT OT and is planning for subacute rehab. On review of systems- Constitutional-generalized weakness and fatigue Respiratory-difficulty in breathing still continues. Mild cough. Cardiovascular- chest pain or palpitations GI - Diarrhea has resolved No abdominal pain. Still appetite is poor -no dysuria or hematuria. Objective - Vital Signs Vital signs: Vital Signs Temp 97.1 F L 04/21/18 15:45 Pulse 80 04/21/18 21:10 Resp 20 04/21/18 20:00 BP 90/51 04/21/18 20:00 Pulse Ox 91 L 04/21/18 20:00 Intake & Output 04/21/18 04/21/18 04/22/18 06:59 18:59 06:59 Intake Total 100 940 Output Total 350 100 Balance -250 940 -100 Weight 70.3 kg Intake: Intake, IV Titration 100 100 Amount Cefepime 2 gm In Sodium 100 100 Chloride 0.9% 50 ml @ 100 mls/hr IVPB Q8HR [facility] Rx# :[id number] Oral 840 Output: Urine 350 100 Other: Voiding Method Bedside Commode Bedside Commode # Voids 1 1 - Exam GEN. APPEARANCE: alert, in no apparent distress HEAD EXAM: atraumatic, normocephalic, normal inspection EYE EXAM: no pallor. No icterus. ENT EXAM: normal exam, mucous membranes moist NECK EXAM: No JVD. No thyromegaly. RESPIRATORY EXAM: Decreased breath sounds on the right side. Mild expiratory wheezing. CARDIOVASCULAR EXAM: S1-S2 heard. GI/ABDOMINAL EXAM: soft, normal bowel sounds. Absent: distended, tenderness, guarding, rebound, rigid EXTREMITIES EXAM: No edema in bilateral lower extremities NEUROLOGICAL EXAM: alert, oriented X3, no focal neurological deficits PSYCHIATRIC EXAM: normal affect, normal mood SKIN EXAM: Skin is friable - Labs CBC & Chem 7: 04/20/18 07:31 04/21/18 07:26 Labs: Abnormal Lab Results - Last 24 Hours (Table) 04/21/18 04/21/18 04/21/18 Range/Units 06:13 07:26 11:46 Chloride 96 L (98-107) mmol/L Carbon Dioxide 33 H (22-30) mmol/L BUN 42 H (7-17) mg/dL Glucose 145 H (74-99) mg/dL POC Glucose (mg/dL) 172 H 146 H (75-99) mg/dL 04/21/18 04/21/18 Range/Units 16:43 21:17 Chloride (98-107) mmol/L Carbon Dioxide (22-30) mmol/L BUN (7-17) mg/dL Glucose (74-99) mg/dL POC Glucose (mg/dL) 119 H 142 H (75-99) mg/dL Assessment and Plan Assessment: Right lower lobe pneumonia suspect gram-negative organisms Acute hypoxic respiratory failure Persistent atrial fibrillation-rate under better control currently Acute [id number]-[id number] for C. 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 Continue with levofloxacin. Patient had a CAT scan of the chest done, findings are compatible with metastatic disease and emphysema. We'll continue with the rest of her medication regimen. Further recommendations to follow her on the progress of the patient. Cardiology and pulmonary following the patient. Had a detailed discussion with the patient that it would be unsafe for her to go home and live alone. She said she would think about going to a correction. psych social worker on board and aware of the situation. Time with Patient: Greater than 30
--- NOTE | 2018-04-23 02:47 | P.PN ---
Subjective Progress Note Date: 04/22/18 Principal diagnosis: Right lower lobe pneumonia Ms. Woods is a 86-year-old female with a past medical history of adenocarcinoma of the lung status post right middle lobe resection, atrial fibrillation, COPD, essential hypertension, hyperlipidemia, GERD admitted to the hospital with a chief complaint of difficulty in breathing and is currently being treated for pneumonia. Patient was also having A. fib with rapid ventricular rate. On 04/20/18 - no acute overnight events reported per nursing staff.This afternoon patient has been lying comfortably in the bed appears to be no acute distress. Patient still continues to have some difficulty in breathing even with mild exertion. Patient still does not have a good appetite. She feels weak and tired. Patient states that she lives all alone by herself and has help over the weekends. Since being the hospital patient has been very weak and it would be difficult for her to be at home alone. 04/21/2018 Patient denied any chest pain or worsening shortness of breath. Overall feels weak but clinically improving. No fever no chills. No nausea vomiting or abdominal pain. Blood culture showed coagulase-negative staph aureus, possibly contaminant sample. Chest x-ray showed improved aeration on 04/20/2018 Patient is being continued on PT OT and is planning for subacute rehab. 04/22/2018 Patient's breathing status is improving. Occasional cough otherwise. No fever no chills. No chest pain or worsening shortness of breath. PT OT is following. Awaiting to be transferred to rehab. On review of systems- Constitutional-generalized weakness and fatigue Respiratory-difficulty in breathing still continues. Mild cough. Cardiovascular- chest pain or palpitations GI - Diarrhea has resolved No abdominal pain. Still appetite is poor -no dysuria or hematuria. Objective - Vital Signs Vital signs: Vital Signs Temp 97.8 F 04/22/18 20:00 Pulse 86 04/22/18 21:09 Resp 18 04/22/18 20:00 BP 106/71 04/22/18 20:00 Pulse Ox 96 04/22/18 20:00 Intake & Output 04/22/18 04/22/18 04/23/18 06:59 18:59 06:59 Intake Total 480 1196 Output Total 100 Balance 380 1196 Weight 69.7 kg 69.7 kg Intake: Oral 480 1196 Output: Urine 100 Other: Voiding Method Bedside Commode Bedside Commode Bedside Commode # Voids 2 5 1 - Exam GEN. APPEARANCE: alert, in no apparent distress HEAD EXAM: atraumatic, normocephalic, normal inspection EYE EXAM: no pallor. No icterus. ENT EXAM: normal exam, mucous membranes moist NECK EXAM: No JVD. No thyromegaly. RESPIRATORY EXAM: Decreased breath sounds on the right side. Mild expiratory wheezing. CARDIOVASCULAR EXAM: S1-S2 heard. GI/ABDOMINAL EXAM: soft, normal bowel sounds. Absent: distended, tenderness, guarding, rebound, rigid EXTREMITIES EXAM: No edema in bilateral lower extremities NEUROLOGICAL EXAM: alert, oriented X3, no focal neurological deficits PSYCHIATRIC EXAM: normal affect, normal mood SKIN EXAM: Skin is friable - Labs CBC & Chem 7: 04/20/18 07:31 04/21/18 07:26 Labs: Abnormal Lab Results - Last 24 Hours (Table) 04/22/18 04/22/18 04/22/18 Range/Units 06:04 11:28 17:04 POC Glucose (mg/dL) 140 H 204 H 117 H (75-99) mg/dL 04/22/18 Range/Units 21:14 POC Glucose (mg/dL) 193 H (75-99) mg/dL Assessment and Plan Assessment: Right lower lobe pneumonia suspect gram-negative organisms Acute hypoxic respiratory failure Persistent atrial fibrillation-rate under better control currently Acute mvakmzro-[id number] for C. 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 Continue with levofloxacin. Patient had a CAT scan of the chest done, findings are compatible with metastatic disease and emphysema. We'll continue with the rest of her medication regimen. Further recommendations to follow her on the progress of the patient. Cardiology and pulmonary following the patient. Had a detailed discussion with the patient that it would be unsafe for her to go home and live alone. She said she would think about going to a halfway. recreation worker on board and aware of the situation. Time with Patient: Greater than 30
[2018-04-23 05:53] LABS: Glucose,Whole Blood 167 mg/dL (75-99)
[2018-04-23] MEDS: INSULIN ASPART 100 UNIT/ML 1 ML 10 ML VIAL SQ SCH ×3 (06:20→17:41)
[2018-04-23] MEDS: PANTOPRAZOLE 40 MG TABLET PO SCH (06:20)
[2018-04-23] MEDS: METOPROLOL TARTRATE 50 MG TAB PO SCH ×3 (08:20→20:16)
[2018-04-23] MEDS: FUROSEMIDE 20 MG TAB PO SCH ×2 (08:20→15:43)
[2018-04-23] MEDS: methylPREDNISolone SOD SUCCI 40 MG/ML 1 ML VIAL IV SCH (08:20)
[2018-04-23] MEDS: SERTRALINE 100 MG TAB PO SCH (08:20)
[2018-04-23 11:29] LABS: Glucose,Whole Blood 178 mg/dL (75-99)
--- NOTE | 2018-04-23 14:46 | P.PN ---
Subjective Progress Note Date: 04/23/18 Principal diagnosis: Acute right lower lobe pneumonia, hospital-acquired, possibly gram-negative 87-year-old female patient who is known to me from previous admissions to the hospital. [facility] complaining of increased dyspnea, cough, chest congestion, wheezing, fever, chills and she was found to have leukocytosis and elevated and lactic acid level. Chest x-ray showed right lower lobe pneumonia and the patient was hospitalized for an acute right lower lobe pneumonia treatment. The patient was given IV fluids. The patient was placed on accommodation of Levaquin and vancomycin. She was admitted to the medical floor and the pulmonary consultation was requested. Note that the patient has history of COPD and previous history of non-small cell lung cancer. The patient presented with a right middle lobe mass approximately a year ago and this was at 2.3 x 0.9 cm lesion that had high SUV uptake and for that reason the patient was referred to thoracic surgery and the patient underwent a right middle lobe wedge resection and the postop the finding was consistent with adenocarcinoma. Note that at that time the patient' s hospitalization course was unremarkable. She is known to have COPD with a baseline FEV1 of 50% of predicted. MRI of the brain was negative for any metastases. Since then, the patient was readmitted to the hospital in November 2017 for a left lower lobe pneumonia. She had another hospitalization following that on 03/31/2018 for a right lower lobe pneumonia. This seems to be the third pneumonia [id number]. No altered mentation. No smoking. She has chronic atrial fibrillation and she is maintained on anticoagulation. On 04/16/2018 patient seen in follow-up on selective care unit. Quite congested and wheezy, coughing, or breath. Currently on 5 L per nasal cannula pulse ox is 94%, afebrile, hemodynamically stable, initial blood culture was negative, second set of cultures collected on 04/15/2018 shows gram-positive cocci in groups, final cultures pending. Continue antibiotic coverage includes cefepime, Levaquin, patient is on IV steroids, nebulized bronchodilators, last night patient went into A. fib RVR, she was started on Cardizem drip which is currently infusing at a rate of 5 mg per hour, 0.9 normal saline at a rate of 125 ML per hour, labs have been reviewed, BNP showed sodium of 139, potassium is 5.1, chloride is 111, CO2 is 19, BUN is 28 creatinine 0.64. Continue with current medical treatment. On 04/20/2018 patient seen in follow-up in the selective care unit. She is awake and alert, in no acute distress, currently on 3 L per nasal cannula pulse ox is 95%, afebrile, hemodynamically stable. Less congested and wheezy. No dyspnea, no chest pain. Today's chest x-ray shows improvement in aeration. No hemoptysis today. Blood culture showed coagulase-negative staph, likely contamination. His labs have been reviewed, showed of WBC of 10.0, hemoglobin of 15.0, BMP was unremarkable. No fever no chills. On 04/21/2018 patient seen in follow-up on [facility] care unit, she continues to improve, although overall she is generally weak. Was able to read with physical therapy yesterday, and up in the chair. Denies any worsening dyspnea, she is calm and comfortable at rest, still on 3 L per nasal cannula. Afebrile, pulse ox is 94% on 3 L. Cultures remain negative except for coagulase-negative staph and was a blood cultures which is likely contaminated. Lung sounds are diminished, with a few rales at the bases. Yesterday's chest x-ray was reviewed showed improvement in aeration. Clinically patient is improving, charge planning is in progress for placement to subacute rehab, possibly [facility]. Today's labs have been reviewed, shows sodium of 138, potassium is 3.6, chloride is 96, CO2 is 33, BUN 42 and creatinine 0.80. Acute events overnight, no wheezing or chest congestion. No fever or chills. On 04/22/2018 patient seen in follow-up in the Care unit, breathing easier, he was able to get up and ambulate with assistance, on oxygen, tolerated activity fairly well. Lung sounds are diminished, patient still has intermittent cough, not bringing up much sputum. No new chest x-rays today, vital signs remain stable, no fever no chills. Yesterday's chest x-ray showed improvement in aeration appearance of right lung consolidation. Cultures are negative. Yesterday we discontinue the meropenem, patient continues on oral Levaquin. Remains stable, and from pulmonary perspective is stable for transfer to subacute rehab. Discharge planning is working on placement, and they're currently in process of insurance authorization. On 04/23/2018 patient seen in follow-up on selective care unit, remains stable, no complaints, no dyspnea, she is on 3 L per nasal cannula pulse ox is 90%, no fever or chills, vital signs are stable. Lung sounds reveal a few scattered crackles at the bases, no ingestion, no wheezing. She is awaiting placement to subacute rehab, possibly [facility] Objective - Vital Signs Vital signs: Vital Signs Temp 97.4 F L 04/23/18 08:10 Pulse 78 04/23/18 11:42 Resp 18 04/23/18 08:10 BP 100/67 04/23/18 08:10 Pulse Ox 90 L 04/23/18 08:10 Intake & Output 04/22/18 04/23/18 04/23/18 18:59 06:59 18:59 Intake Total 1196 684 Balance 1196 684 Weight 69.7 kg 69.2 kg Intake: Oral 1196 684 Other: Voiding Method Bedside Commode Bedside Commode # Voids 5 2 - Exam GENERAL EXAM: Frail, cachectic. Alert, active, comfortable in mild degree of respiratory distress. HEAD: Normocephalic. EYES: Normal reaction of pupils, equal size. NOSE: Clear with pink turbinates. THROAT: No erythema or exudates. NECK: No masses, no JVD. CHEST: No chest wall deformity. Diminished breath sound bilaterally. With a few scattered rales LUNGS: Equal air entry with crackles in the right posterior base. Diminished. CVS: S1 and S2 normal with no audible murmur, irregular rhythm. ABDOMEN: No hepatosplenomegaly, normal bowel sounds, no guarding or rigidity. SPINE: No scoliosis or deformity SKIN: No rashes CENTRAL NERVOUS SYSTEM: No focal deficits, tone is normal in all 4 extremities. EXTREMITIES: There is no peripheral edema. No clubbing, no cyanosis. Peripheral pulses are intact. - Labs CBC & Chem 7: 04/20/18 07:31 04/21/18 07:26 Labs: Abnormal Lab Results - Last 24 Hours (Table) 04/22/18 04/22/18 04/23/18 Range/Units 17:04 21:14 05:51 POC Glucose (mg/dL) 117 H 193 H 167 H (75-99) mg/dL 04/23/ Range/Units 11:28 POC Glucose (mg/dL) 178 H (75-99) mg/dL Assessment and Plan Plan: 1 acute right lower lobe pneumonia. Hospital-acquired pathogens need to be considered including gram-negative bacteria knowing that the patient has been hospitalized on multiple occasions for the same. Currently on cefepime and Levaquin, she continuously improving, vancomycin was discontinued yesterday, cultures are negative 2 recurrent pneumonia requiring hospitalization 3 COPD with a baseline FEV1 of 50% predicted 4 history of non-small cell lung cancer/adenocarcinoma of the right middle lobe status post wedge resection without any significant postoperative pulmonary complication this was done in 2018. A follow-up CAT scan of the chest was done on 2017 and there is a suspicion for disease progression and development of metastatic disease knowing that patient has several lesions in the right lung as discussed with the CAT scan of the chest. Obviously metastatic lung cancer needs to be considered 5 chronic atrial fibrillation maintained on Xarelto and the rate is controlled for now 6 hypertension 7 hyperlipidemia 8 leukocytosis secondary to above 9 acute hypoxic respiratory failure secondary to above Plan: Stable, he is to improve, no dyspnea, no congestion, or wheezing. Transition the IV steroids to oral prednisone, continue the antibiotics. Patient is awaiting placement to subacute rehab once the insurance authorization is obtained. Increase activity as tolerated, ambulate with assistance. She will need outpatient follow-up Dr. Dr. Baca in the office in regards to further follow-up right upper lung lesions suspicious for neoplasm I performed a history & physical examination of the patient and discussed their management with my nurse practitioner, Veena Grant. I reviewed the nurse practitioner's note and agree with the documented findings and plan of care. Lung sounds are positive a few scattered rales. The findings and the impression was discussed with the patient. I attest to the documentation by the nurse practitioner. Time with Patient: Less than 30
[2018-04-23 16:52] LABS: Glucose,Whole Blood 247 mg/dL (75-99)
[2018-04-23] MEDS: RIVAROXABAN 20 MG TAB PO SCH (17:42)
[2018-04-23] MEDS: SODIUM CHLORIDE 0.9% 1,000 ML IV SCH (19:19)
[2018-04-23] MEDS: traZODone HCL 50 MG TAB PO SCH (20:16)
[2018-04-23] MEDS: ACETAMINOPHEN TAB 325 MG TAB PO PRN (20:16)
[2018-04-23] MEDS ORDERED: IPRATROPIUM-ALBUTEROL 3 ML NEB INHALATION PRN (20:45)
[2018-04-24] MEDS: ACETAMINOPHEN TAB 325 MG TAB PO PRN (03:37)
[2018-04-24] MEDS: PANTOPRAZOLE 40 MG TABLET PO SCH (06:05)
[2018-04-24] MEDS: IPRATROPIUM-ALBUTEROL 3 ML NEB INHALATION SCH ×3 (08:38→15:34)
[2018-04-24] MEDS ORDERED: predniSONE 20 MG TAB PO SCH (09:00)
[2018-04-24] MEDS ORDERED: LEVOFLOXACIN 750 MG TAB PO SCH (09:00)
[2018-04-24] MEDS: FUROSEMIDE 20 MG TAB PO SCH ×2 (09:39→16:17)
[2018-04-24] MEDS: METOPROLOL TARTRATE 50 MG TAB PO SCH ×2 (09:40→16:17)
[2018-04-24] MEDS: SERTRALINE 100 MG TAB PO SCH (09:40)
[2018-04-24 14:17] VITALS: BP 90/71; TEMP 97.4
[2018-04-24 15:46] VITALS: PULSE 64
--- NOTE | 2018-04-25 00:52 | PN ---
PROGRESS NOTE DATE OF SERVICE: April 23, 2018. PRESENTING COMPLAINT: Tired. INTERVAL HISTORY: This patient was seen by me on April 23, 2018. The patient initially was treated for pneumonia, atrial fibrillation that was uncontrolled. Subsequent CT scan was suggestive of metastatic disease. plate put in worker has been looking into rehab placement. Authorization has not come through. Overall feeling better. REVIEW OF SYSTEMS: Done for constitutional, cardiovascular, GI, pulmonary; relevant findings as above. CURRENT MEDICATIONS: Reviewed. PHYSICAL EXAMINATION: VITAL SIGNS: Temperature 97.4. Pulse 55, respiratory 18, blood pressure 117/65, pulse ox 94 percent on 3 L. GENERAL APPEARANCE: Sitting up on a chair, awake. EYES: Pupils equal. Conjunctivae normal. NECK: JVD not raised. Mass not palpable. RESPIRATORY effort normal. LUNGS: Decreased breath sounds. CARDIOVASCULAR: Heart sounds irregular. No edema. ABDOMEN: Soft, nontender. Liver and spleen not palpable. PSYCHIATRY: Alert and oriented x3. Mood and affect normal. INVESTIGATIONS: Accu-Cheks noted. ASSESSMENT: 1. Right lobe pneumonia suspect gram-negative organism with clinical improvement. 2. Persistent atrial fibrillation rapid ventricular rate on presentation. 3. Acute chronic obstructive pulmonary disease exacerbation in an ex-smoker improved. 4. Essential hypertension. 5. Hyperlipidemia. 6. Gastroesophageal reflux disease. 7. History of lung adenocarcinoma with right middle lobe resection. 8. CT scan suggestive of metastatic disease will be followed up as an outpatient. 9. Depression, not otherwise specified. 10.Acute hypoxic respiratory failure from pneumonia. PLAN: Continue current medication and treatment plan looking at the patient going to the [facility] though the patient is rather keen to go home, feeling much better, started to do much better with a walker. MMODL / IJN: [id number] /
--- NOTE | 2018-04-25 08:47 | DS ---
DISCHARGE SUMMARY DATE OF ADMISSION: 04/15/2018 DATE OF DISCHARGE: 04/24/2018 FINAL DIAGNOSES: 1. Right lower lobe pneumonia suspect gram-negative organism. 2. Persistent atrial fibrillation rapid ventricular rate upon presentation. 3. Acute chronic obstructive pulmonary disease exacerbation in an ex-smoker. 4. Essential hypertension. 5. Hyperlipidemia. 6. Gastroesophageal reflux disease. 7. History of lung adenocarcinoma of the right middle lobe resection. 8. CT scan of the chest suggestive of metastatic disease. 9. Depression, not otherwise specified. 10.Acute hypoxic respiratory failure from pneumonia. 11.Possibly acute on chronic congestive heart failure exacerbation from systolic dysfunction EF 30-35%. CONSULTATIONS: Dr. May from Cardiology, Dr. Jaffe from Pulmonary. HOSPITAL COURSE: This patient presented with pneumonia, atrial fibrillation, rapid ventricular rate. The patient did have a 2-D echocardiogram with limited views. Showed the EF of 35-40 percent. The patient did have a CT scan of the chest that is suggestive of metastatic disease. This will be followed up as an outpatient. The patient was seen by Physical therapy, social services counselor, spring encaser. The patient is now rather insistent about going home as she is doing much better with a walker and has got help at home and also wants home care and rather than going to the [facility] and hence we will respect her wishes. Able to get out in the hallway. PHYSICAL EXAMINATION: VITAL SIGNS: Temperature 97.4, pulse 72, respiratory 18, blood pressure 90/71, pulse ox 93 percent on 3 L. GENERAL APPEARANCE: Sitting up comfortable. EYES: Pupils are equal. Conjunctivae normal. NECK: JVD not raised. Mass not palpable. RESPIRATORY: Effort normal. LUNGS: Decreased breath sounds. INVESTIGATIONS: Accu-Cheks are noted. BUN 42, creatinine 0.80. DISCHARGE MEDICATIONS: 1. Prilosec 20 mg in the morning. 2. Nitrostat 0.4 sublingual q.5 p.r.n. 3. Zoloft 100 mg p.o. daily. 4. Symbicort 160/4.5, 2 puffs b.i.d. 5. Lopressor 50 mg b.i.d. 6. Xarelto 20 mg with supper. 7. Trazodone 50 mg at bedtime. 8. Lasix 20 mg p.o. daily. 9. DuoNeb q.i.d. 10.Prednisone taper. 11.Home oxygen 2 L. FOLLOWUP: Follow up with Dr. Baca on 05/15/2018. Follow up with Dr. Mcneill on April 30, 2018. [facility] is involved and so is [facility] will follow. Discussion and discharge planning including discussion with spring encaser and the patient more than [address] Mcneill. MMOMAR / JEFFRYN: [id number] /
== END 2018-04-24 16:34 | disposition home health service (06) | DRG 177 ==
LOC: EC 07:03 → 3SCARD 08:34
PROVIDERS: ADMIT Hospitalist; ATTEND Hospitalist
DX: J15.6 Pneumonia due to other Gram-negative bacteria (principal); J96.01 Acute respiratory failure with hypoxia; I42.9 Cardiomyopathy, unspecified; I48.1 Persistent atrial fibrillation; J44.0 Chronic obstructive pulmonary disease with (acute) lower respiratory infection; J44.1 Chronic obstructive pulmonary disease with (acute) exacerbation; I42.8 Other cardiomyopathies; E78.5 Hyperlipidemia, unspecified; F32.9 Major depressive disorder, single episode, unspecified; G89.29 Other chronic pain; I10 Essential (primary) hypertension; K21.9 Gastro-esophageal reflux disease without esophagitis; K44.9 Diaphragmatic hernia without obstruction or gangrene; G43.909 Migraine, unspecified, not intractable, without status migrainosus; G62.9 Polyneuropathy, unspecified; K57.90 Diverticulosis of intestine, part unspecified, without perforation or abscess without bleeding; M19.90 Unspecified osteoarthritis, unspecified site; R11.2 Nausea with vomiting, unspecified; R19.7 Diarrhea, unspecified; M54.9 Dorsalgia, unspecified; Z79.01 Long term (current) use of anticoagulants; Z79.51 Long term (current) use of inhaled steroids; Z79.82 Long term (current) use of aspirin; Z79.899 Other long term (current) drug therapy; Z85.118 Personal history of other malignant neoplasm of bronchus and lung; Z85.42 Personal history of malignant neoplasm of other parts of uterus; Z85.43 Personal history of malignant neoplasm of ovary; Z86.718 Personal history of other venous thrombosis and embolism; Z87.01 Personal history of pneumonia (recurrent); Z87.891 Personal history of nicotine dependence; Z90.2 Acquired absence of lung [part of]; Z90.49 Acquired absence of other specified parts of digestive tract; Z90.5 Acquired absence of kidney; Z90.710 Acquired absence of both cervix and uterus; Z96.651 Presence of right artificial knee joint; Z96.642 Presence of left artificial hip joint; Z88.5 Allergy status to narcotic agent; Z88.0 Allergy status to penicillin; Z88.2 Allergy status to sulfonamides; Z88.8 Allergy status to other drugs, medicaments and biological substances; Z80.3 Family history of malignant neoplasm of breast; Z82.49 Family history of ischemic heart disease and other diseases of the circulatory system; Z82.61 Family history of arthritis; Z88.1 Allergy status to other antibiotic agents; Y95 Nosocomial condition
CPT/HCPCS: 36415; 71045; 71046; 71260; 74018; 80048; 80053; 80202; 82550; 82553; 83036; 83605; 83735; 83880; 84484; 85025; 85610; 85730; 87040; 87150; 87502; 93005; 93308; 94640; 94760; 96361; 96374; 99291